=== PATIENT | female | born 1950 | race Caucasian/White ===

== ENCOUNTER → 2019-07-17 11:13 | Outpatient (BNVA) | payer MEDICARE, OTHER, SELFPAY | PROVIDERS: Family Provider Family Medicine; PCP Family Medicine; Visit Provider Family Medicine | DX: I10 Essential (primary) hypertension (principal); E78.5 Hyperlipidemia, unspecified; E11.9 Type 2 diabetes mellitus without complications; Z79.4 Long term (current) use of insulin; E55.9 Vitamin D deficiency, unspecified | CPT/HCPCS: 80053; 80061; 82044; 82306; 83036; 85025 ==

== ENCOUNTER → 2019-08-08 12:03 | Outpatient (BNVA) | payer MEDICARE, OTHER, SELFPAY | PROVIDERS: Family Provider Family Medicine; PCP Family Medicine; Visit Provider Specialist | DX: M25.561 Pain in right knee (principal); Z96.652 Presence of left artificial knee joint; M17.11 Unilateral primary osteoarthritis, right knee | CPT/HCPCS: 73560; 73565 ==

== ENCOUNTER → 2019-08-15 12:34 | Outpatient (BNVA) | payer MEDICARE, OTHER, SELFPAY | PROVIDERS: Family Provider Family Medicine; PCP Family Medicine; Visit Provider Family Medicine | DX: E78.2 Mixed hyperlipidemia (principal); M54.42 Lumbago with sciatica, left side; E11.9 Type 2 diabetes mellitus without complications; G89.29 Other chronic pain; Z79.4 Long term (current) use of insulin | CPT/HCPCS: 80053 ==

== ENCOUNTER 2019-09-13 11:56 | Outpatient (CLI) | payer MEDICARE, OTHER, SELFPAY ==
--- NOTE | 2019-09-13 12:00 | MM_ITS ---
WS: [id number] BILATERAL SCREENING DIGITAL MAMMOGRAM WITH CAD HISTORY: screening mammogram COMPARISON: 09/09/2016 Bilateral CC and MLO views submitted. Computer aided detection analyzed. Breast composition: There are scattered areas of fibroglandular density. No suspicious masses, microc alcifications or architectural distortion. Benign calcifications in each breast. MM/[place] [address] IMPRESSION: BI-RADS: 2-Benign FOLLOW UP: 1 Year Follow-up
== END 2019-09-13 11:57 | disposition home or self-care (01) ==
LOC: RADSHAW 12:03
PROVIDERS: PCP Family Medicine; Visit Provider Family Medicine
DX: Z12.31 Encounter for screening mammogram for malignant neoplasm of breast (principal)
CPT/HCPCS: 77067

== ENCOUNTER → 2019-10-06 14:50 | Outpatient (BNVA) | payer MEDICARE, OTHER, SELFPAY | PROVIDERS: PCP Family Medicine; Visit Provider Specialist | DX: M25.569 Pain in unspecified knee (principal) | CPT/HCPCS: 81003; 87081 ==

== ENCOUNTER → 2019-10-16 11:54 | Outpatient (BNVA) | payer MEDICARE, OTHER, SELFPAY | PROVIDERS: PCP Family Medicine; Visit Provider Family Medicine | DX: E11.9 Type 2 diabetes mellitus without complications (principal); Z79.4 Long term (current) use of insulin; R10.32 Left lower quadrant pain; M54.42 Lumbago with sciatica, left side | CPT/HCPCS: 80053; 83036 ==

== ENCOUNTER 2019-10-24 09:50 | Observation (INO) | payer MEDICARE, OTHER, SELFPAY ==
[2019-10-17 09:33] LABS: Add Urine Microscopic? NO
[2019-10-17 09:41] LABS: Bilirubin Urine 1+ (NEGATIVE); Blood Urine Neg (Negative); Glucose Urine UA Norm (Normal); Ketones Urine Negative (Negative); Leukocyte Esterase Urine Negative (Negative); Nitrate Urine Negative (Negative); Protein Urine Neg (Negative); Urine Appearance Clear (CLEAR); Urine Color Yellow (Yellow); Urobilinogen Urine 1 mg/dL (Negative)
[2019-10-17 09:44] VITALS: BMI 40.8
--- NOTE | 2019-10-17 10:07 | ECG_ITS ---
[facility] Test Date: 2019-10-17 Pat Name: Melissa De Jesus Department: Room: Gender: 1 Process Helper: : 1950 Requested By: Amina Ocampo Order Number: [id number] Hannon MD: Amanda Sanabria M.D. Measurements Intervals [place] Rate: 66 P: -12 VT: 131 QRS: 20 QRSD: 96 T: 12 QT: 388 QTc: 406 Interpretive Statements SINUS RHYTHM No previous ECG available for comparison Electronically Signed On 10-18-2019 14:16:42 CDT by Amanda Sanabria M.D. [email or web address]
--- NOTE | 2019-10-17 10:36 | P.ANESASSM_ITS ---
Pre-Anesthetic Assessment Pre-Anesthetic Assessment: Height/Weight: Height 1.63 m Weight 107.955 kg Preop Diagnosis: DJD right knee Proposed Procedure: Operation Date: 10/24/19 07:00 Proposed Procedures p Total Knee Arthroplasty 94427 M17.11(Right) - Funmi Stewart MD Familial anesthetic complications: None Social: Social History: No alcohol and No tobacco Exam: Pre-Anes Outpt Exam: alert, oriented x 3, clear to auscultation bilaterally and regular rate & rhythm Airway: Cervical ROM: Other (limited extesion (mild, due to surgery)) MP: 2 Dentition: Chipped Additional comments: missing Pulmonary: Pulmonary: None reported CV/HEM: CV/HEM: HTN : : None reported Hepatic: Hepatic: None reported GI: GI: GERD Metabolic: Metabolic: DM, Hyperlipidemia and Morbid obesity Musc/skel: Musc/skel: Lower Back Pain and OA/DJD Neuropsych: Neuropsych: None reported Anesthetic Plan: ASA status: 2 Anesthesia: General and Regional (specify below) Risk of > 500 ml blood loss (7ml/kg in children): No PFSH Anesthesia PFSH: Medical History (Updated 10/17/19 @ 09:38 by KROGNI) Controlled type 2 diabetes mellitus, with long-term current use of insulin Depression Diabetic neuropathy Enrolled in chronic care management Essential (primary) hypertension GERD (gastroesophageal reflux disease) Hyperlipidemia Insomnia, controlled Low back pain with left-sided sciatica Vitamin D deficiency Yeast dermatitis Surgical History H/O: hysterectomy History of back surgery History of neck surgery S/p bilateral carpal tunnel release S/P cholecystectomy Status post total knee replacement, left Remote Family History Other CAD (coronary artery disease) Diabetes Social History Smoking and tobacco status: never smoked Alcohol intake: never Lives independently: Yes Household members: spouse Marital status: Current gender identity: Female Female Reproductive History: Para: 3 Spontaneous abortions: No Data Anesthesia Other Labs: Laboratory Results - last 48 hr 10/17/19 09:20 Urine Color Yellow Urine Appearance Clear Urine pH 5.0 Ur Specific Center [place] 1.010 Urine Protein Neg Urine Glucose (UA) Norm Urine Ketones Negative Urine Blood Neg Urine Nitrate Negative Urine Bilirubin 1+ H Urine Urobilinogen 1 H Ur Leukocyte Esterase Negative Cardiac Studies: No Data to Display
[2019-10-17 10:39] LABS: Basophils # 0.1 10^3/uL (0.0-0.1); Basophils % 0.6 %; Eosinophils # 0.2 10^3/uL (0.0-0.8); Eosinophils % 2.4 %; Hematocrit 40.4 % (37.0-47.0); Hemoglobin 13.3 g/dL (11.5-15.3); Lymphocytes % 23.4 %; Mean Corpuscular HGB Conc 32.9 g/dL (30.0-36.0); Mean Corpuscular Hemoglobin 29.8 pg (28.0-34.0); Mean Corpuscular Volume 90.4 fL (81-99); Mean Platelet Volume 9.8 fL (7.4-10.4); Monocytes # 0.5 10^3/uL (0.2-0.9); Monocytes % 5.8 %; Neutrophils # 5.7 10^3/uL (1.8-7.7); Neutrophils % 67.2 %; Nucleated Red Blood Cells % 0 %; Platelet Count 281 10^3/cmm (130-400); Red Blood Count 4.47 10^6/uL (4.1-5.3); Red Cell Distribution Width 12.8 % (12.1-15.1); White Blood Count 8.5 10^3/uL (4.0-10.0)
[2019-10-24] VITALS (17 sets, daily range): BP systolic 102–158; BP diastolic 56–94; PULSE 85–98; RESP 16–20; TEMP 35.9–37.4; O2SAT 93–100
[2019-10-24] MEDS: CELEcoxib 200 mg Capsule 400 MG PO (05:37)
[2019-10-24 06:09] LABS: Glucose Point of Care 176 mg/dL (70-110)
[2019-10-24] MEDS: sodium chloride 0.9% 1,000 ML 30 ML IV ×2 (06:35→19:00)
[2019-10-24] MEDS: fentaNYL 50 mcg/mL INJ 2mL 100 MCG IVP (06:36)
[2019-10-24] MEDS: midazolam 1 mg/mL INJ 2 mL 2 MG IVP (06:36)
--- NOTE | 2019-10-24 06:42 | SUR.PREOP ---
person to notify, : [phone] and neighbor:Yvette [phone]
--- NOTE | 2019-10-24 06:53 | W.PM.OPSUD ---
Surgery/Procedure H&P Update DATE OF PROCEDURE: October 24, 2019 DATE H&P PERFORMED: 10/16/19 H&P UPDATE INFORMATION: I have reviewed H&P completed within last 30 days, I have examined patient prior to procedure and H&P is in [facility] EMR on date indicated PREOP DIAGNOSIS: DJD right knee PLANNED PROCEDURE: Operation Date: 10/24/19 07:00 Proposed Procedures p Total Knee Arthroplasty 68578 M17.11(Right) - Funmi Stewart MD
--- NOTE | 2019-10-24 06:58 | ANES.PROC ---
Anesthesia Procedures Procedure/Date: 10/24/19 Nerve Block ^: Nerve Block 1: Main Anesthesia: general anesthesia Time Out Performed: Yes Consent: requested by attending/covering physician, risks and benefits reviewed and patient agrees to proceed Nerve block location: adductor canal (right) Anesthesia monitors applied: pulse oximetry, EKG, BP cuff and oxygen Nerve block position: supine Anesthetic Used: ropivicaine 0.5% and with decadron (4mg) Amount of anesthesia used (mL): 30 Ultrasound used to: recognize landmarks Nerve Stimulator Used?: No Interscalene/Femoral BLK: 4 stimuplex 21 g needle used for position and inplane approach, visualize local anesthetic spread and no vascular puncture identified Injection: neg aspiration of heme Patient Tolerated Procedure: well and no complications Complications: none
[2019-10-24 07:22] LABS: Alanine Aminotransferase 61 U/L (0-33); Albumin Level 4.4 g/dL (3.5-5.2); Alkaline Phosphatase 63 IU/L (35-105); Anion Gap 18.7 (5-19); Aspartate Amino Transferase 49 U/L (0-32); Blood Urea Nitrogen 20 mg/dL (8-23); Calcium 10.5 mg/dL (8.5-10.5); Carbon Dioxide 25 mmol/L (22-29); Chloride 96 mmol/L (98-107); Globulin 2.4 g/dL (1.3-4.6); Glomerular Filtration Rate 54.8 mL/min (90-130); Glucose 188 mg/dL (65-115); Osmolality Calculated 286 mOsm/kg (285-295); Sodium 137 mmol/L (136-145); Total Bilirubin 0.4 mg/dL (0.15-1.2); Total Protein 6.8 g/dL (6.6-8.7)
[2019-10-24] MEDS: ceFAZolin 1,000 mg SDV 1000 MG IRRIGATION ×2 (07:54→07:55)
[2019-10-24] MEDS: vancomycin 1,000 MG SDV 1000 MG XX (07:54)
[2019-10-24 08:07] LABS: Potassium 2.7 mmol/L (3.5-5.1)
--- NOTE | 2019-10-24 08:28 | SUR.OPER ---
Family Notified Of Patient's Status Via Phone.
--- NOTE | 2019-10-24 09:59 | XRR_ITS ---
PROCEDURE INFORMATION: Exam: XR Right Knee Exam date and time: 10/24/2019 10:14 AM Age: 69 years old Clinical indication: Device placement; Joint replacement hardware; Prior surgery; Surgery date: Post-operative (0-2 days); Additional info: Post op TECHNIQUE: Imaging protocol: XR Right knee. Views: 1 or 2 views. COMPARISON: No relevant prior studies available. FINDINGS: Bones/joints: Right knee arthroplasty with anatomic alignment. Nonspecific vertically oriented radiolucency in the intramedullary cavity of the proximal right tibia. Correlation with preoperative radiographs is recommended. Soft tissues: Postoperative subcutaneous emphysema and intra-articular air. Skin jamil. 3 mm subcutaneous calcification. XR/XR knee RT 1-2V 08598 IMPRESSION: 1. Right knee arthroplasty with anatomic alignment. 2. Nonspecific vertically oriented radiolucency in the intramedullary cavity of the proximal right tibia. Correlation with preoperative radiographs is recommended.
[2019-10-24 10:08] LABS: Glucose Point of Care 193 mg/dL (70-110)
--- NOTE | 2019-10-24 10:13 | SUR.PHASEI ---
PT AWAKE ALERT ON 3LNC NOW, SATS 96% RESP EVEN AND UNLABORED PT SLEEPS IF NOT DISTURBED , AWAKES EASILY TO VOICE, PT MOVES RT TOE TO COMMAND, RT FOOT PULSE STRNG AND REGULAR, MARKED BILAT FOOT PUMPS ON , UBLLOCK TO DD STAT LOCK TO LT THIGH, YELLOW CLEAR URINE TO TUBING AND BAG IN SMALL AMT. DRESSING TO RT KNEE D/I FIRST ICE TO KNEE. X RAYS DONE TRACER CHECK DONE INDUSTRIAL TRAINER W. SMART OK WITH READING OF 193, NO FURTHER ORDERS IT IS COMING DOWN, IV NS AT MOD RATE, K 20 MEQ INFUSING PER PUMP AT 50ML/HR OR 10MEQ/HR
--- NOTE | 2019-10-24 10:13 | PM.OP ---
Operative Report Date of procedure: October 24, 2019 Pre-op Diagnosis: DJD right knee Post-op diagnosis: same Post-op Findings: Varus deformity with flexion contracture Procedure Done: Right Total knee arthroplasty utilizing the following components of the Torres triathlon total knee system: A size 5 triathlon Tritanium posterior stabilized right femoral component, a size 5 triathlon titanium tibial component with a size 5 x 9 mm X3 posterior stabilized tibial bearing insert, and an asymmetric patella size 38 mm x 11 mm Specimens removed/disposition: Bone, disposed of Pathology: none sent Surgeon: Funmi Stewart Grass Farm Laborer: Quincy Stewart Anesthesia: General (Intubated with preoperative block, ASA 2) Estimated blood loss (mL): 10 Tourniquet time (min): 117 Tourniquet time: At 250 mmHg IV fluids (mL): 1,000 Urine output (mL): 300 Complications: None Findings: Varus deformity with very large osteophytes particularly posteriorly, peripatellar, as well as superiorly, medially and laterally along the femur. Condition: stable Disposition: PACU (Then to floor for postoperative pain management and rehab) Brief History: This 69-year-old woman presented with complaints of severe right knee pain. She is having significant impact in her activities of daily living from her right knee. She wishes to proceed with total knee arthroplasty. Risks and complications are explained to her. Consents are signed. Questions are answered. Procedure: The patient was brought to the operating theater, and after undergoing adequate general intubated anesthesia with supplemental regional block, the right lower extremity was prepped with Dura-Prep and draped in usual fashion following placement of a tourniquet high on the leg. The leg was then draped free. Following prepping and draping, the leg was exsanguinated, and the tourniquet was elevated to 250 mmHg for a total tourniquet time of 117 minutes. Prior to elevation of the tourniquet, but following exposure of the site of surgery, a surgical pause was performed. At the time of the surgical pause, we confirmed the site and side of surgery. Additionally, we confirmed the appropriate and timely administration of preoperative antibiotics, Ancef 2 g and transexemic acid 1 g. The availability of equipment was confirmed, and the patient's identity was verbalized as well. Following the surgical pause, an incision was made centering over the patella continuing proximally and distally as necessary to allow access to the knee joint. Dissection continued through skin and soft tissues using a scalpel. Hemostasis was obtained using electrocautery. The skin incision was followed by a median parapatellar arthrotomy. The leg was extended and the patella was everted. Following this, the leg was returned to flexed position. The distal femur was exposed and a drill hole was made in this for placement of the distal femoral jig. The distal femoral jig was set at 5? of valgus. The distal femoral cutting block was then placed in appropriate position, and an harini wing was used to confirm an appropriate amount of distal femur would be resected. The distal femoral resection was accomplished with 10 mm of bone being resected distally second to the flexion contracture. After the distal femoral resection had been accomplished, the femur was measured and it measured a size 5. Medial lateral dimension also measured a size 5. A size 5 femoral cutting block was placed in position, and we were then able to accomplish the anterior, posterior and chamfer cuts. This jig was then removed and the notch guide was placed in position. With the notch guide in appropriate position, the notch was excised including resection of the anterior and posterior cruciate ligaments. This notch was to allow for the posterior stabilized femoral component. At this point, the femur was prepared and attention was directed to the proximal tibia. The posterior knee retractor was placed along with medial and lateral retractors. Further resection of the menisci was accomplished as we had better visualization. A complete meniscectomy was performed both medially and laterally with care being taken to protect the popliteus. Retractors were then placed so that the proximal tibia was well visualized. A drill hole was then made in the tibia for placement of the intramedullary guide. This guide was placed so that approximately 2 mm of bone would be resected from the deficient medial tibial plateau. The intramedullary guide was utilized supplemented with an extramedullary guide to assure appropriate alignment for the proximal tibial resection. The proximal tibial jig was then evaluated, pinned in position, and the proximal tibial resection was accomplished without difficulty. The jig was removed and the proximal tibia was measured. It measured a size 5. A trial reduction was accomplished with a 9 mm insert. Posterior release was required both before and after trial reduction. Large osteophytes were also removed from posterior. We then had good balance to the knee with full extension and excellent varus valgus stability. The femoral component was placed in position for the trial reduction, and the knee was placed through range of motion. There was excellent stability with excellent varus-valgus alignment with appropriate patellar tracking. This was felt to be the appropriate size insert. There was full extension and flexion without lift off and the rotation of the tibia was marked. Alignment was checked from the hip to the ankle, and this was noted to be appropriate as well. Attention was then directed to the patella. The patella was measured with a caliper. We resected sufficient patella to leave approximately 14 mm of patella remaining. Measurements of the patella then indicated that a size asymmetric 38 mm x 11 mm was the appropriate patellar size. We then placed the jig to drill for the 3 pegs of the press-fit patella, and these drill holes were made without incident. A trial patella was then placed and the knee was placed through range of motion. The patella was noted to track nicely without evidence of subluxation. The femur was prepared for a press-fit femur by drilling 2 holes for the femoral pegs. All trial components were subsequently removed. The tibial tray was then pinned into position, and we broached the tibia for the stem of the tibial component. Subsequently, 4 drill holes were made for placement of the press-fit tibia. This was accomplished without difficulty. Care was taken to assure appropriate rotation of the tibia as well as appropriate position on the proximal tibia. The tibial tray was completely seated on the proximal tibia. Following broaching, the tibial guide was removed, and all surfaces were copiously irrigated. The surfaces were then dried and a bone plug was placed into the distal femur. Exparel was also injected at this point. The Tritanium tibia was impacted into position. The beaded femur was then impacted into position in a cementless fashion. The tibial insert was placed. The patella was pressed into position with a patellar clamp. The knee was irrigated with 20 mL of Betadine and 500 mL of normal saline, and this was allowed to remain in the knee for 3-4 minutes. The knee was then copiously irrigated and suctioned dry. Attention was then directed to closure. Closure was accomplished with 0 Vicryl in the fascial tissues, 2-0 Monocryl was used in the subcutaneous tissues, and the skin was closed with skin jamil followed by Exofin. A sterile dressing was then placed consisting of Telfa, 4 x 4's, ABDs, sterile soft roll, and an Vinicio wrap. The patient was returned the Recovery Room in a satisfactory condition. X-rays were obtained there. The patient will be discharged to the floor for postoperative rehabilitation and pain management. She'll be under observation status with plans to discharge home with home health. Associated Problem List Diagnoses (1) Primary osteoarthritis of right knee:
--- NOTE | 2019-10-24 10:43 | SUR.PHASEI ---
1030 PT TO ROOM AWAKE ALERT HANDOFF AT BEDSIDE WITH RADHA RN, DRESSING D/I, STRONG PULSE TO DISTAL RT FOOT, BULLOCK PATENT YELLOW URINE, BP 122/79, HR 85, RESP 18, SATS ON 3LNC 95%
[2019-10-24] MEDS: CELEcoxib 200 mg Capsule PO (11:17)
[2019-10-24] MEDS: metroNIDAZOLE 500 MG Tablet PO ×2 (11:17→18:30)
[2019-10-24] MEDS: chlorhexidine gluconate 0.12% Btl 473 mL 30 ML MUCOUS MEM ×3 (13:34→21:32)
[2019-10-24 16:27] LABS: Anion Gap 16.3 (5-19); Blood Urea Nitrogen 20 mg/dL (8-23); Calcium 9.3 mg/dL (8.5-10.5); Carbon Dioxide 25 mmol/L (22-29); Chloride 95 mmol/L (98-107); Glomerular Filtration Rate 54.8 mL/min (90-130); Glucose 292 mg/dL (65-115); Osmolality Calculated 283 mOsm/kg (285-295); Potassium 3.3 mmol/L (3.5-5.1); Sodium 133 mmol/L (136-145)
[2019-10-24] MEDS: iron polysaccharide complex 150 mg Capsule PO (17:32)
[2019-10-24] MEDS: sennosides-docusate Tablet 2 TAB PO (17:32)
[2019-10-24] MEDS: calcium carbonate 500 mg Chew Tablet 1000 MG PO (17:33)
[2019-10-24] MEDS: metformin 500 mg Tablet 750 MG PO (21:30)
[2019-10-24] MEDS: trazodone 50 mg Tablet PO (21:31)
[2019-10-25] VITALS (7 sets, daily range): BP systolic 120–139; BP diastolic 72–80; PULSE 81–86; RESP 16–20; TEMP 36.5–37; O2SAT 93–95
[2019-10-25] MEDS: CELEcoxib 200 mg Capsule PO ×2 (00:32→10:52)
[2019-10-25] MEDS: metroNIDAZOLE 500 MG Tablet PO ×2 (03:28→10:52)
[2019-10-25 05:29] LABS: Basophils % 0.2 %; Eosinophils % 0.2 %; Hematocrit 32.9 % (37.0-47.0); Hemoglobin 10.9 g/dL (11.5-15.3); Lymphocytes # 1.7 10^3/uL (0.8-4.8); Lymphocytes % 13.2 %; Mean Corpuscular HGB Conc 33.1 g/dL (30.0-36.0); Mean Corpuscular Hemoglobin 29.9 pg (28.0-34.0); Mean Corpuscular Volume 90.1 fL (81-99); Mean Platelet Volume 9.6 fL (7.4-10.4); Monocytes # 1.1 10^3/uL (0.2-0.9); Monocytes % 8.7 %; Neutrophils # 9.7 10^3/uL (1.8-7.7); Neutrophils % 77.2 %; Nucleated Red Blood Cells % 0 %; Platelet Count 247 10^3/cmm (130-400); Red Blood Count 3.65 10^6/uL (4.1-5.3); Red Cell Distribution Width 13.1 % (12.1-15.1); White Blood Count 12.6 10^3/uL (4.0-10.0)
[2019-10-25] MEDS: venlafaxine ER (24HR) 150 mg Capsule PO (05:48)
[2019-10-25 05:53] LABS: Anion Gap 13.9 (5-19); Blood Urea Nitrogen 15 mg/dL (8-23); Calcium 9.1 mg/dL (8.5-10.5); Carbon Dioxide 27 mmol/L (22-29); Chloride 97 mmol/L (98-107); Glomerular Filtration Rate 61.9 mL/min (90-130); Glucose 179 mg/dL (65-115); Osmolality Calculated 281 mOsm/kg (285-295); Sodium 135 mmol/L (136-145)
[2019-10-25 05:55] LABS: Potassium 2.9 mmol/L (3.5-5.1)
[2019-10-25] MEDS: potassium chloride ER 10 mEq Tablet 40 MEQ PO (06:52)
--- NOTE | 2019-10-25 08:18 | ANE.PACU2 ---
Inpatient post-anesthesia follow up: Airway intact: Yes Vital signs: Temperature 97.7 F Pulse Rate 83 Respiratory Rate 18 Blood Pressure 120/78 Pulse Oximetry 95 Oxygen Delivery Me thod Nasal Cannula Oxygen Flow Rate 1.5 Fraction of Inspir ed Oxygen Hydration adequate: Yes Nausea and vomiting: No Pain level: 5 Mental status: Baseline
[2019-10-25 08:34] LABS: Magnesium 1.7 mg/dL (1.7-2.3)
[2019-10-25] MEDS: iron polysaccharide complex 150 mg Capsule PO ×2 (08:59→17:04)
[2019-10-25] MEDS: atorvastatin 40 mg Tablet 20 MG PO (09:00)
[2019-10-25] MEDS: multivitamin therapeutic Tablet 1 TAB PO (09:00)
[2019-10-25] MEDS: amlodipine 10 mg Tablet PO (09:00)
[2019-10-25] MEDS: pantoprazole DR 40 mg Tablet PO (09:01)
[2019-10-25] MEDS: sitagliptin 100 mg Tablet PO (09:01)
[2019-10-25] MEDS: sennosides-docusate Tablet 2 TAB PO (09:01)
[2019-10-25] MEDS: chlorthalidone 25 mg Tablet PO (09:02)
[2019-10-25] MEDS: calcium carbonate 500 mg Chew Tablet 1000 MG PO ×2 (09:02→17:04)
[2019-10-25] MEDS: aspirin 325 mg EC Tablet PO (09:02)
[2019-10-25] MEDS: chlorhexidine gluconate 0.12% Btl 473 mL 30 ML MUCOUS MEM ×3 (09:10→17:03)
--- NOTE | 2019-10-25 10:06 | PC.CHAP ---
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 drill operator pneumatic visit [] Patient/Family/Request visit [] Outpatient visit [] Follow-up visit [] Physician referral [] Code/Alert [x] Routine visit [] Staff referral [] Actively dying [] Patient sleeping [] Family support [] [] Out of room [] Palliative care [] [] Receiving care in room [] Pre-surgical visit [] Trauma [] Long length of stay [] ICU visit [] Other: Relational/Emotional Strength [] Patient feels connected with others/family/visitors/staff [] Distress [] Loneliness/isolation [] Abandonment Spirituality of Patient [] Person of Anitha [] Attends Mandaeism of their Anitha [] Believes in Prayer [] Reads Bible or Congregational materials [] There are Spiritual issues to be addressed Hadoop Analyst Interventions [x] Prayer [x] Active listening [x] Non-anxious presence [x] Spiritual/emotional support [] Crisis/trauma care [] Spiritual counseling [] Bereavement support [] Provided bereavement packet [] Provided Bible/devotional materials [] Provided toy/stuffed animal, coloring book to patient or family member [] Provided Communion [] Anointing/[place] [] Salvation [x] Completed spiritual assessment [] Other: Impact on Illness or Injury [] Angry [] Fearful [] Anxious [] Often cries [] Exhaustion [] Unable to work [] Unable to attend adventist [] Unable to walk/stand [] Unable to read [] Unable to drive [] Unable to eat/drink [] Unable to sleep [] Unable to be with family [] Patient intubated [] Other: Summary Patient looking forward to returning home. Feeling stronger, and knows the exercise that is involved after this surgery Time spent with patient 15 min
--- NOTE | 2019-10-25 10:19 | PM.DCS ---
Discharge Providers Date of Admission: 10/24/19 09:50 Date of Discharge: October 25, 2019 Attending Provider at Admission: Funmi Stewart MD Attending Provider at Discharge: Funmi Stewart MD Primary Care Provider: Devi Shaw DO Diagnoses at Discharge Discharge Diagnosis (1) S/P total knee arthroplasty: Status: Acute Qualifiers: Laterality: right Qualified Code(s): Z96.651 - Presence of right artificial knee joint (2) Primary osteoarthritis of right knee: Status: Resolved (3) Morbid obesity with BMI of 40.0-44.9, adult: Status: Acute Reason for Visit Reason for Visit: primary osteoarthrits right knee Hospital Course Hospital Course: Patient was for same-day surgery. She underwent the following procedure: Right Total knee arthroplasty utilizing the following components of the [place] triathlon total knee system: A size 5 triathlon Tritanium posterior stabilized right femoral component, a size 5 triathlon titanium tibial component with a size 5 x 9 mm X3 posterior stabilized tibial bearing insert, and an asymmetric patella size 38 mm x 11 mm on the day of admission. Patient was brought into the hospital under observation status. At the time of the patient's admission, she was found to have a low potassium. She had recently been started on chlorthalidone, and this is felt to possibly be responsible for her low potassium. The hospitalist team was consulted and they will adjust blood pressure medications appropriately and will be in contact with Dr. Shaw her primary care provider. In the meantime, her low potassium was treated intraoperatively and postoperatively on the floor as well. On the first postoperative day, the patient was doing well. Her wound was benign. She had no significant pain complaints. She will work with physical therapy. Plans are made for discharge to home. Discharge Summary: Patient was admitted as observation overnight and for physical therapy as noted above. She was admitted following her same-day total knee arthroplasty. Her hospital course was impacted by a low potassium. Dr. Owens from the medical service was consulted, and she will make adjustments to her outpatient medications. The patient worked with physical therapy and was felt to be safe for discharge home. She will follow-up with me in the office as previously scheduled. Physical Exam Const: COMMON NORMALS: no acute distress, average body habitus, patient oriented x3 and alert GENERAL APPEARANCE: cooperative and comfortable ORIENTATION/CONSCIOUSNESS: Yes awake HENMT: COMMON NORMALS: normocephalic and atraumatic HEAD & SCALP: normocephalic and atraumatic Eye: GENERAL EYE: appearance normal, both eyes and all related structures Chest: COMMONS NORMALS: normal inspection of the chest Resp: COMMON NORMALS: normal respiratory effort EFFORT & INSPECTION: Yes able to speak in complete sentences and Yes symmetric chest movement Extremity: GENERAL: Yes normal exam except as noted RIGHT LOWER EXTREMITY: Yes knee joint Right knee: Yes inspection (Upon evaluation, the patient was in the restroom. Dressing was removed by the nurse subsequent to this, and she notes the wound is benign with no drainage.) and Yes neurovascular exam (Intact distal to the fracture.) Neuro: COMMON NORMALS: patient oriented x3 SENSORIUM/ORIENTATION: Yes alert Psych: COMMON NORMALS: mental status grossly normal APPEARANCE: Yes grossly normal ATTITUDE: Yes calm and Yes engaged ATTENTION/CONCENTRATION: Yes attention grossly intact Skin: COMMON NORMALS: no rashes or lesions noted GENERAL SKIN EXAM: no rashes or lesions noted Urinary Catheter Management^: F: Cath Placed During This Visit: yes, but has since been removed by the nurse Reason for Continuing Indwelling Catheter: Decision to DC Catheter Urinary Catheter Date of Insertion: 10/24/19 Urinary Catheter Time of Insertion: 07:25 Date Urinary Catheter Removed: 10/25/19 Time Urinary Catheter Discontinued: 06:00 Discharge Data Data Completed and Pending: Completed Studies During Hospitalization Category Date Time Status XR knee RT 1-2V 7 [id number] Routine Exams 10/24/19 09:59 Completed Labs from last 24 hours 10/25/19 10/25/19 10/25/19 05:20 05:20 05:10 WBC 12.6 H RBC 3.65 L Hgb 10.9 L Hct 32.9 L MCV 90.1 MCH 29.9 MCHC 33.1 RDW 13.1 Plt Count 247 MPV 9.6 Neut % (Auto) 77.2 Lymph % (Auto) 13.2 [place] % (Auto) 8.7 Eos % (Auto) 0.2 Baso % (Auto) 0.2 Neut # (Auto) 9.7 H Lymph # (Auto) 1.7 [place] # (Auto) 1.1 H Eos # (Auto) 0.0 Baso # (Auto) 0.0 Nucleated RBC % (a uto) 0 Nucleated RBCs # 0.0 Sodium 135 L Potassium 2.9 L Chloride 97 L Carbon Dioxide 27 Anion Gap 13.9 BUN 15 Creatinine 0.9 GFR Calculation 61.9 L Glucose 179 H Calculated Osmolal ity 281 L Calcium 9.1 Magnesium 1.7 10/24/19 15:47 WBC RBC Hgb Hct MCV MCH MCHC RDW Plt Count MPV Neut % (Auto) Lymph % (Auto) [place] % (Auto) Eos % (Auto) Baso % (Auto) Neut # (Auto) Lymph # (Auto) [place] # (Auto) Eos # (Auto) Baso # (Auto) Nucleated RBC % (a uto) Nucleated RBCs # Sodium 133 L Potassium 3.3 L Chloride 95 L Carbon Dioxide 25 Anion Gap 16.3 BUN 20 Creatinine 1.0 H GFR Calculation 54.8 L Glucose 292 H Calculated Osmolal ity 283 L Calcium 9.3 Magnesium Vitals: Last Vital Signs Temp 97.7 F 10/25/19 07:44 Pulse 83 10/25/19 07:44 Resp 18 10/25/19 07:44 BP 120/78 10/25/19 07:44 Pulse Ox 95 10/25/19 07:44 Discharge Plan Discharge Patient Disposition: Home Health Service Condition: Stable Prescriptions: New oxycodone 5 mg Tablet 5 mg PO Q4H PRN (Reason: Moderate Pain) Qty: 30 RF: 0 aspirin 325 mg Tablet,Delayed Release (Dr/Ec) 325 mg PO DAILY Qty: 0 RF: 0 acetaminophen 500 mg Tablet 1,000 mg PO Q8H Qty: 0 RF: 0 celecoxib 200 mg Capsule 200 mg PO DAILY Qty: 30 RF: 0 Continued baclofen 5 mg tablet 5 mg PO TID PRN (Reason: muscle spasm) Qty: 90 RF: 1 ciprofloxacin HCl 500 mg tablet 500 mg PO BID Qty: 20 RF: 0 metronidazole [Flagyl] 500 mg tablet 500 mg PO Q8H Qty: 30 RF: 0 aspirin 81 mg tablet,delayed release (DR/EC) 243 mg PO ONCE RF: 0 Prevnar 13 (PF) 0.5 mL syringe 0.5 ml IM ONCE Qty: 1 RF: 0 Levemir FlexTouch U-100 Insuln 100 unit/mL (3 mL) insulin pen 14 unit SUBCUT QDAY RF: 0 (DME) pen needle, diabetic [TechLITE Pen Needle] 32 gauge x 5/32 needle See Rx Instructions .ROUTE .MEDSUPPLY Qty: 100 RF: 0 alprazolam [Xanax] 0.25 mg tablet 0.25 mg PO BID PRN (Reason: anxiety) Qty: 20 RF: 0 Dexilant 30 mg capsule,biphase delayed releas 30 mg PO .once daily Qty: 90 RF: 0 Ozempic 1 mg/dose (2 mg/1.5 mL) pen injector 1 mg SUBCUT .once weekly Qty: 3 RF: 0 venlafaxine 150 mg capsule,extended release 24hr 150 mg PO QAM Qty: 90 RF: 0 metformin 500 mg tablet extended release 24 hr 500 mg PO .once daily Qty: 90 RF: 0 trazodone 50 mg tablet 50 mg PO .QHS Qty: 30 RF: 1 amlodipine [Norvasc] 10 mg tablet 10 mg PO DAILY Qty: 30 RF: 1 Januvia 100 mg tablet 100 mg PO DAILY Qty: 30 RF: 1 atorvastatin 20 mg tablet 20 mg PO DAILY Qty: 30 RF: 1 metformin 750 mg tablet extended release 24 hr 750 mg PO BEDTIME RF: 0 Discontinued chlorthalidone 25 mg tablet 25 mg PO DAILY Qty: 30 RF: 1 Discharge Orders: Discharge Order (Routine); Ordered 10/24/19 Ordered By: Funmi Stewart Referrals: [facility] [place] [facility] ([facility]) [Outside] Funmi Stewart MD [Physician] - 11/10/19 9:15 am (Your first visit is for a nurse visit. If you have any issues prior to this visit please call the office for an appointment. Also, plan to follow-up with me on November 12 at 10:15 AM) Devi Shaw DO [Primary Care Provider] - 11/01/19 2:45 pm Discharge Diet: Advance as tolerated, Usual diet and Diabetic Discharge Activity: Increase activity as tolerated, Use walker/crutches as instructed and As per PT/OT instructions Activity Restrictions/Additional Instructions: Range of motion, gait training, and strengthening with home physical therapy as tolerated. Discharge Attestations Time Spent in Discharge Care*: greater than 30 min Quality Metrics Clinical Quality Measures During this hospital stay, did patient experience: None Coding Level of Care Code Acute Sliver Former for g Fwd Exam Comprehensive Diagnoses S/P total knee arthroplasty Z96.651 Laterality: right Primary osteoarthritis of right knee M17.11 Morbid obesity with BMI of 40.0-44.9, adult E66.01; Z68.41
[2019-10-25] MEDS: acetaminophen 500 mg Tablet 1000 MG PO (10:53)
[2019-10-25] MEDS: oxyCODONE 5 mg IR Tab/Cap PO ×2 (10:54→17:04)
--- NOTE | 2019-10-25 11:35 | P.CONIM_ITS ---
Providers/Reason For Consult Consulting Physican/Specialty*: Lorena Owens, hospitalist Reason for Consult*: Medical management, hypokalemia Requesting Physcian: Dr. Stewart, orthopedic surgery Attending Physician: Funmi Steawrt MD Primary Care Provider: Devi Shaw DO History of Present Illness History of Present Illness Melissa De Jesus is a 69 year old female with a past medical history of hypertension, gastroparesis, diabetes that presented to the hospital for scheduled total knee arthroplasty. She reports feeling well prior to surgery, no recent fevers or chills, no recent illness. She stated that she has not had any chest pain or shortness of breath. Patient reports that she was recently started on chlorthalidone to help with her blood pressure. Patient denies any other recent medication changes. Patient did well in the postoperative setting but was noted to have severe hypokalemia. Called for consultation Review of Systems Const: Denies: fever(s) or chills Eyes: Denies: change in vision ENMT: Denies: nasal congestion Card: Denies: chest pain, palpitations or edema Resp: Denies: dyspnea, productive cough or hemoptysis GI: Denies: abdominal pain, nausea, vomiting, diarrhea, constipation, hematochezia or melena : Denies: dysuria or hematuria Musc: Reports: extremity pain (Postoperative pain in the right knee); Denies: muscle cramps Skin/Breast: Denies: rash or new lesions Neuro: Denies: headache(s) or dizziness Psych: Denies: anxiety or depression Endo: Denies: polyuria or hot flashes Charly/Lymph: Denies: easy bruising or easy bleeding Meds/Allergies Home Medications and Allergies Home Medications Medication Instructions Recorded Confirmed Last Taken Type aspirin 81 mg tablet,delayed 243 mg PO ONCE tab 06/22/19 10/18/19 10/17/19 History release insulin detemir U-100 100 unit/mL 14 unit SUBCUT QDAY ml 07/17/19 10/24/19 10/23/19 21:30 History (3 mL) subcutaneous pen pen needle, diabetic 32 gauge x #100 each 08/24/19 10/18/19 Unknown Rx alprazolam 0.25 mg tablet 0.25 mg PO BID PRN #20 tab 08/31/19 10/24/19 10/10/19 Rx dexlansoprazole 30 mg 30 mg PO .once daily #90 cap 09/06/19 10/24/19 10/23/19 Rx capsule,biphase delayed release semaglutide 1 mg/dose (2 mg/1.5 1 mg SUBCUT .once weekly #3 ml 09/11/19 10/24/19 10/20/19 Rx mL) subcutaneous pen injector venlafaxine 150 mg 150 mg PO QAM #90 cap 09/13/19 10/24/19 10/23/19 Rx capsule,extended release 24 hr metformin 500 mg tablet,extended 500 mg PO .once daily #90 tab 10/02/19 10/24/19 10/23/19 Rx release 24 hr baclofen 5 mg tablet 5 mg PO TID PRN #90 tab 10/16/19 10/24/19 Unknown Rx ciprofloxacin HCl 500 mg tablet 500 mg PO BID #20 tab 10/16/19 10/24/19 10/16/19 Rx metronidazole 500 mg tablet 500 mg PO Q8H #30 tab 10/16/19 10/24/19 Unknown Rx amlodipine 10 mg tablet 10 mg PO DAILY #30 tab 10/18/19 10/24/19 10/24/19 04:30 Rx atorvastatin 20 mg tablet 20 mg PO DAILY #30 tab 10/18/19 10/24/19 10/23/19 Rx chlorthalidone 25 mg tablet 25 mg PO DAILY #30 tab 10/18/19 10/24/19 10/23/19 Rx sitagliptin 100 mg tablet 100 mg PO DAILY #30 tab 10/18/19 10/24/19 10/23/19 Rx trazodone 50 mg tablet 50 mg PO .QHS #30 tab 10/18/19 10/24/19 10/23/19 Rx metformin 750 mg PO BEDTIME 10/24/19 10/24/19 10/23/19 History oxycodone 5 mg PO Q4H PRN #30 tab 10/25/19 Unknown Rx Allergies Allergy/AdvReac Type Severity Reaction Status Date / Time Iodinated Contrast Media Allergy Unknown Verified 10/17/19 09:36 meperidine [From Demerol] Allergy HIVES Verified 10/17/19 09:36 shellfish derived Allergy ANAPHYLAXIS Verified 10/17/19 09:36 Current Medications Current Medications Generic Name Dose Route Start Last Admin Trade Name Kentrellq PRN Reason Stop Dose Admin Acetaminophen 1,000 mg 10/24/19 10:35 10/25/19 10:53 Tylenol PO 1,000 mg Q8H BRII Administration Amlodipine Besylate 10 mg 10/25/19 09:00 10/25/19 09:00 Norvasc PO 10 mg DAILY BRII Administration Aspirin 325 mg 10/25/19 09:00 10/25/19 09:02 Aspirin Ec PO 325 mg DAILY BRII Administration Atorvastatin Calcium 20 mg 10/25/19 09:00 10/25/19 09:00 Lipitor PO 20 mg DAILY BRII Administration Calcium Carbonate 1,000 mg 10/24/19 18:00 10/25/19 09:02 Tums PO 1,000 mg BID BRII Administration Celecoxib 200 mg 10/24/19 11:30 10/25/19 10:52 Celebrex PO 200 mg Q12H BRII Administration Chlorhexidine Gluconate 30 ml 10/24/19 13:00 10/25/19 09:10 Perigard MUCOUS MEM 30 ml QID [facility] Administration Insulin Detemir 14 unit 10/25/19 09:00 10/25/19 09:03 Levemir SUBCUT 14 unit DAILY [facility] Administration Metformin HCl 500 mg 10/25/19 08:00 10/25/19 08:59 Glucophage Xr PO Not Given BREAKFAST [facility] Metformin HCl 750 mg 10/24/19 21:00 10/24/19 21:30 Glucophage PO 750 mg BEDTIME BRII Administration Metronidazole 500 mg 10/24/19 11:00 10/25/19 10:52 Flagyl Tab PO 500 mg Q8H [facility] Administration Multivitamins Therapeutic 1 tab 10/25/19 09:00 10/25/19 09:00 Multivitamin Tab PO 1 tab DAILY [facility] Administration Oxycodone HCl 5 mg 10/24/19 10:35 10/25/19 10:54 Oxycodone Ir PO 5 mg Q4H PRN Administration MODERATE PAIN Pantoprazole Sodium 40 mg 10/25/19 09:00 10/25/19 09:01 Protonix PO 40 mg DAILY [facility] Administration Polysaccharide Iron Complex 150 mg 10/24/19 18:00 10/25/19 08:59 Ferrex PO 150 mg BIDWM [facility] Administration Senna/Docusate Sodium 2 tab 10/24/19 18:00 10/25/19 09:01 Senna-S PO 2 tab BID BRII Administration Sitagliptin Phosphate 100 mg 10/25/19 09:00 10/25/19 09:01 Januvia PO 100 mg DAILY [facility]II Administration Trazodone HCl 50 mg 10/24/19 21:00 10/24/19 21:31 Desyrel PO 50 mg BEDTIME BRII Administration Venlafaxine HCl 150 mg 10/25/19 06:00 10/25/19 05:48 Effexor Xr PO 150 mg QAM [facility]II Administration Vitamin D 1,000 unit 10/25/19 09:00 10/25/19 09:03 Vitamin D3 PO Not Given DAILY BRII PFSH Acute PFSH: Medical History Controlled type 2 diabetes mellitus, with long-term current use of insulin Depression Diabetic neuropathy Enrolled in chronic care management Essential (primary) hypertension GERD (gastroesophageal reflux disease) Hyperlipidemia Insomnia, controlled Low back pain with left-sided sciatica Vitamin D deficiency Yeast dermatitis Surgical History H/O: hysterectomy History of back surgery History of neck surgery S/p bilateral carpal tunnel release S/P cholecystectomy Status post total knee replacement, left Remote Family History Other CAD (coronary artery disease) Diabetes Social History Smoking and tobacco status: never smoked Alcohol intake: never Lives independently: Yes Household members: spouse Marital status: Current gender identity: Female Female Reproductive History: Para: 3 Spontaneous abortions: No Vitals/I&O/Wt Last Vital Signs Temp 98.6 F 10/25/19 11:00 Pulse 81 10/25/19 11:00 Resp 18 10/25/19 11:00 BP 136/72 10/25/19 11:00 Pulse Ox 94 10/25/19 11:00 10/24/19 10/25/19 10/25/19 22:59 06:59 14:59 Intake Total 390 / 2130 440 / 440 Output Total 900 / 1520 2500 / 4020 Balance -510 / 610 -2500 / -1890 440 / 440 Physical Exam Const: COMMON NORMALS: patient oriented x3 and alert GENERAL APPEARANCE: cooperative ORIENTATION/CONSCIOUSNESS: Yes awake, Yes oriented to person, Yes oriented to place and Yes oriented to time HENMT: COMMON NORMALS: normocephalic and atraumatic HEAD & SCALP: normocephalic and atraumatic Eye: COMMON NORMALS: Equal, round and reactive pupils present PUPIL: Yes Equal, round and reactive pupils present Neck/C-Spine: COMMON NORMALS: supple GENERAL: Yes normal visual inspection Resp: COMMON NORMALS: normal respiratory effort and clear to auscultation bilaterally EFFORT & INSPECTION: Yes able to speak in complete sentences AUSCULTATION: clear to auscultation bilaterally, no rhonchi and no wheezes Cardio: COMMON NORMALS: regular rate, regular rhythm and No murmurs present (Cardio) RATE: regular rate RHYTHM: regular rhythm GI: INSPECTION: No abdominal distension AUSCULTATION: Yes normoactive bowel sounds OTHER: Obese, soft, nontender, normal bowel sounds Extremity: COMMON NORMALS: no calf tenderness NARRATIVE EXTREMITY EXAM: Postoperative dressing in place over the right knee, no surrounding erythema or drainage Neuro: COMMON NORMALS: patient oriented x3, CN's II-XII intact bilaterally, moves all extremities and no focal motor deficits SENSORIUM/ORIENTATION: Yes alert, Yes oriented to person, Yes oriented to place and Yes oriented to time SPEECH: speech normal Psych: COMMON NORMALS: mental status grossly normal and cooperative Skin: COMMON NORMALS: no rashes or lesions noted GENERAL SKIN EXAM: no ra shes or lesions noted Urinary Catheter Management^: F: Cath Placed During This Visit: yes, but has since been removed by the nurse Reason for Continuing Indwelling Catheter: Decision to DC Catheter Urinary Catheter Date of Insertion: 10/24/19 Urinary Catheter Time of Insertion: 07:25 Date Urinary Catheter Removed: 10/25/19 Time Urinary Catheter Discontinued: 06:00 A&P Assessment and plan (1) S/P total knee arthroplasty: Follow-up with recommendations from primary surgeon, Dr. Stewart Case management consulted with possible discharge to home health Status: Acute Qualifiers: Laterality: right Qualified Code(s): Z96.651 - Presence of right artificial knee joint (2) Hypokalemia: Patient with hypokalemia, likely secondary to chlorthalidone along with decreased intake over the past days and prior to surgery We will continue with potassium replacement, 40 mEq given this morning, with recheck pending Magnesium within normal limits Recommend holding chlorthalidone at this time, blood pressure remained stable We will discuss with primary care provider. Status: Acute (3) Essential (primary) hypertension: Hold chlorthalidone due to hypokalemia as noted above Continue amlodipine 10 mg daily Status: Acute (4) Hyperlipidemia: Continue home statin Status: Chronic Qualifiers: Hyperlipidemia type: mixed hyperlipidemia Qualified Code(s): E78.2 - Mixed hyperlipidemia (5) Controlled type 2 diabetes mellitus, with long-term current use of insulin: Continue with Levemir 14 units daily along with metformin Status: Chronic Qualifiers: Diabetes mellitus complication status: without complication Qualified Code(s): E11.9 - Type 2 diabetes mellitus without complications; 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 If patient's blood pressure remained stable and potassium improves consider discharge to home with home health today pending orthopedic surgery evaluation. If patient is stable for discharge would recommend outpatient BMP in 1 to 2 days with 20 mEq of potassium for 2 days until recheck potassium can be performed. Coding Level of Care Code Acute Director Of Valuation for Chg Fwd Diagnoses S/P total knee arthroplasty Z96.651 Laterality: right Hypokalemia E87.6 Essential (primary) hypertension I10 Hyperlipidemia E78.2 Hyperlipidemia type: mixed hyperlipidemia Controlled type 2 diabetes mellitus, with long-term current use of insulin E11.9; Z79.4 Diabetes mellitus complication status: without complication GERD (gastroesophageal reflux disease) K21.9 Esophagitis presence: without esophagitis
[2019-10-25 11:36] LABS: Glucose Point of Care 209 mg/dL (70-110)
[2019-10-25 15:44] LABS: Potassium 3.4 mmol/L (3.5-5.1)
== END 2019-10-25 17:07 | disposition home health service (06) ==
LOC: MEDSURG 09:51
PROVIDERS: Family Medicine; Admitting Provider Specialist; PCP Family Medicine; Visit Provider Specialist
PROC: (CPT 27447; principal; 2019-10-24 07:00)
DX: M17.11 Unilateral primary osteoarthritis, right knee (principal); I10 Essential (primary) hypertension; Z79.82 Long term (current) use of aspirin; Z79.4 Long term (current) use of insulin; E11.40 Type 2 diabetes mellitus with diabetic neuropathy, unspecified; F32.9 Major depressive disorder, single episode, unspecified; K21.9 Gastro-esophageal reflux disease without esophagitis; E78.2 Mixed hyperlipidemia; E55.9 Vitamin D deficiency, unspecified; E87.6 Hypokalemia; E66.01 Morbid (severe) obesity due to excess calories; Z68.41 Body mass index [BMI] 40.0-44.9, adult
CPT/HCPCS: 27447; 12345; 36415; 36416; 51702; 73560; 80048; 80053; 81003; 82962; 83735; 84132; 85025; 93005; 96372; 96374; 96375; 97110; 97116; 97161; 97166; 97530; C1776; C9290; G0378; J0131; J0690; J1100; J1815; J2250; J2405; J2704; J2795; J3010; J3370; J3490; J7030

== ENCOUNTER → 2019-11-01 15:27 | Outpatient (BNVA) | payer MEDICARE, SELFPAY | PROVIDERS: PCP Family Medicine; Visit Provider Family Medicine | DX: E87.6 Hypokalemia (principal) | CPT/HCPCS: 80048 ==

== ENCOUNTER 2019-11-13 10:14 | Outpatient (CLI) | payer MEDICARE, OTHER, SELFPAY ==
--- NOTE | 2019-11-13 10:22 | XR_ITS ---
WS: [id number] Right knee, standing AP views of both knees, lateral and patellar view of the right knee, 11/13/2019 Clinical Data: post operative follow up Comparison: Right knee, 10/24/2019. Findings: Patient's had bilateral arthroplasties which appear to be intact. The lateral view of the right knee and patellar view of the right patella show the components to be in good position. The soft tissues a re unremarkable. XR/XR knees AP WB w RT lmt ORTH Impression: Bilateral knee arthroplasties.
== END 2019-11-13 10:15 | disposition home or self-care (01) ==
LOC: RAD 10:19
PROVIDERS: PCP Family Medicine; Visit Provider Specialist
DX: Z96.643 Presence of artificial hip joint, bilateral (principal)
CPT/HCPCS: 73560; 73565

== ENCOUNTER → 2019-12-25 09:58 | Outpatient (BNVA) | payer MEDICARE, OTHER, SELFPAY | PROVIDERS: PCP Family Medicine; Visit Provider Specialist | DX: Z47.1 Aftercare following joint replacement surgery (principal); Z96.651 Presence of right artificial knee joint | CPT/HCPCS: 73560; 73565 ==

== ENCOUNTER → 2019-12-28 11:08 | Outpatient (BNVA) | payer MEDICARE, OTHER, SELFPAY | PROVIDERS: PCP Family Medicine; Visit Provider Nurse Practitioner | DX: R35.0 Frequency of micturition (principal); N39.0 Urinary tract infection, site not specified | CPT/HCPCS: 81000; 87086 ==

== ENCOUNTER → 2020-01-12 13:41 | Outpatient (BNVA) | payer MEDICARE, OTHER, SELFPAY | PROVIDERS: PCP Family Medicine; Visit Provider Family Medicine | DX: I10 Essential (primary) hypertension (principal); M54.5 Low back pain; G89.29 Other chronic pain | CPT/HCPCS: 80048 ==

== ENCOUNTER → 2020-02-02 10:37 | Outpatient (BNVA) | payer MEDICARE, OTHER, SELFPAY | PROVIDERS: PCP Family Medicine; Visit Provider Family Medicine | DX: I10 Essential (primary) hypertension (principal); M54.5 Low back pain; G89.29 Other chronic pain; Z79.4 Long term (current) use of insulin; E11.9 Type 2 diabetes mellitus without complications | CPT/HCPCS: 80053; 83036 ==

== ENCOUNTER → 2020-02-22 08:46 | Outpatient (BNVA) | payer MEDICARE, OTHER, SELFPAY | PROVIDERS: PCP Family Medicine; Visit Provider Specialist | DX: Z96.651 Presence of right artificial knee joint (principal) | CPT/HCPCS: 73560; 73565 ==

== ENCOUNTER → 2020-06-14 08:44 | Outpatient (BNVA) | payer MEDICARE, OTHER, SELFPAY | PROVIDERS: PCP Family Medicine; Visit Provider Family Medicine | DX: I10 Essential (primary) hypertension (principal); E78.2 Mixed hyperlipidemia; E11.9 Type 2 diabetes mellitus without complications; Z79.4 Long term (current) use of insulin; K21.9 Gastro-esophageal reflux disease without esophagitis | CPT/HCPCS: 80053; 80061; 82043; 83036; 85025 ==

== ENCOUNTER → 2020-09-02 10:36 | Outpatient (BNVA) | payer MEDICARE, OTHER, SELFPAY | PROVIDERS: PCP Family Medicine; Visit Provider Family Medicine | DX: E11.9 Type 2 diabetes mellitus without complications (principal); Z79.4 Long term (current) use of insulin; I10 Essential (primary) hypertension; E78.2 Mixed hyperlipidemia | CPT/HCPCS: 80053; 83036 ==

== ENCOUNTER 2020-11-11 20:58 | Emergency (ER) | payer MEDICARE, OTHER, SELFPAY ==
[2020-11-11 21:00] VITALS: PULSE 62; RESP 16; TEMP 37.3; O2SAT 95; BMI 41.6
--- NOTE | 2020-11-11 21:10 | CTR_ITS ---
PROCEDURE INFORMATION: Exam: CT Cervical Spine Without Contrast Exam date and time: 11/11/2020 9:10 PM Age: 70 years old Clinical indication: Injury or trauma; Fall; Blunt trauma; Injury details: Fell backwards in chair. Hit head. Pain in head and neck; Prior surgery TECHNIQUE: Imaging protocol: Computed tomography images of the cervical spine without contrast. Radiation optimization: All CT scans at this facility use at least one of these dose optimization techniques: automated exposure control; mA and/or kV adjustment per patient size (includes targeted exams where dose is matched to clinical indication); or iterative reconstruction. COMPARISON: CR XR knees AP WB w RT lmt ORTH 02/22/2020 8:52 AM RADIATION DOSE METRICS: Total DLP (mGy-cm): 736.87 FINDINGS: Vertebrae: No acute fractures. Unremarkable cervical spine alignment. ACDF in the midcervical spine at C4-C5 without complication.The cervical spine demonstrates marked degenerative changes at multiple levels. Demineralized bones. Soft tissues: Unremarkable. Vasculature: Bilateral carotid artery bulb atherosclerotic calcifications. Lungs: Lung apices are normal. CT/CT cervical spin wo con* [id number] IMPRESSION: Negative for acute cervical spine injury. Radiation Dose CTDIVOL = (mGy): DLP = 736.87 (mGy-cm)
--- NOTE | 2020-11-11 21:10 | CTR_ITS ---
PROCEDURE INFORMATION: Exam: CT Head Without Contrast Exam date and time: 11/11/2020 9:10 PM Age: 70 years old Clinical indication: Injury or trauma; Fall; Blunt trauma (contusions or hematomas); Injury details: Fell backwards in chair. Hit head. Pain in head and neck TECHNIQUE: Imaging protocol: Computed tomography of the head without contrast. Radiation optimization: All CT scans at this facility use at least one of these dose optimization techniques: automated exposure control; mA and/or kV adjustment per patient size (includes targeted exams where dose is matched to clinical indication); or iterative reconstruction. COMPARISON: CT head wo con* [id number] 07/20/2018 9:06 AM RADIATION DOSE METRICS: Total DLP (mGy-cm): 1079.66 FINDINGS: Brain: Normal. No hemorrhage. Unremarkable white matter. No mass effect. Cerebral ventricles: No ventriculomegaly. Paranasal sinuses: Visualized sinuses are unremarkable. No fluid levels. Mastoid air cells: Visualized mastoid air cells are well aerated. Bones/joints: Unremarkable. No acute fracture. Soft tissues: Unremarkable. CT/CT head wo con* [id number] IMPRESSION: No acute intracranial abnormality. Radiation Dose CTDIVOL = (mGy): DLP = 1079.66 (mGy-cm)
[2020-11-11 21:13] VITALS: BP 179/97; PULSE 68; RESP 16; TEMP 37.3; O2SAT 95
--- NOTE | 2020-11-11 21:15 | ED_ITS ---
HPI - Neck Pain/Injury General: Chief Complaint: Neck Pain/Injury Stated Complaint: fall hit back of neck Time Seen by Provider: 11/11/20 20:59 Source: patient and EMS Mode of arrival: EMS Limitations: no limitations History of Present Illness: HPI Narrative: 70-year-old female who states she is sitting in her chair and fell out backwards. She states that she hit her head and has had mild headache and severe neck pain since this. States this happened roughly 1 hour ago. She has had neck surgery previously she had a C1- C2 fusion 10 to 15 years ago. States the pain is in the middle of her lower C- spine and rates it a 9 out of 10. She denies any weakness to her arms or tingling down her arms. Denies any other injuries. She was able to ambulate at the scene. Associated symptoms: Reports headache(s); Denies nausea Review of Systems Const: Denies: fever(s), chills, body aches or change in appetite Eyes: Denies: blurry vision or eye discomfort ENMT: Denies: throat pain or dental pain Card: Denies: chest pain Resp: Denies: dyspnea GI: Denies: abdominal pain, nausea, vomiting or diarrhea : Denies: dysuria Musc: Reports: neck pain; Denies: back pain Skin/Breast: Denies: rash Neuro: Reports: headache(s) Psych: Denies: depression Charly/Lymph: Denies: easy bruising All/Imm: Denies: urticaria PFSH ED PFSH: Medical History Controlled type 2 diabetes mellitus, with long-term current use of insulin Depression Diabetic neuropathy Diverticulitis Essential (primary) hypertension GERD (gastroesophageal reflux disease) Hyperlipidemia Insomnia, controlled Vitamin D deficiency Yeast dermatitis Surgical History H/O: hysterectomy History of back surgery History of colonoscopy History of neck surgery S/p bilateral carpal tunnel release S/P cholecystectomy Status post total knee replacement, left Remote Family History Other CAD (coronary artery disease) Diabetes Social History Smoking and tobacco status: never smoked Alcohol intake: never Lives independently: Yes Household members: spouse Marital status: Current gender identity: Female Female Reproductive History: Para: 3 Spontaneous abortions: No Physical Exam Const: COMMON NORMALS: no acute distress, patient oriented x3 and healthy appearing HENMT: COMMON NORMALS: normocephalic and atraumatic HEAD & SCALP: normocephalic and atraumatic Eye: COMMON NORMALS: Equal, round and reactive pupils present and EOMs intact bilaterally PUPIL: Yes Equal, round and reactive pupils present Neck/C-Spine: OTHER: Currently in c-collar complaining of neck pain Chest: COMMONS NORMALS: normal inspection of the chest and normal palpation of entire chest wall Resp: COMMON NORMALS: normal respiratory effort, No retractions, No use of accessory muscles and clear to auscultation bilaterally AUSCULTATION: clear to auscultation bilaterally Cardio: COMMON NORMALS: regular rate, regular rhythm and No murmurs present (Cardio) RATE: regular rate RHYTHM: regular rhythm GI: COMMON NORMALS: Normal to inspection, nondistended, normoactive bowel sounds present, Soft to palpation, non-tender and no masses PALPATION: Yes Soft to palpation Extremity: COMMON NORMALS: normal to inspection and full ROM Neuro: COMMON NORMALS: patient oriented x3, moves all extremities and no focal motor deficits Psych: COMMON NORMALS: mental status grossly normal, Normal thought process present and cooperative THOUGHT PROCESS: Normal thought process present Skin: COMMON NORMALS: no rashes or lesions noted and no wounds GENERAL SKIN EXAM: no rashes or lesions noted Course Vital Signs: Vital signs: Vital Signs Temperature 99.1 F 11/11/20 21:13 Pulse Rate 58 L 11/11/20 22:15 Respiratory Rate 15 11/11/20 22:20 Blood Pressure 165/93 11/11/20 22:15 Pulse Oximetry 96 11/11/20 22:20 MDM - Neck Pain/Injury MDM Narrative: Medical decision making narrative: Melissa presents here after a fall with neck pain. Her neck CT here is negative with no signs of fracture. Head CT is normal as well. Her pain is improved here for IV pain medicine. She has no neurologic deficits with no numbness or weakness to her upper extremities. Patient is amatory. She is stable for discharge and return if worsening. Imaging Data^: CT Head: Attestation: I personally reviewed and interpreted this imaging study as follows: Radiologist's impression: [facility] [address] [place] [address]. [place] [address] CT Scan Report Signed Patient: Melissa De Jesus Unit #: [id number] : 1950 Age/Sex: 70 / F ADM Date: 11/11/20 Loc: ER Room/Bed: Attending Dr: Ordering Provider/Ordering MD: Karely Shultz MD Date of Service: 11/11/20 Procedure(s): CT head wo con* [id number] Accession Number(s): [id number] Report Number: [id number] PROCEDURE INFORMATION: Exam: CT Head Without Contrast Exam date and time: 11/11/2020 9:10 PM Age: 70 years old Clinical indication: Injury or trauma; Fall; Blunt trauma (contusions or hematomas); Injury details: Fell backwards in chair. Hit head. Pain in head and neck TECHNIQUE: Imaging protocol: Computed tomography of the head without contrast. Radiation optimization: All CT scans at this facility use at least one of these dose optimization techniques: automated exposure control; mA and/or kV adjustment per patient size (includes targeted exams where dose is matched to clinical indication); or iterative reconstruction. COMPARISON: CT head wo con* [id number] 07/20/2018 9:06 AM RADIATION DOSE METRICS: Total DLP (mGy-cm): 1079.66 FINDINGS: Brain: Normal. No hemorrhage. Unremarkable white matter. No mass effect. Cerebral ventricles: No ventriculomegaly. Paranasal sinuses: Visualized sinuses are unremarkable. No fluid levels. Mastoid air cells: Visualized mastoid air cells are well aerated. Bones/joints: Unremarkable. No acute fracture. Soft tissues: Unremarkable. CT/CT head wo con* [id number] IMPRESSION: No acute intracranial abnormality. Radiation Dose CTDIVOL = (mGy): DLP = 1079.66 (mGy-cm) ct c spine: Radiologist's impression: [facility] [address] [facility] [place] [address] CT Scan Report Signed Patient: Melissa De Jesus Unit #: [id number] : 1950 A cct#:[id number] Age/Sex: 70 / F ADM Date: 11/11/20 Loc: ER Room/Bed: Attending Dr: Ordering Provider/Ordering MD: Karely Shultz MD Date of Service: 11/11/20 Procedure(s): CT cervical spin wo con* [id number] Accession Number(s): [id number] Report Number: [id number] PROCEDURE INFORMATION: Exam: CT Cervical Spine Without Contrast Exam date and time: 11/11/2020 9:10 PM Age: 70 years old Clinical indication: Injury or trauma; Fall; Blunt trauma; Injury details: Fell backwards in chair. Hit head. Pain in head and neck; Prior surgery TECHNIQUE: Imaging protocol: Computed tomography images of the cervical spine without contrast. Radiation optimization: All CT scans at this facility use at least one of these dose optimization techniques: automated exposure control; mA and/or kV adjustment per patient size (includes targeted exams where dose is matched to clinical indication); or iterative reconstruction. COMPARISON: CR XR knees AP WB w RT lmt ORTH 02/22/2020 8:52 AM RADIATION DOSE METRICS: Total DLP (mGy-cm): 736.87 FINDINGS: Vertebrae: No acute fractures. Unremarkable cervical spine alignment. ACDF in the midcervical spine at C4-C5 without complication.The cervical spine demonstrates marked degenerative changes at multiple levels. Demineralized bones. Soft tissues: Unremarkable. Vasculature: Bilateral carotid artery bulb atherosclerotic calcifications. Lungs: Lung apices are normal. CT/CT cervical spin wo con* [id number] IMPRESSION: Negative for acute cervical spine injury. Radiation Dose CTDIVOL = (mGy): DLP = 736.87 (mGy-cm) Discharge Plan Discharge Patient Disposition: Home Clinical Impression: Strain of neck muscle Qualifiers: Encounter type: initial encounter Qualified Code(s): S16.1XXA - Strain of muscle, fascia and tendon at neck level, initial encounter Fall Qualifiers: Encounter type: initial encounter Qualified Code(s): W19.XXXA - Unspecified fall, initial encounter Condition: Stable Prescriptions: New hydrocodone-acetaminophen 5-325 mg tablet 1 tab PO Q6H PRN (Reason: pain) Qty: 14 RF: 0 No Action loratadine [Claritin] 10 mg tablet 10 mg PO DAILY RF: 0 Prevnar 13 (PF) 0.5 mL syringe 0.5 ml IM ONCE Qty: 1 RF: 0 atorvastatin 20 mg tablet 20 mg PO DAILY Qty: 90 RF: 1 (DME) pen needle, diabetic [TechLITE Pen Needle] 32 gauge x 5/32 needle See Rx Instructions .ROUTE .MEDSUPPLY Qty: 100 RF: 4 Levemir FlexTouch U-100 Insuln 100 unit/mL (3 mL) insulin pen 14 unit SUBCUT QDAY Qty: 3 RF: 0 venlafaxine 150 mg capsule,extended release 24hr 150 mg PO QAM Qty: 90 RF: 1 metoprolol succinate 50 mg tablet extended release 24 hr 50 mg PO DAILY Qty: 90 RF: 1 amlodipine [Norvasc] 10 mg tablet 10 mg PO DAILY Qty: 90 RF: 1 (DME) Accu-Chek Leeann Plus test strp Strip See Rx Instructions .ROUTE .MEDSUPPLY Qty: 100 RF: 5 Dexilant 30 mg capsule,biphase delayed releas 30 mg PO .once daily Qty: 90 RF: 1 trazodone 50 mg tablet 50 mg PO .QHS Qty: 30 RF: 4 Januvia 100 mg tablet 100 mg PO DAILY Qty: 30 RF: 0 aspirin 325 mg Tablet,Delayed Release (Dr/Ec) 325 mg PO DAILY Qty: 0 RF: 0 acetaminophen 500 mg Tablet 1,000 mg PO Q8H Qty: 0 RF: 0 Discharge Orders: Discharge ED (Routine); Ordered 11/11/20 Ordered By: Karley Shultz Referrals: Devi Shaw DO [Primary Care Provider] - 1-3 days Discharge Diet: Advance as tolerated Discharge Activity: Resume usual activity Patient Instructions: Cervical Spine Strain (ED), Opioid Safety Coding Level of Care Code ED Land Surveyor Assistant for Chg Fwd Exam Comprehensive
[2020-11-11 21:19] VITALS: RESP 16; O2SAT 95
[2020-11-11] MEDS: morphine 4 mg/mL SDV 1 mL IVP ×2 (21:19→22:20)
[2020-11-11 21:38] VITALS: BP 154/102; PULSE 60; RESP 15; O2SAT 94
[2020-11-11 22:15] VITALS: BP 165/93; PULSE 58; RESP 16; O2SAT 93
[2020-11-11 22:20] VITALS: RESP 15; O2SAT 96
== END 2020-11-11 22:45 | disposition home or self-care (01) ==
PROVIDERS: Emergency Provider Emergency Medicine; PCP Family Medicine
DX: S16.1XXA Strain of muscle, fascia and tendon at neck level, initial encounter (principal); W07.XXXA Fall from chair, initial encounter
CPT/HCPCS: 70450; 72125; 96374; 96375; 99283; J2270

== ENCOUNTER → 2020-11-29 10:19 | Outpatient (BNVA) | payer MEDICARE, OTHER, SELFPAY | PROVIDERS: PCP Family Medicine; Visit Provider Family Medicine | DX: E11.9 Type 2 diabetes mellitus without complications (principal); Z79.4 Long term (current) use of insulin; B37.0 Candidal stomatitis | CPT/HCPCS: 80053; 83036 ==

== ENCOUNTER → 2020-12-27 10:17 | Outpatient (BNVA) | payer MEDICARE, OTHER, SELFPAY | PROVIDERS: PCP Family Medicine; Visit Provider Family Medicine | DX: E11.9 Type 2 diabetes mellitus without complications (principal); Z79.4 Long term (current) use of insulin; K21.9 Gastro-esophageal reflux disease without esophagitis | CPT/HCPCS: 80048 ==

== ENCOUNTER → 2021-02-21 10:01 | Outpatient (BNVA) | payer MEDICARE, SELFPAY | PROVIDERS: PCP Family Medicine; Visit Provider Family Medicine | DX: E11.9 Type 2 diabetes mellitus without complications (principal); Z79.4 Long term (current) use of insulin; E78.2 Mixed hyperlipidemia; G89.29 Other chronic pain; M54.2 Cervicalgia; I10 Essential (primary) hypertension | CPT/HCPCS: 80053; 80061; 83036 ==

== ENCOUNTER → 2021-05-16 11:40 | Outpatient (BNVA) | payer MEDICARE, SELFPAY | PROVIDERS: PCP Family Medicine; Visit Provider Family Medicine | DX: E11.9 Type 2 diabetes mellitus without complications (principal); Z79.4 Long term (current) use of insulin; I10 Essential (primary) hypertension; E78.2 Mixed hyperlipidemia; M54.2 Cervicalgia; G89.29 Other chronic pain | CPT/HCPCS: 80053; 83036 ==

== ENCOUNTER → 2021-05-27 14:53 | Outpatient (BNVA) | payer MEDICARE, SELFPAY | PROVIDERS: PCP Family Medicine; Visit Provider Family Medicine | DX: Z20.822 Contact with and (suspected) exposure to COVID-19 (principal) | CPT/HCPCS: 87635 ==

== ENCOUNTER → 2021-08-13 11:43 | Outpatient (BNVA) | payer MEDICARE, SELFPAY | PROVIDERS: PCP Family Medicine; Visit Provider Family Medicine | DX: E11.9 Type 2 diabetes mellitus without complications (principal); Z79.4 Long term (current) use of insulin | CPT/HCPCS: 80053; 83036; 85025 ==

== ENCOUNTER 2021-10-03 11:05 | Outpatient (CLI) | payer MEDICARE, OTHER, SELFPAY ==
--- NOTE | 2021-10-03 11:28 | XRR_ITS ---
PROCEDURE INFORMATION: Exam: XR Lumbosacral Spine Exam date and time: 10/03/2021 11:44 AM Age: 71 years old Clinical indication: Low back pain; Prior surgery; Surgery type: --c-spine, l-spine; Additional info: Acute low back pain TECHNIQUE: Imaging protocol: XR of the lumbosacral spine. Views: 2 or 3 views. COMPARISON: CT abdomen pelvis w con* [id number] 08/03/2018 2:56 PM FINDINGS: Bones/joints: Severe diffuse degenerative disc disease reflected as severe decrease in disc space height and anterior endplate osteophytosis. No spondylolisthesis. No pars defect. No fracture. Multi-level facet hypertrophic changes. surgical plate and pedicle screws L3 and L4. Posterolateral fusion from L3 through S1. Vacuum disk phenomenon L3-L4 Soft tissues: Unremarkable. XR/XR lumbar spine 2-3V* [id number] IMPRESSION: 1. Surgical plate and pedicle screws L3 and L4. Posterolateral fusion from L3 through S1. 2. Severe diffuse degenerative disc disease.
== END 2021-10-03 11:06 | disposition home or self-care (01) ==
LOC: RAD 11:09
PROVIDERS: PCP Family Medicine; Visit Provider Family Medicine
DX: M54.41 Lumbago with sciatica, right side (principal)
CPT/HCPCS: 72100

== ENCOUNTER → 2021-10-16 12:14 | Outpatient (BNVA) | payer MEDICARE, OTHER, SELFPAY | PROVIDERS: PCP Family Medicine; Visit Provider Family Medicine | DX: E11.9 Type 2 diabetes mellitus without complications (principal); Z79.4 Long term (current) use of insulin; N76.4 Abscess of vulva | CPT/HCPCS: 87070; 87205 ==

== ENCOUNTER → 2021-11-13 12:11 | Outpatient (BNVA) | payer MEDICARE, OTHER, SELFPAY | PROVIDERS: PCP Family Medicine; Visit Provider Family Medicine | DX: E11.9 Type 2 diabetes mellitus without complications (principal); Z79.4 Long term (current) use of insulin | CPT/HCPCS: 80053; 82043; 83036 ==

== ENCOUNTER 2021-11-18 10:05 | Outpatient (CLI) | payer MEDICARE, OTHER, SELFPAY ==
--- NOTE | 2021-11-18 10:30 | CT_ITS ---
WS: [id number] CT LUMBAR SPINE, noncontrast. HISTORY: DDD TECHNIQUE: Contiguous 2.5 mm axial imaging are performed. Sagittal and coronal reformats are submitte d and reviewed. All CT scans at [facility] use at least one of these dose optimization techni ques: automated exposure control; mA and/or kV adjustment per patient size (includes targeted exams w here dose is matched to clinical indication); or iterative reconstruction. IV contrast: None DLP: 1774.20 mGy.cm COMPARISON: Lumbar spine radiographs 10/03/2021 Quality of this examination is compromised by body habitus and hardware. Posterior lumbar fusion at L 3-4. Increase in the lumbar lordosis. L2 retrolisthesis by 7 mm. L4 anterolisthesis by 6 mm. There is a large bridging osteophyte extending posteriorly across the disc space of L1-2 encroaching upon the ventral thecal sac. Disc spaces are all narrowed and desiccated. Osteophytes at all levels. There is a large laminectomy defect with bone grafting which appears fused for the most part. Laminectomy ext ends from the L2-3 level to L5. L1-2: Large osteophyte extends posteriorly between the L1 and L2 disc space extending into the thecal sac by 9 mm. Significant encroachment upon the LEFT lateral thecal sac extending into the subarticul ar recess. There is at least moderate central stenosis with bilateral foraminal stenosis. L2-3: Severe encroachment into the thecal sac by osteophyte and retrolisthesis of L2. Central canal i s markedly narrowed. There is at least severe central with bilateral foraminal stenosis. L3-4: Osteophytes extend between the L3 and L4 vertebral bodies and facet joint arthritis. There is a t least moderate central and bilateral foraminal stenosis. Near complete fusion across the bone graft ing posteriorly. L4-5: Moderate central stenosis and mild foraminal stenosis. L5-S1: Facet joint arthritis with bone grafting. Persistent laminectomy defect posteriorly on the RIG HT. Small osteophytes encroach into the RIGHT foramen. Atherosclerosis aorta. No aneurysm. Mild narrowing of the SI joints. CT/CT lumbar spine wo con* [id number] IMPRESSION: 1. Quality of this examination is suboptimal due to body habitus and hardware. 2. Extensive laminectomy defects beginning at the L2-3 level through L5. 3. Large osteophyte bridging between the posterior L1-L2 disc causing signific ant encroachment into the thecal sac greatest on the LEFT. Most significant enc roachment into the LEFT lateral recess. 4. Severe central and bilateral foraminal stenosis at L2-3 with moderate at L3 -4. This is due to combination of facet disease and osteophytosis. 5. Moderate central and mild foraminal stenosis at L4-5.
== END 2021-11-18 10:06 | disposition home or self-care (01) ==
PROVIDERS: PCP Family Medicine; Visit Provider Family Medicine
DX: M51.36 Other intervertebral disc degeneration, lumbar region (principal); M48.061 Spinal stenosis, lumbar region without neurogenic claudication; M25.78 Osteophyte, vertebrae
CPT/HCPCS: 72131

== ENCOUNTER → 2022-01-21 09:03 | Outpatient (BNVA) | payer MEDICARE, SELFPAY | PROVIDERS: PCP Family Medicine; Visit Provider Anesthesiology Pain Medicine | DX: M47.816 Spondylosis without myelopathy or radiculopathy, lumbar region (principal); M51.16 Intervertebral disc disorders with radiculopathy, lumbar region; M43.26 Fusion of spine, lumbar region; M79.604 Pain in right leg; M79.605 Pain in left leg; Z96.89 Presence of other specified functional implants | CPT/HCPCS: 99205 ==

== ENCOUNTER → 2022-01-27 14:40 | Outpatient (BNVA) | payer MEDICARE, SELFPAY | PROVIDERS: PCP Family Medicine; Referring Provider Family Medicine; Visit Provider Internal Medicine | DX: E11.40 Type 2 diabetes mellitus with diabetic neuropathy, unspecified (principal); E78.2 Mixed hyperlipidemia; Z79.4 Long term (current) use of insulin; Z79.84 Long term (current) use of oral hypoglycemic drugs | CPT/HCPCS: 99204 ==

== ENCOUNTER → 2022-04-15 14:25 | Outpatient (BNVA) | payer MEDICARE, OTHER, SELFPAY | PROVIDERS: PCP Family Medicine; Visit Provider Registered Nurse Neonatal Intensive Care | DX: M25.569 Pain in unspecified knee (principal) | CPT/HCPCS: 73562 ==

== ENCOUNTER 2022-04-28 09:26 | Outpatient (CLI) | payer MEDICARE, OTHER, SELFPAY ==
[2022-04-28 10:23] LABS: Alanine Aminotransferase 15 U/L (0-33); Albumin Level 3.4 g/dL (3.5-5.2); Alkaline Phosphatase 120 U/L (35-105); Anion Gap 13.2 (5-19); Aspartate Amino Transferase 11 U/L (0-32); Blood Urea Nitrogen 10 mg/dL (8-23); Calcium 9.1 mg/dL (8.5-10.5); Carbon Dioxide 24 mmol/L (22-29); Chloride 105 mmol/L (98-107); Chol HDL Ratio 5.46 mg/dL (0.0-4.40); Cholesterol 224 mg/dL (0-200); Globulin 2.9 g/dL (1.3-4.6); Glucose 201 mg/dL (65-115); HDL Cholesterol 41 mg/dL (60-100); LDL Cholesterol Calculated 138 mg/dL (50-129); LDL HDL Ratio 3.37 RATIO (0.00-3.22); Osmolality Calculated 291 mOsm/kg (285-295); Potassium 4.2 mmol/L (3.5-5.1); Sodium 138 mmol/L (136-145); Thyroid Stimulating Hormone 1.49 uIU/mL (0.27-4.20); Total Bilirubin 0.3 mg/dL (0.15-1.2); Total Protein 6.3 g/dL (6.6-8.7); Triglycerides 223 mg/dL (0-150)
[2022-04-28 10:38] LABS: Estmated Average Glucose 283; Hemoglobin A1C 11.5 % (4.0-6.0)
== END 2022-04-28 09:27 | disposition home or self-care (01) ==
LOC: LAB 09:29
PROVIDERS: PCP Family Medicine; Visit Provider Internal Medicine
DX: E11.9 Type 2 diabetes mellitus without complications (principal); Z79.4 Long term (current) use of insulin
CPT/HCPCS: 36415; 80053; 80061; 83036; 84443

== ENCOUNTER → 2022-04-29 14:11 | Outpatient (BNVA) | payer MEDICARE, OTHER, SELFPAY | PROVIDERS: PCP Family Medicine; Visit Provider Internal Medicine | DX: E11.40 Type 2 diabetes mellitus with diabetic neuropathy, unspecified (principal); E78.2 Mixed hyperlipidemia; I10 Essential (primary) hypertension; Z79.4 Long term (current) use of insulin; Z79.84 Long term (current) use of oral hypoglycemic drugs | CPT/HCPCS: 99214 ==

== ENCOUNTER 2022-05-15 10:59 | Outpatient (CLI) | payer MEDICARE, OTHER, SELFPAY ==
--- NOTE | 2022-05-15 11:00 | XR_ITS ---
WS: [id number] RIGHT ELBOW: 3 VIEW(S) TECHNIQUE: AP, oblique and lateral. HISTORY: acute right elbow pain COMPARISON: None available. No acute fractures or dislocation. No joint effusion. No soft tissue abnormality. XR/XR elbow RT min 3V* [id number] IMPRESSION: Normal RIGHT elbow.
== END 2022-05-15 11:00 | disposition home or self-care (01) ==
PROVIDERS: PCP Family Medicine; Visit Provider Family Medicine
DX: M25.521 Pain in right elbow (principal)
CPT/HCPCS: 73080

== ENCOUNTER → 2022-05-19 10:29 | Outpatient (BNVA) | payer MEDICARE, OTHER, SELFPAY | PROVIDERS: PCP Family Medicine; Visit Provider Anesthesiology Pain Medicine | DX: M47.816 Spondylosis without myelopathy or radiculopathy, lumbar region (principal); M51.16 Intervertebral disc disorders with radiculopathy, lumbar region; M43.26 Fusion of spine, lumbar region; M79.604 Pain in right leg; M79.605 Pain in left leg; Z96.89 Presence of other specified functional implants | CPT/HCPCS: 99214 ==

== ENCOUNTER → 2022-06-01 10:22 | Outpatient (BNVA) | payer MEDICARE, OTHER, SELFPAY | PROVIDERS: PCP Family Medicine; Visit Provider Family Medicine | DX: M10.9 Gout, unspecified (principal) | CPT/HCPCS: 84550 ==

== ENCOUNTER → 2022-06-23 13:34 | Outpatient (BNVA) | payer MEDICARE, OTHER, SELFPAY | PROVIDERS: PCP Family Medicine; Visit Provider Anesthesiology Pain Medicine | DX: M54.16 Radiculopathy, lumbar region (principal); E11.9 Type 2 diabetes mellitus without complications; M54.41 Lumbago with sciatica, right side; Z79.4 Long term (current) use of insulin; Z79.84 Long term (current) use of oral hypoglycemic drugs | CPT/HCPCS: 62323; J1040 ==

== ENCOUNTER → 2022-06-30 08:33 | Outpatient (BNVA) | payer MEDICARE, OTHER, SELFPAY | PROVIDERS: PCP Family Medicine; Visit Provider Anesthesiology Pain Medicine | DX: M51.16 Intervertebral disc disorders with radiculopathy, lumbar region (principal); M47.816 Spondylosis without myelopathy or radiculopathy, lumbar region; M43.26 Fusion of spine, lumbar region; Z96.89 Presence of other specified functional implants | CPT/HCPCS: 99214 ==

== ENCOUNTER → 2022-07-14 10:55 | Outpatient (BNVA) | payer MEDICARE, OTHER, SELFPAY | PROVIDERS: PCP Family Medicine; Referring Provider Anesthesiology Pain Medicine; Visit Provider Orthopaedic Surgery | DX: M51.16 Intervertebral disc disorders with radiculopathy, lumbar region (principal); M43.26 Fusion of spine, lumbar region; M54.9 Dorsalgia, unspecified | CPT/HCPCS: 72070; 72110; 99214 ==

== ENCOUNTER 2022-07-20 06:57 | Outpatient (CLI) | payer MEDICARE, OTHER, SELFPAY ==
[2022-07-20 07:29] VITALS: BMI 49.9
--- NOTE | 2022-07-20 07:29 | ECG_ITS ---
[facility] Test Date: 2022-07-20 Pat Name: Melissa De Jesus Department: Room: Gender: Female Facility Administrator: : 1950 Requested By: Devi Shaw Order Number: [id number] Hannon MD: Anders Garrido M.D. Interpretive Statements NAME OF STUDY: LEXISCAN SESTAMIBI STRESS TEST INDICATION: [berry] Procedure: At the baseline, the blood pressure was 153/100 mmHg with a heart rate of 60 bpm. The electrocardiogram showed normal sinus rhythm, normal axis with normal ST and T's. The Lexiscan was infused over a period of 20 seconds. A total of 0.4 mg of Lexiscan was infused. The stress phase was continued for a total of 5 minutes. Heart rate was at the end of stress phase was 66 bpm and a blood pressure of 151/91 mmHg. The EKG at the peak infusion revealed normal sinus rhythm with no significant ST-T wave changes. Sestamibi was injected 20 seconds after the Lexiscan infusion. Blood pressure at the end of recovery phase was 133/68 mmHg with a heart rate of 65 bpm. Conclusion: 1. Normal EKG response to Lexiscan infusion 2. No Lexiscan induced chest pain or cardiac arrhythmia. 3. Normal blood pressure and heart rate response. 4. Sestamibi/sestamibi perfusion scan pending; see separate report. Electronically Signed On 08-06-2022 12:06:17 CDT by Anders Garrido M.D. [email or web address]
--- NOTE | 2022-07-20 07:30 | NMCV_ITS ---
NM aries perf SPECT r/s* [id number] Melissa De Jesus Age: 72 Gender: F : 1950 Exam Date: 07/20/2022 08:25 Ordering Phys: Devi Shaw DO Technologist: HOLLY Jimenez Exam Location: [facility] Indications: SHORTNESS OF BREATH STRESS TEST Please see separate stress test report in [facility] for full findings IMAGE PROTOCOL Rest/Stress 1 Lexiscan Day Radiopharmaceutical Dose (mCi) Administration Site Administered by Rest: Tc-99m 10.8 IV HOLLY Lewis Sestamibi Stress:Tc-99m 32.9 IV HOLLY Lewis Sestamibi Rest: 20-Jul-2022 60 Discovery 630 Stress: 20-Jul-2022 30 Discovery 630 0.4mg Lexiscan. Images obtained in supine and prone position. SPECT RESULTS Technical Quality: Good Raw Data Analysis: Breast attenuation Image Corrections: No attenuation or motion correction applied Summed Stress Score: 11 Summed Rest Score: 7 Summed Difference Score: 4 PERFUSION FINDINGS There is a partially reversible perfusion defect noted in apical, apical lateral and inferolateral tillman. This is consistent with moderate sized prior infarct noted in LAD and left circumflex artery territory with significant elizabeth-infarct ischemia. FUNCTIONAL RESULTS (calculated via Gated SPECT) Stress Image LV EF (%): 68 Stress EDV (mL):103 TID: 1.03 Stress ESV (mL):33 FUNCTIONAL FINDINGS: There is normal left ventricular systolic function. IMPRESSIONS 1. Abnormal myocardial perfusion imaging with medium sized prior infarcts seen in LAD and Left circumflex artery territories with significant elizabeth-infarct ischemia in both territories. 2. LV systolic function is normal Anders Garrido MD (Electronically Signed) Final Date: 26 July 2022 08:07 S
[2022-07-20] MEDS: regadenoson 0.4 Mg/5 ml Syringe IVP (08:56)
[2022-07-20 09:15] VITALS: BP 133/68; PULSE 67
== END 2022-07-20 06:58 | disposition home or self-care (01) ==
LOC: CDL 07:02
PROVIDERS: PCP Family Medicine; Visit Provider Family Medicine
DX: R06.09 Other forms of dyspnea (principal); R06.02 Shortness of breath; I25.9 Chronic ischemic heart disease, unspecified
CPT/HCPCS: 36415; 78452; 93017; 96374; A9500; J2785

== ENCOUNTER → 2022-07-28 14:07 | Outpatient (BNVA) | payer MEDICARE, OTHER, SELFPAY | PROVIDERS: PCP Family Medicine; Visit Provider Internal Medicine | DX: E11.65 Type 2 diabetes mellitus with hyperglycemia (principal); E78.2 Mixed hyperlipidemia; Z79.4 Long term (current) use of insulin; Z79.84 Long term (current) use of oral hypoglycemic drugs | CPT/HCPCS: 99214 ==

== ENCOUNTER 2022-08-03 08:37 | Outpatient (CLI) | payer MEDICARE, OTHER, SELFPAY ==
[2022-08-03 09:45] LABS: Alanine Aminotransferase 20 U/L (0-33); Albumin Level 3.8 g/dL (3.5-5.2); Alkaline Phosphatase 104 U/L (35-105); Anion Gap 11.2 (5-19); Aspartate Amino Transferase 21 U/L (0-32); Blood Urea Nitrogen 14 mg/dL (8-23); Carbon Dioxide 28 mmol/L (22-29); Chloride 101 mmol/L (98-107); Chol HDL Ratio 3.77 mg/dL (0.0-4.40); Cholesterol 147 mg/dL (0-200); Globulin 2.5 g/dL (1.3-4.6); Glucose 248 mg/dL (65-115); HDL Cholesterol 39 mg/dL (60-100); LDL Cholesterol Calculated 80 mg/dL (50-129); LDL HDL Ratio 2.05 RATIO (0.00-3.22); Osmolality Calculated 291 mOsm/kg (285-295); Potassium 4.2 mmol/L (3.5-5.1); Sodium 136 mmol/L (136-145); Total Bilirubin 0.4 mg/dL (0.15-1.2); Total Protein 6.3 g/dL (6.6-8.7); Triglycerides 142 mg/dL (0-150)
[2022-08-03 10:03] LABS: Estmated Average Glucose 272; Hemoglobin A1C 11.1 % (4.0-6.0)
== END 2022-08-03 08:38 | disposition home or self-care (01) ==
LOC: LAB 08:41
PROVIDERS: PCP Family Medicine; Visit Provider Internal Medicine
DX: E11.9 Type 2 diabetes mellitus without complications (principal); E78.2 Mixed hyperlipidemia; Z79.4 Long term (current) use of insulin; I10 Essential (primary) hypertension
CPT/HCPCS: 36415; 80053; 80061; 83036

== ENCOUNTER → 2022-08-11 09:21 | Outpatient (BNVA) | payer MEDICARE, OTHER, SELFPAY | PROVIDERS: PCP Family Medicine; Visit Provider Internal Medicine | DX: E11.65 Type 2 diabetes mellitus with hyperglycemia (principal); E78.2 Mixed hyperlipidemia; Z79.4 Long term (current) use of insulin; Z79.84 Long term (current) use of oral hypoglycemic drugs | CPT/HCPCS: 99214 ==

== ENCOUNTER → 2022-08-12 12:06 | Outpatient (BNVA) | payer MEDICARE, OTHER, SELFPAY | PROVIDERS: PCP Family Medicine; Visit Provider Internal Medicine | DX: R06.09 Other forms of dyspnea (principal); R07.9 Chest pain, unspecified; I10 Essential (primary) hypertension; E11.65 Type 2 diabetes mellitus with hyperglycemia; E78.2 Mixed hyperlipidemia; Z79.82 Long term (current) use of aspirin; Z79.4 Long term (current) use of insulin | CPT/HCPCS: 93005; 99204 ==

== ENCOUNTER 2022-08-18 10:06 | Outpatient (CLI) | payer MEDICARE, OTHER, SELFPAY ==
[2022-08-18 10:49] LABS: Basophils % 0.4 %; Eosinophils # 0.3 10^3/uL (0.0-0.8); Eosinophils % 2.9 %; Hemoglobin 14.5 g/dL (11.5-15.3); Lymphocytes # 1.7 10^3/uL (0.8-4.8); Lymphocytes % 18.7 %; Mean Corpuscular HGB Conc 32.2 g/dL (30.0-36.0); Mean Corpuscular Hemoglobin 29.5 pg (28.0-34.0); Mean Corpuscular Volume 91.5 fl (81-99); Mean Platelet Volume 10.2 fL (7.4-10.4); Monocytes # 0.5 10^3/uL (0.2-0.9); Monocytes % 5.3 %; Neutrophils # 6.51 10^3/uL (1.8-7.7); Neutrophils % 71.8 %; Nucleated Red Blood Cells % 0 %; Platelet Count 218 10^3/cmm (130-400); Red Blood Count 4.92 10^6/uL (4.1-5.3); Red Cell Distribution Width 13.5 % (12.1-15.1); White Blood Count 9.1 10^3/uL (4.0-10.0)
[2022-08-18 11:12] LABS: INR 0.95 (0.83-1.21); Prothrombin Time (Patient) 12.9 Seconds (12.0-15.1)
[2022-08-18 11:26] LABS: Anion Gap 13.4 (5-19); Blood Urea Nitrogen 16 mg/dL (8-23); Calcium 9.5 mg/dL (8.5-10.5); Carbon Dioxide 26 mmol/L (22-29); Chloride 100 mmol/L (98-107); Glucose 379 mg/dL (65-115); Osmolality Calculated 297 mOsm/kg (285-295); Potassium 4.4 mmol/L (3.5-5.1); Sodium 135 mmol/L (136-145)
== END 2022-08-18 10:07 | disposition home or self-care (01) ==
LOC: LAB 10:12
PROVIDERS: PCP Family Medicine; Visit Provider Internal Medicine
DX: I10 Essential (primary) hypertension (principal); R07.9 Chest pain, unspecified
CPT/HCPCS: 80048; 85025; 85610

== ENCOUNTER 2022-08-19 07:44 | Outpatient (CLI) | payer MEDICARE, OTHER, SELFPAY ==
[2022-08-19] VITALS (15 sets, daily range): BP systolic 134–156; BP diastolic 73–99; PULSE 64–78; RESP 14–19; TEMP 37.3; O2SAT 86–96; BMI 51.0
--- NOTE | 2022-08-19 07:30 | XACV_ITS ---
Exam Room: 2 Ht: 160 cm Wt: 131 kg BSA: 2.49 m2 Gender: Female : 1950 Any Known Allergies: Contrast Exam Priority: Routine Procedure(s): Procedure Description: Diagnostic procedure Procedure Description: Left Heart Catheterization Procedure Description: Left ventriculography Procedure Description: Coronary Angiography Diagnostic Cath Status: Elective Diagnostic Findings * INDICATION: Worsening angina/abnormal stress test. * Left Main has no significant disease. * Circumflex has no significant disease. * Right Coronary Artery has no significant disease. * Mid Left Anterior Descending: mild 40% stenosis, PADILLA: 3 flow. * Coronary angiography shows right dominance. Conclusions 1. Nonobstructive coronary artery disease.. 2. Normal left ventricular systolic function. Ejection fraction of 60%. Recommendations * Aggressive risk factor modification. * Outpatient cardiology follow up in 4 weeks. Ventriculography Ejection Fraction: 60.0 % Pressures Phase:Rest AO : 133 / 77 ( 95 ) @ 9:58:00 AM 156 / 83 ( 112 ) @ 10:06:00 AM 156 / 83 ( 112 ) @ 10:06:00 AM LV : 158 / -4 / 16 @ 10:05:00 AM 167 / 5 / 27 @ 10:06:00 AM 168 / 7 / 28 @ 10:06:00 AM Valves Phase:DefaultPhase AV : 12.0 @ 9:13:16 AM AV Mean Gradient: 11.0 @ 9:13:16 AM 11.0 @ 9:13:16 AM Clinical Evaluation EBL: 5mL-10mL Procedural Details Procedure Consent Obtained. Admit Source: Out Patient. Pre-Procedure Time Out. Identified patient by full name and date of as verbalized by the patient/guarantor. Does the consent match the physician's order: Yes. Accurate & Complete Informed Consent: Yes. Inpatient/Outpatient History & Physical on Chart: Yes. If H&P is completed, is and addenduem needed: No; If yes, is the addendum complete: N/A. Visualize and Verify Site with Patient/Guarantor: N/A. The risks, benefits, and alternatives of sedation and/or procedure were discussed by physician. The patient agrees to continue. Procedure started. [facility] Clinical Fraility Score: 5: Mildly Frail. Consumer Experience Consultant Indications: Worsening Angina. Chest Pain Symptom Assessment: Typical Angina Symptoms. Correct patient, site and procedure confirmed by cath team. Current diagnosis: Chest Pain, Abnormal Stress Test. PERRLA. Strong, equal hand furnace hand bilaterally. Lungs clear x 5 lobes. IV Site on Arrival: 18 gauge in the left anticubital. IV Fluids: 0.9% NaCl at 75ml/hr. 0 mL infused prior to engineering lab technician. Pre Procedural Pulses: bilateral dorsalis pedis was 3+. Pre Procedural Pulses: bilateral posterior tibial was 3+. Pre Procedural Pulses: bilateral radial was 3+. Oxygen started at 2liters/min via nasal canula. right groin was prepped with chloroprep then draped in the usual sterile fashion. right radial was prepped with chloroprep then draped in the usual sterile fashion. Physician notified. Baseline sample Acquired. HR: 78 BPM. Physician arrived. Physician scrubbed in. Immediate Pre-Procedure Time Out. Correct Patient: Yes; Correct Procedure: Yes; Correct Site: Yes; Correct Patient Position: Yes; Correct Supplies: Yes; Dried Flammable Prep: Yes; Blood Products Available: No;. Lidocaine 1% infiltrated to the right radial. Arterial access obtained. A 5 peruvian TIG catheter in over wire. Multiple views taken of left coronary artery. Catheter redirected to the RCA. Multiple views taken of right coronary artery. Catheter removed over the exchange wire. A 5 peruvian Angled Pig catheter in over wire. EDP Sample taken: LV 158/-5,16; HR: 77 BPM; SpO2: 90%. LV gram performed in ISAACS @ 10 mL/second for a total of 30 mL. EDP Sample taken: LV 167/5,27; HR: 76 BPM; SpO2: 91%. Pullback taken: LV 168/7,28; AO 156/83(112); Mean: 11mmHg, Peak to Peak: 12mmHg, SEP: 19sec/min; HR: 76 BPM; SpO2: 90%. Catheter removed over the exchange wire. A TR Band was successful obtaining hemostatsis at the Right Radial artery insertion site. Post Procedure: Pulses reassessed and unchanged. PERRLA. Strong, equal hand furnace hand bilaterally. No VTE prophylaxis required. Medication's Wasted: Lidocaine 1% = 1 mL. Medication's Wasted: Nitro = 49.7 mg. Medication's Wasted: Heparin = 1000 unit. Medication's Wasted: Other = Fentanyl 75mcg. Total IV fluids: 30 mL. Post-op diagnosis: Non obstructive CAD. Complications: None. Estimated blood loss: 5mL-10mL. Responsiveness - Normal response to verbal stimuli; alert and oriented, PERRLA. Airway - Unaffected, no intervention required; spontaneous ventilation. Circulation: W/N/L, pulses unchanged. Nausea/Vomiting: N/A. Procedure completed. Patient transferred by stretcher to CPRU. Vital chart was stopped. Access Site Site: Right Radial artery Sheath Size: 6 Fr Hemostasis Method: TR Band Hemostasis Success: Successful Procedure Medications Start: 8:46 AM Stop: 8:46 AM Medication: Versed 1 mg and Fentanyl 25 mcg Route: I.V. Start: 8:53 AM Stop: 8:53 AM Medication: Versed Amount: 1 mg Route: I.V. Start: 8:56 AM Stop: 8:56 AM Medication: Nitrogylcerin Amount: 300 mcg Route: I.A. Start: 8:58 AM Stop: 8:58 AM Medication: Heparin Amount: 5000 units Route: I.V. I, the attending physician, have reviewed and verified all procedure medications. Yes, all medications given per verbal order History/Risk Factors Hypertension: Yes Dyslipidemia: Yes Peripheral Arterial Disease (PAD): No Myocardial Infarction (NM): No Obesity: Yes Renal Disease: No Tobacco Use: Never Prior Interventions PCI: No CABG: No Valve Surgery: No Report Signatures Finalized by Anders Garrido MD on 08/30/2022 01:16 PM
[2022-08-19] MEDS: aspirin 325 mg Tablet PO (08:15)
--- NOTE | 2022-08-19 08:39 | W.PM.OPSUD ---
Surgery/Procedure H&P Update DATE OF PROCEDURE: August 19, 2022 DATE H&P PERFORMED: 08/12/22 H&P UPDATE INFORMATION: I have reviewed H&P completed within last 30 days, I have examined patient prior to procedure and No changes to prior documentation PREOP DIAGNOSIS: Worsening angina/ abnormal stress test PRIMARY INDICATION FOR PROCEDURE: Worsening angina/ abnormal stress test PLANNED PROCEDURE: Operation Date: 08/19/22 08:30 Proposed Procedures p Left heart cath 98282,R94.39(Left) - Anedrs Garrido M.D Possible percutaneous coronary intervention PATIENT REASSESSED PRIOR TO SEDATION, WITH NO CHANGE NOTED: Yes PHYSICAL EXAM: alert, oriented x 3, clear to auscultation bilaterally and regular rate & rhythm AIRWAY EVAL/ANESTHESIA PLAN: normal airway, ASA IV, Local Anesthesia, Risks, benefits & alternatives of sedation and/or procedure discussed and Patient agrees to continue as planned ADDITIONAL INFORMATION: Moderate sedation
--- NOTE | 2022-08-19 09:45 | PC.NURSE ---
received pt from garage laborer post diagnostic [facility] [place]. pt alert and oriented but admitted to being tired and wanted to rest. TR band on right wrist with a distal palpable, no hematoma or bruising noted. . Pt complains of no pain. pt placed on monitor and will be monitored per protocol. Pt also educated on restrictions of right wrist and acknowledged understanding. nurse to re-educate throughout recover. plan is to dc at 3 hrs if no difficulties with TR band removal.
--- NOTE | 2022-08-19 12:46 | PC.NURSE ---
uneventful TR band removal. Pt educated on restrictions of right wrist again and pt stated understanding.
[2022-08-20 07:12] LABS: Glucose Point of Care 412 mg/dL (70-110)
== END 2022-08-19 12:47 | disposition home or self-care (01) ==
PROVIDERS: PCP Family Medicine; Visit Provider Internal Medicine
DX: R94.39 Abnormal result of other cardiovascular function study (principal); I10 Essential (primary) hypertension; E66.9 Obesity, unspecified; Z68.43 Body mass index [BMI] 50.0-59.9, adult; Z79.82 Long term (current) use of aspirin; E11.59 Type 2 diabetes mellitus with other circulatory complications; Z79.4 Long term (current) use of insulin; E11.40 Type 2 diabetes mellitus with diabetic neuropathy, unspecified; E78.2 Mixed hyperlipidemia; Z79.84 Long term (current) use of oral hypoglycemic drugs; Z79.52 Long term (current) use of systemic steroids; F32.A Depression, unspecified; K21.9 Gastro-esophageal reflux disease without esophagitis
CPT/HCPCS: 36415; 36416; 82962; 93458; 96361; 96365; 99152; 99153; C1769; C1887; C1894; J1644; J2250; J3010; J3490; J7030; Q9967

== ENCOUNTER 2022-08-27 08:04 | Outpatient (CLI) | payer MEDICARE, OTHER, SELFPAY ==
--- NOTE | 2022-08-27 08:13 | CT_ITS ---
WS: [id number] CT LUMBAR SPINE TECHNIQUE: Noncontrast CT of the lumbar spine with coronal and sagittal reformatted images. CLINICAL INFORMATION: M48.062 - Spinal stenosis, lumbar region with neurogenic ... COMPARISON: CT lumbar November 18, 2021 DLP: 1601.[address] scans at [facility] use at least one of these dose optimization techniques: automated e xposure control; mA and/or kV adjustment per patient size (includes targeted exams where dose is matc hed to clinical indication); or iterative reconstruction. FINDINGS: Laminectomy defects L2-L5. Spinal stimulator extending cephalad off the [id number]. Ankylosis lowe r thoracic and lumbar spine. Grade 1 anterolisthesis L4 on L5 measuring 5 mm is unchanged. Disc space narrowing L2-L3 with vacuum disc phenomenon and endplate subchondral cystic changes. Pedicle screw f ixation L3-L4 with interconnecting rods. Anterior bridging osteophytes lower thoracic and lumbar spin e most prominent at L1-L2 and L2-L3 unchanged. Posterior protruding L1-L2 disc space osteophytes with moderate central canal stenosis unchanged. L1-L2: Prominent protruding disc osteophytes with moderate central canal stenosis. This is unchanged from previous. Mild bilateral foraminal narrowing. Moderate facet arthropathy. L2-L3: Disc osteophyte complex with endplate ridging. Slight retrolisthesis. Moderate to severe centr al canal stenosis unchanged. Moderate to advanced facet arthropathy. Severe LEFT greater than RIGHT b argenis foraminal narrowing. L3-L4: Disc osteophyte complex with mild central canal stenosis. Impingement traversing L4 nerve root s with moderate facet arthropathy. Mild to moderate bilateral foraminal narrowing. L4-L5: Grade 1 anterolisthesis. Narrowing of the subarticular recess bilaterally. Pedicle screw fixat ion. Foramen are patent. L5-S1: Disc osteophyte complex with endplate ridging. Slight anterolisthesis. Moderate RIGHT and mild LEFT foraminal narrowing. Advanced facet arthropathy. Visualized pelvic bony structures: Normal. Paravertebral soft tissues: Normal. CT/CT lumbar spine wo con* [id number] IMPRESSION: 1. Alignment is unchanged since 2021. 2. Pedicle screw fixation L3-L4 appears stable with dorsolateral bone graft ma terial L3-L5. 3. Stable grade 1 anterolisthesis L4 on L5. 4. Moderate central canal stenosis L1-L2 with prominent protruding disc osteop hyte complex unchanged from previous. 5. Moderate to severe central canal stenosis L2-L3 with impingement subarticul ar recess bilaterally is unchanged. 6. Mild central canal stenosis L3-L4 and L4-L5 unchanged. 7. Moderate RIGHT L5-S1 foraminal narrowing. Severe LEFT greater than RIGHT L2 -L3 foraminal narrowing. 8. Laminectomy defects L2-L5. 9. Advanced facet arthropathy throughout the lumbar spine. 10. Overall no significant changes compared to previous. 11. Spinal stimulator projects cephalad off the [id number]
== END 2022-08-27 08:05 | disposition home or self-care (01) ==
LOC: RAD 08:06
PROVIDERS: PCP Family Medicine; Visit Provider Orthopaedic Surgery
DX: M48.062 Spinal stenosis, lumbar region with neurogenic claudication (principal); M48.02 Spinal stenosis, cervical region; M48.07 Spinal stenosis, lumbosacral region; M51.26 Other intervertebral disc displacement, lumbar region
CPT/HCPCS: 72131; 82962

== ENCOUNTER 2022-08-27 11:41 | Observation (INO) | payer MEDICARE, OTHER, SELFPAY ==
[2022-08-27] VITALS (30 sets, daily range): BP systolic 159–192; BP diastolic 79–124; PULSE 84–112; RESP 13–28; TEMP 36.1; O2SAT 91–97; BMI 51.0
[2022-08-27 11:56] LABS: Glucose Point of Care > 600 mg/dL (70-110)
[2022-08-27 12:39] LABS: Basophils % 0.2 %; Hematocrit 45.4 % (37.0-47.0); Lymphocytes # 0.7 10^3/uL (0.8-4.8); Lymphocytes % 6.2 %; Mean Corpuscular Hemoglobin 29.8 pg (28.0-34.0); Mean Corpuscular Volume 90.3 fl (81-99); Mean Platelet Volume 10.3 fL (7.4-10.4); Monocytes # 0.1 10^3/uL (0.2-0.9); Monocytes % 0.8 %; Neutrophils # 10.98 10^3/uL (1.8-7.7); Neutrophils % 91.5 %; Nucleated Red Blood Cells % 0 %; Platelet Count 258 10^3/cmm (130-400); Red Blood Count 5.03 10^6/uL (4.1-5.3); Red Cell Distribution Width 13.5 % (12.1-15.1)
[2022-08-27 13:07] LABS: Alanine Aminotransferase 22 U/L (0-33); Albumin Level 4.3 g/dL (3.5-5.2); Alkaline Phosphatase 138 U/L (35-105); Anion Gap 17.4 (5-19); Aspartate Amino Transferase 12 U/L (0-32); Blood Urea Nitrogen 17 mg/dL (8-23); Calcium 9.8 mg/dL (8.5-10.5); Carbon Dioxide 24 mmol/L (22-29); Chloride 91 mmol/L (98-107); Globulin 3.3 g/dL (1.3-4.6); Osmolality Calculated 299 mOsm/kg (285-295); Potassium 4.4 mmol/L (3.5-5.1); Sodium 128 mmol/L (136-145); Total Bilirubin 0.4 mg/dL (0.15-1.2); Total Protein 7.6 g/dL (6.6-8.7)
--- NOTE | 2022-08-27 13:07 | W.ED.RECABL ---
HPI - Recheck/Abnormal Lab/Rx General: Chief Complaint: Recheck/Abnormal Lab/Rx Stated Complaint: UC sent for high bg Time Seen by Provider: 08/27/22 12:51 Source: patient and family Mode of arrival: ambulatory Limitations: no limitations History of Present Illness: This patient who has an insulin requiring diabetic was referred to the emergency department because of elevation of blood sugar. She states that she started course of prednisone yesterday in anticipation of having a CT myelogram as she apparently has a contrast reaction. She states that simultaneously was starting that she had a open vial of her Levemir long-acting insulin yesterday morning and has not been able to obtain a replacement. She states that her blood glucose is read high on her monitor this morning. She normally takes 55 units of Levemir twice daily. She states she has not had ideal control but they are working to get her under better control but nonetheless she has not had insulin since Wednesday evening. She denies any concomitant fever, shortness of breath, other constitutional symptoms other than mild weakness. Review of Systems Const: Denies: fever(s) or chills Eyes: Denies: change in vision or blurry vision ENMT: Denies: throat pain, odynophagia, nasal discharge or nasal congestion Card: Denies: chest pain, palpitations, irregular heart rhythm, syncope or pre-syncope Resp: Denies: dyspnea, productive cough or non-productive cough GI: Denies: abdominal pain, nausea or vomiting : Denies: flank pain, difficulty voiding or dysuria Musc: Reports: back pain (Chronic); Denies: neck pain Skin/Breast: Denies: rash or pruritus Neuro: Denies: headache(s), numbness in extremities or weakness in extremities PFSH ED PFSH: Medical History Controlled type 2 diabetes mellitus, with long-term current use of insulin COVID-19 Depression Diabetic neuropathy Diverticulitis Essential (primary) hypertension GERD (gastroesophageal reflux disease) Hyperlipidemia Insomnia, controlled Vitamin D deficiency Yeast dermatitis Surgical History H/O: hysterectomy History of back surgery s/p fusion L3-L5 History of colonoscopy History of neck surgery S/p bilateral carpal tunnel release S/P cholecystectomy Status post total knee replacement, left Remote Family History Other CAD (coronary artery disease) Diabetes Social History Smoking and tobacco status: never smoked Second hand smoke exposure: No Alcohol intake: current Alcohol intake frequency: holidays/special occasions only Alcohol type: wine Substance/Drug Use: never Lives independently: Yes Household members: spouse Marital status: Do you think of yourself as: Straight/Heterosexual Current gender identity: Female Female Reproductive History: Para: 3 Spontaneous abortions: No Physical Exam Narrative: EXAM NARRATIVE: She appears to be in no acute distress cooperative and answers questions appropriately. Const: COMMON NORMALS: no acute distress and patient oriented x3 GENERAL APPEARANCE: cooperative and comfortable NUTRITIONAL APPEARANCE: overweight HENMT: COMMON NORMALS: normocephalic, Normal nasal mucous membranes and turbinates present, moist oral mucous membranes and oropharynx normal HEAD & SCALP: normocephalic NOSE: Normal nasal mucous membranes and turbinates present Eye: COMMON NORMALS: Equal, round and reactive pupils present, EOMs intact bilaterally and conjunctivae normal CONJUNCTIVA: Yes conjunctivae normal PUPIL: Yes Equal, round and reactive pupils present Neck/C-Spine: COMMON NORMALS: full ROM, no JVD and No carotid bruits Resp: COMMON NORMALS: normal respiratory effort, No use of accessory muscles and clear to auscultation bilaterally EFFORT & INSPECTION: Yes able to speak in complete sentences AUSCULTATION: clear to auscultation bilaterally Cardio: COMMON NORMALS: no JVD, regular rate, regular rhythm, No murmurs present (Cardio) and Peripheral pulses 2+ throughout RATE: regular rate RHYTHM: regular rhythm PERIPHERAL PULSES: Peripheral pulses 2+ throughout GI: COMMON NORMALS: Normal to inspection, nondistended, normoactive bowel sounds present, Soft to palpation and non-tender INSPECTION: Yes central obesity PALPATION: Yes Soft to palpation : COMMON NORMALS: Yes no CVA tenderness BLADDER/KIDNEY EXAM: Yes no CVA tenderness Back/Pelvis: COMMON NORMALS: no CVA tenderness, thoracic and lumbar spine normal to inspection, no thoracic nor lumbar tenderness and thoraco-lumbar ROM normal Extremity: COMMON NORMALS: normal to inspection, full ROM, capillary refill normal, no calf tenderness and no pedal edema Neuro: COMMON NORMALS: patient oriented x3, moves all extremities, no focal motor deficits and no sensory deficits noted CRANIAL NERVES: Yes CN normal except as noted Psych: COMMON NORMALS: mental status grossly normal Skin: COMMON NORMALS: no rashes or lesions noted, no wounds and turgor normal GENERAL SKIN EXAM: no rashes or lesions noted and turgor normal Course Reevaluation(s): Reevaluation #1: Patient is doing okay. Blood sugar has come down some but certainly not to the point where she can continue to monitor and treat herself at home at this point. We will add some short acting insulin to get her blood sugar down to a manageable level. Her preference is to be discharged if we can do so and we will attempt to meet those expectations. Time: 15:43 Reevaluation #2: After fluids regular insulin and long-acting insulin her blood sugars still in the 460 mg percent range. I offered observation with continued blood sugar monitoring and additional insulin dosing versus home discharge and she is in favor of the former. Will discuss with hospitalist regarding placing in observation status continuing with treatment and monitoring. Time: 18:14 Consultations: Consultation #1: Discussed with Dr. Curran who graciously excepted her for observation status overnight. Time: 18:42 Vital Signs: Vital signs: Vital Signs Temperature 96.9 F L 08/27/22 11:47 Pulse Rate 99 08/27/22 18:37 Respiratory Rate 16 08/27/22 18:37 Blood Pressure 174/79 08/27/22 15:30 Pulse Oximetry 95 08/27/22 18:37 Oxygen Delivery Me thod Room Air 08/27/22 18:37 MDM - Recheck/Abnormal Lab/Rx Medical Decision Making This patient presented to our emergency department with history of breaking her Levemir syringe yesterday morning and therefore not able to take her normal long-acting insulin. She had placed a call into her physician and had not received a refill of her medications thus far. She is also began a course of prednisone to pretreat her for a CT myelogram. Patient clinical examination reveals her to be alert with normal vital signs. No history otherwise to suggest other potential etiologies for hyperglycemia. Laboratories revealed initial significant blood sugar elevation with concomitant factitious hypoglycemia secondary to her hyperglycemia. She had no evidence of ketosis or other concerning findings. During her emergency department stay she received her long-acting insulin as well as an additional dose of shorting acting insulin as well as IV fluids. Her blood sugars did come down some but still continued to remain significantly elevated over the patient's usual baseline. Because of this continued hyperglycemia it was felt that she would be best served by placing her in observation for continued IV fluids, short acting insulin dosing and resumption of her usual long-acting insulin regimen. There was no evidence during her emergency department stay of other concerning ongoing emergency medical conditions. Medical Records I reviewed the patient's medical records. Lab Data I reviewed the patient's lab results. 08/27/22 12:22 08/27/22 12: Laboratory Results WBC 12.0 10^3/uL (4.0-10.0) H 08/27/22 12: RBC 5.03 10^6/uL (4.1-5.3) 08/27/22 12: Hgb 15.0 g/dL (11.5-15.3) 08/27/22 12: Hct 45.4 % (37.0-47.0) 08/27/22 12: MCV 90.3 fl (81-99) 08/27/22 12: MCH 29.8 pg (28.0-34.0) 08/27/22 12: MCHC 33.0 g/dL (30.0-36.0) 08/27/22 12: RDW 13.5 % (12.1-15.1) 08/27/22 12: Plt Count 258 10^3/cmm (130-400) 08/27/22 12: MPV 10.3 fL (7.4-10.4) 08/27/22 12: Neut % (Auto) 91.5 % 08/27/22 12: Lymph % (Auto) 6.2 % 08/27/22 12: [place] % (Auto) 0.8 % 08/27/22 12: Eos % (Auto) 0.0 % 08/27/22 12: Baso % (Auto) 0.2 % 08/27/22 12: Neut # (Auto) 10.98 10^3/uL (1.8-7.7) H 08/27/22 12:22 Lymph # (Auto) 0.7 10^3/uL (0.8-4.8) L 08/27/22 12:22 [place] # (Auto) 0.1 10^3/uL (0.2-0.9) L 08/27/22 12:22 Eos # (Auto) 0.0 10^3/uL (0.0-0.8) 08/27/22 12:22 Baso # (Auto) 0.0 10^3/uL (0.0-0.1) 08/27/22 12:22 Nucleated RBC % (auto) 0 % 08/27/22 12:22 Nucleated RBCs # 0.0 /100WBC 08/27/22 12:22 Sodium 128 mmol/L (136-145) L 08/27/22 12:22 Potassium 4.4 mmol/L (3.5-5.1) 08/27/22 12:22 Chloride 91 mmol/L (98-107) L 08/27/22 12:22 Carbon Dioxide 24 mmol/L (22-29) 08/27/22 12:22 Anion Gap 17.4 (5-19) 08/27/22 12:22 BUN 17 mg/dL (8-23) 08/27/22 12:22 Creatinine 1.1 mg/dL (0.5-0.9) H 08/27/22 12:22 GFR Calculation Not Reportable 08/27/22 12:22 Glucose 661 mg/dL (65-115) H* 08/27/22 12:22 POC Glucose 472 mg/dL (70-110) H 08/27/22 17:46 Calculated Osmolality 299 mOsm/kg (285-295) H 08/27/22 12:22 Calcium 9.8 mg/dL (8.5-10.5) 08/27/22 12:22 Total Bilirubin 0.4 mg/dL (0.15-1.2) 08/27/22 12:22 AST 12 U/L (0-32) 08/27/22 12:22 ALT 22 U/L (0-33) 08/27/22 12:22 Alkaline Phosphatase 138 U/L (35-105) H 08/27/22 12:22 Total Protein 7.6 g/dL (6.6-8.7) 08/27/22 12:22 Albumin 4.3 g/dL (3.5-5.2) 08/27/22 12:22 Globulin 3.3 g/dL (1.3-4.6) 08/27/22 12:22 Urine Color Yellow (Yellow) 08/27/22 12:36 Urine Appearance Clear (CLEAR) 08/27/22 12:36 Urine pH 5 (5-7) 08/27/22 12:36 Ur Specific [place] 1.000 (1.005-1.030) L 08/27/22 12:36 Urine Protein Neg (Negative) 08/27/22 12:36 Urine Glucose (UA) 4+ (Normal) H 08/27/22 12:36 Urine Ketones 1+ (Negative) H 08/27/22 12:36 Urine Blood Neg (Negative) 08/27/22 12:36 Urine Nitrate Negative (Negative) 08/27/22 12:36 Urine Bilirubin Neg (Negative) 08/27/22 12:36 Urine Urobilinogen Norm mg/dL (Negative) 08/27/22 12:36 Ur Leukocyte Esterase Negative (Negative) 08/27/22 12:36 Urine RBC 0-4 /hpf (0-2) H 08/27/22 12:36 Urine WBC 0-4 /hpf (0-5) H 08/27/22 12:36 Ur Squamous Epith Cells 0-4 /hpf (0-5) H 08/27/22 12:36 Amorphous Sediment Not Reportable 08/27/22 12:36 Urine Bacteria Trace /hpf (NONE) 08/27/22 12:36 Urine Yeast 1+ /hpf H 08/27/22 12:36 Serum Ketones Negative (Negative) 08/27/22 12:22 Discharge Plan Discharge Patient Disposition: Placed in Observation Clinical Impression: Hyperglycemia due to type 2 diabetes mellitus Coding Level of Care Code ED Decorating Machine Tender for Ben Salomon
[2022-08-27 13:11] LABS: Ketone (Acetest) Serum Negative (Negative)
[2022-08-27 13:14] LABS: Glucose 661 mg/dL (65-115)
[2022-08-27] MEDS: sodium chloride 0.9% 1,000 ML 999 ML IV ×2 (13:49→18:16)
[2022-08-27] MEDS: insulin glargine 100 units/1 mL 55 UNIT SUBCUT (13:50)
[2022-08-27 14:09] LABS: Bacteria Urine TRACE /hpf; Bilirubin Urine Neg (Negative); Blood Urine Neg (Negative); Glucose Urine UA 4+ (Normal); Ketones Urine 1+ (Negative); Leukocyte Esterase Urine Negative (Negative); Nitrate Urine Negative (Negative); Protein Urine Neg (Negative); RBC Urine 0-4 /hpf (0-2); Squamous Epithelial Cell Urine 0-4 /hpf (0-5); Urine Appearance Clear (CLEAR); Urine Color Yellow (Yellow); Urobilinogen Urine Norm (Negative); WBC Urine 0-4 /hpf (0-5); pH Urine 5 (5-7)
[2022-08-27 14:10] LABS: Add Urine Culture? No; Add Urine Microscopic? YES
[2022-08-27 15:08] LABS: Glucose Point of Care 596 mg/dL (70-110)
[2022-08-27] MEDS: insulin regular-human 100 units/1 mL 10 UNIT SUBCUT (15:56)
[2022-08-27] MEDS: HYDROcodone-acetaminophen 5-325 mg Tablet 1 TAB PO ×2 (15:57→22:11)
[2022-08-27 16:51] LABS: Glucose Point of Care 460 mg/dL (70-110)
[2022-08-27 17:53] LABS: Glucose Point of Care 472 mg/dL (70-110)
--- NOTE | 2022-08-27 18:48 | PM.HP ---
Providers/Chief Complaint Primary Care Provider: Austen Robles MD Chief Complaint: UC sent for high bg History of Present Illness Melissa De Jesus is a 72 year old female with PMH of HTN ,DM,gout,came in today with for the management of hyperglycemia patient was started on prednisone as outpatient in preparation for a C.T Myelogram as she has contrast allergy,she was also not able to take her long acting insulin,when she came in the ER her blood sugar was found to be in 600s she was given 55 u of lantus as well as 10 u of regular insulin along with 2 LS normal saline, she also has pseudohyponatremia her AG is normal.Her other vitals and labs have been reviewed. Review of Systems General: Reports: 10 or more systems reviewed and unremarkable except in HPI and below Const: Denies: fever(s), chills, body aches, change in appetite or diaphoresis Card: Denies: palpitations, edema, swelling of feet/ankles, dyspnea on exertion, orthopnea or leg pain with exertion Resp: Denies: dyspnea, productive cough, wheezing or pain on inspiration GI: Denies: abdominal pain, nausea, vomiting, diarrhea or constipation : Denies: flank pain Musc: Denies: back pain, extremity pain or extremity swelling Neuro: Denies: headache(s), difficulty walking or confusion Medications/Allergies Home Medications Medication Instructions Recorded Confirmed Last Taken Type blood sugar diagnostic (Accu-Chek #100 ea 02/24/21 08/27/22 Unknown Rx Leeann Plus test strips) ibuprofen 200 mg tablet (Ibuprofen 200 mg PO Q6H PRN Pain 01/21/22 08/27/22 Unknown History IB) sitagliptin phosphate 100 mg 100 mg PO DAILY 1 month #30 tabs 01/27/22 08/27/22 08/26/22 Rx tablet (Januvia) tizanidine 2 mg tablet See Rx Instructions .Route 02/11/22 08/27/22 08/18/22 22:00 Rx .COMPLEX #270 tabs nystatin 100,000 unit/mL oral 5 ml PO Q6H #473 mL 03/18/22 08/27/22 08/26/22 Rx suspension triamcinolone acetonide 0.1 % See Rx Instructions .Route 04/03/22 08/27/22 08/19/22 Rx topical cream .COMPLEX #80 grams pen needle, diabetic 32 gauge x ##100 04/09/22 08/27/22 Unknown Rx (TechLITE Pen Needle) atorvastatin 20 mg tablet 20 mg PO DAILY #90 tabs 05/12/22 08/27/22 08/26/22 Rx lift recliner #1 ea 05/12/22 08/27/22 Unknown Rx pregabalin 50 mg capsule 50 mg PO TID #90 caps 05/12/22 08/27/22 08/26/22 Rx budesonide-formoterol HFA 80 See Rx Instructions .Route 06/01/22 08/27/22 08/26/22 Rx mcg-4.5 mcg/actuation aerosol .COMPLEX #10.2 ea inhaler (Symbicort) allopurinol 100 mg tablet 100 mg PO DAILY #90 tabs 06/04/22 08/27/22 08/26/22 Rx oxybutynin chloride 5 mg tablet See Rx Instructions .Route 07/31/22 08/27/22 08/26/22 Rx .COMPLEX #60 tabs dexlansoprazole 30 mg 30 mg PO DAILY #90 caps 08/03/22 08/27/22 08/26/22 Rx capsule,biphase delayed release diphenhydramine HCl 25 mg capsule 25 mg PO DIRECTED allergy 08/12/22 08/27/22 08/19/22 07:00 Rx (Benadryl) symptoms #2 caps aspirin 81 mg tablet,delayed 81 mg feeding tube DAILY 08/18/22 08/27/22 08/26/22 History release metoprolol succinate 50 mg 100 mg PO DAILY 08/18/22 08/27/22 08/26/22 History tablet,extended release 24 hr isosorbide mononitrate 30 mg 30 mg PO DAILY #60 tabs 08/19/22 08/27/22 08/26/22 Rx tablet,extended release 24 hr venlafaxine 150 mg 150 mg PO DAILY 08/19/22 08/27/22 08/26/22 History capsule,extended release 24 hr (Effexor XR) amlodipine 10 mg tablet 10 mg PO DAILY 08/27/22 08/27/22 08/26/22 History glipizide 5 mg tablet, extended See Rx Instructions .Route 08/27/22 08/27/22 08/26/22 Rx release 24 hr .COMPLEX #90 tabs insulin detemir U-100 100 unit/mL 55 unit (0.55 mL) SUBCUT BID #3 mL 08/27/22 08/27/22 08/26/22 Rx (3 mL) subcutaneous pen (Levemir FlexTouch U-100 Insulin) pantoprazole 40 mg tablet,delayed 40 mg PO DAILY 08/27/22 08/27/22 08/26/22 History release tramadol 50 mg tablet 50 mg PO Q6H PRN pain 30 days #30 08/27/22 08/27/22 Unknown Rx tabs trazodone 100 mg tablet 100 mg PO BEDTIME 08/27/22 08/27/22 08/26/22 History Allergies Allergy/AdvReac Type Severity Reaction Status Date / Time Iodinated Contrast Media Allergy Unknown Verified 08/27/22 11:07 meperidine [From Demerol] Allergy HIVES Verified 08/27/22 11:07 shellfish derived Allergy ANAPHYLAXIS Verified 08/27/22 11:07 PFSH Acute PFSH: Medical History Controlled type 2 diabetes mellitus, with long-term current use of insulin COVID-19 Depression Diabetic neuropathy Diverticulitis Essential (primary) hypertension GERD (gastroesophageal reflux disease) Hyperlipidemia Insomnia, controlled Vitamin D deficiency Yeast dermatitis Surgical History H/O: hysterectomy History of back surgery s/p fusion L3-L5 History of colonoscopy History of neck surgery S/p bilateral carpal tunnel release S/P cholecystectomy Status post total knee replacement, left Remote Family History Other CAD (coronary artery disease) Diabetes Social History Smoking and tobacco status: never smoked Second hand smoke exposure: No Alcohol intake: current Alcohol intake frequency: holidays/special occasions only Alcohol type: wine Substance/Drug Use: never Lives independently: Yes Household members: spouse Marital status: Do you think of yourself as: Straight/Heterosexual Current gender identity: Female Female Reproductive History: Para: 3 Spontaneous abortions: No Vitals/I&O/Wt Last Vital Signs Temp 96.9 F L 08/27/22 11:47 Pulse 99 08/27/22 18:37 Resp 16 08/27/22 18:37 BP 174/79 08/27/22 15:30 Pulse Ox 95 08/27/22 18:37 O2 Del Method Room Air 08/27/22 18:37 08/27/22 08/27/22 08/27/22 06:59 14:59 22:59 Intake Total 1000 / 1000 Balance 1000 / 1000 Weight last 48 hrs Weight 130.635 kg Physical Exam Const: COMMON NORMALS: patient oriented x3 HENMT: COMMON NORMALS: normocephalic, atraumatic, hearing grossly normal bilaterally and external ears normal Resp: COMMON NORMALS: clear to auscultation bilaterally AUSCULTATION: clear to auscultation bilaterally Cardio: COMMON NORMALS: regular rate, regular rhythm, S1 normal heart sound present, S2 normal heart sound present, No gallops present (Cardio), No murmurs present (Cardio), No rub (Cardio) and Peripheral pulses 2+ throughout RATE: regular rate RHYTHM: regular rhythm HEART SOUNDS: S1 normal heart sound present and S2 normal heart sound present PERIPHERAL PULSES: Peripheral pulses 2+ throughout GI: COMMON NORMALS: Normal to inspection, nondistended, normoactive bowel sounds present, Soft to palpation, non-tender, No hepatosplenomegaly present and no masses AUSCULTATION: Yes normoactive bowel sounds PALPATION: Yes Soft to palpation and Yes No hepatosplenomegaly present RECTAL EXAM: deferred Extremity: COMMON NORMALS: no clubbing, cyanosis or edema and no pedal edema Neuro: COMMON NORMALS: patient oriented x3 Data 08/28/22 04:17 08/28/22 06:59 A&P Assessment and plan (1) Hyperglycemia due to type 2 diabetes mellitus: (2) Diabetes type 2, uncontrolled: Qualifiers: Glycemic state: with hyperglycemia Qualified Code(s): E11.65 - Type 2 diabetes mellitus with hyperglycemia (3) Essential (primary) hypertension: Plan 72 year old female with PMH of HTN ,DM,gout,came in today with for the management of hyperglycemia patient was started on prednisone as outpatient in preparation for a C.T Myelogram as she has contrast allergy,she was also not able to take her long acting insulin. Assessment : Hyperglycemia due to uncontrolled diabetes as well as due to recent steroid use. Continue lantus 55u sc BID as well as MDSSI. Monitor FSG Continue I.V Hydration. H/O Gout : Continue allopurinol H/O HTN : Continue Amlodipine 10 mg po daily as well as metoprolol Code Status:Full code DVT PPX: On lovenox Attestations Medical Necessity Statement*: Patient needs to be in hospital for the management of hyperglycemia. Coding Level of Care Code Acute Code for Chg Fwd Diagnoses Hyperglycemia due to type 2 diabetes mellitus E11.65 Diabetes type 2, uncontrolled E11.65 Glycemic state: with hyperglycemia Essential (primary) hypertension I10
[2022-08-27] MEDS: sodium chloride 0.9% 1,000 ML 75 ML IV (19:20)
--- NOTE | 2022-08-27 19:27 | PC.NURSE ---
pt resting in bed, IV patent, flushes easy with positive blood return. pt oriented x4. pt aware of plan of care with admission. call light within reach.
--- NOTE | 2022-08-27 20:33 | PC.NURSE ---
attempted to call report to Med Surg. Nurse unavailable at this time and will call back to receive report
[2022-08-27 20:37] LABS: Glucose Point of Care 366 mg/dL (70-110)
--- NOTE | 2022-08-27 21:29 | PC.NURSE ---
report given to Jesenia on Med Surg
[2022-08-27 21:51] LABS: Glucose Point of Care 340 mg/dL (70-110)
[2022-08-27] MEDS: enoxaparin 40 mg/0.4 mL Syringe SUBCUT (22:06)
[2022-08-27] MEDS: trazodone 100 mg Tablet PO (22:06)
[2022-08-27] MEDS: insulin lispro 100 unit/1 mL SUBCUT (22:06)
[2022-08-27] MEDS: pregabalin 50 mg Capsule PO (22:06)
[2022-08-28] VITALS: BP 126/78; PULSE 74; RESP 18; TEMP 36.4; O2SAT 92
[2022-08-28 03:50] VITALS: BP 130/72; PULSE 76; RESP 17; TEMP 36.6; O2SAT 94
[2022-08-28 04:45] LABS: Basophils % 0.4 %; Eosinophils % 0.3 %; Hematocrit 39.2 % (37.0-47.0); Hemoglobin 12.5 g/dL (11.5-15.3); Lymphocytes % 18.7 %; Mean Corpuscular HGB Conc 31.9 g/dL (30.0-36.0); Mean Corpuscular Hemoglobin 29.8 pg (28.0-34.0); Mean Corpuscular Volume 93.3 fl (81-99); Mean Platelet Volume 10.6 fL (7.4-10.4); Monocytes # 0.8 10^3/uL (0.2-0.9); Monocytes % 7.4 %; Neutrophils # 7.62 10^3/uL (1.8-7.7); Neutrophils % 72.1 %; Nucleated Red Blood Cells % 0 %; Platelet Count 207 10^3/cmm (130-400); Red Cell Distribution Width 13.8 % (12.1-15.1); White Blood Count 10.6 10^3/uL (4.0-10.0)
[2022-08-28 07:32] LABS: Anion Gap 15.8 (5-19); Blood Urea Nitrogen 15 mg/dL (8-23); Calcium 8.8 mg/dL (8.5-10.5); Carbon Dioxide 23 mmol/L (22-29); Chloride 103 mmol/L (98-107); Glucose 217 mg/dL (65-115); Osmolality Calculated 293 mOsm/kg (285-295); Potassium 3.8 mmol/L (3.5-5.1); Sodium 138 mmol/L (136-145)
[2022-08-28 08:00] VITALS: BP 142/76; PULSE 87; PULSE 90; RESP 16; TEMP 36.6; O2SAT 94; O2SAT 96
[2022-08-28 08:01] LABS: Glucose Point of Care 234 mg/dL (70-110)
--- NOTE | 2022-08-28 08:03 | P.DS_ITS ---
Discharge Providers Date of Admission: 08/27/22 18:40 Date of Discharge: August 28, 2022 Attending Provider at Admission: Anselmo Curran MD Attending Provider at Discharge: Anselmo Curran MD Primary Care Provider: Austen Robles MD Diagnoses at Discharge Discharge Diagnosis (1) Hyperglycemia due to type 2 diabetes mellitus: Status: Acute (2) Diabetes type 2, uncontrolled: Status: Acute Qualifiers: Glycemic state: with hyperglycemia Qualified Code(s): E11.65 - Type 2 diabetes mellitus with hyperglycemia (3) Essential (primary) hypertension: Status: Acute Reason for Visit Reason for Visit: UC sent for high bg Hospital Course Hospital Course 72 year old female with PMH of HTN ,DM,gout,came in today with for the management of hyperglycemia patient was started on prednisone? as outpatient in preparation for a C.T Myelogram as she has contrast allergy,she was also not able to take her long acting insulin,when she came in the ER her blood sugar was found to be in 600s, she was admitted for the management of hyperglycemia likely steroid-induced, she was kept on Lantus 55 units subcu twice daily, medium dose sliding scale insulin, IV hydration. Blood sugar was better controlled in the morning,was discharged on her home insulin regimen, she will continue to follow-up with her endocrine as well as primary care physician as outpatient. Physical Exam Const: COMMON NORMALS: patient oriented x3 HENMT: COMMON NORMALS: normocephalic, atraumatic, hearing grossly normal bilaterally and external ears normal HEAD & SCALP: normocephalic and atraumatic EXTERNAL EAR: Yes external ears normal Resp: COMMON NORMALS: clear to auscultation bilaterally AUSCULTATION: clear to auscultation bilaterally Cardio: COMMON NORMALS: regular rate, regular rhythm, S1 normal heart sound present, S2 normal heart sound present, No gallops present (Cardio), No murmurs present (Cardio), No rub (Cardio) and Peripheral pulses 2+ throughout RATE: regular rate RHYTHM: regular rhythm HEART SOUNDS: S1 normal heart sound present and S2 normal heart sound present PERIPHERAL PULSES: Peripheral pulses 2+ throughout GI: COMMON NORMALS: Normal to inspection, nondistended, normoactive bowel sounds present, Soft to palpation, non-tender, No hepatosplenomegaly present and no masses AUSCULTATION: Yes normoactive bowel sounds PALPATION: Yes Soft to palpation and Yes No hepatosplenomegaly present RECTAL EXAM: deferred Extremity: COMMON NORMALS: no clubbing, cyanosis or edema and no pedal edema Neuro: COMMON NORMALS: patient oriented x3 Discharge Data Studies Completed and Pending Pending at discharge Category Date Time Status Basic Metabolic Panel AM LABS Lab 08/29/22 04:00 Ordered Basic Metabolic Panel AM LABS Lab 08/30/22 04:00 Ordered Complete Blood Count w/Auto AM LABS Lab 08/29/22 04:00 Ordered Complete Blood Count w/Auto AM LABS Lab 08/30/22 04:00 Ordered Laboratory Results WBC 10.6 10^3/uL (4.0-10.0) H 08/28/22 04:17 RBC 4.20 10^6/uL (4.1-5.3) 08/28/22 04:17 Hgb 12.5 g/dL (11.5-15.3) 08/28/22 04:17 Hct 39.2 % (37.0-47.0) 08/28/22 04:17 MCV 93.3 fl (81-99) 08/28/22 04:17 MCH 29.8 pg (28.0-34.0) 08/28/22 04:17 MCHC 31.9 g/dL (30.0-36.0) 08/28/22 04:17 RDW 13.8 % (12.1-15.1) 08/28/22 04:17 Plt Count 207 10^3/cmm (130-400) 08/28/22 04:17 MPV 10.6 fL (7.4-10.4) H 08/28/22 04:17 Neut % (Auto) 72.1 % 08/28/22 04:17 Lymph % (Auto) 18.7 % 08/28/22 04:17 [place] % (Auto) 7.4 % 08/28/22 04:17 Eos % (Auto) 0.3 % 08/28/22 04:17 Baso % (Auto) 0.4 % 08/28/22 04:17 Neut # (Auto) 7.62 10^3/uL (1.8-7.7) 08/28/22 04:17 Lymph # (Auto) 2.0 10^3/uL (0.8-4.8) 08/28/22 04:17 [place] # (Auto) 0.8 10^3/uL (0.2-0.9) 08/28/22 04:17 Eos # (Auto) 0.0 10^3/uL (0.0-0.8) 08/28/22 04:17 Baso # (Auto) 0.0 10^3/uL (0.0-0.1) 08/28/22 04:17 Nucleated RBC % (auto) 0 % 08/28/22 04:17 Nucleated RBCs # 0.0 /100WBC 08/28/22 04:17 Sodium 138 mmol/L (136-145) 08/28/22 06:59 Potassium 3.8 mmol/L (3.5-5.1) 08/28/22 06:59 Chloride 103 mmol/L (98-107) 08/28/22 06:59 Carbon Dioxide 23 mmol/L (22-29) 08/28/22 06:59 Anion Gap 15.8 (5-19) 08/28/22 06:59 BUN 15 mg/dL (8-23) 08/28/22 06:59 Creatinine 0.8 mg/dL (0.5-0.9) 08/28/22 06:59 GFR Calculation Not Reportable 08/28/22 06:59 Glucose 217 mg/dL (65-115) H 08/28/22 06:59 POC Glucose 234 mg/dL (70-110) H 08/28/22 06:05 Calculated Osmolality 293 mOsm/kg (285-295) 08/28/22 06:59 Calcium 8.8 mg/dL (8.5-10.5) 08/28/22 06:59 Total Bilirubin 0.4 mg/dL (0.15-1.2) 08/27/22 12:22 AST 12 U/L (0-32) 08/27/22 12:22 ALT 22 U/L (0-33) 08/27/22 12:22 Alkaline Phosphatase 138 U/L (35-105) H 08/27/22 12:22 Total Protein 7.6 g/dL (6.6-8.7) 08/27/22 12:22 Albumin 4.3 g/dL (3.5-5.2) 08/27/22 12:22 Globulin 3.3 g/dL (1.3-4.6) 08/27/22 12:22 Urine Color Yellow (Yellow) 08/27/22 12:36 Urine Appearance Clear (CLEAR) 08/27/22 12:36 Urine pH 5 (5-7) 08/27/22 12:36 Ur Specific [place] 1.000 (1.005-1.030) L 08/27/22 12:36 Urine Protein Neg (Negative) 08/27/22 12:36 Urine Glucose (UA) 4+ (Normal) H 08/27/22 12:36 Urine Ketones 1+ (Negative) H 08/27/22 12:36 Urine Blood Neg (Negative) 08/27/22 12:36 Urine Nitrate Negative (Negative) 08/27/22 12:36 Urine Bilirubin Neg (Negative) 08/27/22 12:36 Urine Urobilinogen Norm mg/dL (Negative) 08/27/22 12:36 Ur Leukocyte Esterase Negative (Negative) 08/27/22 12:36 Urine RBC 0-4 /hpf (0-2) H 08/27/22 12:36 Urine WBC 0-4 /hpf (0-5) H 08/27/22 12:36 Ur Squamous Epith Cells 0-4 /hpf (0-5) H 08/27/22 12:36 Amorphous Sediment Not Reportable 08/27/22 12:36 Urine Bacteria Trace /hpf (NONE) 08/27/22 12:36 Urine Yeast 1+ /hpf H 08/27/22 12:36 Serum Ketones Negative (Negative) 08/27/22 12:22 Vitals Last Vital Signs Temp 97.8 F 08/28/22 03:50 Pulse 76 08/28/22 03:50 Resp 17 08/28/22 03:50 BP 130/72 08/28/22 03:50 Pulse Ox 94 08/28/22 03:50 O2 Del Method Room Air 08/28/22 03:50 Discharge Plan Discharge Patient Disposition: Home Condition: Stable Prescriptions: Continued ibuprofen [Ibuprofen IB] 200 mg tablet 200 mg PO Q6H PRN (Reason: Pain) (DME) pen needle, diabetic [TechLITE Pen Needle] 32 gauge x 5/32 needle See Rx Instructions .ROUTE .COMPLEX Qty: 100 5RF Dose Instruction: USE WITH INSULIN DAILY Rx Instructions: USE WITH INSULIN DAILY atorvastatin 20 mg tablet 20 mg PO DAILY Qty: 90 3RF pregabalin 50 mg capsule 50 mg PO TID Qty: 90 5RF Rx Instructions: 340 B (DME) lift recliner See Rx Instructions .Route .MEDSUPPLY Qty: 1 0RF Rx Instructions: As directed budesonide-formoterol [Symbicort] 80-4.5 mcg/actuation HFA aerosol inhaler See Rx Instructions .ROUTE .COMPLEX Qty: 10.2 1RF Dose Instruction: INHALE 2 PUFFS BY MOUTH TWICE A DAY Rx Instructions: INHALE 2 PUFFS BY MOUTH TWICE A DAY allopurinol 100 mg tablet 100 mg PO DAILY Qty: 90 1RF Januvia 100 mg tablet 100 mg PO DAILY 30 Days Qty: 30 6RF Rx Instructions: 340B diphenhydramine HCl [Benadryl] 25 mg capsule 25 mg PO DIRECTED Qty: 2 0RF Rx Instructions: Take 2 tabs (50mg) 1hr prior to procedure Levemir FlexTouch U-100 Insuln 100 unit/mL (3 mL) insulin pen 55 unit SUBCUT BID Qty: 3 1RF (DME) Accu-Chek Leeann Plus test strp Strip See Rx Instructions .ROUTE .MEDSUPPLY Qty: 100 5RF Rx Instructions: ONE DAILY tizanidine 2 mg tablet See Rx Instructions .ROUTE .COMPLEX Qty: 270 0RF Dose Instruction: TAKE 1 TABLET BY MOUTH THREE TIMES A DAY NEEDED FOR MUSCLE SPASTICITY Rx Instructions: TAKE 1 TABLET BY MOUTH THREE TIMES A DAY NEEDED FOR MUSCLE SPASTICITY nystatin 100,000 unit/mL suspension 5 ml PO Q6H Qty: 473 1RF Rx Instructions: swish and swallow triamcinolone acetonide 0.1 % cream See Rx Instructions .ROUTE .COMPLEX Qty: 80 0RF Dose Instruction: APPLY 1 APPLICATION TOPICALLY TWICE A DAY Rx Instructions: APPLY 1 APPLICATION TOPICALLY TWICE A DAY oxybutynin chloride 5 mg tablet See Rx Instructions .ROUTE .COMPLEX Qty: 60 1RF Dose Instruction: TAKE 1 TABLET BY MOUTH TWICE A DAY Rx Instructions: TAKE 1 TABLET BY MOUTH TWICE A DAY dexlansoprazole 30 mg capsule,biphase delayed releas 30 mg PO DAILY Qty: 90 0RF glipizide 5 mg tablet extended release 24hr See Rx Instructions .ROUTE .COMPLEX Qty: 90 0RF Dose Instruction: TAKE 1 TABLET BY MOUTH EVERY DAY Rx Instructions: TAKE 1 TABLET BY MOUTH EVERY DAY tramadol 50 mg tablet 50 mg PO Q6H PRN (Reason: pain) 30 Days Qty: 30 0RF Rx Instructions: Refill and Dr. Shaw's absence aspirin 81 mg Tablet,Delayed Release (Dr/Ec) 81 mg feeding tube DAILY metoprolol succinate 50 mg tablet extended release 24 hr 100 mg PO DAILY Rx Instructions: TAKE 1 TABLET BY MOUTH EVERY DAY venlafaxine [Effexor XR] 150 mg capsule,extended release 24hr 150 mg PO DAILY isosorbide mononitrate 30 mg tablet extended release 24 hr 30 mg PO DAILY Qty: 60 2RF pantoprazole 40 mg tablet,delayed release (DR/EC) 40 mg PO DAILY trazodone 100 mg tablet 100 mg PO BEDTIME amlodipine 10 mg tablet 10 mg PO DAILY Discharge Orders: Discharge Order (Routine); Ordered 08/28/22 Ordered By: Anselmo Curran Referrals: Austen Robles MD [Primary Care Provider] - (message sent to clinic.) Patient Instructions: Type 2 Diabetes, Diabetic Hyperglycemia (DC), How to Check your Blood Sugar (DC), Opioid Safety Discharge Attestations Time Spent in Discharge Care*: less than 30 min Quality Metrics Clinical Quality Measures [ No reported AMI, CVA or VTE this stay] Coding Level of Care Code Acute Code for Chg Fwd Diagnoses Hyperglycemia due to type 2 diabetes mellitus E11.65 Diabetes type 2, uncontrolled E11.65 Glycemic state: with hyperglycemia Essential (primary) hypertension I10
[2022-08-28] MEDS: acetaminophen 325 mg Tablet 650 MG PO (09:15)
[2022-08-28] MEDS: pregabalin 50 mg Capsule PO (09:16)
[2022-08-28] MEDS: allopurinol 100 mg Tablet PO (09:16)
[2022-08-28] MEDS: pantoprazole DR 40 mg Tablet PO (09:16)
[2022-08-28] MEDS: venlafaxine ER (24HR) 150 mg Capsule PO (09:16)
[2022-08-28] MEDS: amlodipine 10 mg Tablet PO (09:16)
[2022-08-28] MEDS: metoprolol succinate ER (24 HR) 100 mg Tablet PO (09:16)
[2022-08-28] MEDS: isosorbide mononitrate ER 30 mg Tablet PO (09:17)
[2022-08-28] MEDS: aspirin 81 mg EC Tablet PO (09:17)
[2022-08-28] MEDS: atorvastatin 40 mg Tablet 20 MG PO (09:17)
[2022-08-28] MEDS: insulin glargine 100 units/1 mL 55 UNIT SUBCUT (09:18)
[2022-08-28] MEDS: insulin lispro 100 unit/1 mL SUBCUT (09:18)
[2022-08-28] MEDS: HYDROcodone-acetaminophen 5-325 mg Tablet 1 TAB PO (09:23)
[2022-08-28 11:48] VITALS: BP 142/76; PULSE 90; RESP 16; TEMP 36.6; O2SAT 96
== END 2022-08-28 11:49 | disposition home or self-care (01) ==
LOC: ER 20:08 → MEDSURG 20:47
PROVIDERS: Admitting Provider Internal Medicine; Emergency Provider Emergency Medicine; PCP Internal Medicine; Visit Provider Internal Medicine
DX: E11.65 Type 2 diabetes mellitus with hyperglycemia (principal); E11.40 Type 2 diabetes mellitus with diabetic neuropathy, unspecified; I10 Essential (primary) hypertension; E78.5 Hyperlipidemia, unspecified; Z79.4 Long term (current) use of insulin; Z79.84 Long term (current) use of oral hypoglycemic drugs; Z79.82 Long term (current) use of aspirin; Z79.899 Other long term (current) drug therapy; Z86.16 Personal history of COVID-19; Z91.041 Radiographic dye allergy status
CPT/HCPCS: 36415; 36416; 80048; 80053; 81001; 82009; 82962; 85025; 96360; 96361; 96372; 99285; G0378; J1650; J1815; J7030

== ENCOUNTER → 2022-09-07 13:48 | Outpatient (BNVA) | payer MEDICARE, OTHER, SELFPAY | PROVIDERS: PCP Family Medicine; Referring Provider Internal Medicine; Visit Provider Internal Medicine | DX: Z09 Encounter for follow-up examination after completed treatment for conditions other than malignant neoplasm (principal); E11.65 Type 2 diabetes mellitus with hyperglycemia; E78.2 Mixed hyperlipidemia; E66.01 Morbid (severe) obesity due to excess calories; Z68.41 Body mass index [BMI] 40.0-44.9, adult; Z79.84 Long term (current) use of oral hypoglycemic drugs; Z79.4 Long term (current) use of insulin | CPT/HCPCS: 99214 ==

== ENCOUNTER → 2022-09-09 12:59 | Outpatient (BNVA) | payer MEDICARE, OTHER, SELFPAY | PROVIDERS: PCP Family Medicine; Visit Provider Otolaryngology | DX: R13.10 Dysphagia, unspecified (principal); R49.9 Unspecified voice and resonance disorder; E66.01 Morbid (severe) obesity due to excess calories; Z68.43 Body mass index [BMI] 50.0-59.9, adult; K13.79 Other lesions of oral mucosa | CPT/HCPCS: 31575; 99204 ==

== ENCOUNTER 2022-10-08 09:35 | Outpatient (RCR) | payer MEDICARE, OTHER, SELFPAY | END 2022-10-30 23:59 | disposition home or self-care (01) | LOC: SPT 09:35 | PROVIDERS: PCP Family Medicine; Visit Provider Family Medicine | DX: M79.622 Pain in left upper arm (principal) | CPT/HCPCS: 97110; 97161 ==

== ENCOUNTER → 2022-10-13 09:13 | Outpatient (BNVA) | payer MEDICARE, OTHER, SELFPAY | PROVIDERS: PCP Family Medicine; Visit Provider Otolaryngology | DX: R49.9 Unspecified voice and resonance disorder (principal); J39.2 Other diseases of pharynx; K13.79 Other lesions of oral mucosa | CPT/HCPCS: 31575; 99213 ==

== ENCOUNTER → 2022-10-21 08:32 | Outpatient (BNVA) | payer MEDICARE, OTHER, SELFPAY | PROVIDERS: PCP Family Medicine; Visit Provider Internal Medicine | DX: Z09 Encounter for follow-up examination after completed treatment for conditions other than malignant neoplasm (principal); E11.65 Type 2 diabetes mellitus with hyperglycemia; E78.2 Mixed hyperlipidemia; E66.01 Morbid (severe) obesity due to excess calories; Z68.41 Body mass index [BMI] 40.0-44.9, adult; Z79.4 Long term (current) use of insulin; Z79.84 Long term (current) use of oral hypoglycemic drugs | CPT/HCPCS: 99214 ==

== ENCOUNTER 2022-12-12 13:12 | Emergency (ER) | payer MEDICARE, OTHER, SELFPAY ==
[2022-12-12 13:18] VITALS: BP 131/82; PULSE 101; RESP 16; TEMP 37.2; O2SAT 100; BMI 47.8
[2022-12-12 13:28] VITALS: BP 183/135; PULSE 104; RESP 16; O2SAT 94
--- NOTE | 2022-12-12 13:42 | CTR_ITS ---
PROCEDURE INFORMATION: Exam: CT Abdomen And Pelvis With Contrast Exam date and time: 12/12/2022 2:32 PM Age: 72 years old Clinical indication: Other: Diarrhea; Abdominal pain; Generalized; Additional info: Abdominal pain diarrhea TECHNIQUE: Imaging protocol: Computed tomography of the abdomen and pelvis with contrast. Radiation optimization: All CT scans at this facility use at least one of these dose optimization techniques: automated exposure control; mA and/or kV adjustment per patient size (includes targeted exams where dose is matched to clinical indication); or iterative reconstruction. Contrast material: OMNI 350; Contrast volume: 100 ml; Contrast route: INTRAVENOUS (IV); REPORTING DATA: Count of CT and Cardiac NM exams in prior 12 months: This patient has received 2 known CTs and 0 known cardiac nuclear medicine studies in the 12 months prior to the current study. COMPARISON: CT abdomen pelvis w con* [id number] 08/03/2018 2:56 PM RADIATION DOSE METRICS: Total DLP (mGy-cm): 1188.83 FINDINGS: Tubes, catheters and devices: Epidural neurostimulator in the posterior thoracic epidural space is incompletely visualized. Lungs: Lung bases are clear. Liver: The liver is normal. Gallbladder and bile ducts: The gallbladder is absent. There is ectasia of the common bile duct and central intrahepatic ducts. Pancreas: There is a hypodense focus in the distal pancreatic body measuring 13 x 8 mm visible on axial series 5, image 25, similar to the finding on 08/03/2018. Spleen: The spleen is unremarkable. Adrenal glands: The adrenal glands are unremarkable. Kidneys and ureters: Low-lying right kidney. Normal parenchymal enhancement. There is no hydronephrosis or stones. The left kidney and ureter are unremarkable. Stomach and bowel: The stomach is decompressed, preventing meaningful evaluation of wall thickness. The small bowel is nondilated. There is mild diverticulosis of the distal descending and sigmoid colon. There is focal diverticular inflammation with pericolonic edema and short segment colonic mucosal thickening in the distal sigmoid visible on axial series 5 image 67 through 75. Appendix: The appendix is normal. Intraperitoneal space: There is no extraluminal gas or fluid collection. Vasculature: There is moderate aortic atherosclerotic disease. The portal, splenic and superior mesenteric veins are patent. Lymph nodes: There is no lymphadenopathy in the retroperitoneum, mesentery, pelvis or inguinal regions. Urinary bladder: The urinary bladder is decompressed, preventing meaningful evaluation of wall thickness. Reproductive: The uterus is absent. There is no adnexal mass or large cyst. Bones/joints: There is intact posterolateral fusion at L2-L3. There is marked disc degeneration at L1-L2. There is diffuse osseous fusion of the lumbar facets. The pelvis and hips are unremarkable. Soft tissues: The abdominal wall is intact. Musculature is atrophic in the abdominal wall is lax. CT/CT abdomen pelvis w con* [id number] IMPRESSION: 1. Uncomplicated distal sigmoid colonic diverticulitis. 2. Hypoenhancing 13 mm focus in the distal pancreatic body. Possible pancreatic cyst or neoplasm. No significant change since 08/03/2018. Recommend follow-up nonemergent pancreas MRI. 3. Incidental findings above.
--- NOTE | 2022-12-12 13:50 | ED_ITS ---
HPI - Nausea/Vomiting/Diarrhea General: Chief complaint: Nausea/Vomiting/Diarrhea Stated complaint: UC sent for diarrhea Time Seen by Provider: 12/12/22 13:19 History of Present Illness: Melissa rivers is a 72-year-old female that presents to the emergency department with complaints of diarrhea x12 days. Patient has had some nausea but no vomiting. She denies fever or chills. She has a history of diverticulitis. Pain is primarily located in the left lower quadrant. Patient is a type II diabetic that is insulin-dependent. She also has a history of hypertension and takes metoprolol and amlodipine. Patient became concerned today when she noted bright red and mucus blood in her stool Prior to her visit, she took Pepto-Bismol Associated nausea: Yes Associated symtoms: Reports nausea; Denies bloating, change in vision, chest pain, dizziness, dysuria, fatigue, headache(s), malaise, palpitations or tinnitus Review of Systems General: Reports: 10 or more systems reviewed and unremarkable except in HPI and below Const: Reports: change in appetite; Denies: fever(s), chills, change in weight, fatigue or malaise Eyes: Denies: change in vision, eye discomfort, eye discharge or eye redness ENMT: Denies: throat pain, enlarged tonsils, odynophagia, hoarseness, ear or mastoid pain, ear discharge, change in hearing, tinnitus, nasal discharge, nasal congestion, post nasal drip or sinus pain Card: Denies: chest pain, palpitations, irregular heart rhythm, edema, dyspnea on exertion, orthopnea or leg pain with exertion Resp: Denies: dyspnea, productive cough, non-productive cough, wheezing, stridor or chest congestion GI: Reports: abdominal pain, nausea, diarrhea, excessive flatus, change in stool character and hematochezia; Denies: vomiting, dysphagia, constipation, bloating or GI cramping : Denies: flank pain, difficulty voiding, dysuria, urinary frequency, urinary urgency, urinary hesitancy, oliguria or hematuria Musc: Denies: neck pain, back pain, extremity pain, joint pain, joint swel ling, joint redness, joint warmth or muscle weakness Skin/Breast: Denies: rash, pruritus, erythema, photosensitivity or new lesions Neuro: Denies: headache(s), numbness in extremities, weakness in extremities, sensory changes, lack of coordination, difficulty walking, frequent falls, dizziness, confusion, Slurred speech present, difficulty communicating thoughts, seizure-like activity or involuntary movements Endo: Denies: polyuria, polydipsia or tired all the time Charly/Lymph: Denies: easy bruising or easy bleeding PFS ED PFSH: Medical History Controlled type 2 diabetes mellitus, with long-term current use of insulin COVID-19 Depression Diabetes type 2, uncontrolled Diabetic neuropathy Diverticulitis Essential (primary) hypertension GERD (gastroesophageal reflux disease) Hyperglycemia due to type 2 diabetes mellitus Hyperlipidemia Insomnia, controlled Vitamin D deficiency Yeast dermatitis Surgical History H/O: hysterectomy History of back surgery s/p fusion L3-L5 History of colonoscopy History of neck surgery S/p bilateral carpal tunnel release S/P cholecystectomy Status post total knee replacement, left Remote Family History Other CAD (coronary artery disease) Diabetes Social History Smoking and tobacco status: never smoked Second hand smoke exposure: No Alcohol intake: current Alcohol intake frequency: holidays/special occasions only Alcohol type: wine Substance/Drug Use: never Lives independently: Yes Household members: spouse Marital status: Do you think of yourself as: Straight/Heterosexual Current gender identity: Female Female Reproductive History: Para: 3 Spontaneous abortions: No Physical Exam Const: COMMON NORMALS: no acute distress, patient oriented x3 and alert GENERAL APPEARANCE: cooperative ORIENTATION/CONSCIOUSNESS: Yes awake, Yes oriented to person, Yes oriented to place and Yes oriented to time HENMT: COMMON NORMALS: normocephalic and atraumatic HEAD & SCALP: normocephalic and atraumatic FACE & SINUS: normal facial exam MOUTH: Normal oral and palatal mucosa present THROAT: posterior oropharynx normal Eye: COMMON NORMALS: Equal, round and reactive pupils present, EOMs intact bilaterally, conjunctivae normal and no scleral icterus GENERAL EYE: appearance normal, both eyes and all related structures ALIGNMENT: Yes alignment normal PERIORBITAL: periorbital findings normal CONJUNCTIVA: Yes conjunctivae normal PUPIL: Yes Equal, round and reactive pupils present Neck/C-Spine: COMMON NORMALS: full ROM GENERAL: Yes normal visual inspection Lymph: LYMPHATIC: no lymphadenopathy noted Chest: COMMONS NORMALS: normal inspection of the chest Breast/axilla inspection: Yes no chest deformity, asymmetry, normal contours, no nodules, ma sses, tenderness Resp: COMMON NORMALS: normal respiratory effort, No retractions, No use of accessory muscles and clear to auscultation bilaterally EFFORT & INSPECTION: Yes able to speak in complete sentences and Yes symmetric chest movement AUSCULTATION: clear to auscultation bilaterally Cardio: COMMON NORMALS: regular rate, regular rhythm and Peripheral pulses 2+ throughout RATE: regular rate RHYTHM: regular rhythm PERIPHERAL PULSES: Peripheral pulses 2+ throughout GI: INSPECTION: Yes central obesity AUSCULTATION: Yes normoactive bowel sounds PALPATION: Yes Firmness to palpation present (GI), No Tenderness to palpation present (GI), No Guarding due to palpation present (GI), No Rigid due to palpation and No Rebound tenderness present RECTAL EXAM: deferred Extremity: COMMON NORMALS: normal to inspection GENERAL: Yes normal exam except as noted Neuro: COMMON NORMALS: patient oriented x3 SENSORIUM/ORIENTATION: Yes alert, Yes oriented to person, Yes oriented to place and Yes oriented to time CRANIAL NERVES: Yes CN normal except as noted Psych: COMMON NORMALS: mental status grossly normal, Normal thought process present, cooperative, activity/motor behavior normal, denies homicidal ideation and denies suicidal ideation THOUGHT PROCESS: Normal thought process present Skin: COMMON NORMALS: no rashes or lesions noted, no wounds and turgor normal GENERAL SKIN EXAM: no rashes or lesions noted and turgor normal Course Vital Signs: Vital signs: Vital Signs Temperature 98.9 F 12/12/22 13:18 Pulse Rate 93 12/12/22 15:14 Respiratory Rate 16 12/12/22 15:14 Blood Pressure 179/120 12/12/22 15:14 Pulse Oximetry 97 12/12/22 15:14 Oxygen Delivery Me thod Nasal Cannula 12/12/22 15:14 MDM - Nausea/Vomiting/Diarrhea Medical Decision Making Patient is a 72-year-old female that presents to the emergency department with complaints of abdominal pain. Pain is primarily located in the left lower quad rant. Differential diagnosis includes GI bleed, cancer, diverticulitis, gastroenteritis Patient was evaluated in the emergency department with diagnostics that included laboratory studies?CBC, CMP, lipase, lactic acid and urinalysis. CT abdomen pelvis with contrast was ordered. Patient does have an allergy to contrast. She states she gets hives. Going to pretreat her with Solu-Medrol and Benadryl. Normal saline at 75 cc an hour was started. Patient did develop some back pain that was treated with fentanyl and Zofran. Her CT of the abdomen pelvis with contrast revealed diverticulitis. It was also noted on the CT that the patient has some type of hypoenhancing lesion that measures 13 mm on the distal pancreatic body. This was last seen in 2019. Patient needs to follow-up with her primary care for possible pancreatic MRI. Patient is going to be treated with ciprofloxacin and Flagyl. We are going to begin that treatment here in the emergency department. Lab Data 12/12/22 13:36 12/12/22 13:36 Radiology Impressions Abdomen/Pelvis CT 12/12/22 13:42 IMPRESSION: 1. Uncomplicated distal sigmoid colonic diverticulitis. 2. Hypoenhancing 13 mm focus in the distal pancreatic body. Possible pancreatic cyst or neoplasm. No significant change since 08/03/2018. Recommend follow-up nonemergent pancreas MRI. 3. Incidental findings above. Laboratory Results WBC 11.8 10^3/uL (4.0-10.0) H 12/12/22 13:36 RBC 4.91 10^6/uL (4.1-5.3) 12/12/22 13:36 Hgb 14.0 g/dL (11.5-15.3) 12/12/22 13:36 Hct 44.6 % (37.0-47.0) 12/12/22 13:36 MCV 90.8 fl (81-99) 12/12/22 13:36 MCH 28.5 pg (28.0-34.0) 12/12/22 13:36 MCHC 31.4 g/dL (30.0-36.0) 12/12/22 13:36 RDW 15.0 % (12.1-15.1) 12/12/22 13:36 Plt Count 243 10^3/cmm (130-400) 12/12/22 13:36 MPV 10.1 fL (7.4-10.4) 12/12/22 13:36 Neut % (Auto) 74.2 % 12/12/22 13:36 Lymph % (Auto) 16.7 % 12/12/22 13:36 [place] % (Auto) 5.5 % 12/12/22 13:36 Eos % (Auto) 2.9 % 12/12/22 13:36 Baso % (Auto) 0.2 % 12/12/22 13:36 Neut # (Auto) 8.75 10^3/uL (1.8-7.7) H 12/12/22 13:36 Lymph # (Auto) 2.0 10^3/uL (0.8-4.8) 12/12/22 13:36 [place] # (Auto) 0.7 10^3/uL (0.2-0.9) 12/12/22 13:36 Eos # (Auto) 0.3 10^3/uL (0.0-0.8) 12/12/22 13:36 Baso # (Auto) 0.0 10^3/uL (0.0-0.1) 12/12/22 13:36 Nucleated RBC % (auto) 0 % 12/12/22 13:36 Nucleated RBCs # 0.0 /100WBC 12/12/22 13:36 Sodium 144 mmol/L (136-145) 12/12/22 13:36 Potassium 4.6 mmol/L (3.5-5.1) 12/12/22 13:36 Chloride 106 mmol/L (98-107) 12/12/22 13:36 Carbon Dioxide 27 mmol/L (22-29) 12/12/22 13:36 Anion Gap 15.6 (5-19) 12/12/22 13:36 BUN 8 mg/dL (8-23) 12/12/22 13:36 Creatinine 0.8 mg/dL (0.5-0.9) 12/12/22 13:36 GFR Calculation Not Reportable 12/12/22 13:36 Glucose 174 mg/dL (65-115) H 12/12/22 13:36 Calculated Osmolality 301 mOsm/kg (285-295) H 12/12/22 13:36 Lactic Acid 0.9 mmol/L (0.5-2.2) 12/12/22 14:21 Calcium 9.3 mg/dL (8.5-10.5) 12/12/22 13:36 Total Bilirubin 0.4 mg/dL (0.15-1.2) 12/12/22 13:36 AST 19 U/L (0-32) 12/12/22 13:36 ALT 24 U/L (0-33) 12/12/22 13:36 Alkaline Phosphatase 121 U/L (35-105) H 12/12/22 13:36 Total Protein 6.8 g/dL (6.6-8.7) 12/12/22 13:36 Albumin 3.7 g/dL (3.5-5.2) 12/12/22 13:36 Globulin 3.1 g/dL (1.3-4.6) 12/12/22 13:36 Lipase 20 U/L (13-60) 12/12/22 13:36 Urine Color Straw (Yellow) 12/12/22 15:26 Urine Appearance Clear (CLEAR) 12/12/22 15:26 Urine pH 5 (5-7) 12/12/22 15:26 Ur Specific [place] 1.005 (1.005-1.030) 12/12/22 15:26 Urine Protein Trace (Negative) 12/12/22 15:26 Urine Glucose (UA) Norm (Normal) 12/12/22 15:26 Urine Ketones 1+ (Negative) H 12/12/22 15:26 Urine Blood Neg (Negative) 12/12/22 15:26 Urine Nitrate Negative (Negative) 12/12/22 15:26 Urine Bilirubin Neg (Negative) 12/12/22 15:26 Urine Urobilinogen Norm mg/dL (Negative) 12/12/22 15:26 Ur Leukocyte Esterase Trace (Negative) H 12/12/22 15:26 Amorphous Sediment Not Reportable 12/12/22 15:26 Discharge Plan Discharge Patient Disposition: Home Clinical Impression: Diverticulitis Condition: Stable Prescriptions: New Cipro 500 mg tablet 500 mg PO Q12H 7 Days Qty: 14 0RF metronidazole 500 mg tablet 500 mg PO Q8H 7 Days Qty: 21 0RF ondansetron 4 mg tablet,disintegrating 4 mg PO Q8H 5 Days Qty: 15 0RF No Action ibuprofen [Ibuprofen IB] 200 mg tablet 200 mg PO Q6H PRN (Reason: Pain) atorvastatin 20 mg tablet 20 mg PO DAILY Qty: 90 3RF pregabalin 50 mg capsule 50 mg PO TID Qty: 90 5RF Rx Instructions: 340 B [place] [place] recliner See Rx Instructions .Route .MEDSUPPLY Qty: 1 0RF Rx Instructions: As directed budesonide-formoterol [Symbicort] 80-4.5 mcg/actuation HFA aerosol inhaler See Rx Instructions .ROUTE .COMPLEX Qty: 10.2 1RF Dose Instruction: INHALE 2 PUFFS BY MOUTH TWICE A DAY Rx Instructions: INHALE 2 PUFFS BY MOUTH TWICE A DAY diphenhydramine HCl [Benadryl] 25 mg capsule 25 mg PO DIRECTED Qty: 2 0RF Rx Instructions: Take 2 tabs (50mg) 1hr prior to procedure [place] [place] Accu-Chek Leeann Plus test strp Strip See Rx Instructions .ROUTE .MEDSUPPLY Qty: 200 1RF Rx Instructions: ONE DAILY [place] [place] pen needle, diabetic [TechLITE Pen Needle] 32 gauge x 5/32 needle See Rx Instructions .ROUTE .COMPLEX Qty: 200 1RF Dose Instruction: USE WITH INSULIN DAILY Rx Instructions: USE WITH INSULIN DAILY tizanidine 2 mg tablet See Rx Instructions .ROUTE .COMPLEX Qty: 270 0RF Dose Instruction: TAKE 1 TABLET BY MOUTH THREE TIMES A DAY NEEDED FOR MUSCLE SPASTICITY Rx Instructions: TAKE 1 TABLET BY MOUTH THREE TIMES A DAY NEEDED FOR MUSCLE SPASTICITY nystatin 100,000 unit/mL suspension 5 ml PO Q6H Qty: 473 1RF Rx Instructions: swish and swallow triamcinolone acetonide 0.1 % cream See Rx Instructions .ROUTE .COMPLEX Qty: 80 0RF Dose Instruction: APPLY 1 APPLICATION TOPICALLY TWICE A DAY Rx Instructions: APPLY 1 APPLICATION TOPICALLY TWICE A DAY glipizide 5 mg tablet extended release 24hr See Rx Instructions .ROUTE .COMPLEX Qty: 90 0RF Dose Instruction: TAKE 1 TABLET BY MOUTH EVERY DAY Rx Instructions: TAKE 1 TABLET BY MOUTH EVERY DAY tramadol 50 mg tablet 50 mg PO Q6H PRN (Reason: pain) 30 Days Qty: 30 0RF Rx Instructions: Refill and Dr. Shaw's absence Mounjaro 2.5 mg/0.5 mL pen injector 2.5 mg SUBCUT Q7D 30 Days Qty: 2.5 0RF Rx Instructions: 2.5mg weekly for 1month; 5mg weekly for 1month; 7.5mg weekly and continue Mounjaro 5 mg/0.5 mL pen injector 5 mg SUBCUT Q7D 30 Days Qty: 2.5 0RF Rx Instructions: 5mg weekly for 1 month then 7.5mg weekly and continue Mounjaro 7.5 mg/0.5 mL pen injector 7.5 mg SUBCUT Q7D 30 Days Qty: 2.5 0RF Januvia 100 mg tablet See Rx Instructions .ROUTE .COMPLEX Qty: 60 0RF Dose Instruction: TAKE ONE TABLET BY MOUTH DAILY FOR ONE MONTH Rx Instructions: TAKE ONE TABLET BY MOUTH DAILY FOR ONE MONTH trazodone 100 mg tablet See Rx Instructions .ROUTE .COMPLEX Qty: 90 0RF Dose Instruction: TAKE 1 TABLET BY MOUTH EVERY DAY Rx Instructions: TAKE 1 TABLET BY MOUTH EVERY DAY Levemir FlexTouch U-100 Insuln 100 unit/mL (3 mL) insulin pen 55 unit SUBCUT BID 90 Days Qty: 50 0RF oxybutynin chloride 5 mg tablet See Rx Instructions .ROUTE .COMPLEX Qty: 180 0RF Dose Instruction: TAKE 1 TABLET BY MOUTH TWICE A DAY Rx Instructions: TAKE 1 TABLET BY MOUTH TWICE A DAY pantoprazole 40 mg tablet,delayed release (DR/EC) See Rx Instructions .ROUTE .COMPLEX Qty: 90 1RF Dose Instruction: TAKE 1 TABLET BY MOUTH EVERY DAY Rx Instructions: TAKE 1 TABLET BY MOUTH EVERY DAY dexlansoprazole [Dexilant] 30 mg capsule,biphase delayed releas See Rx Instructions .ROUTE .COMPLEX Qty: 90 0RF Dose Instruction: TAKE ONE TABLET BY MOUTH CAPSULE Rx Instructions: TAKE ONE TABLET BY MOUTH CAPSULE venlafaxine [Effexor XR] 150 mg capsule,extended release 24hr 150 mg PO DAILY Qty: 90 3RF allopurinol 100 mg tablet See Rx Instructions .ROUTE .COMPLEX Qty: 90 1RF Dose Instruction: TAKE 1 TABLET BY MOUTH EVERY DAY Rx Instructions: TAKE 1 TABLET BY MOUTH EVERY DAY aspirin 81 mg Tablet,Delayed Release (Dr/Ec) 81 mg feeding tube DAILY metoprolol succinate 50 mg tablet extended release 24 hr 100 mg PO DAILY Rx Instructions: TAKE 1 TABLET BY MOUTH EVERY DAY isosorbide mononitrate 30 mg tablet extended release 24 hr 30 mg PO DAILY Qty: 60 2RF amlodipine 10 mg tablet 10 mg PO DAILY Discharge Orders: Discharge ED (Routine); Ordered 12/12/22 Ordered By: Juanita Pichardo Referrals: Devi Shaw DO [Primary Care Provider] - Discharge Diet: Advance as tolerated Discharge Activity: Resume usual activity Patient Instructions: Diverticulitis (ED), Opioid Safety, Pain Management Activity Restrictions/Additional Instructions: Please take antibiotics as prescribed Return to the emergency department for new concerning or worsening symptoms Coding Level of Care Code ED Direct Marketing Manager for Ben Salomon
[2022-12-12] MEDS: diphenhydrAMINE 50 mg/mL SDV 1mL IVP (13:54)
[2022-12-12 13:56] LABS: Basophils % 0.2 %; Eosinophils # 0.3 10^3/uL (0.0-0.8); Eosinophils % 2.9 %; Hematocrit 44.6 % (37.0-47.0); Lymphocytes % 16.7 %; Mean Corpuscular HGB Conc 31.4 g/dL (30.0-36.0); Mean Corpuscular Hemoglobin 28.5 pg (28.0-34.0); Mean Corpuscular Volume 90.8 fl (81-99); Mean Platelet Volume 10.1 fL (7.4-10.4); Monocytes # 0.7 10^3/uL (0.2-0.9); Monocytes % 5.5 %; Neutrophils # 8.75 10^3/uL (1.8-7.7); Neutrophils % 74.2 %; Nucleated Red Blood Cells % 0 %; Platelet Count 243 10^3/cmm (130-400); Red Blood Count 4.91 10^6/uL (4.1-5.3); White Blood Count 11.8 10^3/uL (4.0-10.0)
[2022-12-12] MEDS: sodium chloride 0.9% 1,000 ML 75 ML IV (13:56)
[2022-12-12] MEDS: methylPREDNISolone sod succ 125 mg SDV 40 MG IV (13:56)
[2022-12-12 14:13] LABS: Alanine Aminotransferase 24 U/L (0-33); Albumin Level 3.7 g/dL (3.5-5.2); Alkaline Phosphatase 121 U/L (35-105); Anion Gap 15.6 (5-19); Aspartate Amino Transferase 19 U/L (0-32); Blood Urea Nitrogen 8 mg/dL (8-23); Calcium 9.3 mg/dL (8.5-10.5); Carbon Dioxide 27 mmol/L (22-29); Chloride 106 mmol/L (98-107); Globulin 3.1 g/dL (1.3-4.6); Glucose 174 mg/dL (65-115); Lipase 20 U/L (13-60); Osmolality Calculated 301 mOsm/kg (285-295); Potassium 4.6 mmol/L (3.5-5.1); Sodium 144 mmol/L (136-145); Total Bilirubin 0.4 mg/dL (0.15-1.2); Total Protein 6.8 g/dL (6.6-8.7)
[2022-12-12] MEDS: iohexol 350 mg/mL 500 mL Btl (per mL) IV (14:36)
[2022-12-12 14:53] LABS: Lactic Sepsis W/Reflex 0.9 mmol/L (0.5-2.2)
[2022-12-12] MEDS: ondansetron 2 mg/ML SDV 2 mL 4 MG IVP (15:11)
[2022-12-12 15:12] VITALS: RESP 16
[2022-12-12] MEDS: morphine 4 mg/mL SDV 1 mL 2 MG IVP (15:12)
[2022-12-12 15:14] VITALS: BP 179/120; PULSE 93; RESP 16; O2SAT 97
[2022-12-12 15:41] LABS: Add Urine Microscopic? YES; Bilirubin Urine Neg (Negative); Blood Urine Neg (Negative); Glucose Urine UA Norm (Normal); Ketones Urine 1+ (Negative); Leukocyte Esterase Urine Trace (Negative); Nitrate Urine Negative (Negative); Protein Urine Trace (Negative); Specific Gravity, Urine 1.005 (1.005-1.030); Urine Appearance Clear (CLEAR); Urine Color Straw (Yellow); Urobilinogen Urine Norm (Negative); pH Urine 5 (5-7)
[2022-12-12 15:46] LABS: Add Urine Culture? No; Bacteria Urine TRACE /hpf; WBC Urine 0-4 /hpf (0-5)
[2022-12-12] MEDS: ciprofloxacin 500 mg Tablet PO (15:58)
[2022-12-12] MEDS: metroNIDAZOLE 500 MG Tablet PO (15:58)
[2022-12-12 16:00] VITALS: BP 140/82; PULSE 91; RESP 16; O2SAT 95
== END 2022-12-12 16:06 | disposition home or self-care (01) ==
PROVIDERS: Emergency Provider Nurse Practitioner; PCP Family Medicine
DX: K57.32 Diverticulitis of large intestine without perforation or abscess without bleeding (principal); Z79.82 Long term (current) use of aspirin; Z79.84 Long term (current) use of oral hypoglycemic drugs; Z79.4 Long term (current) use of insulin; E11.9 Type 2 diabetes mellitus without complications; I10 Essential (primary) hypertension; E78.5 Hyperlipidemia, unspecified
CPT/HCPCS: 36415; 74177; 80053; 81001; 83605; 83690; 85025; 96374; 96375; 99285; J1200; J2270; J2405; J2930; J7030; Q9967

== ENCOUNTER 2023-01-19 08:57 | Outpatient (CLI) | payer MEDICARE, OTHER, SELFPAY ==
[2023-01-19 10:23] LABS: Alanine Aminotransferase 17 U/L (0-33); Alkaline Phosphatase 99 U/L (35-105); Anion Gap 13.7 (5-19); Aspartate Amino Transferase 13 U/L (0-32); Blood Urea Nitrogen 17 mg/dL (8-23); Calcium 9.9 mg/dL (8.5-10.5); Carbon Dioxide 27 mmol/L (22-29); Chloride 103 mmol/L (98-107); Chol HDL Ratio 3.97 mg/dL (0.0-4.40); Cholesterol 131 mg/dL (0-200); Globulin 2.9 g/dL (1.3-4.6); Glucose 234 mg/dL (65-115); HDL Cholesterol 33 mg/dL (60-100); LDL Cholesterol Calculated 69 mg/dL (50-129); LDL HDL Ratio 2.09 RATIO (0.00-3.22); Osmolality Calculated 297 mOsm/kg (285-295); Potassium 4.7 mmol/L (3.5-5.1); Sodium 139 mmol/L (136-145); Total Bilirubin 0.4 mg/dL (0.15-1.2); Total Protein 6.9 g/dL (6.6-8.7); Triglycerides 147 mg/dL (0-150)
[2023-01-19 10:26] LABS: Creatinine Urine, Random 111 mg/dL (28-217); Microalbumin Random Urine 8 ug/dL (0-20)
[2023-01-19 10:34] LABS: Microalbum Creatinine Ratio Ur 72 mg/dL (0-20)
[2023-01-19 10:52] LABS: Estmated Average Glucose 166; Hemoglobin A1C 7.4 % (4.0-6.0)
== END 2023-01-19 08:58 | disposition home or self-care (01) ==
PROVIDERS: PCP Family Medicine; Visit Provider Internal Medicine
DX: E78.2 Mixed hyperlipidemia (principal); Z09 Encounter for follow-up examination after completed treatment for conditions other than malignant neoplasm; E66.01 Morbid (severe) obesity due to excess calories; Z68.41 Body mass index [BMI] 40.0-44.9, adult; R73.9 Hyperglycemia, unspecified
CPT/HCPCS: 36415; 80053; 80061; 82044; 83036

== ENCOUNTER → 2023-01-21 08:31 | Outpatient (BNVA) | payer MEDICARE, OTHER, SELFPAY | PROVIDERS: PCP Family Medicine; Visit Provider Internal Medicine | DX: E11.65 Type 2 diabetes mellitus with hyperglycemia (principal); E78.2 Mixed hyperlipidemia; Z09 Encounter for follow-up examination after completed treatment for conditions other than malignant neoplasm; Z79.4 Long term (current) use of insulin | CPT/HCPCS: 99214 ==

== ENCOUNTER 2023-01-26 08:11 | Outpatient (CLI) | payer MEDICARE, OTHER, SELFPAY ==
--- NOTE | 2023-01-26 08:19 | CT_ITS ---
WS: [id number] CT ABDOMEN WITH AND WITHOUT CONTRAST HISTORY: Pancreatic Mass Multiphase 2 mm imaging with and without contrast through the abdomen. Oral contrast has not been pro vided. Coronal and sagittal reformats are submitted. All CT scans at [facility] use at least one of these dose optimization techniques: automated exposure control; mA and/or kV adjustment per pa tient size (includes targeted exams where dose is matched to clinical indication); or iterative recon struction. IV CONTRAST: Omnipaque 350; 100 mL IV. Oral contrast: No DLP: 2090.44 mGy.cm COMPARISON: Fourth 07/2018 and 12/12/2022 Lower thorax: Lung bases are clear. Heart is normal size. Small hiatal hernia. Liver/biliary system: Mildly enlarged liver. No mass or bile duct dilatation. Gallbladder: Cholecystectomy. Pancreas: Normal size pancreas. There is a very small, low-attenuation mass measuring 7 mm from the t ail of the pancreas. There is no adjacent inflammation. No significant enhancement. This cyst was pro bably present in 2019. There is no pancreatic atrophy and no duct dilatation. Spleen: Normal size spleen. No mass or infarct. Several splenules. Adrenal glands: Normal. Right kidney: Normal. Left kidney: Normal size kidney. Stable 11 mm cyst in the lower pole since 2019. Aorta: Mild atherosclerosis with no aneurysm. Lymphadenopathy: None. Free fluid: None. GI tract: Unremarkable. Abdominal wall: Unremarkable abdominal wall. No hernia. Visualized osseous structures: Severe degenerative changes in the visualized lumbar spine. Prior post erior lumbar fusion at L2-3. IMPRESSION: 1. Stable cystic mass measuring 7 mm in the tail of the pancreas. No interval change since 2019. The re is no atrophy of the pancreatic tail or duct dilatation. Favor this is probably a benign cystic ne oplasm versus IPMN. Due to long-term stability consider yearly follow-up MRI or CT evaluation. 2. 2. Prior cholecystectomy. 3. 3. Long-term stability LEFT renal cyst.
[2023-01-26] MEDS: iohexol 350 mg/mL 500 mL Btl (per mL) IV (08:34)
== END 2023-01-26 08:12 | disposition home or self-care (01) ==
PROVIDERS: PCP Family Medicine; Visit Provider Family Medicine
DX: K86.89 Other specified diseases of pancreas (principal); J39.2 Other diseases of pharynx; R49.9 Unspecified voice and resonance disorder; K13.79 Other lesions of oral mucosa
CPT/HCPCS: 31575; 74170; 99213; 99214; Q9967

== ENCOUNTER → 2023-03-09 16:25 | Outpatient (BNVA) | payer MEDICARE, OTHER, SELFPAY | PROVIDERS: PCP Family Medicine; Visit Provider Family Medicine | DX: R60.0 Localized edema (principal) | CPT/HCPCS: 80048; 83880 ==

== ENCOUNTER → 2023-03-16 10:32 | Outpatient (BNVA) | payer MEDICARE, OTHER, SELFPAY | PROVIDERS: PCP Family Medicine; Visit Provider Family Medicine | DX: R60.0 Localized edema (principal) | CPT/HCPCS: 80048 ==

== ENCOUNTER 2023-03-17 06:50 | Outpatient (CLI) | payer MEDICARE, OTHER, SELFPAY ==
--- NOTE | 2023-03-17 07:15 | USCV_ITS ---
Melissa De Jesus Age: 73 Gender: F : 1950 Exam Date: 03/17/2023 07:12 Ordering Phys: Devi Shaw DO Technologist: JUDY [place] [facility] [place]ication: EDEMA BP: 128 / 78 HR: 54 Rhythm: Sinus Technical Quality: Adequate MEASUREMENTS (Male / Female) Normal Values 2D ECHO LVOT Diameter 2.0 cm LV Ejection Fraction MOD 2C 67.0 % LV Ejection Fraction 2C AL 69.5 % LA Diameter 3.8 cm LA Width 3.6 cm LA Height 4.8 cm RA Width 3.3 cm RA Height 4.9 cm Aorta at Sinotubular Diameter 2.6 cm IVC Diameter 1.7 cm M-MODE Aortic Annulus Diameter 2.4 cm LA Ao Ratio MM 1.6 DOPPLER AV Peak Velocity 178.7 cm/s LVOT Peak Velocity 105.0 cm/s AV Area Cont Eq vti 1.6 cm squared AV Area Cont Eq pk 1.8 cm squared MV Peak Velocity 94.0 cm/s MV Area PHT 3.6 cm squared Mitral E to A Ratio 1.5 MV E' Velocity 56.5 cm/s Mitral E to MV E' Ratio 11.1 Mitral E to LV E' Lateral Ratio 11.5 Mitral E to LV E' Septal Ratio 10.9 TR Peak Velocity 134.9 cm/s TR Peak Gradient 7.3 mmHg TR Mean Velocity 97.3 cm/s TR Mean Gradient 4.3 mmHg TR Velocity Time Integral 37.7 cm TV Peak E Velocity 48.0 cm/s Right Atrial Pressure 3.0 mmHg Pulmonary Artery Systolic Pressu 10.3 mmHg PV Peak Velocity 92.0 cm/s RV Acceleration Time 0.1 s RV Ejection Time 0.3 s RV AcT/ET 0.4 FINDINGS Left Ventricle Normal left ventricular size and systolic function, EF 66 %. Mild left ventricular hypertrophy. Right Ventricle The right ventricle is normal in size and function. Right Atrium The right atrium is normal in size. Left Atrium Mildly increased left atrial size. Mitral Valve Trace mitral valve regurgitation. Aortic Valve Thickened aortic valve. Features of aortic valve sclerosis Tricuspid Valve No gross abnormalities noted Pulmonic Valve No gross abnormalities noted Pericardium Normal pericardium without effusion. Aorta Normal ascending aorta dimension. IVC The inferior vena cava appears normal. CONCLUSIONS Normal left ventricular size and systolic function, EF 66 %. Mild left ventricular hypertrophy. The right ventricle is normal in size and function. Mildly increased left atrial size. Features of aortic valve sclerosis. There is no pericardial effusion. Estimated pulmonary artery peak systolic pressure could not be calculated properly because of the poor Doppler signals. No similar previous studies are available for comparison Dr Cedric Hurd MD [facility] (Electronically Signed) Final Date: 18 March 2023 09:52 S
== END 2023-03-17 06:51 | disposition home or self-care (01) ==
LOC: RAD 06:50
PROVIDERS: PCP Family Medicine; Visit Provider Family Medicine
DX: I35.8 Other nonrheumatic aortic valve disorders (principal); R60.0 Localized edema
CPT/HCPCS: 93306

== ENCOUNTER 2023-04-13 11:04 | Inpatient (IN) | payer MEDICARE, OTHER, SELFPAY ==
[2023-04-13] VITALS (9 sets, daily range): BP systolic 160–200; BP diastolic 60–98; PULSE 58–77; RESP 17–22; TEMP 36.6–36.7; O2SAT 88–94; BMI 51.3; BMI 52.2
--- NOTE | 2023-04-13 11:19 | ECG_ITS ---
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 Measurements Intervals [place] Rate: 52 P: 2 [place]: 153 QRS: 71 QRSD: 79 T: 28 QT: 405 QTc: 378 Interpretive Statements SINUS BRADYCARDIA WITH OCCASIONAL SUPRAVENTRICULAR PREMATURE COMPLEXES Compared to ECG 10/17/2019 10:26:53 Sinus rhythm no longer present Electronically Signed On 04-13-2023 11:42:56 VINER OPERATOR by Anders Garrido M.D. [id number]
--- NOTE | 2023-04-13 11:23 | ED_ITS ---
HPI - SOB/Dyspnea 2 General: Chief Complaint: Shortness of Breath/Dyspnea Stated Complaint: sob Time Seen by Provider: 04/13/23 11:15 Source: patient Mode of arrival: ambulatory Limitations: no limitations History of Present Illness: HPI Narrative: 73-year-old female states over the last 3 to 4 days she has been having increased exertional dyspnea. She states that she gets very short of breath with any exertion when I came in the room patient just walked in the room and she was 88% on room air. No history of CHF or COPD but states that she has had a large amount of weight gain since gi states she is put on 23 pounds. She states she is also had a pressure pain in her chest since yesterday she denies any cough or fever. Associated symptoms: Reports chest pain; Deny abdominal pain, fever(s), nausea or vomiting Review of Systems 2 Const: Denies: fever(s) or chills ENMT: Denies: throat pain or dental pain Card: Reports: chest pain Resp: Reports: dyspnea GI: Denies: abdominal pain, nausea, vomiting or diarrhea Musc: Denies: neck pain or back pain Skin/Breast: Denies: rash Neuro: Denies: headache(s) PFSH ED 2 PFSH: Medical History Hyperglycemia due to type 2 diabetes mellitus Diabetes type 2, uncontrolled COVID-19 Diverticulitis Essential (primary) hypertension Depression GERD (gastroesophageal reflux disease) Controlled type 2 diabetes mellitus, with long-term current use of insulin Insomnia, controlled Hyperlipidemia Yeast dermatitis Diabetic neuropathy Vitamin D deficiency Surgical History History of colonoscopy History of back surgery s/p fusion L3-L5 History of neck surgery H/O: hysterectomy S/P cholecystectomy S/p bilateral carpal tunnel release Status post total knee replacement, left Remote Family History Other CAD (coronary artery disease) Diabetes Social History Smoking and tobacco/nicotine status: never used tobacco/nicotine Second hand smoke exposure: No Alcohol intake: current Alcohol intake frequency: holidays/special occasions only Alcohol type: wine Substance/Drug Use: never Lives independently: Yes Household members: spouse Marital status: Do you think of yourself as: Straight/Heterosexual Current gender identity: Female Female Reproductive History: Para: 3 Spontaneous abortions: No Physical Exam 2 Const: COMMON NORMALS: patient oriented x3 and healthy appearing HENMT: COMMON NORMALS: normocephalic and atraumatic HEAD & SCALP: n ormocephalic and atraumatic Eye: COMMON NORMALS: Equal, round and reactive pupils present and EOMs intact bilaterally PUPIL: Yes Equal, round and reactive pupils present Neck/C-Spine: COMMON NORMALS: full ROM and supple Chest: COMMONS NORMALS: normal inspection of the chest and normal palpation of entire chest wall Resp: COMMON NORMALS: normal respiratory effort, No retractions, No use of accessory muscles and clear to auscultation bilaterally AUSCULTATION: clear to auscultation bilaterally Cardio: COMMON NORMALS: regular rate, regular rhythm and No murmurs present (Cardio) RATE: regular rate RHYTHM: regular rhythm GI: COMMON NORMALS: Normal to inspection, nondistended, normoactive bowel sounds present, Soft to palpation, non-tender and no masses PALPATION: Yes Soft to palpation Extremity: COMMON NORMALS: normal to inspection and full ROM Neuro: COMMON NORMALS: patient oriented x3, moves all extremities and no focal motor deficits Psych: COMMON NORMALS: mental status grossly normal, Normal thought process present and cooperative THOUGHT PROCESS: Normal thought process present Skin: COMMON NORMALS: no rashes or lesions noted and no wounds GENERAL SKIN EXAM: no rashes or lesions noted Course 2 Vital Signs: Vital signs: Vital Signs Temperature 97.8 F 04/13/23 11:23 Pulse Rate 64 04/13/23 11:23 Respiratory Rate 22 H 04/13/23 11:23 Blood Pressure 169/77 04/13/23 11:23 Pulse Oximetry 88 L 04/13/23 11:23 Oxygen Delivery Me thod Room Air 04/13/23 11:23 MDM - SOB/Dyspnea Medical Decision Making Patient presents here with shortness of breath CT does show some slight pulmonary edema she is requiring 2 L oxygen here this is new onset I spoke to hospitalist will admit at this time. Medical Records I reviewed the patient's medical records. Lab Data I reviewed the patient's lab results. 04/13/23 11:25 04/13/23 11:25 Labs/Radiology: Laboratory Results WBC 8.69 10^3/uL (3.29-11.43) 04/13/23 11:25 RBC 4.12 10^6/uL (3.85-5.65) 04/13/23 11:25 Hgb 12.20 g/dL (11.27-16.99) 04/13/23 11:25 Hct 38.7 % (36-47) 04/13/23 11:25 MCV 93.9 fl (85-98) 04/13/23 11:25 MCH 29.6 pg (27-33) 04/13/23 11:25 MCHC 31.5 g/dL (30-55) 04/13/23 11:25 RDW 14.0 % (12.1-15.1) 04/13/23 11:25 Plt Count 224 10^3/cmm (157-399) 04/13/23 11:25 MPV 9.7 fL (7.4-10.4) 04/13/23 11:25 Neut % (Auto) 72.5 % 04/13/23 11:25 Lymph % (Auto) 18.4 % 04/13/23 11:25 [place] % (Auto) 5.3 % 04/13/23 11:25 Eos % (Auto) 2.1 % 04/13/23 11:25 Baso % (Auto) 0.5 % 04/13/23 11:25 Neut # (Auto) 6.31 10^3/uL (1.8-7.7) 04/13/23 11:25 Lymph # (Auto) 1.6 10^3/uL (0.8-4.8) 04/13/23 11:25 [place] # (Auto) 0.5 10^3/uL (0.2-0.9) 04/13/23 11:25 Eos # (Auto) 0.2 10^3/uL (0.0-0.8) 04/13/23 11:25 Baso # (Auto) 0.0 10^3/uL (0.0-0.1) 04/13/23 11:25 Nucleated RBC % (auto) 0 % 04/13/23 11:25 Nucleated RBCs # 0.0 /100WBC 04/13/23 11:25 PT 13.80 SECONDS (12.1-14.9) 04/13/23 11:25 INR 1.03 (0.8-1.2) 04/13/23 11:25 D-Dimer 1.23 ug/mLFEU (0-0.59) H 04/13/23 11:25 Sodium 144 mmol/L (136-145) 04/13/23 11:25 Potassium 4.4 mmol/L (3.5-5.1) 04/13/23 11:25 Chloride 107 mmol/L (98-107) 04/13/23 11:25 Carbon Dioxide 25 mmol/L (22-29) 04/13/23 11:25 Anion Gap 16.4 (5-19) 04/13/23 11:25 BUN 22 mg/dL (8-23) 04/13/23 11:25 Creatinine 0.8 mg/dL (0.5-0.9) 04/13/23 11:25 GFR Calculation Not Reportable 04/13/23 11:25 Glucose 98 mg/dL (65-115) 04/13/23 11:25 Calculated Osmolality 301 mOsm/kg (285-295) H 04/13/23 11:25 Calcium 9.9 mg/dL (8.5-10.5) 04/13/23 11:25 Total Bilirubin 0.5 mg/dL (0.15-1.2) 04/13/23 11:25 AST 16 U/L (0-32) 04/13/23 11:25 ALT 18 U/L (0-33) 04/13/23 11:25 Alkaline Phosphatase 112 U/L (35-105) H 04/13/23 11:25 Troponin T Baseline 20 ng/L (0-10) H 04/13/23 11:25 NT-Pro-B Natriuret Pep 370 pg/mL (0-125) H 04/13/23 11:25 Total Protein 6.3 g/dL (6.6-8.7) L 04/13/23 11:25 Albumin 4.1 g/dL (3.5-5.2) 04/13/23 11:25 Globulin 2.2 g/dL (1.3-4.6) 04/13/23 11:25 All radiology interpretation(s) finalized by discharge EKG Data EKG 1: I personally reviewed and interpreted this EKG as follows: EKG Interpretation Date: 04/13/23 EKG interpretation time: 11:39 Interpretation: sinus cirilo hr [address] elevation qrs 79 qtc 385 Discharge Plan Discharge Patient Disposition: Placed in Observation Clinical Impression: Pulmonary edema, Hypoxia Condition: Stable Prescriptions: No Action ibuprofen [Ibuprofen IB] 200 mg tablet 200 mg PO Q6H PRN (Reason: Pain) atorvastatin 20 mg tablet 20 mg PO DAILY Qty: 90 3RF (DME) lift recliner See Rx Instructions .Route .MEDSUPPLY Qty: 1 0RF Rx Instructions: As directed (DME) Accu-Chek Leeann Plus test strp Strip See Rx Instructions .ROUTE .MEDSUPPLY Qty: 200 1RF Rx Instructions: ONE DAILY ([facility] [place]) pen needle, diabetic [TechLITE Pen Needle] 32 gauge x 5/32 needle See Rx Instructions .ROUTE .COMPLEX Qty: 200 1RF Dose Instruction: USE WITH INSULIN DAILY Rx Instructions: USE WITH INSULIN DAILY tramadol 50 mg tablet 50 mg PO Q6H PRN (Reason: pain) 30 Days Qty: 30 0RF (DME) upright wheeled walker See Rx Instructions .Route .MEDSUPPLY Qty: 1 0RF Rx Instructions: As directed fluoxetine 10 mg tablet 10 mg PO DAILY Qty: 30 0RF nystatin 100,000 unit/mL suspension 5 ml PO Q6H Qty: 473 1RF Rx Instructions: swish and swallow venlafaxine [Effexor XR] 150 mg capsule,extended release 24hr 150 mg PO DAILY Qty: 90 3RF pregabalin 50 mg capsule 50 mg PO TID Qty: 90 5RF Levemir FlexPen 100 unit/mL (3 mL) insulin pen 55 unit SUBCUT DAILY 30 Days Qty: 30 0RF isosorbide mononitrate 30 mg tablet extended release 24 hr 30 mg PO DAILY Qty: 60 2RF glipizide 5 mg tablet 5 mg PO TID 30 Days Qty: 90 2RF tizanidine 2 mg tablet 2 mg PO TID PRN (Reason: Muscle Spasticity) metoprolol succinate 50 mg tablet extended release 24 hr 50 mg PO DAILY allopurinol 100 mg tablet 100 mg PO DAILY triamcinolone acetonide 0.1 % cream 1 applic topical BID PRN (Reason: Rash) trazodone 100 mg tablet 100 mg PO BEDTIME amlodipine 10 mg tablet 10 mg PO DAILY pantoprazole 40 mg tablet,delayed release (DR/EC) 40 mg PO DAILY furosemide 20 mg tablet 20 mg PO QAM oxybutynin chloride 5 mg tablet 5 mg PO BID PRN (Reason: hyperactive bladder) Symbicort 80-4.5 mcg/actuation HFA aerosol inhaler 2 inh inhalation BID Referrals: Devi Shaw DO [Primary Care Provider] - Coding Level of 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
[2023-04-13 11:33] LABS: Basophils % 0.5 %; Eosinophils # 0.2 10^3/uL (0.0-0.8); Eosinophils % 2.1 %; Hematocrit 38.7 % (36-47); Lymphocytes # 1.6 10^3/uL (0.8-4.8); Lymphocytes % 18.4 %; Mean Corpuscular HGB Conc 31.5 g/dL (30-55); Mean Corpuscular Hemoglobin 29.6 pg (27-33); Mean Corpuscular Volume 93.9 fl (85-98); Mean Platelet Volume 9.7 fL (7.4-10.4); Monocytes # 0.5 10^3/uL (0.2-0.9); Monocytes % 5.3 %; Neutrophils # 6.31 10^3/uL (1.8-7.7); Neutrophils % 72.5 %; Nucleated Red Blood Cells % 0 %; Platelet Count 224 10^3/cmm (157-399); Red Blood Count 4.12 10^6/uL (3.85-5.65); White Blood Count 8.69 10^3/uL (3.29-11.43)
--- NOTE | 2023-04-13 11:34 | XR_ITS ---
WS: [id number] Exam: XR chest 1V portable [id number] Date/Time of Exam: 04/13/2023 11:47 AM Reason For Exam: cp No priors. The lungs are fully expanded and clear. Mild cardiac enlargement. No pleural effusions. The mediastin um and osseous thorax are unremarkable. Fusion hardware in the lower C-spine. Neurostimulator electro cirstian in the midthoracic region. IMPRESSION: 1. Mild cardiac enlargement. No acute process.
[2023-04-13 11:51] LABS: INR 1.03 (0.8-1.2); Troponin(5th) Baseline 20 ng/L (0-10)
[2023-04-13 11:54] LABS: D Dimer 1.23 ug/mLFEU (0-0.59)
[2023-04-13 12:04] LABS: Alanine Aminotransferase 18 U/L (0-33); Albumin Level 4.1 g/dL (3.5-5.2); Alkaline Phosphatase 112 U/L (35-105); Anion Gap 16.4 (5-19); Aspartate Amino Transferase 16 U/L (0-32); Blood Urea Nitrogen 22 mg/dL (8-23); Calcium 9.9 mg/dL (8.5-10.5); Carbon Dioxide 25 mmol/L (22-29); Chloride 107 mmol/L (98-107); Globulin 2.2 g/dL (1.3-4.6); Glucose 98 mg/dL (65-115); NT Pro B Type Natriuretic Pept 370 pg/mL (0-125); Osmolality Calculated 301 mOsm/kg (285-295); Potassium 4.4 mmol/L (3.5-5.1); Sodium 144 mmol/L (136-145); Total Bilirubin 0.5 mg/dL (0.15-1.2); Total Protein 6.3 g/dL (6.6-8.7)
--- NOTE | 2023-04-13 12:09 | CT_ITS ---
WS: [id number] CTA OF THE CHEST WITH PULMONARY EMBOLISM PROTOCOL TECHNIQUE: High-resolution contrast enhanced CTA of the chest with coronal and sagittal reformatted i mages with pulmonary embolism protocol. MIP images are also reviewed. CLINICAL INFORMATION: sob COMPARISON: None. DLP: 741.[address] scans at [facility] use at least one of these dose optimization techniques: automated e xposure control; mA and/or kV adjustment per patient size (includes targeted exams where dose is matc hed to clinical indication); or iterative reconstruction. FINDINGS: Cardiomegaly. Proximal main pulmonary arteries are patent. Some images graded by respiratory artifact . Normal visualized segmental and subsegmental pulmonary arteries. No evidence of pulmonary embolus. Small bilateral pleural effusions with bibasilar atelectasis. Compressive atelectasis in the lung bas es. Hazy attenuation in the upper lobes likely due to pulmonary edema. Mild interstitial thickening. Normal caliber thoracic aorta. Few prominent AP window lymph nodes likely reactive. Cholecystectomy clips. Splenic artery calcification. Small LEFT adrenal adenoma. Small esophageal hia jeffery hernia. Moderate thoracic kyphosis with ankylosis in the thoracic spine. Dorsal spinal stimulator. IMPRESSION: 1. Proximal main pulmonary arteries are normal. No evidence of pulmonary embolus. 2. Small bilateral pleural effusions with compressive atelectasis in the lung bases. 3. Marked cardiomegaly. 4. Hazy groundglass attenuation in the upper lobes likely due to pulmonary edema. 5. Cholecystectomy clips. 6. Small esophageal hiatal hernia
[2023-04-13] MEDS: diphenhydrAMINE 50 mg/mL SDV 1mL IVP (12:24)
[2023-04-13] MEDS: methylPREDNISolone sod succ 40 mg/mL INJ IVP (12:24)
[2023-04-13] MEDS: iohexol 350 mg/mL 500 mL Btl (per mL) IV (12:53)
--- NOTE | 2023-04-13 13:30 | ECG_ITS ---
[facility] Test Date: 2023-04-13 Pat Name: Melissa De Jesus Department: Room: Gender: Female Treating Inspector: : [id number] Requested By: Karely Shultz Order Number: [id number] Riddhi MD: Anders Garrido M.D. Measurements Intervals [place] Rate: 69 P: 88 PA: 169 QRS: 48 QRSD: 93 T: 45 QT: 415 QTc: 447 Interpretive Statements SINUS RHYTHM WITH OCCASIONAL SUPRAVENTRICULAR PREMATURE COMPLEXES LOW QRS VOLTAGE IN PRECORDIAL LEADS [QRS DEFLECTION < 1.0 mV IN CHEST LEADS] Compared to ECG 04/13/2023 11:39:13 Low QRS voltage now present Sinus bradycardia no longer present Electronically Signed On 04-13-2023 13:53:09 GUM MACHINE FILLER by Anders Garrido M.D. [id number]
[2023-04-13 13:50] LABS: Troponin 5 2HR 20.97 ng/L (0-10); Troponin 5 2HR Delta 0.97 ABS# (0-10)
[2023-04-13] MEDS: hyDRALAzine 20 mg/mL INJ 1 mL 10 MG IVP (13:54)
[2023-04-13] MEDS: FUROsemide 10 mg/mL SDV 4mL 40 MG IVP (13:54)
--- NOTE | 2023-04-13 15:23 | PM.HP ---
Providers/Chief Complaint Admitting Physician: Iliana Alonso MD Primary Care Provider: Devi Shaw DO Chief Complaint: sob History of Present Illness Melissa De Jesus is a 73 year old female who presented to the emergency room with chief complaint of difficulty breathing. She was actually sent from urgent care clinic to be evaluated further. In talking with her since late January she has been having increasing shortness of breath with exertion. She also started noticing some weight gain and fluid retention about that time. She saw her primary care provider in early March. Around that timeframe she had an echocardiogram done. It showed an ejection fraction of 66%. She had some mild left ventricular hypertrophy. She did not have any right-sided chamber enlargement noted. She was started on Lasix at 20 mg p.o. daily and has been taking it as prescribed. Despite this since or so she has had approximately 30 pound weight gain with increased edema. Right lower extremity more so notable and then the left lower extremity. She is unable to lie flat without getting short of breath. She is getting short of breath walking short distances and her has noted that she seems more tired than usual for the last week or so. Her breathing has been bad enough the last couple of days that her daughter urged her to take Symbicort which is a as needed prescription that she had from back from when she had COVID. She had maybe a little bit of relief with that but not sustained. Because of continued difficulty breathing she came in to be evaluated today. On arrival to the emergency room after ambulating for a bit she was noted to have oxygen saturations in the upper 80s 87 to 88% on room air. She has no personal history of needing oxygen. On talking with her further, I did learned that many years ago she was diagnosed as having sleep apnea. She does quit breathing during her sleep according to her . 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 BMI is currently over 50 with recent weight gain. BNP today was only mildly elevated at 370. Chest x-ray showed some cardiomegaly. CTA was subsequently done. It did not reveal any evidence of PE but did show marked cardiomegaly and groundglass appearance suggesting pulmonary edema. She received 1 dose of IV Lasix and request was made for admission for further evaluation and treatment. She has never smoked. She does have a history of secondhand smoke exposure as a child. She had COVID in 2021 but does not really describe persistent respiratory symptoms after that. No recent upper URI symptoms. She has had a mildly productive cough only intermittently. Review of Systems General: Reports: Other (ROS as per HPI or as otherwise noted here) Narrative: No nausea or vomiting. No runny nose or sore throat. She has intermittent diarrhea and constipation. Seems like constipation is the primary issue from her description. She has significant sciatica bilaterally. She describes her face burning a lot lately. She is on Lyrica and tramadol for pain control. Has chronic neck and back pain related to prior surgeries. No reports of any other numbness or paresthesias. No recent chest pain. No palpitations. Medications/Allergies Home Medications Medication Instructions Recorded Confirmed Last Taken Type ibuprofen 200 mg tablet (Ibuprofen 200 mg PO Q6H PRN Pain 01/21/22 04/13/23 Unknown History IB) nystatin 100,000 unit/mL oral 5 ml PO Q6H #473 mL 03/18/22 04/13/23 08/26/22 Rx suspension atorvastatin 20 mg tablet 20 mg PO DAILY #90 tabs 05/12/22 04/13/23 04/13/23 Rx lift recliner #1 ea 05/12/22 04/13/23 Unknown Rx blood sugar diagnostic (Accu-Chek #200 ea 10/01/22 04/13/23 Unknown Rx Leeann Plus test strips) pen needle, diabetic 32 gauge x #200 ea 10/01/22 04/13/23 Unknown Rx 5/32 (TechLITE Pen Needle) venlafaxine 150 mg 150 mg PO DAILY #90 caps 11/04/22 04/13/23 04/12/23 Rx capsule,extended release 24 hr (Effexor XR) pregabalin 50 mg capsule 50 mg PO TID #90 caps 02/01/23 04/13/23 04/13/23 Rx insulin detemir U-100 100 unit/mL 55 unit (0.55 mL) SUBCUT DAILY 30 02/16/23 04/13/23 04/13/23 Rx (3 mL) subcutaneous pen (Levemir days #30 mL FlexPen) isosorbide mononitrate 30 mg 30 mg PO DAILY #60 tabs 02/16/23 04/13/23 04/13/23 Rx tablet,extended release 24 hr glipizide 5 mg tablet 5 mg PO TID 30 days #90 tabs 02/22/23 04/13/23 04/13/23 Rx tramadol 50 mg tablet 50 mg PO Q6H PRN pain 30 days #30 03/16/23 04/13/23 Unknown Rx tabs upright wheeled walker #1 ea 03/16/23 04/13/23 Unknown Rx fluoxetine 10 mg tablet 10 mg PO DAILY #30 tabs 03/30/23 04/13/23 04/12/23 Rx allopurinol 100 mg tablet 100 mg PO DAILY 04/13/23 04/13/23 04/13/23 History amlodipine 10 mg tablet 10 mg PO DAILY 04/13/23 04/13/23 04/13/23 History budesonide-formoterol HFA 80 2 inh inhalation BID 04/13/23 04/13/23 04/13/23 History mcg-4.5 mcg/actuation aerosol inhaler (Symbicort) furosemide 20 mg tablet 20 mg PO QAM 04/13/23 04/13/23 04/13/23 History metoprolol succinate 50 mg 50 mg PO DAILY 04/13/23 04/13/23 04/13/23 History tablet,extended release 24 hr oxybutynin chloride 5 mg tablet 5 mg PO BID PRN hyperactive bladder 04/13/23 04/13/23 Unknown History pantoprazole 40 mg tablet,delayed 40 mg PO DAILY 04/13/23 04/13/23 04/12/23 History release tizanidine 2 mg tablet 2 mg PO TID PRN Muscle Spasticity 04/13/23 04/13/23 Unknown History trazodone 100 mg tablet 100 mg PO BEDTIME 04/13/23 04/13/23 04/12/23 History triamcinolone acetonide 0.1 % 1 applic topical BID PRN Rash 04/13/23 04/13/23 Unknown History topical cream Allergies Allergy/AdvReac Type Severity Reaction Status Date / Time Iodinated Contrast Media Allergy Unknown Verified 04/13/23 09:55 meperidine [From Demerol] Allergy HIVES Verified 04/13/23 09:55 shellfish derived Allergy ANAPHYLAXIS Verified 04/13/23 09:55 PFSH Acute PFSH: Medical History (Updated 04/13/23 @ 15:37 by Iliana Alonso MD) Obstructive sleep apnea Diagnosed many years ago. Has never used CPAP. Willing to be reevaluated and try again. Pancreatic mass On CT imaging from 01/2023, stable cystic mass measuring 7 mm in the tail of the pancreas. No interval change since 2019. Lesion of soft palate resolved on laryngoscopy done by Dr Mckinley dated 01/2023 Sciatica Chronic neck pain Chronic low back pain 3 para 3 Diabetes type 2, uncontrolled COVID-19 (~2021) Diverticulitis Essential (primary) hypertension Depression GERD (gastroesophageal reflux disease) Insomnia, controlled Hyperlipidemia Diabetic neuropathy Vitamin D deficiency Surgical History (Updated 04/13/23 @ 15:29 by Iliana Alonso MD) Status post total right knee replacement History of colonoscopy History of back surgery s/p fusion L3-L5 History of neck surgery H/O: hysterectomy S/P cholecystectomy S/p bilateral carpal tunnel release Status post total knee replacement, left Remote Family History Other CAD (coronary artery disease) Diabetes Social History (Updated 04/13/23 @ 15:43 by Iliana Alonso MD) Smoking and tobacco/nicotine status: never used tobacco/nicotine Second hand smoke exposure: Yes (as a child (father smoked)) Alcohol intake: current Alcohol intake frequency: holidays/special occasions only Substance/Drug Use: never Lives independently: Yes Household members: spouse Marital status: Do you think of yourself as: Straight/Heterosexual Current gender identity: Female Female Reproductive History: Para: 3 Spontaneous abortions: No Vitals/I&O/Wt Last Vital Signs Temp 97.8 F 04/13/23 11:23 Pulse 64 04/13/23 11:23 Resp 22 H 04/13/23 11:23 BP 169/77 04/13/23 11:23 Pulse Ox 88 L 04/13/23 11:23 O2 Del Method Room Air 04/13/23 11:23 Weight last 48 hrs Weight 131.542 kg Physical Exam Narrative: Patient is is awake and alert. She is able to provide history herself. Her and barbecue cook in the room. Examined with her permission in front of both of them. Face is symmetric. Extraocular movements are intact. Nasopharynx with no rhinorrhea noted. Oropharynx with dry mucous membranes. Neck is supple. No JVD appreciated. Lungs are clear to auscultation bilaterally without any rales rhonchi or wheezes noted. Cardiovascular exam reveals a regular intermittently bradycardic rhythm no murmurs gallops or rubs noted. Apical impulse is nondisplaced. Abdomen is soft, obese but nontender. Extremities right lower extremity is larger in diameter at mid calf than left lower extremity. Both calves are mildly tender. Pitting edema 2-3+ bilaterally. No palpable cords. Dorsalis pedis pulse bilaterally 2+ brisk capillary refill. No abnormal movements noted. Moves all extremities equally. Increased vascularity noted on bilateral cheeks of the face. Mild stasis changes noted to distal lower extremities. Skin dry. Data 04/13/23 11:25 04/13/23 11:25 Other Labs: Radiology CTA chest IMPRESSION: 1. Proximal main pulmonary arteries are normal. No evidence of pulmonary embolus. 2. Small bilateral pleural effusions with compressive atelectasis in the lung bases. 3. Marked cardiomegaly. 4. Hazy groundglass attenuation in the upper lobes likely due to pulmonary edema. 5. Cholecystectomy clips. 6. Small esophageal hiatal hernia CXR IMPRESSION: 1. Mild cardiac enlargement. No acute process. Laboratory Results WBC 8.69 10^3/uL (3.29-11.43) 04/13/23 11:25 RBC 4.12 10^6/uL (3.85-5.65) 04/13/23 11:25 Hgb 12.20 g/dL (11.27-16.99) 04/13/23 11:25 Hct 38.7 % (36-47) 04/13/23 11:25 MCV 93.9 fl (85-98) 04/13/23 11:25 MCH 29.6 pg (27-33) 04/13/23 11:25 MCHC 31.5 g/dL (30-55) 04/13/23 11:25 RDW 14.0 % (12.1-15.1) 04/13/23 11:25 Plt Count 224 10^3/cmm (157-399) 04/13/23 11:25 MPV 9.7 fL (7.4-10.4) 04/13/23 11:25 Neut % (Auto) 72.5 % 04/13/23 11:25 Lymph % (Auto) 18.4 % 04/13/23 11:25 Chaves % (Auto) 5.3 % 04/13/23 11:25 Eos % (Auto) 2.1 % 04/13/23 11:25 Baso % (Auto) 0.5 % 04/13/23 11:25 Neut # (Auto) 6.31 10^3/uL (1.8-7.7) 04/13/23 11:25 Lymph # (Auto) 1.6 10^3/uL (0.8-4.8) 04/13/23 11:25 Chaves # (Auto) 0.5 10^3/uL (0.2-0.9) 04/13/23 11:25 Eos # (Auto) 0.2 10^3/uL (0.0-0.8) 04/13/23 11:25 Baso # (Auto) 0.0 10^3/uL (0.0-0.1) 04/13/23 11:25 Nucleated RBC % (auto) 0 % 04/13/23 11:25 Nucleated RBCs # 0.0 /100WBC 04/13/23 11:25 PT 13.80 SECONDS (12.1-14.9) 04/13/23 11:25 INR 1.03 (0.8-1.2) 04/13/23 11:25 D-Dimer 1.23 ug/mLFEU (0-0.59) H 04/13/23 11:25 Sodium 144 mmol/L (136-145) 04/13/23 11:25 Potassium 4.4 mmol/L (3.5-5.1) 04/13/23 11:25 Chloride 107 mmol/L (98-107) 04/13/23 11:25 Carbon Dioxide 25 mmol/L (22-29) 04/13/23 11:25 Anion Gap 16.4 (5-19) 04/13/23 11:25 BUN 22 mg/dL (8-23) 04/13/23 11:25 Creatinine 0.8 mg/dL (0.5-0.9) 04/13/23 11:25 GFR Calculation Not Reportable 04/13/23 11:25 Glucose 98 mg/dL (65-115) 04/13/23 11:25 Calculated Osmolality 301 mOsm/kg (285-295) H 04/13/23 11:25 Calcium 9.9 mg/dL (8.5-10.5) 04/13/23 11:25 Total Bilirubin 0.5 mg/dL (0.15-1.2) 04/13/23 11:25 AST 16 U/L (0-32) 04/13/23 11:25 ALT 18 U/L (0-33) 04/13/23 11:25 Alkaline Phosphatase 112 U/L (35-105) H 04/13/23 11:25 Troponin T Baseline 20 ng/L (0-10) H 04/13/23 11:25 Troponin T 120 Minute 20.97 ng/L (0-10) H 04/13/23 13:27 Delta Troponin T 0.97 ABS# (0-10) 04/13/23 13:27 NT-Pro-B Natriuret Pep 370 pg/mL (0-125) H 04/13/23 11:25 Total Protein 6.3 g/dL (6.6-8.7) L 04/13/23 11:25 Albumin 4.1 g/dL (3.5-5.2) 04/13/23 11:25 Globulin 2.2 g/dL (1.3-4.6) 04/13/23 11:25 A&P Assessment and plan (1) Hypoxia: Present in the ER. Appears to be likely related to acute new finding of pulmonary edema. There may very well be an element of obesity hypoventilation contributing. Right-sided pressures are normal so less likely to be an acute PE. None was seen on CTA either. She does have right lower extremity edema however that is concerning. It is longstanding but present now for the last. Also identified on history is untreated sleep apnea. confirms that she quits breathing at night. Likely component of this contributing to present hypoxemia. Improved with oxygen therapy thus far. (2) Pulmonary edema: Recent echocardiogram consistent with preserved ejection fraction. I suspect that she has chronic CHF that is been progressively worsening related to uncontrolled hypertension, untreated sleep apnea and possibly obesity as well. BMI went above 50 in the last month with weight gain that she has attributed to fluid retention. Qualifiers: Chronicity: acute Qualified Code(s): J81.0 - Acute pulmonary edema (3) Bradycardia: In a patient on chronic beta-blockade. Heart rate close to 50 for much of the time that she has been in the emergency room. I do not know that this is contributing to the above but could be. From what I can gather beta-blockade as well as isosorbide were started earlier this year. (4) Leg edema: Chronic but has been more prominent lately. Does have some intermittent pain in the right lower extremity. She thinks that the right lower extremity edema which is asymmetrical has been present even before she had bilateral total knee arthroplasties but not certain. (5) Essential (primary) hypertension: Suboptimally controlled currently. Looking at home medication list chronically on Lasix, amlodipine, isosorbide, metoprolol. (6) Hyperlipidemia: Chronically on statin therapy Qualifiers: Hyperlipidemia type: mixed hyperlipidemia Qualified Code(s): E78.2 - Mixed hyperlipidemia (7) Diabetes type 2, uncontrolled: And glipizide chronically on insulin with Levemir Qualifiers: Glycemic state: with hyperglycemia Qualified Code(s): E11.65 - Type 2 diabetes mellitus with hyperglycemia (8) GERD (gastroesophageal reflux disease): Chronically on PPI Qualifiers: Esophagitis presence: without esophagitis Qualified Code(s): K21.9 - Gastro-esophageal reflux disease without esophagitis (9) Anxiety and depression: Chronically on venlafaxine, fluoxetine and also takes trazodone at bedtime (10) Sciatica: Chronically on as needed ibuprofen, tramadol as well as Lyrica (also covers diabetic neuropathy) Qualifiers: Laterality: bilateral Qualified Code(s): M54.31 - Sciatica, right side; M54.32 - Sciatica, left side (11) Obstructive sleep apnea: Untreated. Diagnosed many years ago. Willing to be reevaluated and to try therapy again after our discussion today. Plan Observation admission for now IV Lasix Strict I's and O's and daily weights Wean oxygen as able to room air I am going to decrease metoprolol to 25 mg daily and watch heart rate Hold amlodipine Monitor blood pressures for need to further adjust medications Telemetry monitoring secondary to bradycardia Check TSH secondary to bradycardia Check venous ultrasound the right lower extremity secondary to asymmetrical edema and having never had of venous duplex of the right lower extremity Will give Lantus and sliding scale insulin, holding glipizide while inpatient Continue home statin Continue home PPI Continue home fluoxetine, half dose of trazodone and current dose of venlafaxine though if blood pressures remain high may consider decreasing dose at a later time Continue home pain control except holding ibuprofen currently to see how her renal function does with increase Lasix Will order outpatient sleep study with results to be sent to Dr. Shaw VTE prophylaxis: Lovenox GI Prophylaxis: PPI Telemetry: Ordered secondary to bradycardia Brothers: Not currently indicated Line(s): peripheral IVs Disposition plan: Home with outpatient follow up to Dr. Shaw. Sleep study will be ordered. She very well may be okay to be discharged tomorrow if oxygen level improves after IV diuresis. Otherwise she may need to go home with oxygen therapy. Will reevaluate tomorrow. Code Status: Full Code Supportive care otherwise Findings, concerns and plans were discussed with patient as well as her and they were given an opportunity to ask questions Attestations Medical Necessity Statement*: Anticipated stay less than 2 midnights currently in a patient requiring oxygen for the first time. Based on physical exam findings I suspect she is hypoxic more than just today. Hopefully with some diuresis we will be able to get her off of oxygen but if not may be able to arrange for oxygen therapy at discharge tomorrow. Will reevaluate after overnight diuresis. Coding Level of Care Code 10573 High MDM includes number and complexity of problems actively addressed during encounter, amount and/or complexity of data reviewed/ordered [ previous or external records, resulted lab(s)/test(s) (today and older labs/studies) and ordered lab(s)/test(s) (am labs)] and described risk of complication, morbidity or mortality of management (iv diuresis, admission overnight, oxygen therapy and discussion on TANK) as documented and High Time for a total of 80 minutes, includes reviewing past or interval history, examining/interviewing patient, placing orders, counseling patient/family/other support and documenting encounter Diagnoses Hypoxia R09.02 Pulmonary edema J81.0 Chronicity: acute Bradycardia R00.1 Leg edema R60.0 Essential (primary) hypertension I10 Mixed hyperlipidemia E78.2 Hyperlipidemia type: mixed hyperlipidemia Uncontrolled type 2 diabetes mellitus with hyperglycemia E11.65 Glycemic state: with hyperglycemia Gastroesophageal reflux disease without esophagitis K21.9 Esophagitis presence: without esophagitis Anxiety and depression F41.9; F32.A Bilateral sciatica M54.31; M54.32 Laterality: bilateral Obstructive sleep apnea G47.33
--- NOTE | 2023-04-13 17:07 | USCV_ITS ---
Melissa De Jesus Age: 73 Gender: F : 1950 Exam Date: 04/13/2023 18:42 Ordering Phys: Iliana Alonso MD Technologist: PATRICIA Exam Location: [facility] [place] Indication: RLE edema with gaiter zone pigmentation x 5 months. History of RLE DVT 1997. Also history of RLE cellulitis. HISTORY: RLE edema with gaiter zone pigmentation x 5 months. History of RLE DVT 1997. Also history of RLE cellulitis. PROCEDURES: Venous duplex imaging was performed in only the right lower extremity. The following venous structures were evaluated: common femoral vein, profunda vein, proximal portion of the greater saphenous vein, superficial femoral vein, and the popliteal vein. In addition, the posterior tibial and peroneal veins were evaluated. Serial compression, augmentation maneuvers, and spectral Doppler flow evaluation were performed, which were normal. On the right side, the common femoral, superficial femoral, profunda femoral, popliteal, posterior tibial, greater saphenous veins and the peroneal veins were identified and interrogated in the standard fashion. These veins were found to be easily compressible with spontaneous blood flow. No evidence of thrombus noted. CONCLUSIONS No evidence of right lower extremity DVT. Hussein Barahona MD (Electronically Signed) Final Date: 14 April 2023 11:34 S
--- NOTE | 2023-04-13 17:41 | PC.NURSE ---
Pt dexcom reads BS 143. Finger stick reads BS 95. Educates pt on Dexcom reading interstitial fluids and excess fluid in the body may alter readings. Pt agrees to fingerstick BS readings for best accuracy.
[2023-04-13 17:43] LABS: Glucose Point of Care 95 mg/dL (70-110)
[2023-04-13] MEDS: potassium chloride ER 20 mEq Tablet PO (18:01)
[2023-04-13] MEDS: enoxaparin 40 mg/0.4 mL Syringe SUBCUT (18:01)
[2023-04-13] MEDS: pregabalin 50 mg Capsule PO ×2 (18:01→21:37)
[2023-04-13 19:05] LABS: Troponin 5 6HR 17.86 ng/L (0-10)
[2023-04-13 19:09] LABS: Troponin 5 6HR Delta -2.14 ng/L (0-12)
[2023-04-13 20:46] LABS: Glucose Point of Care 268 mg/dL (70-110)
[2023-04-13] MEDS: trazodone 100 mg Tablet 50 MG PO (21:36)
[2023-04-13] MEDS: insulin lispro 100 unit/1 mL SUBCUT (21:37)
[2023-04-14] VITALS (9 sets, daily range): BP systolic 118–160; BP diastolic 62–78; PULSE 50–84; RESP 17–18; TEMP 36.4–36.8; O2SAT 90–96; BMI 50.3
[2023-04-14] MEDS: FUROsemide 10 mg/mL SDV 4mL 40 MG IVP ×2 (00:28→13:30)
[2023-04-14] MEDS: TRAMadol 50 mg Tablet PO ×2 (01:21→19:28)
[2023-04-14 05:13] LABS: Basophils % 0.2 %; Hematocrit 39.7 % (36-47); Lymphocytes # 1.1 10^3/uL (0.8-4.8); Lymphocytes % 12.9 %; Mean Corpuscular HGB Conc 30.7 g/dL (30-55); Mean Corpuscular Hemoglobin 29.2 pg (27-33); Monocytes # 0.5 10^3/uL (0.2-0.9); Monocytes % 5.4 %; Neutrophils # 6.71 10^3/uL (1.8-7.7); Neutrophils % 80.4 %; Nucleated Red Blood Cells % 0 %; Platelet Count 221 10^3/cmm (157-399); Red Blood Count 4.18 10^6/uL (3.85-5.65); Red Cell Distribution Width 14.1 % (12.1-15.1); White Blood Count 8.35 10^3/uL (3.29-11.43)
[2023-04-14 05:50] LABS: Anion Gap 13.7 (5-19); Blood Urea Nitrogen 22 mg/dL (8-23); Calcium 9.6 mg/dL (8.5-10.5); Carbon Dioxide 28 mmol/L (22-29); Chloride 107 mmol/L (98-107); Glucose 271 mg/dL (65-115); Magnesium 1.9 mg/dL (1.7-2.3); Osmolality Calculated 311 mOsm/kg (285-295); Phosphorus 3.6 mg/dL (2.5-4.5); Potassium 4.7 mmol/L (3.5-5.1); Sodium 144 mmol/L (136-145); Thyroid Stimulating Hormone 0.45 uIU/mL (0.27-4.20)
[2023-04-14] MEDS: potassium chloride ER 20 mEq Tablet PO (06:02)
[2023-04-14 06:51] LABS: Glucose Point of Care 257 mg/dL (70-110)
--- NOTE | 2023-04-14 07:42 | PM.PN ---
Documented by User: Anyi Pond [employer] STDNT 04/14/23 11:47 Subjective Subjective: Patient up in chair on 1.5L NC this morning. She states that she feels weaker this morning but is having an easier time breathing. She reported getting up about 8 times to urinate since she arrived to the Medical Surgical floor yesterday evening. Lungs sounds clear this morning, and denies cough. She denies SOB, chest pain, nausea, and vomiting. Plans to get up and walk around a bit today, continue IV lasix, and attempt to wean down oxygen with plans to possibly discharge home tomorrow. Medications: Reviewed: Yes Vitals/I&O/Wt Last Vital Signs Temp 98.2 F 04/14/23 07:37 Pulse 75 04/14/23 07:37 Resp 17 04/14/23 07:37 BP 137/72 04/14/23 07:37 Pulse Ox 90 04/14/23 07:37 O2 Del Method Nasal Cannula 04/14/23 07:37 O2 Flow Rate 2 04/14/23 03:40 Weight last 48 hrs Weight 284 lb 3.2 oz Weight 295 lb 1 oz Weight 290 lb Physical Exam Narrative: General: Patient is Alert and Oriented x4. Answering questions appropriately. Neck is supple, no JVD, no lymphadenopathy, full ROM noted. Respiratory: Lungs clear to auscultation, on 1.5L NC. Denies cough. Cardio: Regular rate, regular rhythm. Murmur heard. Edema 1+ right lower extremity. Better today. GI: normoactive bowel sounds, denies nausea and vomiting. : denies difficulty urinating. Neuro: Alert and Orientated x4, moves all extremities. Skin: dry. Data 04/14/23 04:55 04/14/23 04:55 A&P Assessment and plan (1) Hypoxia: Likely related to pulmonary edema or possibly the element of obesity hypoventilation. Right lower extremity edema noted better today at 1+. Ultrasound on 04/14 curently pending. Untreated sleep apnea could be a contributing component of this hypoxemia. Improved with oxygen therapy thus far, patient currently on 1.5 L NC. (2) Pulmonary edema: Recent echocardiogram 03/25 with EF OF 66%. Suspected CHF that is been progressively worsening related to uncontrolled HTN, untreated sleep apnea and possibly obesity. BMI above 50 in the last month with weight gain that she has attributed to fluid retention. Give IVP lasix. Measure close I&Os. Qualifiers: Chronicity: acute Qualified Code(s): J81.0 - Acute pulmonary edema (3) Bradycardia: In a patient on chronic beta-blockade. Beta-blockade as well as isosorbide were started earlier this year. Metoprolol succinate dose lowered to 25mg daily. Telemetry ordered. (4) Leg edema: Chronic but this morning at 1+ edema to right lower extremity. Does have some intermittent pain in the right lower extremity, ultrasound currently pending. She thinks that the right lower extremity edema which is asymmetrical has been present even before she had bilateral total knee arthroplasties but not certain. IVP lasix ordered. (5) Essential (primary) hypertension: Suboptimally controlled currently. Looking at home medication list chronically on Lasix, amlodipine, isosorbide, metoprolol. (6) Hyperlipidemia: Chronically on statin therapy Qualifiers: Hyperlipidemia type: mixed hyperlipidemia Qualified Code(s): E78.2 - Mixed hyperlipidemia (7) Diabetes type 2, uncontrolled: And glipizide chronically on insulin with Levemir Qualifiers: Glycemic state: with hyperglycemia Qualified Code(s): E11.65 - Type 2 diabetes mellitus with hyperglycemia (8) GERD (gastroesophageal reflux disease): Chronically on PPI Qualifiers: Esophagitis presence: without esophagitis Qualified Code(s): K21.9 - Gastro-esophageal reflux disease without esophagitis (9) Anxiety and depression: Chronically on venlafaxine, fluoxetine and also takes trazodone at bedtime (10) Sciatica: Chronically on as needed ibuprofen, tramadol as well as Lyrica (also covers diabetic neuropathy) Qualifiers: Laterality: bilateral Qualified Code(s): M54.31 - Sciatica, right side; M54.32 - Sciatica, left side (11) Obstructive sleep apnea: Untreated. Diagnosed many years ago. Willing to be reevaluated and to try therapy again. Plan Observation admission for now Continue IV Lasix Strict I's and O's and daily weights Continue to wean oxygen as able to room air, currently on 1.5L NC. Continue metoprolol 25 mg daily, telemetry ordered. Continue to hold amlodipine. Monitor blood pressures for need to further adjust medications Telemetry monitoring secondary to bradycardia TSH normal this am at 0.45uIU/mL Venous ultrasound the right lower, currently pending. Will give Lantus and sliding scale insulin, holding glipizide while inpatient Continue home statin Continue home PPI Continue home fluoxetine, half dose of trazodone and current dose of venlafaxine though if blood pressures remain high may consider decreasing dose at a later time Continue home pain control except holding ibuprofen currently to see how her renal function does with increase Lasix Will order outpatient sleep study with results to be sent to Dr. Shaw VTE prophylaxis: Lovenox GI Prophylaxis: PPI Telemetry: Ordered secondary to bradycardia Brothers: Not currently indicated Line(s): peripheral IVs Disposition plan: Home with outpatient follow up to Dr. Shaw. Sleep study will be ordered. Continue IV diuresis, continue to wean down oxygen may be able to discharge tomorrow depending on oxygen requirement. Otherwise she may need to go home with oxygen therapy. Will reevaluate tomorrow. Code Status: Full Code Supportive care otherwise Findings, concerns and plans were discussed with patient, she was given an opportunity to ask questions. Coding Level of Care Code 58796 Diagnoses Hypoxia R09.02 Pulmonary edema J81.0 Chronicity: acute Bradycardia R00.1 Leg edema R60.0 Essential (primary) hypertension I10 Mixed hyperlipidemia E78.2 Hyperlipidemia type: mixed hyperlipidemia Uncontrolled type 2 diabetes mellitus with hyperglycemia E11.65 Glycemic state: with hyperglycemia Gastroesophageal reflux disease without esophagitis K21.9 Esophagitis presence: without esophagitis Anxiety and depression F41.9; F32.A Bilateral sciatica M54.31; M54.32 Laterality: bilateral Obstructive sleep apnea G47.33 Time Spent (min) 25 Documented by User: Jerry Tse MD 04/14/23 11:59 Data 04/14/23 04:55 04/14/23 04:55 A&P Assessment and plan (1) Hypoxia: Likely related to pulmonary edema or possibly the element of obesity hypoventilation. Right lower extremity edema noted better today at 1+. Ultrasound on 04/14 curently pending. Untreated sleep apnea could be a contributing component of this hypoxemia. Improved with oxygen therapy thus far, patient currently on 1.5 L NC. Wean oxygen as tolerated (2) Pulmonary edema: Recent echocardiogram 03/25 with EF OF 66%. Suspected CHF that is been progressively worsening related to uncontrolled HTN, untreated sleep apnea and possibly obesity. BMI above 50 in the last month with weight gain that she has attributed to fluid retention. Continue IV Lasix 40 mg IV every 12 hours Fluid restriction of 1200 cc Measure close I&Os. She has not yet compensated. CBC and BMP in the morning. Still requires IV Lasix which is a renal toxic medication Qualifiers: Chronicity: acute Qualified Code(s): J81.0 - Acute pulmonary edema (3) Bradycardia: (4) Leg edema: Chronic but this morning at 1+ edema to right lower extremity. Does have some intermittent pain in the right lower extremity, ultrasound currently pending. She thinks that the right lower extremity edema which is asymmetrical has been present even before she had bilateral total knee arthroplasties but not certain. IVP lasix ordered. Venous duplex preliminary negative, awaiting formal report (5) Essential (primary) hypertension: (6) Hyperlipidemia: Qualifiers: Hyperlipidemia type: mixed hyperlipidemia Qualified Code(s): E78.2 - Mixed hyperlipidemia (7) Diabetes type 2, uncontrolled: Qualifiers: Glycemic state: with hyperglycemia Qualified Code(s): E11.65 - Type 2 diabetes mellitus with hyperglycemia (8) GERD (gastroesophageal reflux disease): Qualifiers: Esophagitis presence: without esophagitis Qualified Code(s): K21.9 - Gastro-esophageal reflux disease without esophagitis (9) Anxiety and depression: (10) Sciatica: Qualifiers: Laterality: bilateral Qualified Code(s): M54.31 - Sciatica, right side; M54.32 - Sciatica, left side (11) Obstructive sleep apnea: Untreated. Diagnosed many years ago. Willing to be reevaluated and to try therapy again. Outpatient sleep study with Dr. Shaw Plan VTE prophylaxis: Lovenox GI Prophylaxis: PPI Telemetry: Ordered secondary to bradycardia Brothers: Not currently indicated Line(s): peripheral IVs Disposition plan: Home with outpatient follow up to Dr. Shaw. Sleep study will be ordered. Continue IV diuresis, continue to wean down oxygen may be able to discharge tomorrow depending on oxygen requirement. Otherwise she may need to go home with oxygen therapy. Will reevaluate tomorrow. Code Status: Full Code Supportive care otherwise Findings, concerns and plans were discussed with patient, she was given an opportunity to ask questions. Attestations Medical Necessity Statement*: Needs continued hospitalization for further diuresis secondary to acute congestive heart failure, not yet compensated Diagnoses Hypoxia R09.02 Pulmonary edema J81.0 Chronicity: acute Bradycardia R00.1 Leg edema R60.0 Essential (primary) hypertension I10 Mixed hyperlipidemia E78.2 Hyperlipidemia type: mixed hyperlipidemia Uncontrolled type 2 diabetes mellitus with hyperglycemia E11.65 Glycemic state: with hyperglycemia Gastroesophageal reflux disease without esophagitis K21.9 Esophagitis presence: without esophagitis Anxiety and depression F41.9; F32.A Bilateral sciatica M54.31; M54.32 Laterality: bilateral Obstructive sleep apnea G47.33 Time Spent (min) 25
[2023-04-14] MEDS: allopurinol 100 mg Tablet PO (08:25)
[2023-04-14] MEDS: pantoprazole DR 40 mg Tablet PO (08:25)
[2023-04-14] MEDS: isosorbide mononitrate ER 30 mg Tablet PO (08:25)
[2023-04-14] MEDS: fluoxetine 10 mg Capsule PO (08:25)
[2023-04-14] MEDS: venlafaxine ER (24HR) 150 mg Capsule PO (08:25)
[2023-04-14] MEDS: metoprolol succinate ER (24 HR) 50 mg Tablet 25 MG PO (08:25)
[2023-04-14] MEDS: pregabalin 50 mg Capsule PO ×3 (08:25→20:58)
[2023-04-14] MEDS: atorvastatin 40 mg Tablet 20 MG PO (08:25)
[2023-04-14] MEDS: insulin glargine 100 units/1 mL 40 UNIT SUBCUT (08:26)
[2023-04-14] MEDS: insulin lispro 100 unit/1 mL SUBCUT ×3 (08:26→20:59)
--- NOTE | 2023-04-14 10:07 | PC.CHAP ---
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 telemarketing manager visit [] Patient/Family/Request visit [] Outpatient visit [] Follow-up visit [] Physician referral [] Code/Alert [x] Routine visit [] Staff referral [] Actively dying [] Patient sleeping [x] Family support [] [] Out of room [] Palliative care [] [] Receiving care in room [] Pre-surgical visit [] Trauma [] Long length of stay [] ICU visit [] Other: Relational/Emotional Strength [x] Patient feels connected with others/family/visitors/staff [] Distress [] Loneliness/isolation [] Abandonment Spirituality of Patient [] Person of Anitha [] Attends Confucianism of their Anitha [] Believes in Prayer [] Reads Bible or Denominational materials [] There are Spiritual issues to be addressed University Professor Interventions [x] Prayer [x] Active listening [] Non-anxious presence [x] Spiritual/emotional support [] Crisis/trauma care [] Spiritual counseling [] Bereavement support [] Provided bereavement packet [] Provided Bible/devotional materials [] Provided toy/stuffed animal, coloring book to patient or family member [] Provided Communion [] Anointing/[place] [] Salvation [] Completed spiritual assessment [] Other: Impact on Illness or Injury [] Angry [] Fearful [] Anxious [] Often cries [] Exhaustion [] Unable to work [] Unable to attend tenriism [] Unable to walk/stand [] Unable to read [] Unable to drive [] Unable to eat/drink [] Unable to sleep [] Unable to be with family [] Patient intubated [] Other: Summary Time spent with patient 15 min
[2023-04-14 11:31] LABS: Glucose Point of Care 181 mg/dL (70-110)
[2023-04-14 16:50] LABS: Glucose Point of Care 114 mg/dL (70-110)
[2023-04-14] MEDS: enoxaparin 40 mg/0.4 mL Syringe SUBCUT (17:22)
[2023-04-14 20:57] LABS: Glucose Point of Care 217 mg/dL (70-110)
[2023-04-14] MEDS: trazodone 100 mg Tablet 50 MG PO (20:58)
[2023-04-15 00:12] VITALS: BP 142/64; PULSE 70; RESP 16; TEMP 36.8; O2SAT 92
[2023-04-15] MEDS: FUROsemide 10 mg/mL SDV 4mL 40 MG IVP (00:37)
[2023-04-15 04:09] VITALS: BP 146/78; PULSE 65; RESP 17; TEMP 36.8; O2SAT 91
[2023-04-15 05:07] LABS: Basophils # 0.1 10^3/uL (0.0-0.1); Basophils % 0.8 %; Eosinophils # 0.4 10^3/uL (0.0-0.8); Lymphocytes # 2.4 10^3/uL (0.8-4.8); Mean Corpuscular HGB Conc 31.3 g/dL (30-55); Mean Corpuscular Hemoglobin 29.8 pg (27-33); Mean Corpuscular Volume 95.2 fl (85-98); Mean Platelet Volume 9.8 fL (7.4-10.4); Monocytes # 0.6 10^3/uL (0.2-0.9); Monocytes % 7.7 %; Neutrophils # 4.07 10^3/uL (1.8-7.7); Neutrophils % 53.8 %; Nucleated Red Blood Cells % 0 %; Platelet Count 231 10^3/cmm (157-399); Red Blood Count 3.99 10^6/uL (3.85-5.65); Red Cell Distribution Width 14.2 % (12.1-15.1); White Blood Count 7.56 10^3/uL (3.29-11.43)
[2023-04-15 05:44] LABS: Anion Gap 11.7 (5-19); Blood Urea Nitrogen 27 mg/dL (8-23); Calcium 9.5 mg/dL (8.5-10.5); Carbon Dioxide 31 mmol/L (22-29); Chloride 105 mmol/L (98-107); Glucose 135 mg/dL (65-115); Magnesium 1.7 mg/dL (1.7-2.3); Osmolality Calculated 303 mOsm/kg (285-295); Potassium 4.7 mmol/L (3.5-5.1); Sodium 143 mmol/L (136-145)
[2023-04-15 06:00] VITALS: PULSE 54
[2023-04-15 06:52] LABS: Glucose Point of Care 118 mg/dL (70-110)
[2023-04-15 07:27] VITALS: PULSE 73; O2SAT 91
[2023-04-15] MEDS: isosorbide mononitrate ER 30 mg Tablet PO (08:35)
[2023-04-15] MEDS: pantoprazole DR 40 mg Tablet PO (08:35)
[2023-04-15] MEDS: venlafaxine ER (24HR) 150 mg Capsule PO (08:35)
[2023-04-15] MEDS: atorvastatin 40 mg Tablet 20 MG PO (08:35)
[2023-04-15] MEDS: fluoxetine 10 mg Capsule PO (08:36)
[2023-04-15] MEDS: insulin glargine 100 units/1 mL 40 UNIT SUBCUT (08:36)
[2023-04-15] MEDS: pregabalin 50 mg Capsule PO (08:36)
[2023-04-15] MEDS: allopurinol 100 mg Tablet PO (08:36)
[2023-04-15] MEDS: TRAMadol 50 mg Tablet PO (08:36)
[2023-04-15] MEDS: metoprolol succinate ER (24 HR) 50 mg Tablet 25 MG PO (08:36)
--- NOTE | 2023-04-15 08:55 | PM.DCS ---
Discharge Providers Date of Admission: 04/14/23 12:00 Date of Discharge: April 15, 2023 Attending Provider at Admission: Iliana Alonso MD Attending Provider at Discharge: Jerry Tse MD Primary Care Provider: Devi Shaw DO Diagnoses at Discharge Discharge Diagnosis (1) Hypoxia: Status: Acute (2) Pulmonary edema: Status: Acute Qualifiers: Chronicity: acute Qualified Code(s): J81.0 - Acute pulmonary edema (3) Bradycardia: Status: Acute (4) Leg edema: Status: Acute (5) Essential (primary) hypertension: Status: Acute (6) Hyperlipidemia: Status: Chronic Qualifiers: Hyperlipidemia type: mixed hyperlipidemia Qualified Code(s): E78.2 - Mixed hyperlipidemia (7) Diabetes type 2, uncontrolled: Status: Acute Qualifiers: Glycemic state: with hyperglycemia Qualified Code(s): E11.65 - Type 2 diabetes mellitus with hyperglycemia (8) GERD (gastroesophageal reflux disease): Status: Chronic Qualifiers: Esophagitis presence: without esophagitis Qualified Code(s): K21.9 - Gastro-esophageal reflux disease without esophagitis (9) Anxiety and depression: Status: Acute (10) Sciatica: Status: Chronic Qualifiers: Laterality: bilateral Qualified Code(s): M54.31 - Sciatica, right side; M54.32 - Sciatica, left side (11) Obstructive sleep apnea: Status: Acute Permanent problem details: Diagnosed many years ago. Has never used CPAP. Willing to be reevaluated and try again. Reason for Visit Reason for Visit: sob Hospital Course Hospital Course Melissa is a 73-year-old white female who presented to the emergency department on April 13. At that time she complained of increased swelling, and shortness of breath. She was found to have pulmonary edema with small bilateral effusions, consistent with diastolic heart failure. Recent previous echocardiogram demonstrated preserved EF. Leg edema was present at the same time, and venous duplex showed no DVT. CTA demonstrated no pulmonary embolism. She was placed in the hospital on IV Lasix and electrolytes were closely checked. With diuresis, she was able to wean off oxygen and went on room air April 15 it was felt she could be discharged home for further recovery there. She will continue to take Lasix at home p.o. She will follow-up with her primary care provider in 3 to 5 days and get a BMP. We discussed heart failure, warning signs of recurrence, weighing daily, etc. She was able to ask questions and agreed with the plan. She will also have a sleep study as an outpatient. Physical Exam Narrative: General exam no distress Neck is supple Cardiovascular regular rate and rhythm Lungs clear Abdomen is soft Extremities no cyanosis clubbing. Trace edema right lower extremity Discharge Data Studies Completed and Pending Completed Studies During Hospitalization Category Date Time Status CTA chest [CT angio chest PE protcl 39144] Stat Cat Scan 04/13/23 12:09 Completed CXRP [XR chest 1V portable 20020] Stat Exams 04/13/23 11:34 Completed US venous duplex lower extremity RT [CV venous duplex Ultrasound 04/13/23 17:[place] [address]] Routine Laboratory Results WBC 7.56 10^3/uL (3.29-11.43) 04/15/23 04:55 RBC 3.99 10^6/uL (3.85-5.65) 04/15/23 04:55 Hgb 11.90 g/dL (11.27-16.99) 04/15/23 04:55 Hct 38.0 % (36-47) 04/15/23 04:55 MCV 95.2 fl (85-98) 04/15/23 04:55 MCH 29.8 pg (27-33) 04/15/23 04:55 MCHC 31.3 g/dL (30-55) 04/15/23 04:55 RDW 14.2 % (12.1-15.1) 04/15/23 04:55 Plt Count 231 10^3/cmm (157-399) 04/15/23 04:55 MPV 9.8 fL (7.4-10.4) 04/15/23 04:55 Neut % (Auto) 53.8 % 04/15/23 04:55 Lymph % (Auto) 32.0 % 04/15/23 04:55 [place] % (Auto) 7.7 % 04/15/23 04:55 Eos % (Auto) 5.0 % 04/15/23 04:55 Baso % (Auto) 0.8 % 04/15/23 04:55 Neut # (Auto) 4.07 10^3/uL (1.8-7.7) 04/15/23 04:55 Lymph # (Auto) 2.4 10^3/uL (0.8-4.8) 04/15/23 04:55 [place] # (Auto) 0.6 10^3/uL (0.2-0.9) 04/15/23 04:55 Eos # (Auto) 0.4 10^3/uL (0.0-0.8) 04/15/23 04:55 Baso # (Auto) 0.1 10^3/uL (0.0-0.1) 04/15/23 04:55 Nucleated RBC % (auto) 0 % 04/15/23 04:55 Nucleated RBCs # 0.0 /100WBC 04/15/23 04:55 PT 13.80 SECONDS (12.1-14.9) 04/13/23 11:25 INR 1.03 (0.8-1.2) 04/13/23 11:25 D-Dimer 1.23 ug/mLFEU (0-0.59) H 04/13/23 11:25 Sodium 143 mmol/L (136-145) 04/15/23 04:55 Potassium 4.7 mmol/L (3.5-5.1) 04/15/23 04:55 Chloride 105 mmol/L (98-107) 04/15/23 04:55 Carbon Dioxide 31 mmol/L (22-29) H 04/15/23 04:55 Anion Gap 11.7 (5-19) 04/15/23 04:55 BUN 27 mg/dL (8-23) H 04/15/23 04:55 Creatinine 0.9 mg/dL (0.5-0.9) 04/15/23 04:55 GFR Calculation Not Reportable 04/15/23 04:55 Glucose 135 mg/dL (65-115) H 04/15/23 04:55 POC Glucose 118 mg/dL (70-110) H 04/15/23 06:49 Calculated Osmolality 303 mOsm/kg (285-295) H 04/15/23 04:55 Calcium 9.5 mg/dL (8.5-10.5) 04/15/23 04:55 Phosphorus 3.6 mg/dL (2.5-4.5) 04/14/23 04:55 Magnesium 1.7 mg/dL (1.7-2.3) 04/15/23 04:55 Total Bilirubin 0.5 mg/dL (0.15-1.2) 04/13/23 11:25 AST 16 U/L (0-32) 04/13/23 11:25 ALT 18 U/L (0-33) 04/13/23 11:25 Alkaline Phosphatase 112 U/L (35-105) H 04/13/23 11:25 Troponin T Baseline 20 ng/L (0-10) H 04/13/23 11:25 Troponin T 120 Minute 20.97 ng/L (0-10) H 04/13/23 13:27 Delta Troponin T 0.97 ABS# (0-10) 04/13/23 13:27 Troponin T Hi Sens 6Hr 17.86 ng/L (0-10) H 04/13/23 18:05 Troponin T Hi Sens 6Hr Delta -2.14 ng/L (0-12) L 04/13/23 18:05 NT-Pro-B Natriuret Pep 370 pg/mL (0-125) H 04/13/23 11:25 Total Protein 6.3 g/dL (6.6-8.7) L 04/13/23 11:25 Albumin 4.1 g/dL (3.5-5.2) 04/13/23 11:25 Globulin 2.2 g/dL (1.3-4.6) 04/13/23 11:25 TSH 0.45 uIU/mL (0.27-4.20) 04/14/23 04:55 Vitals Last Vital Signs Temp 98.2 F 04/15/23 04:09 Pulse 73 04/15/23 07:27 Resp 17 04/15/23 04:09 BP 146/78 04/15/23 04:09 Pulse Ox 91 04/15/23 07:27 O2 Del Method Room Air 04/15/23 07:27 O2 Flow Rate 2 04/15/23 04:09 Discharge Plan Discharge Patient Disposition: Home Condition: Stable Prescriptions: New Lasix 40 mg tablet 40 mg PO QAM Qty: 30 0RF losartan 50 mg tablet 50 mg PO DAILY Qty: 30 0RF Continued atorvastatin 20 mg tablet 20 mg PO DAILY Qty: 90 3RF (DME) lift recliner See Rx Instructions .Route .MEDSUPPLY Qty: 1 0RF Rx Instructions: As directed (DME) Accu-Chek Leeann Plus test strp Strip See Rx Instructions .ROUTE .MEDSUPPLY Qty: 200 1RF Rx Instructions: ONE DAILY (DME) pen needle, diabetic [TechLITE Pen Needle] 32 gauge x 5/32 needle See Rx Instructions .ROUTE .COMPLEX Qty: 200 1RF Dose Instruction: USE WITH INSULIN DAILY Rx Instructions: USE WITH INSULIN DAILY tramadol 50 mg tablet 50 mg PO Q6H PRN (Reason: pain) 30 Days Qty: 30 0RF (DME) upright wheeled walker See Rx Instructions .Route .MEDSUPPLY Qty: 1 0RF Rx Instructions: As directed fluoxetine 10 mg tablet 10 mg PO DAILY Qty: 30 0RF nystatin 100,000 unit/mL suspension 5 ml PO Q6H Qty: 473 1RF Rx Instructions: swish and swallow venlafaxine [Effexor XR] 150 mg capsule,extended release 24hr 150 mg PO DAILY Qty: 90 3RF pregabalin 50 mg capsule 50 mg PO TID Qty: 90 5RF Levemir FlexPen 100 unit/mL (3 mL) insulin pen 55 unit SUBCUT DAILY 30 Days Qty: 30 0RF isosorbide mononitrate 30 mg tablet extended release 24 hr 30 mg PO DAILY Qty: 60 2RF glipizide 5 mg tablet 5 mg PO TID 30 Days Qty: 90 2RF tizanidine 2 mg tablet 2 mg PO TID PRN (Reason: Muscle Spasticity) metoprolol succinate 50 mg tablet extended release 24 hr 50 mg PO DAILY allopurinol 100 mg tablet 100 mg PO DAILY triamcinolone acetonide 0.1 % cream 1 applic topical BID PRN (Reason: Rash) trazodone 100 mg tablet 100 mg PO BEDTIME pantoprazole 40 mg tablet,delayed release (DR/EC) 40 mg PO DAILY oxybutynin chloride 5 mg tablet 5 mg PO BID PRN (Reason: hyperactive bladder) Symbicort 80-4.5 mcg/actuation HFA aerosol inhaler 2 inh inhalation BID Discontinued ibuprofen [Ibuprofen IB] 200 mg tablet 200 mg PO Q6H PRN (Reason: Pain) amlodipine 10 mg tablet 10 mg PO DAILY furosemide 20 mg tablet 20 mg PO QAM Discharge Orders: Discharge Order (Routine); Ordered 04/15/23 Ordered By: Jerry Tse Other Ambulatory Orders: Basic Metabolic Panel (Routine) Timeframe: 1 Week Facility: [facility] - Location: Lab - Main Lab Ordered By: Iliana Alonso Sleep Study/Titration (Routine) Timeframe: 3 Weeks Facility: [facility] - Location: [facility] Ordered By: Iliana Alonso Referrals: Devi Shaw, [Primary Care Provider] - 7-10 days (BMP on follow-up We have notified your physician's clinic of the need for a follow-up appointment to be scheduled. If you have not heard from them within the next 2 business days, please call them directly. ) Discharge Diet: Cardiac and Diabetic Discharge Activity: Increase activity as tolerated Patient Instructions: Furosemide (By mouth), Losartan (By mouth), Heart Failure (ED), CHF Stoplight, Opioid Safety Activity Restrictions/Additional Instructions: Take all medicine as prescribed Follow-up with your primary care provider next week with a BMP Weigh yourself daily, notify your primary care provider should weight go up greater than 2 pounds 2 days in a row No salt Keep track of your blood pressures, and bring these recordings to your primary care provider. Discharge Attestations Time Spent in Discharge Care*: greater than 30 min (31) Quality Metrics Clinical Quality Measures [ No reported AMI, CVA or VTE this stay] Coding Level of Care Code 91246 Total time (in minutes) for Discharge: 31 Diagnoses Hypoxia R09.02 Pulmonary edema J81.0 Chronicity: acute Bradycardia R00.1 Leg edema R60.0 Essential (primary) hypertension I10 Mixed hyperlipidemia E78.2 Hyperlipidemia type: mixed hyperlipidemia Uncontrolled type 2 diabetes mellitus with hyperglycemia E11.65 Glycemic state: with hyperglycemia Gastroesophageal reflux disease without esophagitis K21.9 Esophagitis presence: without esophagitis Anxiety and depression F41.9; F32.A Bilateral sciatica M54.31; M54.32 Laterality: bilateral Obstructive sleep apnea G47.33
--- NOTE | 2023-04-15 10:25 | PC.CHAP ---
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 pier runner visit [] Patient/Family/Request visit [] Outpatient visit [] Follow-up visit [] Physician referral [] Code/Alert [x] Routine visit [] Staff referral [] Actively dying [] Patient sleeping [] Family support [] [] Out of room [] Palliative care [] [x] Receiving care in room [] Pre-surgical visit [] Trauma [] Long length of stay [] ICU visit [] Other: Relational/Emotional Strength [] Patient feels connected with others/family/visitors/staff [x] Distress [] Loneliness/isolation [] Abandonment Spirituality of Patient [x] Person of Anitha [] Attends Mormon of their Anitha [x] Believes in Prayer [] Reads Bible or Baptism materials [] There are Spiritual issues to be addressed Plant Quality Manager Interventions [x] Prayer [x] Active listening [x] Non-anxious presence [x] Spiritual/emotional support [] Crisis/trauma care [x] Spiritual counseling [] Bereavement support [] Provided bereavement packet [] Provided Bible/devotional materials [] Provided toy/stuffed animal, coloring book to patient or family member [] Provided Communion [] Anointing/[place] [] Salvation [x] Completed spiritual assessment [] Other: Impact on Illness or Injury [] Angry [] Fearful [] Anxious [] Often cries [] Exhaustion [] Unable to work [] Unable to attend lutheran [] Unable to walk/stand [] Unable to read [] Unable to drive [] Unable to eat/drink [] Unable to sleep [] Unable to be with family [] Patient intubated [] Other: Summary she is dealing with congestive heart and lungs had tests well go home when she is able to breath negtive feeling about her health Time spent with patient 10 mins
[2023-04-15 11:26] VITALS: BP 153/72; PULSE 67; RESP 16; TEMP 36.7; O2SAT 90
[2023-04-15 11:45] LABS: Glucose Point of Care 161 mg/dL (70-110)
[2023-04-15 12:45] VITALS: BP 153/72; PULSE 67; RESP 16; TEMP 36.7; O2SAT 90
== END 2023-04-15 12:46 | disposition home or self-care (01) | DRG 293 ==
LOC: ER 13:36 → MEDSURG 16:18 → ICU 04-15 06:47 → MEDSURG 04-15 06:47
PROVIDERS: Admitting Provider Hospitalist; Emergency Provider Emergency Medicine; PCP Family Medicine; Visit Provider Internal Medicine
DX: I11.0 Hypertensive heart disease with heart failure (principal); I50.30 Unspecified diastolic (congestive) heart failure; E11.65 Type 2 diabetes mellitus with hyperglycemia; E11.40 Type 2 diabetes mellitus with diabetic neuropathy, unspecified; Z79.4 Long term (current) use of insulin; F32.A Depression, unspecified; F41.9 Anxiety disorder, unspecified; K21.9 Gastro-esophageal reflux disease without esophagitis; G47.00 Insomnia, unspecified; E78.2 Mixed hyperlipidemia; E55.9 Vitamin D deficiency, unspecified; Z86.16 Personal history of COVID-19; G47.33 Obstructive sleep apnea (adult) (pediatric); R00.1 Bradycardia, unspecified; R09.02 Hypoxemia; M54.42 Lumbago with sciatica, left side; M54.41 Lumbago with sciatica, right side; G89.29 Other chronic pain; Z98.1 Arthrodesis status
CPT/HCPCS: 36415; 36416; 71045; 71275; 80048; 80053; 82962; 83735; 83880; 84100; 84443; 84484; 85025; 85378; 85610; 93005; 93971; 96372; G0378; J0360; J1200; J1650; J1815; J1940; J2920; Q9967

== ENCOUNTER 2023-04-21 08:47 | Outpatient (CLI) | payer MEDICARE, OTHER, SELFPAY ==
[2023-04-21 09:41] LABS: Estmated Average Glucose 180; Hemoglobin A1C 7.9 % (4.0-6.0)
[2023-04-21 09:45] LABS: Alanine Aminotransferase 19 U/L (0-33); Alkaline Phosphatase 122 U/L (35-105); Anion Gap 11.8 (5-19); Aspartate Amino Transferase 18 U/L (0-32); Blood Urea Nitrogen 15 mg/dL (8-23); Carbon Dioxide 33 mmol/L (22-29); Chloride 105 mmol/L (98-107); Chol HDL Ratio 3.05 mg/dL (0.0-4.40); Cholesterol 122 mg/dL (0-200); Globulin 2.7 g/dL (1.3-4.6); Glucose 123 mg/dL (65-115); HDL Cholesterol 40 mg/dL (60-100); LDL Cholesterol Calculated 61 mg/dL (50-129); LDL HDL Ratio 1.53 RATIO (0.00-3.22); Osmolality Calculated 302 mOsm/kg (285-295); Potassium 4.8 mmol/L (3.5-5.1); Sodium 145 mmol/L (136-145); Total Bilirubin 0.5 mg/dL (0.15-1.2); Total Protein 6.7 g/dL (6.6-8.7); Triglycerides 103 mg/dL (0-150)
[2023-04-21 09:55] LABS: Creatinine Urine, Random 174 mg/dL (28-217); Microalbum Creatinine Ratio Ur 11 mg/dL (0-20); Microalbumin Random Urine 2 ug/dL (0-20)
== END 2023-04-21 08:48 | disposition home or self-care (01) ==
LOC: LAB 08:55
PROVIDERS: PCP Family Medicine; Visit Provider Internal Medicine
DX: E78.2 Mixed hyperlipidemia (principal); E11.65 Type 2 diabetes mellitus with hyperglycemia
CPT/HCPCS: 80053; 80061; 82044; 83036

== ENCOUNTER → 2023-04-23 11:09 | Outpatient (BNVA) | payer MEDICARE, OTHER, SELFPAY | PROVIDERS: PCP Family Medicine; Visit Provider Internal Medicine | DX: E11.65 Type 2 diabetes mellitus with hyperglycemia (principal); E78.2 Mixed hyperlipidemia; E55.9 Vitamin D deficiency, unspecified; Z09 Encounter for follow-up examination after completed treatment for conditions other than malignant neoplasm; Z79.4 Long term (current) use of insulin; Z79.84 Long term (current) use of oral hypoglycemic drugs | CPT/HCPCS: 99214 ==

== ENCOUNTER → 2023-05-11 11:03 | Outpatient (BNVA) | payer MEDICARE, OTHER, SELFPAY | PROVIDERS: PCP Family Medicine; Visit Provider Nurse Practitioner Family | DX: I11.0 Hypertensive heart disease with heart failure (principal); I50.33 Acute on chronic diastolic (congestive) heart failure | CPT/HCPCS: 85025; 99214 ==

== ENCOUNTER → 2023-05-25 08:12 | Outpatient (BNVA) | payer MEDICARE, OTHER, SELFPAY | PROVIDERS: PCP Family Medicine; Visit Provider Orthopaedic Surgery | DX: M48.062 Spinal stenosis, lumbar region with neurogenic claudication (principal); E66.01 Morbid (severe) obesity due to excess calories; Z68.42 Body mass index [BMI] 45.0-49.9, adult; Z98.1 Arthrodesis status; Z96.82 Presence of neurostimulator | CPT/HCPCS: 72100; 99214 ==

== ENCOUNTER 2023-07-14 10:31 | Outpatient (CLI) | payer MEDICARE, OTHER, SELFPAY ==
[2023-07-14 12:16] LABS: Estmated Average Glucose 180; Hemoglobin A1C 7.9 % (4.0-6.0)
[2023-07-14 12:21] LABS: Creatinine Urine, Random 72 mg/dL (28-217); Microalbum Creatinine Ratio Ur 28 mg/dL (0-20); Microalbumin Random Urine 2 ug/dL (0-20)
[2023-07-14 12:39] LABS: Alanine Aminotransferase 21 U/L (0-33); Albumin Level 3.7 g/dL (3.5-5.2); Alkaline Phosphatase 115 U/L (35-105); Anion Gap 13.4 (5-19); Aspartate Amino Transferase 20 U/L (0-32); Blood Urea Nitrogen 16 mg/dL (8-23); Calcium 9.5 mg/dL (8.5-10.5); Carbon Dioxide 28 mmol/L (22-29); Chloride 104 mmol/L (98-107); Chol HDL Ratio 2.65 mg/dL (0.0-4.40); Cholesterol 122 mg/dL (0-200); Globulin 3.2 g/dL (1.3-4.6); Glucose 134 mg/dL (65-115); HDL Cholesterol 46 mg/dL (60-100); LDL Cholesterol Calculated 58 mg/dL (50-129); LDL HDL Ratio 1.26 RATIO (0.00-3.22); Osmolality Calculated 295 mOsm/kg (285-295); Potassium 4.4 mmol/L (3.5-5.1); Sodium 141 mmol/L (136-145); Thyroid Stimulating Hormone 0.95 uIU/mL (0.27-4.20); Total Bilirubin 0.3 mg/dL (0.15-1.2); Total Protein 6.9 g/dL (6.6-8.7); Triglycerides 90 mg/dL (0-150)
== END 2023-07-14 10:32 | disposition home or self-care (01) ==
LOC: LAB 10:36
PROVIDERS: PCP Family Medicine; Visit Provider Internal Medicine
DX: E11.65 Type 2 diabetes mellitus with hyperglycemia (principal); E78.2 Mixed hyperlipidemia; E55.9 Vitamin D deficiency, unspecified
CPT/HCPCS: 36415; 80053; 80061; 82044; 83036; 84439; 84443

== ENCOUNTER → 2023-07-22 10:32 | Outpatient (BNVA) | payer MEDICARE, OTHER, SELFPAY | PROVIDERS: PCP Family Medicine; Visit Provider Internal Medicine | DX: E11.65 Type 2 diabetes mellitus with hyperglycemia (principal); E78.2 Mixed hyperlipidemia; Z79.4 Long term (current) use of insulin; Z79.84 Long term (current) use of oral hypoglycemic drugs | CPT/HCPCS: 99214 ==

== ENCOUNTER → 2023-08-04 15:08 | Outpatient (BNVA) | payer MEDICARE, OTHER, SELFPAY | PROVIDERS: PCP Family Medicine; Visit Provider Internal Medicine | DX: R06.09 Other forms of dyspnea (principal); E11.65 Type 2 diabetes mellitus with hyperglycemia; Z79.4 Long term (current) use of insulin; E78.2 Mixed hyperlipidemia; I10 Essential (primary) hypertension | CPT/HCPCS: 99214 ==

== ENCOUNTER → 2023-08-05 12:07 | Outpatient (BNVA) | payer MEDICARE, OTHER, SELFPAY | PROVIDERS: PCP Family Medicine; Visit Provider Family Medicine | DX: M10.9 Gout, unspecified (principal) | CPT/HCPCS: 80048; 84550 ==

== ENCOUNTER 2023-08-11 20:00 | Outpatient (CLI) | payer MEDICARE, OTHER, SELFPAY | END 2023-08-11 20:01 | disposition home or self-care (01) | LOC: SLEEP 08-12 05:07 | PROVIDERS: PCP Family Medicine; Visit Provider Hospitalist | DX: G47.33 Obstructive sleep apnea (adult) (pediatric) (principal) | CPT/HCPCS: 95810 ==

== ENCOUNTER 2023-09-02 20:00 | Outpatient (CLI) | payer MEDICARE, SELFPAY | END 2023-09-02 20:01 | disposition home or self-care (01) | LOC: SLEEP 09-03 05:47 | PROVIDERS: PCP Family Medicine; Visit Provider Family Medicine | DX: G47.33 Obstructive sleep apnea (adult) (pediatric) (principal) | CPT/HCPCS: 95811 ==

== ENCOUNTER 2023-11-08 09:04 | Outpatient (CLI) | payer MEDICARE, SELFPAY ==
[2023-11-08 10:42] LABS: Alanine Aminotransferase 13 U/L (0-33); Albumin Level 3.8 g/dL (3.5-5.2); Alkaline Phosphatase 112 U/L (35-105); Anion Gap 9.5 (5-19); Aspartate Amino Transferase 13 U/L (0-32); Blood Urea Nitrogen 22 mg/dL (8-23); Calcium 9.1 mg/dL (8.5-10.5); Carbon Dioxide 31 mmol/L (22-29); Chloride 104 mmol/L (98-107); Chol HDL Ratio 4.59 mg/dL (0.0-4.40); Cholesterol 188 mg/dL (0-200); Globulin 2.8 g/dL (1.3-4.6); Glucose 189 mg/dL (65-115); HDL Cholesterol 41 mg/dL (60-100); LDL Cholesterol Calculated 118 mg/dL (50-129); LDL HDL Ratio 2.88 RATIO (0.00-3.22); Osmolality Calculated 298 mOsm/kg (285-295); Potassium 4.5 mmol/L (3.5-5.1); Sodium 140 mmol/L (136-145); Total Bilirubin 0.2 mg/dL (0.15-1.2); Total Protein 6.6 g/dL (6.6-8.7); Triglycerides 143 mg/dL (0-150)
[2023-11-08 10:47] LABS: Estmated Average Glucose 192; Hemoglobin A1C 8.3 % (4.0-6.0)
[2023-11-08 11:11] LABS: Creatinine Urine, Random 56 mg/dL (28-217); Microalbum Creatinine Ratio Ur 18 mg/dL (0-20); Microalbumin Random Urine 1 ug/dL (0-20)
== END 2023-11-08 09:05 ==
LOC: LAB 09:05
PROVIDERS: PCP Family Medicine; Visit Provider Internal Medicine
DX: E11.65 Type 2 diabetes mellitus with hyperglycemia (principal); E78.2 Mixed hyperlipidemia; R00.1 Bradycardia, unspecified; Z79.4 Long term (current) use of insulin
CPT/HCPCS: 36415; 80053; 80061; 82044; 83036; 99215

== ENCOUNTER 2023-11-08 12:47 | Inpatient (IN) | payer MEDICARE, SELFPAY ==
[2023-11-08] VITALS (8 sets, daily range): BP systolic 154–198; BP diastolic 70–86; PULSE 41–68; RESP 16–18; TEMP 36.3–36.4; O2SAT 94–99
--- NOTE | 2023-11-08 12:51 | XR_ITS ---
WS: [id number] Portable AP upright chest, 11/08/2023 Clinical Data: cp Comparison: Portable chest, 04/13/2023 Findings: No nodules, masses or effusions are seen. The heart is enlarged. The pulmonary vascularity is not increased. No pneumonia or pneumothorax is seen. The aortic arch and descending thoracic aorta show mild tortuosity. There is an anterior cervical disc fusion. There are epidural stimulator leads overlying the midthoracic spine. Monitor leads are on the chest wall. XR/XR chest 1V portable [id number] Impression: Cardiomegaly and atherosclerosis.
--- NOTE | 2023-11-08 12:51 | ECG_ITS ---
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 Measurements Intervals [place] Rate: 41 P: 100 MN: 177 QRS: 13 QRSD: 86 T: 30 QT: 456 QTc: 380 Interpretive Statements SINUS BRADYCARDIA WITH OCCASIONAL SUPRAVENTRICULAR PREMATURE COMPLEXES SEPTAL MYOCARDIAL INFARCTION , OF INDETERMINATE AGE [40+ ms Q WAVE IN V1/V2] Compared to ECG 04/13/2023 13:30:07 Myocardial infarct finding now present Sinus rhythm no longer present Electronically Signed On 11-08-2023 14:32:54 CDT by Anders Garrido M.D. [id number]
[2023-11-08 13:42] LABS: Basophils # 0.1 10^3/uL (0.0-0.1); Basophils % 0.7 %; Eosinophils # 0.6 10^3/uL (0.0-0.8); Eosinophils % 6.9 %; Hematocrit 41.3 % (36-47); Lymphocytes # 2.9 10^3/uL (0.8-4.8); Lymphocytes % 31.8 %; Mean Corpuscular Hemoglobin 30.2 pg (27-33); Mean Corpuscular Volume 94.5 fl (85-98); Mean Platelet Volume 10.1 fL (7.4-10.4); Monocytes # 0.5 10^3/uL (0.2-0.9); Neutrophils # 4.83 10^3/uL (1.8-7.7); Neutrophils % 53.8 %; Nucleated Red Blood Cells % 0 %; Platelet Count 224 10^3/cmm (157-399); Red Blood Count 4.37 10^6/uL (3.85-5.65); White Blood Count 8.98 10^3/uL (3.29-11.43)
[2023-11-08 13:53] LABS: Troponin(5th) Baseline 20 ng/L (0-10)
--- NOTE | 2023-11-08 13:53 | ED_ITS ---
HPI - Dizziness 2 General: Chief Complaint: Dizziness Stated Complaint: sent down cardiac issues Time Seen by Provider: 11/08/23 13:20 Source: patient Mode of arrival: ambulatory Limitations: no limitations History of Present Illness: HPI Narrative: 73-year-old female states that she had r estarted her metoprolol this week and has been having severe lightheadedness and feeling like she is in a pass out she is sent here from her PCPs office because she is bradycardic in the low 40s there. She states she is just not felt well and has had no energy she denies any chest pain denies any vomiting or diarrhea. Associated symptoms: Denies chest pain, chills, headache(s), nausea or vomiting Review of Systems 2 Const: Denies: fever(s), chills, body aches or change in appetite ENMT: Denies: throat pain or dental pain Card: Denies: chest pain Resp: Denies: dyspnea GI: Denies: abdominal pain, nausea, vomiting or diarrhea Musc: Denies: neck pain or back pain Skin/Breast: Denies: rash Neuro: Denies: headache(s) PFSH ED 2 PFSH: Medical History Obstructive sleep apnea Diagnosed many years ago. Has never used CPAP. Willing to be reevaluated and try again. 3 para 3 Sciatica Pancreatic mass On CT imaging from 01/2023, stable cystic mass measuring 7 mm in the tail of the pancreas. No interval change since 2019. Lesion of soft palate resolved on laryngoscopy done by Dr Mckinley dated 01/2023 Chronic neck pain Chronic low back pain Diabetes type 2, uncontrolled COVID-19 (~2021) Diverticulitis Essential (primary) hypertension Depression GERD (gastroesophageal reflux disease) Insomnia, controlled Hyperlipidemia Diabetic neuropathy Vitamin D deficiency Surgical History Status post total right knee replacement History of colonoscopy History of back surgery s/p fusion L3-L5 History of neck surgery H/O: hysterectomy S/P cholecystectomy S/p bilateral carpal tunnel release Status post total knee replacement, left Remote Family History Other CAD (coronary artery disease) Diabetes Social History Smoking and tobacco/nicotine status: never used tobacco/nicotine Second hand smoke exposure: Yes (as a child (father smoked)) Alcohol intake: current Alcohol intake frequency: holidays/special occasions only Substance/Drug Use: never Lives independently: Yes Household members: spouse Marital status: Do you think of yourself as: Straight/Heterosexual Current gender identity: Female Female Reproductive History: Para: 3 Spontaneous abortions: No Physical Exam 2 Const: COMMON NORMALS: no acute distress, patient oriented x3 and healthy appearing HENMT: COMMON NORMALS: normocephalic and atraumatic HEAD & SCALP: n ormocephalic and atraumatic Neck/C-Spine: COMMON NORMALS: full ROM and supple Chest: COMMONS NORMALS: normal inspection of the chest Resp: COMMON NORMALS: normal respiratory effort and clear to auscultation bilaterally AUSCULTATION: clear to auscultation bilaterally Cardio: COMMON NORMALS: regular rhythm and No murmurs present (Cardio) R ATE: bradycardic RHYTHM: regular rhythm GI: COMMON NORMALS: Normal to inspection, nondistended, normoactive bowel sounds present, Soft to palpation, non-tender and no masses PALPATION: Yes Soft to palpation Extremity: COMMON NORMALS: normal to inspection and full ROM Neuro: COMMON NORMALS: patient oriented x3, moves all extremities and no focal motor deficits Psych: COMMON NORMALS: mental status grossly normal, Normal thought process present and cooperative THOUGHT PROCESS: Normal thought process present Skin: COMMON NORMALS: no rashes or lesions noted and no wounds GENERAL SKIN EXAM: no rashes or lesions noted Course 2 Vital Signs: Vital signs: Vital Signs Temperature 97.6 F 11/08/23 12:59 Pulse Rate 41 L 11/08/23 12:59 Respiratory Rate 16 11/08/23 12:59 Blood Pressure 168/70 11/08/23 12:59 Pulse Oximetry 97 11/08/23 12:59 Oxygen Delivery Me thod Room Air 11/08/23 12:59 MDM - Dizziness Medical Decision Making Patient presents here with near syncope lightheadedness she is bradycardic here likely from her metoprolol up spoke to the hospitalist will admit her blood pressure here has been stable blood works normal Medical Records I reviewed the patient's medical records. Lab Data I reviewed the patient's lab results. 11/08/23 13:28 11/08/23 13:28 Radiology Impressions Chest X-Ray 11/08/23 12:51 Impression: Cardiomegaly and atherosclerosis. Laboratory Results WBC 8.98 10^3/uL (3.29-11.43) 11/08/23 13:28 RBC 4.37 10^6/uL (3.85-5.65) 11/08/23 13:28 Hgb 13.20 g/dL (11.27-16.99) 11/08/23 13:28 Hct 41.3 % (36-47) 11/08/23 13:28 MCV 94.5 fl (85-98) 11/08/23 13:28 MCH 30.2 pg (27-33) 11/08/23 13:28 MCHC 32.0 g/dL (30-55) 11/08/23 13:28 RDW 14.0 % (12.1-15.1) 11/08/23 13:28 Plt Count 224 10^3/cmm (157-399) 11/08/23 13:28 MPV 10.1 fL (7.4-10.4) 11/08/23 13:28 Neut % (Auto) 53.8 % 11/08/23 13:28 Lymph % (Auto) 31.8 % 11/08/23 13:28 [place] % (Auto) 6.0 % 11/08/23 13:28 Eos % (Auto) 6.9 % 11/08/23 13:28 Baso % (Auto) 0.7 % 11/08/23 13:28 Neut # (Auto) 4.83 10^3/uL (1.8-7.7) 11/08/23 13:28 Lymph # (Auto) 2.9 10^3/uL (0.8-4.8) 11/08/23 13:28 [place] # (Auto) 0.5 10^3/uL (0.2-0.9) 11/08/23 13:28 Eos # (Auto) 0.6 10^3/uL (0.0-0.8) 11/08/23 13:28 Baso # (Auto) 0.1 10^3/uL (0.0-0.1) 11/08/23 13:28 Nucleated RBC % (auto) 0 % 11/08/23 13:28 Nucleated RBCs # 0.0 /100WBC 11/08/23 13:28 Sodium 139 mmol/L (136-145) 11/08/23 13:28 Potassium 4.7 mmol/L (3.5-5.1) 11/08/23 13:28 Chloride 104 mmol/L (98-107) 11/08/23 13:28 Carbon Dioxide 27 mmol/L (22-29) 11/08/23 13:28 Anion Gap 12.7 (5-19) 11/08/23 13:28 BUN 22 mg/dL (8-23) 11/08/23 13:28 Creatinine 1.0 mg/dL (0.5-0.9) H 11/08/23 13:28 GFR Calculation Not Reportable 11/08/23 13:28 Glucose 111 mg/dL (65-115) 11/08/23 13:28 Calculated Osmolality 292 mOsm/kg (285-295) 11/08/23 13:28 Calcium 9.3 mg/dL (8.5-10.5) 11/08/23 13:28 Total Bilirubin 0.2 mg/dL (0.15-1.2) 11/08/23 13:28 AST 12 U/L (0-32) 11/08/23 13:28 ALT 14 U/L (0-33) 11/08/23 13:28 Alkaline Phosphatase 115 U/L (35-105) H 11/08/23 13:28 Troponin T Baseline 20 ng/L (0-10) H 11/08/23 13:28 Total Protein 6.6 g/dL (6.6-8.7) 11/08/23 13:28 Albumin 4.1 g/dL (3.5-5.2) 11/08/23 13:28 Globulin 2.5 g/dL (1.3-4.6) 11/08/23 13:28 All radiology interpretation(s) finalized by discharge EKG Data EKG 1: I personally reviewed and interpreted this EKG as follows: EKG interpretation date: 11/08/23 EKG interpretation time: 12:59 Interpretation: sinus cirilo hr [address] elevation qrs 86 qtc 394 Discharge Plan Discharge Patient Disposition: Admitted As Inpatient Clinical Impression: Bradycardia, Near syncope Condition: Stable Prescriptions: No Action atorvastatin 20 mg tablet 20 mg PO DAILY Qty: 90 3RF (DME) lift recliner See Rx Instructions .Route .MEDSUPPLY Qty: 1 0RF Rx Instructions: As directed indomethacin 50 mg capsule 50 mg PO TID Qty: 9 0RF Rx Instructions: administer with food or milk venlafaxine 75 mg capsule,extended release 24hr See Rx Instructions .ROUTE .COMPLEX Qty: 90 0RF Dose Instruction: TAKE 1 CAPSULE BY MOUTH EVERY DAY IN THE MORNING WITH THE 150 MG Rx Instructions: TAKE 1 CAPSULE BY MOUTH EVERY DAY IN THE MORNING WITH THE 150 MG (DME) Accu-Chek Leeann Plus test strp Strip See Rx Instructions .ROUTE .MEDSUPPLY Qty: 200 1RF Rx Instructions: ONE DAILY (DME) lancets [Accu-Chek Softclix Lancets] Misc See Rx Instructions .Route Qty: 200 0RF Rx Instructions: As directed ([facility]) upright wheeled walker See Rx Instructions .Route .MEDSUPPLY Qty: 1 0RF Rx Instructions: As directed albuterol sulfate 90 mcg/actuation HFA aerosol inhaler 2 puff inhalation 6XD PRN (Reason: shortness of breath or wheezing) Qty: 8.5 0RF nystatin 100,000 unit/mL suspension 5 ml PO Q6H Qty: 473 1RF Rx Instructions: swish and swallow venlafaxine [Effexor XR] 150 mg capsule,extended release 24hr 150 mg PO DAILY Qty: 90 3RF allopurinol 100 mg tablet See Rx Instructions .ROUTE .COMPLEX Qty: 90 1RF Dose Instruction: TAKE 1 TABLET BY MOUTH EVERY DAY Rx Instructions: TAKE 1 TABLET BY MOUTH EVERY DAY losartan 50 mg tablet 50 mg PO DAILY Qty: 90 3RF trazodone 100 mg tablet See Rx Instructions .ROUTE .COMPLEX Qty: 90 0RF Dose Instruction: TAKE 1 TABLET BY MOUTH EVERY DAY Rx Instructions: TAKE 1 TABLET BY MOUTH EVERY DAY tramadol 50 mg tablet 50 mg PO Q6H PRN (Reason: pain) 30 Days Qty: 30 0RF pregabalin 50 mg capsule 50 mg PO TID Qty: 90 5RF tizanidine 2 mg tablet See Rx Instructions .ROUTE .COMPLEX Qty: 270 0RF Dose Instruction: TAKE 1 TABLET BY MOUTH 3 TIMES A DAY NEEDED FOR MUSCLE SPASTICITY Rx Instructions: TAKE 1 TABLET BY MOUTH 3 TIMES A DAY NEEDED FOR MUSCLE SPASTICITY isosorbide mononitrate 30 mg tablet extended release 24 hr See Rx Instructions .ROUTE .COMPLEX Qty: 90 3RF Dose Instruction: TAKE 1 TABLET BY MOUTH EVERY DAY Rx Instructions: TAKE 1 TABLET BY MOUTH EVERY DAY acarbose 25 mg tablet 25 mg PO TID PRN (Reason: MD order) Qty: 270 0RF (DME) pen needle, diabetic [BD Rosalva 2nd Gen Pen Needle] 32 gauge x 5/32 needle See Rx Instructions .ROUTE .COMPLEX Qty: 100 1RF Dose Instruction: USE WITH INSULIN DAILY Rx Instructions: USE WITH INSULIN DAILY (DME) BIPAP with 16/12 with Oxygen with supplies See Rx Instructions .Route .MEDSUPPLY Qty: 1 0RF Rx Instructions: As directed insulin glargine [Lantus Solostar U-100 Insulin] 100 unit/mL (3 mL) insulin pen 46 unit SUBCUT BID 90 Days Qty: 83 0RF fluoxetine 10 mg tablet See Rx Instructions .ROUTE .COMPLEX Qty: 90 0RF Dose Instruction: TAKE 1 TABLET BY MOUTH EVERY DAY Rx Instructions: TAKE 1 TABLET BY MOUTH EVERY DAY triamcinolone acetonide 0.1 % cream 1 applic topical BID PRN (Reason: Rash) Symbicort 80-4.5 mcg/actuation HFA aerosol inhaler 2 inh inhalation BID Lasix 40 mg tablet 40 mg PO QAM Qty: 30 0RF pantoprazole 40 mg tablet,delayed release (DR/EC) 40 mg PO DAILY Qty: 90 1RF metoprolol succinate 50 mg tablet extended release 24 hr 50 mg PO DAILY Qty: 90 1RF Coding Level of Care Code 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
[2023-11-08 13:59] LABS: Alanine Aminotransferase 14 U/L (0-33); Albumin Level 4.1 g/dL (3.5-5.2); Alkaline Phosphatase 115 U/L (35-105); Anion Gap 12.7 (5-19); Aspartate Amino Transferase 12 U/L (0-32); Blood Urea Nitrogen 22 mg/dL (8-23); Calcium 9.3 mg/dL (8.5-10.5); Carbon Dioxide 27 mmol/L (22-29); Chloride 104 mmol/L (98-107); Creatinine Clr Calc Pharmacy 64.6459; Globulin 2.5 g/dL (1.3-4.6); Glucose 111 mg/dL (65-115); Osmolality Calculated 292 mOsm/kg (285-295); Potassium 4.7 mmol/L (3.5-5.1); Sodium 139 mmol/L (136-145); Total Bilirubin 0.2 mg/dL (0.15-1.2); Total Protein 6.6 g/dL (6.6-8.7)
--- NOTE | 2023-11-08 14:51 | ECG_ITS ---
[facility] Test Date: 2023-11-08 Pat Name: Melissa De Jesus Department: Room: Gender: Female Office Specialist: : 1950 Requested By: Karely Shultz Order Number: [id number] Riddhi MD: Anders Garrido M.D. Measurements Intervals [place] Rate: 40 P: 85 [place]: 173 QRS: 9 QRSD: 96 T: 19 QT: 449 QTc: 370 Interpretive Statements SINUS BRADYCARDIA SEPTAL MYOCARDIAL INFARCTION , OF INDETERMINATE AGE [40+ ms Q WAVE IN V1/V2] Compared to ECG 11/08/2023 12:59:23 No significant changes Electronically Signed On 11-08-2023 14:35:10 CDT by Anders Garrido M.D. [id number]
[2023-11-08 17:24] LABS: Troponin 5 2HR 18.17 ng/L (0-10)
[2023-11-08 17:30] LABS: Troponin 5 2HR Delta -1.83 ABS# (0-10)
--- NOTE | 2023-11-08 17:31 | P.HP_ITS ---
Providers/Chief Complaint 2 Admitting Physician: Iliana Alonso MD Primary Care Provider: Dr. August Chief Complaint: sent down cardiac issues History of Present Illness Melissa De Jesus is a 73 year old female who presented to the emergency room from Dr. Robles's office for bradycardia. She had her last appointment with Dr. Shaw on October 27. All of her home medications were refilled at that time. Ms. De Jesus did not mention that she had not been taking the metoprolol for quite a few months at that appointment. Metoprolol was last filled in January of last year for 90-day supply. She started taking 50 mg of metoprolol succinate last week and has been experiencing significant fatigue, malaise, dizziness, near syncopal episodes since then. She had an already scheduled appointment at endocrinology today for her diabetes and was noted to have a heart rate of 38. She was sent to the emergency room for further evaluation. Twelve-lead EKG here shows sinus bradycardia at 40 bpm. In talking with her she has been having some increasing dyspnea on exertion and occasional episodes of chest pain. Chest pain located in the left chest and is predominantly exertional in nature, though can occur at rest. She does follow with Dr. Garrido on an outpatient basis. Last saw him in August of this year. At that time she was taking Lasix but she has not been taking it in the interim since then.She has been taking her isosorbide regularly along with statin therapy, losartan and diabetic management. Blood pressures have still been suboptimally controlled. Should be noted that she is on 225 mg of venlafaxine daily. Case was discussed with cardiology and recommendation was for admission for further evaluation and monitoring along with holding of oral beta-blockade. Patient was last admitted in April with episodes of fluid overload. In the interim she has had sleep study and has started utilizing BiPAP and is feeling better with that. She is in the process of being evaluated for gastric bypass surgery with next steps primarily being cardiac clearance. She is switching to Dr. August for ongoing primary care now that Dr. Shaw has left. Review of Systems 2 General: Reports: Other (ROS as per HPI or as otherwise noted here) Const: Reports: daytime sleepiness; Denies: fever(s) Card: Reports: lightheadedness and dyspnea on exertion; Denies: palpitations or syncope Resp: Denies: productive cough, non-productive cough or pain on inspiration GI: Denies: abdominal pain, nausea, vomiting or change in stool character : Reports: urinary incontinence; Denies: difficulty voiding Neuro: Reports: weakness in extremities ( General rather than focal) and dizziness Psych: Reports: anxiety ( better controlled with current regimen) Charly/Lymph: Denies: easy bruising or easy bleeding Medications/Allergies Home Medications Medication Instructions Recorded Confirmed Last Taken Type atorvastatin 20 mg tablet 20 mg PO DAILY #90 tabs 05/12/22 11/08/23 04/13/23 Rx lift recliner #1 ea 05/12/22 11/08/23 Unknown Rx blood sugar diagnostic (Accu-Chek #200 ea 10/01/22 11/08/23 Unknown Rx Leeann Plus test strips) venlafaxine 150 mg 150 mg PO DAILY #90 caps 11/04/22 11/08/23 11/07/23 Rx capsule,extended release 24 hr (Effexor XR) upright wheeled walker #1 ea 03/16/23 11/08/23 Unknown Rx lancets (Accu-Chek Softclix #200 ea 04/23/23 11/08/23 Unknown Rx Lancets) losartan 50 mg tablet 50 mg PO DAILY #90 tabs 06/10/23 11/08/23 11/07/23 Rx tramadol 50 mg tablet 50 mg PO Q6H PRN pain 30 days #30 07/22/23 11/08/23 Unknown Rx tabs indomethacin 50 mg capsule 50 mg PO TID #9 caps 08/05/23 11/08/23 11/07/23 Rx pregabalin 50 mg capsule 50 mg PO TID #90 caps 08/24/23 11/08/23 11/07/23 Rx acarbose 25 mg tablet 25 mg PO TID PRN MD order #270 tabs 08/30/23 11/08/23 11/07/23 Rx pen needle, diabetic 32 gauge x #100 ea 09/06/23 11/08/23 Unknown Rx 5/32 (BD Rosalva 2nd Gen Pen Needle) BIPAP with 17/04 with Oxygen with #1 ea 09/09/23 11/08/23 Unknown Rx supplies insulin glargine 100 unit/mL (3 46 unit (0.46 mL) SUBCUT BID 90 10/05/23 11/08/23 11/07/23 Rx mL) subcutaneous pen (Lantus days #83 mL Solostar U-100 Insulin) metoprolol succinate 50 mg 50 mg PO DAILY #90 tabs 10/28/23 11/08/23 11/07/23 Rx tablet,extended release 24 hr pantoprazole 40 mg tablet,delayed 40 mg PO DAILY #90 tabs 10/28/23 11/08/23 11/07/23 Rx release allopurinol 100 mg tablet 100 mg PO DAILY 11/08/23 11/08/23 11/07/23 History fluoxetine 10 mg tablet 10 mg PO DAILY 11/08/23 11/08/23 11/07/23 History isosorbide mononitrate 30 mg 30 mg PO DAILY 11/08/23 11/08/23 11/07/23 History tablet,extended release 24 hr tizanidine 2 mg tablet 2 mg PO TID PRN MUSCLE SPASMS 11/08/23 11/08/23 Unknown History trazodone 100 mg tablet 100 mg PO DAILY 11/08/23 11/08/23 11/07/23 History venlafaxine 75 mg capsule,extended 75 mg PO DAILY 11/08/23 11/08/23 11/07/23 History release 24 hr Allergies Allergy/AdvReac Type Severity Reaction Status Date / Time Iodinated Contrast Media Allergy Unknown Verified 11/08/23 12:03 meperidine [From Demerol] Allergy HIVES Verified 11/08/23 12:03 shellfish derived Allergy ANAPHYLAXIS Verified 11/08/23 12:03 PFSH Acute 2 PFSH: Medical History (Updated 11/08/23 @ 18:19 by Iliana Alonso MD) History of sleep study 09/2023 Lumbar stenosis with neurogenic claudication Spinal cord stimulator status Gout Urinary incontinence Obstructive sleep apnea On bipap, settings / with 2 lpm oxygen 3 para 3 Sciatica Pancreatic mass On CT imaging from 01/2023, stable cystic mass measuring 7 mm in the tail of the pancreas. No interval change since 2018. Lesion of soft palate resolved on laryngoscopy done by Dr Mckinley dated 01/2023 Chronic neck pain Chronic low back pain Diabetes type 2, uncontrolled COVID-19 (~2021) Diverticulitis Essential (primary) hypertension Depression GERD (gastroesophageal reflux disease) Insomnia, controlled Hyperlipidemia Diabetic neuropathy Vitamin D deficiency Surgical History (Updated 11/08/23 @ 20:22 by Iliana Alonso MD) History of cardiac catheterization 08/2022 - 40% LAD, no other significant disease noted Status post total right knee replacement History of colonoscopy History of back surgery s/p fusion L3-L5 History of neck surgery H/O: hysterectomy S/P cholecystectomy S/p bilateral carpal tunnel release Status post total knee replacement, left Remote Family History Other CAD (coronary artery disease) Diabetes Social History Smoking and tobacco/nicotine status: never used tobacco/nicotine Second hand smoke exposure: Yes (as a child (father smoked)) Alcohol intake: current Alcohol intake frequency: holidays/special occasions only Substance/Drug Use: never Lives independently: Yes Household members: spouse Marital status: Do you think of yourself as: Straight/Heterosexual Current gender identity: Female Female Reproductive History: Para: 3 Spontaneous abortions: No Vitals/I&O/Wt Last Vital Signs Temp 97.6 F 11/08/23 12:59 Pulse 41 L 11/08/23 12:59 Resp 16 11/08/23 12:59 BP 168/70 11/08/23 12:59 Pulse Ox 97 11/08/23 12:59 O2 Del Method Room Air 11/08/23 12:59 Weight last 48 hrs Weight 128.82 kg Physical Exam 2 Narrative: Patient is awake and alert, able to provide history. Normocephalic. Extraocular movements are intact. Oropharynx with moist mucous membranes. Lungs with decreased breath sounds at both bases. No wheezes or rhonchi noted. Cardiovascular exam reveals a bradycardic but regular rhythm. Capillary refill is brisk. Abdomen is soft, nontender. Extremities 2+ pretibial pitting edema bilaterally. Data 11/08/23 13:28 11/08/23 13:28 A&P Assessment and plan (1) Near syncope: Secondary to #2 (2) Bradycardia: Sinus bradycardia in a patient who restarted metoprolol succinate within the last week. She has previously tolerated metoprolol succinate. With complaints of increasing dyspnea on exertion and intermittent chest pain some concern on presentation could be suggestive of ischemia. Baseline troponin is elevated however 2-hour troponin delta is a negative value. Last cardiac testing was performed in August 2022 with catheterization revealing 40% stenosis in the mid LAD though other vessels without significant disease. (3) Diastolic heart failure: Acute on chronic in a patient who has stopped taking diuretic therapy due to simply not refilling it by accident Qualifiers: Heart failure chronicity: acute on chronic Qualified Code(s): I50.33 - Acute on chronic diastolic (congestive) heart failure (4) Chest pain: Precordial pain with both typical and atypical features. Has had some issues with intermittent chest pain previously. last stress testing was performed in July 2022 and was abnormal leading to subsequent cardiac catheterization in August 2022 that showed 40% stenosis in the mid LAD but otherwise no significant disease. (5) Essential (primary) hypertension: Chronically on isosorbide, losartan and recently restarted metoprolol. Had previously also been on Lasix but it has not been refilled inadvertently. Blood pressures have been more difficult to control lately. (6) Hyperlipidemia: Chronically on statin therapy Qualifiers: Hyperlipidemia type: mixed hyperlipidemia Qualified Code(s): E78.2 - Mixed hyperlipidemia (7) Diabetes type 2, uncontrolled: Has associated peripheral neuropathy. Chronically on Lantus 46 units twice a day, acarbose as per MD instructions as well as Lyrica Qualifiers: Glycemic state: with hyperglycemia Qualified Code(s): E11.65 - Type 2 diabetes mellitus with hyperglycemia (8) Obstructive sleep apnea: On BiPAP at 16/12 with 28% FiO2 with sleep (9) Gout: Chronically on allopurinol and indomethacin. At increased risk of GI bleeding and other complications with indomethacin given her age. (10) Urinary incontinence: Chronic issue, not on any long-term management pharmacologically Qualifiers: Urinary Incontinence type: mixed stress and urge incontinence Qualified Code(s): N39.46 - Mixed incontinence (11) GERD (gastroesophageal reflux disease): Chronically on PPI Qualifiers: Esophagitis presence: without esophagitis Qualified Code(s): K21.9 - Gastro-esophageal reflux disease without esophagitis (12) Anxiety and depression: Chronically on fluoxetine, venlafaxine, trazodone (13) Chronic low back pain: Chronically on tramadol, tizanidine (14) Morbid obesity with BMI of 50.0-59.9, adult: In process of completing evaluation for possible gastric bypass with cardiac evaluation next to be performed Plan Inpatient admission Telemetry monitoring Hold metoprolol succinate If bradycardia and other symptoms do not improve can consider inpatient cardiology consultation versus outpatient cardiology follow-up sooner than currently scheduled January appointment Continue serial cardiac enzymes Will give 1 dose of IV Lasix, Monitoring response in terms of blood pressure and volume status Recheck renal function in the morning, check BNP Check limited echocardiogram for any evidence of change in ejection fraction, was normal in March 2023 Continue home isosorbide, losartan Continue home statin Add aspirin therapy while inpatient Continue long-acting insulin at a dose slightly lower than usual home dose Corrective dose insulin with meals and at bedtime BiPAP at home settings with oxygen therapy at 28% Continue home allopurinol Holding indomethacin and it should probably not be continued long-term as I am not sure that the potential benefits outweigh the established risks Continue home PPI Continue home fluoxetine and venlafaxine as well as trazodone; if blood pressures are chronically difficult to control consideration may have to be given to alternative to venlafaxine. Patient does report pressures are better at home monitoring then and clinical settings and that the current regimen is working well for her in terms of managing her anxiety and depression Continue home tramadol and tizanidine as needed VTE prophylaxis: Lovenox GI Prophylaxis: PPI Antibiotics: none Pending studies: 6-hour troponin, ordered echocardiogram, ordered BNP Telemetry: ordered secondary to bradycardia Brothers: not currently indicated Line(s): peripheral IVs Disposition plan: Home with outpatient follow up to primary care provider and cardiology anticipated Code Status: Full Code Supportive care otherwise Findings, concerns and plans were discussed with patient and she was given an opportunity to ask questions Attestations 2 Medical Necessity Statement*: Anticipated stay greater than two midnights in this 69-year-old patient who recently resumed beta-blockade and has been found to have significant bradycardia with heart rate into the 30s that is symptomatic with near syncope and other symptoms as described. In addition she has been having chest pain and increasing dyspnea on exertion. Currently being managed with telemetry monitoring, has received some IV diuresis and will be getting a limited echocardiogram to evaluate current ejection fraction. Given comorbid conditions as listed at risk of significant cardiovascular compromise, injury and other comorbidities without appropriate determination of etiology behind bradycardia. She has tolerated same dose of metoprolol in the past without same degree of bradycardia noted which is a concern for more significant pathology than just medication effect presently. Diagnoses Near syncope R55 Bradycardia R00.1 Acute on chronic diastolic heart failure I50.33 Heart failure chronicity: acute on chronic Chest pain R07.9 Essential (primary) hypertension I10 Mixed hyperlipidemia E78.2 Hyperlipidemia type: mixed hyperlipidemia Uncontrolled type 2 diabetes mellitus with hyperglycemia E11.65 Glycemic state: with hyperglycemia Obstructive sleep apnea G47.33 Gout M10.9 Mixed stress and urge urinary incontinence N39.46 Urinary Incontinence type: mixed stress and urge incontinence Gastroesophageal reflux disease without esophagitis K21.9 Esophagitis presence: without esophagitis Anxiety and depression F41.9; F32.A Chronic low back pain M54.5; G89.29 Morbid obesity with BMI of 50.0-59.9, adult E66.01; Z68.43
[2023-11-08] MEDS: potassium chloride ER 20 mEq Tablet PO (18:38)
[2023-11-08] MEDS: enoxaparin 40 mg/0.4 mL Syringe SUBCUT (18:38)
[2023-11-08] MEDS: FUROsemide 10 mg/mL SDV 4mL 40 MG IVP (18:38)
--- NOTE | 2023-11-08 18:51 | ECG_ITS ---
[facility] Test Date: 2023-11-08 Pat Name: Melissa De Jesus Department: Room: 278 Gender: Female Station Master: : 1950 Requested By: Karely Shultz Order Number: [id number] Riddhi MD: Anders Garrido M.D. Measurements Intervals Emerson Rate: 57 P: 83 HI: 177 QRS: 81 QRSD: 82 T: 47 QT: 400 QTc: 391 Interpretive Statements SINUS BRADYCARDIA WITH OCCASIONAL SUPRAVENTRICULAR PREMATURE COMPLEXES POSSIBLE RIGHT VENTRICULAR CONDUCTION DELAY [RSR (QR) IN V1/V2] Compared to ECG 11/08/2023 14:32:46 Myocardial infarct finding no longer present Electronically Signed On 11-09-2023 8:58:41 CDT by Anders Garrido M.D. [email or web address]
--- NOTE | 2023-11-08 20:31 | USCV_ITS ---
Melissa De Jesus Age: 73 Gender: F : 1950 Exam Date: 11/08/2023 20:46 Ordering Phys: Iliana Alonso MD Technologist: PATRICIA Exam Location: [facility] Indication: ef only BP: 198 / 84 HR: 55 Rhythm: Sinus bradycardia Technical Quality: Adequate with OPTISON MEASUREMENTS (Male / Female) Normal Values 2D ECHO LV Diastolic Diameter PLAX 3.2 cm 4.2 - 5.9 / 3.9 - 5.3 cm IVS Diastolic Thickness 1.8 cm 0.6 - 1.0 / 0.6 - 0.9 cm IVS Systolic Thickness 2.0 cm LVPW Diastolic Thickness 1.9 cm 0.6 - 1.0 / 0.6 - 0.9 cm LVPW Systolic Thickness 2.2 cm LV Ejection Fraction 2D Teich 62.8 % LV Ejection Fraction MOD 2C 73.0 % LV Ejection Fraction 2C AL 74.7 % DOPPLER MV Peak Velocity 86.0 cm/s MV Area PHT 2.5 cm squared Mitral E to A Ratio 1.0 FINDINGS Left Ventricle Normal left ventricular size and systolic function, EF 73%.moderate left ventricular hypertrophy. No regional wall motion abnormalities. Grade I/IV diastolic dysfunction (abnormal relaxation filling pattern), normal to mildly elevated filling pressures. (Echo contrast - Optison was used to delineate the endocardium and to estimate the LV ejection fraction) Right Ventricle Possibly normal RV size and ejection fraction Right Atrium The right atrium is normal in size. Left Atrium Mildly increased left atrial size. Mitral Valve No gross abnormalities noted. Mild mitral annular calcification Aortic Valve No gross abnormalities noted Tricuspid Valve Tricuspid valve not well visualized. Pulmonic Valve Pulmonic valve not well visualized. Pericardium No pleural effusion. Aorta Normal ascending aorta dimension. IVC The inferior vena cava appears normal. CONCLUSIONS Normal left ventricular size and systolic function, EF 73%.moderate left ventricular hypertrophy. No regional wall motion abnormalities. Grade I/IV diastolic dysfunction (abnormal relaxation filling pattern), normal to mildly elevated filling pressures. (Echo contrast - Optison was used to delineate the endocardium and to estimate the LV ejection fraction). Mildly increased left atrial size. Otherwise no chamber abnormalities were noted. Comparison with the previous study is difficult because of the difference in the technical quality. Dr Cedric Hurd MD FACC (Electronically Signed) Final Date: 09 November 2023 15:35 S
[2023-11-08] MEDS: TRAMadol 50 mg Tablet PO (20:37)
[2023-11-08] MEDS: pregabalin 50 mg Capsule PO (20:37)
[2023-11-08 21:28] LABS: NT Pro B Type Natriuretic Pept 326 pg/mL (0-125)
[2023-11-08 21:40] LABS: Troponin 5 6HR 17.69 ng/L (0-10)
[2023-11-08 21:46] LABS: Troponin 5 6HR Delta -2.31 ng/L (0-12)
[2023-11-08 22:21] LABS: Glucose Point of Care 219 mg/dL (70-110)
[2023-11-08] MEDS: trazodone 100 mg Tablet PO (22:42)
[2023-11-08] MEDS: insulin glargine 100 units/1 mL 40 UNIT SUBCUT (22:42)
[2023-11-08] MEDS: insulin lispro 100 unit/1 mL SUBCUT (22:43)
--- NOTE | 2023-11-08 22:53 | PC.NURSE ---
Patient states she has suicidal thoughts approximately 20 years ago, but none currently or recently.
--- NOTE | 2023-11-08 23:37 | PC.NURSE ---
Addendum entered by Debbie Pacheco RN 11/08/23 23:39: Patient also states she wears Bipap at home at night. Dr. Quach ordered this for here. Original Note: Dr. Quach notified of blood pressure of 182/78. Patient states she did not take her home medications today so she missed her Losartan and Isosorbide doses for today. These medications are ordered for the patient, but are not due until tomorrow morning. Ordered to give one time dose of Losartan now.
[2023-11-08] MEDS: losartan 50 mg Tablet PO (23:42)
[2023-11-09] VITALS (13 sets, daily range): BP systolic 124–173; BP diastolic 74–86; PULSE 49–76; RESP 17–19; TEMP 36.4–37.1; O2SAT 92–98
[2023-11-09 06:22] LABS: Glucose Point of Care 86 mg/dL (70-110)
[2023-11-09 07:27] LABS: Anion Gap 14.5 (5-19); Blood Urea Nitrogen 18 mg/dL (8-23); Calcium 9.7 mg/dL (8.5-10.5); Carbon Dioxide 32 mmol/L (22-29); Chloride 105 mmol/L (98-107); Creatinine Clr Calc Pharmacy 73.0855; Glucose 99 mg/dL (65-115); Magnesium 1.8 mg/dL (1.7-2.3); Osmolality Calculated 306 mOsm/kg (285-295); Phosphorus 4.4 mg/dL (2.5-4.5); Potassium 4.5 mmol/L (3.5-5.1); Sodium 147 mmol/L (136-145)
[2023-11-09] MEDS: pneumococcal (23 valent) SDV 0.5 mL IM (08:05)
[2023-11-09] MEDS: venlafaxine ER (24HR) 75 mg Capsule PO (08:11)
[2023-11-09] MEDS: losartan 50 mg Tablet PO (08:11)
[2023-11-09] MEDS: pregabalin 50 mg Capsule PO ×3 (08:11→20:04)
[2023-11-09] MEDS: allopurinol 100 mg Tablet PO (08:11)
[2023-11-09] MEDS: TRAMadol 50 mg Tablet PO ×3 (08:11→20:04)
[2023-11-09] MEDS: isosorbide mononitrate ER 30 mg Tablet PO (08:11)
[2023-11-09] MEDS: aspirin 81 mg Chew Tablet PO (08:11)
[2023-11-09] MEDS: atorvastatin 40 mg Tablet PO (08:11)
[2023-11-09] MEDS: pantoprazole DR 40 mg Tablet PO (08:11)
[2023-11-09] MEDS: docusate sodium 100 mg Capsule PO ×2 (08:11→17:42)
[2023-11-09] MEDS: fluoxetine 10 mg Capsule PO (08:11)
[2023-11-09] MEDS: venlafaxine ER (24HR) 150 mg Capsule PO (08:12)
--- NOTE | 2023-11-09 09:39 | PC.CHAP ---
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 visit [] Patient/Family/Request visit [] Outpatient visit [] Follow-up visit [] Physician referral [] Code/Alert [x] Routine visit [] Staff referral [] Actively dying [] Patient sleeping [] Family support [] [] Out of room [] Palliative care [] [] Receiving care in room [] Pre-surgical visit [] Trauma [] Long length of stay [] ICU visit [] Other: Relational/Emotional Strength [x] Patient feels connected with others/family/visitors/staff [] Distress [] Loneliness/isolation [] Abandonment Spirituality of Patient [x] Person of Anitha [] Attends Congregation of their Anitha [x] Believes in Prayer [] Reads Bible or Orthodox materials [] There are Spiritual issues to be addressed 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 Interventions [x] Prayer [x Active listening [] Non-anxious presence [x] Spiritual/emotional support [] Crisis/trauma care [] Spiritual counseling [] Bereavement support [] Provided bereavement packet [] Provided Bible/devotional materials [] Provided toy/stuffed animal, coloring book to patient or family member [] Provided Communion [] Anointing/[place] [] Salvation [x] Completed spiritual assessment [] Other: Impact on Illness or Injury [] Angry [] Fearful [] Anxious [] Often cries [] Exhaustion [] Unable to work [] Unable to attend yazdanism [] Unable to walk/stand [] Unable to read [] Unable to drive [] Unable to eat/drink [] Unable to sleep [] Unable to be with family [] Patient intubated [] Other: Summary Time spent with patient 5 min
[2023-11-09] MEDS: perflutren protein-a microsphr 0.22 mg/mL SDV 3 mL IV (09:55)
[2023-11-09 11:06] LABS: Glucose Point of Care 205 mg/dL (70-110)
[2023-11-09] MEDS: insulin lispro 100 unit/1 mL SUBCUT ×3 (12:16→21:11)
[2023-11-09 16:50] LABS: Glucose Point of Care 169 mg/dL (70-110)
--- NOTE | 2023-11-09 16:58 | P.PN_ITS ---
Subjective 2 Subjective: Complains of squeezing chest pain earlier this morning and states that she is feeling winded with minimal exertion on walking from bed to the bathroom. Urine output has not been accurately charted. Creatinine stable at 0.9 today. Troponin series unremarkable. Heart rate has now improved. Heart rate today is trending mostly in the 60s. Uncontrolled blood pressure ranging 170s. Medications: Reviewed: Yes Vitals/I&O/Wt Last Vital Signs Temp 98.1 F 11/09/23 16:00 Pulse 60 11/09/23 16:00 Resp 17 11/09/23 07:03 BP 173/74 11/09/23 16:00 Pulse Ox 92 11/09/23 16:00 O2 Del Method Room Air 11/09/23 16:00 11/09/23 11/09/23 11/09/23 06:59 14:59 22:59 Intake Total 480 / 840 480 / 480 Balance 480 / 840 480 / 480 Weight last 48 hrs Weight 132.449 kg Weight 133.764 kg Weight 128.82 kg Physical Exam 2 Narrative: General: No acute distress, AO x3 HEENT: PERRLA, pupils bilaterally equal and reactive, pallors not present Chest: Normal vesicular breath sounds, no added sounds, equal good air entry bilaterally CVS: S1-S2 regular, no murmurs, no tachycardia, no gallops, no rubs Abdomen: Soft, nontender, no organomegaly, bowel sounds present Neuro: No focal deficits, no facial deformity, AO x3, power 5/5 in all limbs Extremities: 1+ pitting edema B/L Data 11/08/23 13:28 11/09/23 06:30 A&P Assessment and plan (1) Near syncope: Secondary to #2 (2) Bradycardia: Sinus bradycardia in a patient who restarted metoprolol succinate within the last week. She has previously tolerated metoprolol succinate. With complaints of increasing dyspnea on exertion and intermittent chest pain some concern on presentation could be suggestive of ischemia. Baseline troponin is elevated however 2-hour troponin delta is a negative value. Last cardiac testing was performed in August 2022 with catheterization revealing 40% stenosis in the mid LAD though other vessels without significant disease. (3) Diastolic heart failure: Acute on chronic in a patient who has stopped taking diuretic therapy due to simply not refilling it by accident Qualifiers: Heart failure chronicity: acute on chronic Qualified Code(s): I50.33 - Acute on chronic diastolic (congestive) heart failure (4) Chest pain: Precordial pain with both typical and atypical features. Has had some issues with intermittent chest pain previously. last stress testing was performed in July 2022 and was abnormal leading to subsequent cardiac catheterization in August 2022 that showed 40% stenosis in the mid LAD but otherwise no significant disease. (5) Essential (primary) hypertension: Chronically on isosorbide, losartan and recently restarted metoprolol. Had previously also been on Lasix but it has not been refilled inadvertently. Blood pressures have been more difficult to control lately. (6) Hyperlipidemia: Chronically on statin therapy Qualifiers: Hyperlipidemia type: mixed hyperlipidemia Qualified Code(s): E78.2 - Mixed hyperlipidemia (7) Diabetes type 2, uncontrolled: Has associated peripheral neuropathy. Chronically on Lantus 46 units twice a day, acarbose as per MD instructions as well as Lyrica Qualifiers: Glycemic state: with hyperglycemia Qualified Code(s): E11.65 - Type 2 diabetes mellitus with hyperglycemia (8) Obstructive sleep apnea: On BiPAP at 16/12 with 28% FiO2 with sleep (9) Gout: Chronically on allopurinol and indomethacin. At increased risk of GI bleeding and other complications with indomethacin given her age. (10) Urinary incontinence: Chronic issue, not on any long-term management pharmacologically Qualifiers: Urinary Incontinence type: mixed stress and urge incontinence Qualified Code(s): N39.46 - Mixed incontinence (11) GERD (gastroesophageal reflux disease): Chronically on PPI Qualifiers: Esophagitis presence: without esophagitis Qualified Code(s): K21.9 - Gastro-esophageal reflux disease without esophagitis (12) Anxiety and depression: Chronically on fluoxetine, venlafaxine, trazodone (13) Chronic low back pain: Chronically on tramadol, tizanidine (14) Morbid obesity with BMI of 50.0-59.9, adult: In process of completing evaluation for possible gastric bypass with cardiac evaluation next to be performed Plan Inpatient admission Telemetry monitoring Hold metoprolol succinate If bradycardia and other symptoms do not improve can consider inpatient cardiology consultation versus outpatient cardiology follow-up sooner than currently scheduled January appointment Continue serial cardiac enzymes Will give 1 dose of IV Lasix, Monitoring response in terms of blood pressure and volume status Recheck renal function in the morning, check BNP Check limited echocardiogram for any evidence of change in ejection fraction, was normal in March 2023 Continue home isosorbide, losartan Continue home statin Add aspirin therapy while inpatient Continue long-acting insulin at a dose slightly lower than usual home dose Corrective dose insulin with meals and at bedtime BiPAP at home settings with oxygen therapy at 28% Continue home allopurinol Holding indomethacin and it should probably not be continued long-term as I am not sure that the potential benefits outweigh the established risks Continue home PPI Continue home fluoxetine and venlafaxine as well as trazodone; if blood pressures are chronically difficult to control consideration may have to be given to alternative to venlafaxine. Patient does report pressures are better at home monitoring then and clinical settings and that the current regimen is working well for her in terms of managing her anxiety and depression Continue home tramadol and tizanidine as needed VTE prophylaxis: Lovenox GI Prophylaxis: PPI Antibiotics: none Pending studies: 6-hour troponin, ordered echocardiogram, ordered BNP Telemetry: ordered secondary to bradycardia Brothers: not currently indicated Line(s): peripheral IVs Disposition plan: Home with outpatient follow up to primary care provider and cardiology anticipated Code Status: Full Code Supportive care otherwise Findings, concerns and plans were discussed with patient and she was given an opportunity to ask questions Plan for today November 09, 2023. Heart rate is now much improved with holding metoprolol. Currently ranging between 58 to 60 bpm. Patient complaining of intermittent atypical chest discomfort, in reviewing outpatient cardiology notes this appears to be a longstanding problem. Last stress test as above. Currently EKG without any acute ST-T wave changes. Troponin series not concerning for ACS. Pain and shortness of breath may be related to acute on chronic diastolic CHF exacerbation. Start Lasix 40 mg IV every 12 hours and monitor urine output closely. Check D-dimer to screen for PE. Blood pressure is not adequately controlled. Running systolic in the 170s. Increase Imdur to 60 mg p.o. daily. Would aim to increase losartan next if blood pressure does not improve with increasing Imdur. Add as needed hydralazine for SBP greater than 160. Continue BiPAP use at nighttime. Currently saturating 92% on room air.echocardiogram completed, no regional wall motion abnormalities. EF of 73% with moderate LVH Attestations 2 Medical Necessity Statement*: Needs continued admission for IV diuresis for acute on chronic diastolic CHF exacerbation Coding Level of Care Code Acute Code for Chg Fwd Moderate MDM includes number and complexity of problems actively addressed during encounter, amount and/or complexity of data reviewed/ordered and described risk of complication, morbidity or mortality of management as documented Diagnoses Near syncope R55 Bradycardia R00.1 Acute on chronic diastolic heart failure I50.33 Heart failure chronicity: acute on chronic Chest pain R07.9 Essential (primary) hypertension I10 Mixed hyperlipidemia E78.2 Hyperlipidemia type: mixed hyperlipidemia Uncontrolled type 2 diabetes mellitus with hyperglycemia E11.65 Glycemic state: with hyperglycemia Obstructive sleep apnea G47.33 Gout M10.9 Mixed stress and urge urinary incontinence N39.46 Urinary Incontinence type: mixed stress and urge incontinence Gastroesophageal reflux disease without esophagitis K21.9 Esophagitis presence: without esophagitis Anxiety and depression F41.9; F32.A Chronic low back pain M54.5; G89.29 Morbid obesity with BMI of 50.0-59.9, adult E66.01; Z68.43
[2023-11-09] MEDS: FUROsemide 10 mg/mL SDV 4mL 40 MG IVP (17:42)
[2023-11-09] MEDS: enoxaparin 40 mg/0.4 mL Syringe SUBCUT (17:42)
[2023-11-09 18:56] LABS: D Dimer 0.69 ug/mLFEU (0-0.59)
[2023-11-09] MEDS: trazodone 100 mg Tablet PO (20:04)
[2023-11-09 20:27] LABS: Glucose Point of Care 188 mg/dL (70-110)
[2023-11-09] MEDS: insulin glargine 100 units/1 mL 40 UNIT SUBCUT (21:11)
[2023-11-10] VITALS (12 sets, daily range): BP systolic 100–150; BP diastolic 59–86; PULSE 55–98; RESP 14–19; TEMP 36.4–37; O2SAT 90–98
--- NOTE | 2023-11-10 05:17 | ECG_ITS ---
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 Measurements Intervals [place] Rate: 90 P: 0 PA: 0 QRS: 18 QRSD: 89 T: 27 QT: 356 QTc: 436 Interpretive Statements SINUS RHYTHM Compared to ECG 11/08/2023 20:41:47 Sinus bradycardia no longer present Electronically Signed On 11-10-2023 9:43:03 CDT by Anders Garrido M.D. [id number]
--- NOTE | 2023-11-10 05:29 | ECG_ITS ---
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 Measurements Intervals [place] Rate: 96 P: 147 NV: 147 QRS: 28 QRSD: 85 T: 29 QT: 345 QTc: 437 Interpretive Statements SINUS RHYTHM WITH SINUS ARRHYTHMIA Compared to ECG 11/10/2023 05:17:19 Atrial flutter no longer present Electronically Signed On 11-10-2023 9:43:40 CDT by Anders Garrido M.D. [id number]
--- NOTE | 2023-11-10 05:33 | PC.NURSE ---
At 05:02 and 05:05, patient had multiple runs of bradycardia/pauses with heart rate dropping into the 30s. Patient appeared to be sleeping. I woke patient up. Patient asymptomatic. VSS. (See vital signs). Dr. Quach notified and ordered to get EKG. Initial EKG stated A-fib, however it was noted that patient appeared to be in sinus rhythm with PACs on telemetry. The initial EKG also showed artifact in some leads. Another EKG was taken, which showed sinus rhythm. Telemetry strips of pauses/bradycardia placed in paper chart.
[2023-11-10] MEDS: TRAMadol 50 mg Tablet PO ×3 (05:45→19:06)
[2023-11-10 06:05] LABS: Basophils % 0.5 %; Eosinophils # 0.5 10^3/uL (0.0-0.8); Eosinophils % 6.7 %; Hematocrit 45.3 % (36-47); Lymphocytes # 2.2 10^3/uL (0.8-4.8); Lymphocytes % 28.8 %; Mean Corpuscular HGB Conc 31.6 g/dL (30-55); Mean Corpuscular Hemoglobin 30.2 pg (27-33); Mean Corpuscular Volume 95.8 fl (85-98); Mean Platelet Volume 9.8 fL (7.4-10.4); Monocytes # 0.5 10^3/uL (0.2-0.9); Monocytes % 6.6 %; Neutrophils # 4.32 10^3/uL (1.8-7.7); Neutrophils % 57.1 %; Nucleated Red Blood Cells % 0 %; Platelet Count 216 10^3/cmm (157-399); Red Blood Count 4.73 10^6/uL (3.85-5.65); Red Cell Distribution Width 14.2 % (12.1-15.1); White Blood Count 7.57 10^3/uL (3.29-11.43)
[2023-11-10 06:27] LABS: Alanine Aminotransferase 14 U/L (0-33); Albumin Level 3.8 g/dL (3.5-5.2); Alkaline Phosphatase 112 U/L (35-105); Aspartate Amino Transferase 13 U/L (0-32); Blood Urea Nitrogen 18 mg/dL (8-23); Calcium 9.4 mg/dL (8.5-10.5); Carbon Dioxide 30 mmol/L (22-29); Chloride 102 mmol/L (98-107); Creatinine Clr Calc Pharmacy 72.8971; Globulin 3.1 g/dL (1.3-4.6); Glucose 122 mg/dL (65-115); Osmolality Calculated 293 mOsm/kg (285-295); Sodium 140 mmol/L (136-145); Total Bilirubin 0.5 mg/dL (0.15-1.2); Total Protein 6.9 g/dL (6.6-8.7)
[2023-11-10 06:40] LABS: Glucose Point of Care 127 mg/dL (70-110)
[2023-11-10] MEDS: insulin glargine 100 units/1 mL 40 UNIT SUBCUT ×2 (07:45→21:14)
[2023-11-10] MEDS: losartan 50 mg Tablet PO (07:46)
[2023-11-10] MEDS: aspirin 81 mg Chew Tablet PO (07:46)
[2023-11-10] MEDS: venlafaxine ER (24HR) 75 mg Capsule PO (07:46)
[2023-11-10] MEDS: atorvastatin 40 mg Tablet PO (07:46)
[2023-11-10] MEDS: fluoxetine 10 mg Capsule PO (07:46)
[2023-11-10] MEDS: FUROsemide 10 mg/mL SDV 4mL 40 MG IVP ×2 (07:46→21:13)
[2023-11-10] MEDS: docusate sodium 100 mg Capsule PO ×2 (07:47→17:09)
[2023-11-10] MEDS: pregabalin 50 mg Capsule PO ×3 (07:47→21:13)
[2023-11-10] MEDS: allopurinol 100 mg Tablet PO (07:47)
[2023-11-10] MEDS: isosorbide mononitrate ER 30 mg Tablet 60 MG PO (07:47)
[2023-11-10] MEDS: venlafaxine ER (24HR) 150 mg Capsule PO (07:48)
[2023-11-10] MEDS: pantoprazole DR 40 mg Tablet PO (07:48)
--- NOTE | 2023-11-10 10:22 | PC.SOCIAL ---
IMM Update pg 2 of IMM updated and reviewed w/ patient. Copy provided and copy dated, initialed and placed in chart.
[2023-11-10 11:34] LABS: Glucose Point of Care 228 mg/dL (70-110)
[2023-11-10] MEDS: insulin lispro 100 unit/1 mL SUBCUT ×2 (11:45→21:14)
[2023-11-10] MEDS: tizanidine 4 mg Tablet 2 MG PO (11:46)
--- NOTE | 2023-11-10 14:24 | USCV_ITS ---
Melissa De Jesus Age: 73 Gender: F : 1950 Exam Date: 11/10/2023 15:55 Ordering Phys: Violet Welch MD Technologist: WENDY Exam Location: [facility] [place] Indication: RT LE Swelling. HISTORY: Lower extremity swelling. PROCEDURES: Venous duplex imaging was performed in bilateral lower extremities. The following venous structures were evaluated: common femoral vein, profunda vein, proximal portion of the greater saphenous vein, superficial femoral vein, and the popliteal vein. In addition, the posterior tibial and peroneal trunk were evaluated. Serial compression, augmentation maneuvers, and spectral Doppler flow evaluation were performed. FINDINGS: No evidence of DVT seen in any vessel visualized at this time. CONCLUSIONS No evidence of right lower extremity DVT. No evidence of left lower extremity DVT. Hussein Barahona MD (Electronically Signed) Final Date: 10 November 2023 16:34 S
--- NOTE | 2023-11-10 14:25 | ECG_ITS ---
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
--- NOTE | 2023-11-10 15:11 | CTR_ITS ---
PROCEDURE INFORMATION: Exam: CTA Chest With Contrast Exam date and time: 11/10/2023 10:59 PM Age: 73 years old Clinical indication: Other: Eval pe; Shortness of breath; Prior surgery; Surgery date: 6+ months; Surgery type: Gb, hyst, back; Additional info: Evalaute for pe, patient needs pre medication. TECHNIQUE: Imaging protocol: Computed tomographic angiography of the chest with contrast. Exam focused on the arteries. 3D rendering (Not supervised by radiologist): MIP and/or 3D reconstructed images were created by the technologist. Radiation optimization: All CT scans at this facility use at least one of these dose optimization techniques: automated exposure control; mA and/or kV adjustment per patient size (includes targeted exams where dose is matched to clinical indication); or iterative reconstruction. Contrast material: OMNI 350; Contrast volume: 100 ml; Contrast route: INTRAVENOUS (IV); COMPARISON: CT angio chest PE protcl [id number] 04/13/2023 12:40 PM RADIATION DOSE METRICS: Total DLP (mGy-cm): 499 FINDINGS: Tubes, catheters and devices: Spinal cord stimulator with its tip at T6-T7 level. Pulmonary arteries: There is a filling defect in the left lower lobe pulmonary artery branch. Aorta: Unremarkable. No aortic aneurysm. No aortic dissection. Lungs: There are bilateral lower lobe atelectatic changes. No focal consolidation. No focal infiltrates. Pleural spaces: Unremarkable. No pneumothorax. No pleural effusion. Heart: Unremarkable. No cardiomegaly. No pericardial effusion. Heart RV/LV ratio: The RV to LV ratio is 0.9. Lymph nodes: Unremarkable. No enlarged lymph nodes. Diaphragm: Small hiatal hernia. Small hiatal hernia. Gallbladder and biliary ducts: Post cholecystectomy. Bones/joints: [facility] changes of the thoracic spine bridging anterior osteophytes. There is mild curvature of the thoracic spine convex to the right. Soft tissues: Unremarkable. PROCEDURE INFORMATION: Exam: CT Abdomen And Pelvis With Contrast Exam date and time: 11/10/2023 10:59 PM Age: 73 years old Clinical indication: Other: Eval pe; Shortness of breath; Prior surgery; Surgery date: 6+ months; Surgery type: Gb, hyst, back; Additional info: Evalaute for pe, patient needs pre medication. TECHNIQUE: Imaging protocol: Computed tomography of the abdomen and pelvis with contrast. Radiation optimization: All CT scans at this facility use at least one of these dose optimization techniques: automated exposure control; mA and/or kV adjustment per patient size (includes targeted exams where dose is matched to clinical indication); or iterative reconstruction. Contrast material: OMNI 350; Contrast volume: 100 ml; Contrast route: INTRAVENOUS (IV); COMPARISON: CT abdomen wo/w con [id number] 01/26/2023 8:29 AM RADIATION DOSE METRICS: Total DLP (mGy-cm): 1189 FINDINGS: Liver: Normal. No mass. Gallbladder and biliary ducts: Post cholecystectomy. Pancreas: Stable cystic lesion in the tail of the pancreas measuring 7 mm. Spleen: Normal. No splenomegaly. Adrenal glands: Normal. No mass. Kidneys and ureters: Simple cyst in the lower pole of the left kidney measuring 1.6 x 1.4 cm. Stomach and bowel: Diverticulosis of the sigmoid and descending colon. Appendix: No evidence of appendicitis. Intraperitoneal space: Unremarkable. No free air. No significant fluid collection. Vasculature: Vascular calcifications. Lymph nodes: Unremarkable. No enlarged lymph nodes. Urinary bladder: Unremarkable as visualized. Reproductive: Post hysterectomy. Bones/joints: Mild degenerative disease of bilateral sacroiliac joints and symphysis pubis. Post posterior instrumentation at L3-L4. Mild anterolisthesis of L4 over L5. Advanced degenerative at L2-L3 with vacuum phenomenon. Soft tissues: Small fat containing umbilical hernia. CT/CT angio chest w abd pel w con IMPRESSION: 1. Nonocclusive embolism left lower lobe pulmonary artery branch. 2. No acute infiltrates. IMPRESSION: 1. No acute findings. 2. Diverticulosis with no changes of diverticulitis. COMMENTS: Consistent with the [employer]'s Incidental Findings Committee white paper (J Am Mike Radiol 2018): Any incidental renal lesion less than 1 cm or classified as too small to characterize, or any incidental cystic renal lesion characterized as simple-appearing, is likely benign. No follow-up imaging is recommended for these lesions per consensus recommendations based on imaging criteria.
--- NOTE | 2023-11-10 15:15 | P.PN_ITS ---
Subjective 2 Subjective: Patient continues to complain of dyspnea on exertion. She states that she still feels pretty winded even with minimal exertion. She is currently on 2 L/min supplemental O2. Does not usually wear oxygen at home. Carries a diagnosis of sleep apnea but no history of COPD or asthma. She has not had significant relief with IV Lasix. Medications: Reviewed: Yes Vitals/I&O/Wt Last Vital Signs Temp 98.0 F 11/10/23 11:50 Pulse 71 11/10/23 14:00 Resp 14 11/10/23 11:50 BP 128/63 11/10/23 11:50 Pulse Ox 94 11/10/23 11:50 O2 Del Method Room Air 11/10/23 11:50 FiO2 30 11/09/23 22:30 11/10/23 11/10/23 11/10/23 06:59 14:59 22:59 Intake Total 480 / 1440 360 / 360 Output Total 800 / 800 Balance 480 / 1440 -440 / -440 Weight last 48 hrs Weight 131.905 kg Weight 132.449 kg Weight 133.764 kg Physical Exam 2 Narrative: General: No acute distress, AO x3 HEENT: PERRLA, pupils bilaterally equal and reactive, pallors not present Chest: Normal vesicular breath sounds, no added sounds, equal good air entry bilaterally CVS: S1-S2 regular, no murmurs, no tachycardia, no gallops, no rubs Abdomen: Soft, nontender, no organomegaly, bowel sounds present Neuro: No focal deficits, no facial deformity, AO x3, power 5/5 in all limbs Extremities: 1+ pitting edema B/L Data 11/10/23 05:45 11/10/23 05:45 A&P Assessment and plan (1) Near syncope: Secondary to #2 (2) Bradycardia: Sinus bradycardia in a patient who restarted metoprolol succinate within the last week. She has previously tolerated metoprolol succinate. With complaints of increasing dyspnea on exertion and intermittent chest pain some concern on presentation could be suggestive of ischemia. Baseline troponin is elevated however 2-hour troponin delta is a negative value. Last cardiac testing was performed in August 2022 with catheterization revealing 40% stenosis in the mid LAD though other vessels without significant disease. (3) Diastolic heart failure: Acute on chronic in a patient who has stopped taking diuretic therapy due to simply not refilling it by accident Qualifiers: Heart failure chronicity: acute on chronic Qualified Code(s): I50.33 - Acute on chronic diastolic (congestive) heart failure (4) Chest pain: Precordial pain with both typical and atypical features. Has had some issues with intermittent chest pain previously. last stress testing was performed in July 2022 and was abnormal leading to subsequent cardiac catheterization in August 2022 that showed 40% stenosis in the mid LAD but otherwise no significant disease. (5) Essential (primary) hypertension: Chronically on isosorbide, losartan and recently restarted metoprolol. Had previously also been on Lasix but it has not been refilled inadvertently. Blood pressures have been more difficult to control lately. (6) Hyperlipidemia: Chronically on statin therapy Qualifiers: Hyperlipidemia type: mixed hyperlipidemia Qualified Code(s): E78.2 - Mixed hyperlipidemia (7) Diabetes type 2, uncontrolled: Has associated peripheral neuropathy. Chronically on Lantus 46 units twice a day, acarbose as per MD instructions as well as Lyrica Qualifiers: Glycemic state: with hyperglycemia Qualified Code(s): E11.65 - Type 2 diabetes mellitus with hyperglycemia (8) Obstructive sleep apnea: On BiPAP at 16/12 with 28% FiO2 with sleep (9) Gout: Chronically on allopurinol and indomethacin. At increased risk of GI bleeding and other complications with indomethacin given her age. (10) Urinary incontinence: Chronic issue, not on any long-term management pharmacologically Qualifiers: Urinary Incontinence type: mixed stress and urge incontinence Qualified Code(s): N39.46 - Mixed incontinence (11) GERD (gastroesophageal reflux disease): Chronically on PPI Qualifiers: Esophagitis presence: without esophagitis Qualified Code(s): K21.9 - Gastro-esophageal reflux disease without esophagitis (12) Anxiety and depression: Chronically on fluoxetine, venlafaxine, trazodone (13) Chronic low back pain: Chronically on tramadol, tizanidine (14) Morbid obesity with BMI of 50.0-59.9, adult: In process of completing evaluation for possible gastric bypass with cardiac evaluation next to be performed Plan Inpatient admission Telemetry monitoring Hold metoprolol succinate If bradycardia and other symptoms do not improve can consider inpatient cardiology consultation versus outpatient cardiology follow-up sooner than currently scheduled January appointment Continue serial cardiac enzymes Will give 1 dose of IV Lasix, Monitoring response in terms of blood pressure and volume status Recheck renal function in the morning, check BNP Check limited echocardiogram for any evidence of change in ejection fraction, was normal in March 2023 Continue home isosorbide, losartan Continue home statin Add aspirin therapy while inpatient Continue long-acting insulin at a dose slightly lower than usual home dose Corrective dose insulin with meals and at bedtime BiPAP at home settings with oxygen therapy at 28% Continue home allopurinol Holding indomethacin and it should probably not be continued long-term as I am not sure that the potential benefits outweigh the established risks Continue home PPI Continue home fluoxetine and venlafaxine as well as trazodone; if blood pressures are chronically difficult to control consideration may have to be given to alternative to venlafaxine. Patient does report pressures are better at home monitoring then and clinical settings and that the current regimen is working well for her in terms of managing her anxiety and depression Continue home tramadol and tizanidine as needed VTE prophylaxis: Lovenox GI Prophylaxis: PPI Antibiotics: none Pending studies: 6-hour troponin, ordered echocardiogram, ordered BNP Telemetry: ordered secondary to bradycardia Brothers: not currently indicated Line(s): peripheral IVs Disposition plan: Home with outpatient follow up to primary care provider and cardiology anticipated Code Status: Full Code Supportive care otherwise Findings, concerns and plans were discussed with patient and she was given an opportunity to ask questions Plan for today November 09, 2023. Heart rate is now much improved with holding metoprolol. Currently ranging between 58 to 60 bpm. Patient complaining of intermittent atypical chest discomfort, in reviewing outpatient cardiology notes this appears to be a longstanding problem. Last stress test as above. Currently EKG without any acute ST-T wave changes. Troponin series not concerning for ACS. Pain and shortness of breath may be related to acute on chronic diastolic CHF exacerbation. Start Lasix 40 mg IV every 12 hours and monitor urine output closely. Check D-dimer to screen for PE. Blood pressure is not adequately controlled. Running systolic in the 170s. Increase Imdur to 60 mg p.o. daily. Would aim to increase losartan next if blood pressure does not improve with increasing Imdur. Add as needed hydralazine for SBP greater than 160. Continue BiPAP use at nighttime. Currently saturating 92% on room air.echocardiogram completed, no regional wall motion abnormalities. EF of 73% with moderate LVH Plan for today November 10, 2023. Heart rate is now normal range. Mostly has been in the 70s. Bradycardia resolved. Patient continues to complain of intermittent atypical chest discomfort. Has a past history of DVT for which she required anticoagulation. This was approximately 20 years ago Cephus she does not remember too many details. Denies any past history of PE. Given that patient has not had significant improvement in symptoms with IV Lasix for diastolic CHF, BNP is only mildly elevated, concern for alternate differential such as PE given past history of DVT. Will obtain CTA of the chest to evaluate for PE. If CTA remains nonrevealing, plan for stress test in the a.m. given ongoing intermittent chest pain with negative EKG changes and troponin series. Attestations 2 Medical Necessity Statement*: CTA angiogram today to evaluate for possible PE. Coding Level of Care Code Acute Code for Chg Fwd Diagnoses Near syncope R55 Bradycardia R00.1 Acute on chronic diastolic heart failure I50.33 Heart failure chronicity: acute on chronic Chest pain R07.9 Essential (primary) hypertension I10 Mixed hyperlipidemia E78.2 Hyperlipidemia type: mixed hyperlipidemia Uncontrolled type 2 diabetes mellitus with hyperglycemia E11.65 Glycemic state: with hyperglycemia Obstructive sleep apnea G47.33 Gout M10.9 Mixed stress and urge urinary incontinence N39.46 Urinary Incontinence type: mixed stress and urge incontinence Gastroesophageal reflux disease without esophagitis K21.9 Esophagitis presence: without esophagitis Anxiety and depression F41.9; F32.A Chronic low back pain M54.5; G89.29 Morbid obesity with BMI of 50.0-59.9, adult E66.01; Z68.43
[2023-11-10 16:39] LABS: Glucose Point of Care 103 mg/dL (70-110)
[2023-11-10] MEDS: methylPREDNISolone sod succ 40 mg/mL INJ IVP ×2 (17:09→22:49)
[2023-11-10] MEDS: enoxaparin 40 mg/0.4 mL Syringe SUBCUT (17:09)
[2023-11-10] MEDS: acetaminophen 325 mg Tablet 650 MG PO (19:05)
[2023-11-10 20:50] LABS: Glucose Point of Care 303 mg/dL (70-110)
[2023-11-10] MEDS: trazodone 100 mg Tablet PO (21:13)
[2023-11-10] MEDS: diphenhydrAMINE 50 mg Capsule PO (21:52)
[2023-11-10] MEDS: iohexol 350 mg/mL 500 mL Btl (per mL) IV (23:04)
[2023-11-11] VITALS (11 sets, daily range): BP systolic 119–196; BP diastolic 52–115; PULSE 78–97; RESP 14–19; TEMP 36.5–36.8; O2SAT 90–97
[2023-11-11] MEDS: TRAMadol 50 mg Tablet PO ×3 (05:28→20:19)
[2023-11-11 06:31] LABS: Glucose Point of Care 309 mg/dL (70-110)
[2023-11-11] MEDS: regadenoson 0.4 Mg/5 ml Syringe IVP (07:20)
[2023-11-11] MEDS: pantoprazole DR 40 mg Tablet PO (08:54)
[2023-11-11] MEDS: fluoxetine 10 mg Capsule PO (08:54)
[2023-11-11] MEDS: docusate sodium 100 mg Capsule PO ×2 (08:55→17:25)
[2023-11-11] MEDS: venlafaxine ER (24HR) 75 mg Capsule PO (08:55)
[2023-11-11] MEDS: isosorbide mononitrate ER 30 mg Tablet 60 MG PO (08:55)
[2023-11-11] MEDS: atorvastatin 40 mg Tablet PO (08:55)
[2023-11-11] MEDS: allopurinol 100 mg Tablet PO (08:55)
[2023-11-11] MEDS: pregabalin 50 mg Capsule PO ×3 (08:55→20:19)
[2023-11-11] MEDS: aspirin 81 mg Chew Tablet PO (08:55)
[2023-11-11] MEDS: losartan 50 mg Tablet PO (08:56)
[2023-11-11] MEDS: insulin lispro 100 unit/1 mL SUBCUT ×4 (08:56→20:19)
[2023-11-11] MEDS: insulin glargine 100 units/1 mL 40 UNIT SUBCUT ×2 (08:57→20:19)
[2023-11-11] MEDS: venlafaxine ER (24HR) 150 mg Capsule PO (08:57)
[2023-11-11] MEDS: FUROsemide 10 mg/mL SDV 4mL 40 MG IVP (09:03)
[2023-11-11] MEDS: tizanidine 4 mg Tablet 2 MG PO (09:04)
[2023-11-11 11:11] LABS: Glucose Point of Care 357 mg/dL (70-110)
[2023-11-11] MEDS: enoxaparin 120 mg/0.8 mL Syringe SUBCUT ×2 (11:47→23:07)
[2023-11-11] MEDS: insulin regular-human 8 UNIT in SYRINGE 1 EACH IVP (13:43)
[2023-11-11 13:44] LABS: Glucose Point of Care 425 mg/dL (70-110)
--- NOTE | 2023-11-11 14:25 | NMCV_ITS ---
NM aries perf SPECT r/s* [id number] Melissa De Jesus Age: 73 Gender: F : 1950 Exam Date: 11/11/2023 06:24 Ordering Phys: Violet Welch MD Technologist: HOLLY Lewis Exam Location: [facility] Indications: CP, dyspnea STRESS TEST Please see separate stress test report in [facility] for full findings IMAGE PROTOCOL Rest/Stress 1 Lexiscan Day Radiopharmaceutical Dose (mCi) Administration Site Administered by Rest: Tc-99m 10.6 IV HOLLY Lewis Sestamibi Stress:Tc-99m 33.0 IV HOLLY Lewis Sestamibi Rest: 11-Nov-2023 60 Discovery 630 Stress: 11-Nov-2023 30 Discovery 630 0.4mg Lexiscan. Supine position only as patient was unable to lay prone. SPECT RESULTS Technical Quality: Good Raw Data Analysis: Breast attenuation, Soft tissue attenuation, obese Image Corrections: No attenuation or motion correction applied Summed Stress Score: 10 Summed Rest Score: 10 Summed Difference Score: 2 PERFUSION FINDINGS Large areas of inconsistent, mostly fixed perfusion defects seen in inferolateral and apical tillman. Likely secondary to attenuation artifact. FUNCTIONAL RESULTS (calculated via Gated SPECT) Stress Image LV EF (%): 72 Stress EDV (mL):89 TID: 1.25 Stress ESV (mL):25 FUNCTIONAL FINDINGS: LV systolic function is normal . TID ratio is elevated. IMPRESSIONS 1. Attenuation artifact seen in the apical and inferolateral tillman. Less likely prior infarct in these territories. Clinical correlation is required. 2. LV systolic function is normal. TID ratio is elevated. Anders Garrido MD (Electronically Signed) Final Date: 11 November 2023 09:11 S
--- NOTE | 2023-11-11 14:39 | P.PN_ITS ---
Subjective 2 Subjective: CT of the chest completed last evening showed a nonocclusive embolism of the left lower lobe pulmonary artery branch. Started on full dose anticoagulation this morning. LE duplex negative. Medications: Reviewed: Yes Vitals/I&O/Wt Last Vital Signs Temp 97.8 F 11/11/23 14:34 Pulse 85 11/11/23 14:34 Resp 16 11/11/23 14:34 BP 130/73 11/11/23 14:34 Pulse Ox 96 11/11/23 14:34 O2 Del Method Room Air 11/11/23 14:34 O2 Flow Rate 2 11/11/23 08:12 FiO2 30 11/09/23 22:30 11/10/23 11/11/23 11/11/23 22:59 06:59 14:59 Intake Total 510 / 870 660 / 1530 680.08 / 680.08 Output Total 700 / 1500 0 / 0 Balance -190 / -630 660 / 30 680.08 / 680.08 Weight last 48 hrs Weight 130.453 kg Weight 129.546 kg Weight 131.905 kg Physical Exam 2 Narrative: General: No acute distress, AO x3 HEENT: PERRLA, pupils bilaterally equal and reactive, pallors not present Chest: Normal vesicular breath sounds, no added sounds, equal good air entry bilaterally CVS: S1-S2 regular, no murmurs, no tachycardia, no gallops, no rubs Abdomen: Soft, nontender, no organomegaly, bowel sounds present Neuro: No focal deficits, no facial deformity, AO x3, power 5/5 in all limbs Extremities: improved LE edema Data 11/10/23 05:45 11/10/23 05:45 A&P Assessment and plan (1) Near syncope: Secondary to #2 (2) Bradycardia: Sinus bradycardia in a patient who restarted metoprolol succinate within the last week. She has previously tolerated metoprolol succinate. With complaints of increasing dyspnea on exertion and intermittent chest pain some concern on presentation could be suggestive of ischemia. Baseline troponin is elevated however 2-hour troponin delta is a negative value. Last cardiac testing was performed in August 2022 with catheterization revealing 40% stenosis in the mid LAD though other vessels without significant disease. (3) Diastolic heart failure: Acute on chronic in a patient who has stopped taking diuretic therapy due to simply not refilling it by accident Qualifiers: Heart failure chronicity: acute on chronic Qualified Code(s): I50.33 - Acute on chronic diastolic (congestive) heart failure (4) Chest pain: Precordial pain with both typical and atypical features. Has had some issues with intermittent chest pain previously. last stress testing was performed in July 2022 and was abnormal leading to subsequent cardiac catheterization in August 2022 that showed 40% stenosis in the mid LAD but otherwise no significant disease. (5) Essential (primary) hypertension: Chronically on isosorbide, losartan and recently restarted metoprolol. Had previously also been on Lasix but it has not been refilled inadvertently. Blood pressures have been more difficult to control lately. (6) Hyperlipidemia: Chronically on statin therapy Qualifiers: Hyperlipidemia type: mixed hyperlipidemia Qualified Code(s): E78.2 - Mixed hyperlipidemia (7) Diabetes type 2, uncontrolled: Has associated peripheral neuropathy. Chronically on Lantus 46 units twice a day, acarbose as per MD instructions as well as Lyrica Qualifiers: Glycemic state: with hyperglycemia Qualified Code(s): E11.65 - Type 2 diabetes mellitus with hyperglycemia (8) Obstructive sleep apnea: On BiPAP at 16/12 with 28% FiO2 with sleep (9) Gout: Chronically on allopurinol and indomethacin. At increased risk of GI bleeding and other complications with indomethacin given her age. (10) Urinary incontinence: Chronic issue, not on any long-term management pharmacologically Qualifiers: Urinary Incontinence type: mixed stress and urge incontinence Qualified Code(s): N39.46 - Mixed incontinence (11) GERD (gastroesophageal reflux disease): Chronically on PPI Qualifiers: Esophagitis presence: without esophagitis Qualified Code(s): K21.9 - Gastro-esophageal reflux disease without esophagitis (12) Anxiety and depression: Chronically on fluoxetine, venlafaxine, trazodone (13) Chronic low back pain: Chronically on tramadol, tizanidine (14) Morbid obesity with BMI of 50.0-59.9, adult: In process of completing evaluation for possible gastric bypass with cardiac evaluation next to be performed Plan Inpatient admission Telemetry monitoring Hold metoprolol succinate If bradycardia and other symptoms do not improve can consider inpatient cardiology consultation versus outpatient cardiology follow-up sooner than currently scheduled January appointment Continue serial cardiac enzymes Will give 1 dose of IV Lasix, Monitoring response in terms of blood pressure and volume status Recheck renal function in the morning, check BNP Check limited echocardiogram for any evidence of change in ejection fraction, was normal in March 2023 Continue home isosorbide, losartan Continue home statin Add aspirin therapy while inpatient Continue long-acting insulin at a dose slightly lower than usual home dose Corrective dose insulin with meals and at bedtime BiPAP at home settings with oxygen therapy at 28% Continue home allopurinol Holding indomethacin and it should probably not be continued long-term as I am not sure that the potential benefits outweigh the established risks Continue home PPI Continue home fluoxetine and venlafaxine as well as trazodone; if blood pressures are chronically difficult to control consideration may have to be given to alternative to venlafaxine. Patient does report pressures are better at home monitoring then and clinical settings and that the current regimen is working well for her in terms of managing her anxiety and depression Continue home tramadol and tizanidine as needed VTE prophylaxis: Lovenox GI Prophylaxis: PPI Antibiotics: none Pending studies: 6-hour troponin, ordered echocardiogram, ordered BNP Telemetry: ordered secondary to bradycardia Brothers: not currently indicated Line(s): peripheral IVs Disposition plan: Home with outpatient follow up to primary care provider and cardiology anticipated Code Status: Full Code Supportive care otherwise Findings, concerns and plans were discussed with patient and she was given an opportunity to ask questions Plan for today November 09, 2023. Heart rate is now much improved with holding metoprolol. Currently ranging between 58 to 60 bpm. Patient complaining of intermittent atypical chest discomfort, in reviewing outpatient cardiology notes this appears to be a longstanding problem. Last stress test as above. Currently EKG without any acute ST-T wave changes. Troponin series not concerning for ACS. Pain and shortness of breath may be related to acute on chronic diastolic CHF exacerbation. Start Lasix 40 mg IV every 12 hours and monitor urine output closely. Check D-dimer to screen for PE. Blood pressure is not adequately controlled. Running systolic in the 170s. Increase Imdur to 60 mg p.o. daily. Would aim to increase losartan next if blood pressure does not improve with increasing Imdur. Add as needed hydralazine for SBP greater than 160. Continue BiPAP use at nighttime. Currently saturating 92% on room air.echocardiogram completed, no regional wall motion abnormalities. EF of 73% with moderate LVH Plan for today November 10, 2023. Heart rate is now normal range. Mostly has been in the 70s. Bradycardia resolved. Patient continues to complain of intermittent atypical chest discomfort. Has a past history of DVT for which she required anticoagulation. This was approximately 20 years ago Cephus she does not remember too many details. Denies any past history of PE. Given that patient has not had significant improvement in symptoms with IV Lasix for diastolic CHF, BNP is only mildly elevated, concern for alternate differential such as PE given past history of DVT. Will obtain CTA of the chest to evaluate for PE. If CTA remains nonrevealing, plan for stress test in the a.m. given ongoing intermittent chest pain with negative EKG changes and troponin series. Plan for today November 11, 2023 : No further bradycardic episodes since stopping the metoprolol. Heart rate continuing to be between 70 to 80 bpm. CTA yesterday revealing nonocclusive PE of the left lower lobe pulmonary artery branch. Patient started on Lovenox 1 mg/kg subcutaneously every 12 hours with this finding. She has been able to be weaned down to room air. Currently saturating 96%. Stress test completed this morning without signs of reversible ischemia, limited by attenuation artifact. Echocardiogram completed during this admission on November 08, 2023 was without signs of right heart strain. Likely that this PE was present on admission, detected on CTA last evening. Hyperglycemia today, likely secondary to receiving contrast premedication with steroids. Extra dose of regular insulin 8 units now. Transition IV Lasix to oral Lasix 40 mg daily today. Anticipate discharge over the next 24 hours with transition of anticoagulation to Eliquis tomorrow. Attestations 2 Medical Necessity Statement*: Lovenox anticoagulation today for PE. This was likely present on admission. Anticipate discharge in the upcoming 24 hours with transition to oral anticoagulation. Coding Level of Care Code Acute Code for Chg Fwd High MDM includes number and complexity of problems actively addressed during encounter, amount and/or complexity of data reviewed/ordered and described risk of complication, morbidity or mortality of management as documented Diagnoses Near syncope R55 Bradycardia R00.1 Acute on chronic diastolic heart failure I50.33 Heart failure chronicity: acute on chronic Chest pain R07.9 Essential (primary) hypertension I10 Mixed hyperlipidemia E78.2 Hyperlipidemia type: mixed hyperlipidemia Uncontrolled type 2 diabetes mellitus with hyperglycemia E11.65 Glycemic state: with hyperglycemia Obstructive sleep apnea G47.33 Gout M10.9 Mixed stress and urge urinary incontinence N39.46 Urinary Incontinence type: mixed stress and urge incontinence Gastroesophageal reflux disease without esophagitis K21.9 Esophagitis presence: without esophagitis Anxiety and depression F41.9; F32.A Chronic low back pain M54.5; G89.29 Morbid obesity with BMI of 50.0-59.9, adult E66.01; Z68.43
[2023-11-11 16:41] LABS: Glucose Point of Care 277 mg/dL (70-110)
[2023-11-11] MEDS: trazodone 100 mg Tablet PO (20:18)
[2023-11-11 20:19] LABS: Glucose Point of Care 187 mg/dL (70-110)
[2023-11-12] VITALS (7 sets, daily range): BP systolic 130–148; BP diastolic 67–84; PULSE 66–84; RESP 16–18; TEMP 36.4–36.7; O2SAT 92–98
[2023-11-12 05:40] LABS: Basophils # 0.1 10^3/uL (0.0-0.1); Basophils % 0.5 %; Eosinophils # 0.3 10^3/uL (0.0-0.8); Eosinophils % 2.8 %; Hematocrit 38.8 % (36-47); Lymphocytes # 3.1 10^3/uL (0.8-4.8); Lymphocytes % 29.5 %; Mean Corpuscular HGB Conc 32.5 g/dL (30-55); Mean Corpuscular Hemoglobin 30.5 pg (27-33); Mean Corpuscular Volume 93.9 fl (85-98); Mean Platelet Volume 9.9 fL (7.4-10.4); Monocytes # 0.7 10^3/uL (0.2-0.9); Monocytes % 6.5 %; Neutrophils # 6.31 10^3/uL (1.8-7.7); Neutrophils % 60.2 %; Nucleated Red Blood Cells % 0 %; Platelet Count 201 10^3/cmm (157-399); Red Blood Count 4.13 10^6/uL (3.85-5.65); White Blood Count 10.47 10^3/uL (3.29-11.43)
[2023-11-12 05:58] LABS: Alanine Aminotransferase 12 U/L (0-33); Albumin Level 3.5 g/dL (3.5-5.2); Alkaline Phosphatase 95 U/L (35-105); Anion Gap 14.2 (5-19); Aspartate Amino Transferase 12 U/L (0-32); Blood Urea Nitrogen 31 mg/dL (8-23); Calcium 8.7 mg/dL (8.5-10.5); Carbon Dioxide 29 mmol/L (22-29); Chloride 100 mmol/L (98-107); Creatinine Clr Calc Pharmacy 59.6173; Globulin 2.4 g/dL (1.3-4.6); Glucose 159 mg/dL (65-115); Osmolality Calculated 298 mOsm/kg (285-295); Potassium 4.2 mmol/L (3.5-5.1); Sodium 139 mmol/L (136-145); Total Bilirubin 0.3 mg/dL (0.15-1.2); Total Protein 5.9 g/dL (6.6-8.7)
[2023-11-12] MEDS: TRAMadol 50 mg Tablet PO ×2 (06:05→12:34)
[2023-11-12 06:27] LABS: Glucose Point of Care 167 mg/dL (70-110)
[2023-11-12] MEDS: atorvastatin 40 mg Tablet PO (08:35)
[2023-11-12] MEDS: aspirin 81 mg Chew Tablet PO (08:35)
[2023-11-12] MEDS: FUROsemide 40 mg Tablet PO (08:35)
[2023-11-12] MEDS: isosorbide mononitrate ER 30 mg Tablet 60 MG PO (08:36)
[2023-11-12] MEDS: allopurinol 100 mg Tablet PO (08:36)
[2023-11-12] MEDS: fluoxetine 10 mg Capsule PO (08:36)
[2023-11-12] MEDS: venlafaxine ER (24HR) 150 mg Capsule PO (08:36)
[2023-11-12] MEDS: docusate sodium 100 mg Capsule PO (08:36)
[2023-11-12] MEDS: venlafaxine ER (24HR) 75 mg Capsule PO (08:36)
[2023-11-12] MEDS: pregabalin 50 mg Capsule PO (08:36)
[2023-11-12] MEDS: losartan 50 mg Tablet PO (08:36)
[2023-11-12] MEDS: pantoprazole DR 40 mg Tablet PO (08:36)
[2023-11-12] MEDS: insulin lispro 100 unit/1 mL SUBCUT (08:37)
[2023-11-12] MEDS: insulin glargine 100 units/1 mL 40 UNIT SUBCUT (08:37)
--- NOTE | 2023-11-12 09:10 | PC.SOCIAL ---
IMM Update pg 2 of IMM updated and reviewed w/ patient. Copy provided and copy dated, initialed and placed in chart.
[2023-11-12 11:03] LABS: Glucose Point of Care 119 mg/dL (70-110)
[2023-11-12] MEDS: enoxaparin 120 mg/0.8 mL Syringe SUBCUT (12:08)
--- NOTE | 2023-11-12 16:44 | P.DS_ITS ---
Discharge Providers Date of Admission: 11/08/23 17:17 Date of Discharge: November 12, 2023 Attending Provider at Admission: Iliana Alonso MD Attending Provider at Discharge: Violet Welch MD Diagnoses at Discharge Discharge Diagnosis (1) Near syncope: Status: Acute (2) Bradycardia: Status: Acute (3) Diastolic heart failure: Status: Acute Qualifiers: Heart failure chronicity: acute on chronic Qualified Code(s): I50.33 - Acute on chronic diastolic (congestive) heart failure (4) Chest pain: Status: Acute (5) Essential (primary) hypertension: Status: Chronic (6) Hyperlipidemia: Status: Chronic Qualifiers: Hyperlipidemia type: mixed hyperlipidemia Qualified Code(s): E78.2 - Mixed hyperlipidemia (7) Diabetes type 2, uncontrolled: Status: Chronic Qualifiers: Glycemic state: with hyperglycemia Qualified Code(s): E11.65 - Type 2 diabetes mellitus with hyperglycemia (8) Obstructive sleep apnea: Status: Chronic Permanent problem details: On bipap, settings 17/04 with 2 lpm oxygen (9) Gout: Status: Chronic (10) Urinary incontinence: Status: Chronic Qualifiers: Urinary Incontinence type: mixed stress and urge incontinence Qualified Code(s): N39.46 - Mixed incontinence (11) GERD (gastroesophageal reflux disease): Status: Chronic Qualifiers: Esophagitis presence: without esophagitis Qualified Code(s): K21.9 - Gastro-esophageal reflux disease without esophagitis (12) Anxiety and depression: Status: Chronic (13) Chronic low back pain: Status: Chronic (14) Morbid obesity with BMI of 50.0-59.9, adult: Status: Chronic Reason for Visit Reason for Visit: Dr. nayeli sorenson cardiac issues Hospital Course Hospital Course Ms. 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 She had recently resumed taking metoprolol and since had started experiencing fatigue malaise dizziness and near syncopal episodes. She was noted to have a heart rate of 38 to 40 bpm and was referred to the ER. EKG showed sinus bradycardia at 48 bpm. Metoprolol was held. With this intervention her heart rate did improve and returned to her baseline between 65 to 85 bpm. There were no bradycardic episodes noted on November 11 or November 11, 2023. She also complained of chest pain located in the left side of her chest. In reviewing her past cardiology notes it appears she had been experiencing intermittent chest discomfort and increasing dyspnea on exertion over the past few weeks. She was found to have evidence of fluid overload and started diuresis with IV Lasix. In spite of diuresing well, she continued to complain of chest pressure and dyspnea on exertion. CTA of the of the chest was therefore performed which revealed nonocclusive embolism of the left lower lobe pulmonary artery branch. Lower extremity duplex was negative. Patient has a past medical history of DVT in her legs several years ago which per her history appears to have been a provoked DVT. Given that this is a second lifetime episode of VTE, this time a PE without any apparent trigger, would likely need to remain on anticoagulation indefinitely. She has no known history of malignancy. She was treated with full dose Lovenox for discovery of the PE, this has been transitioned to Eliquis 10 mg p.o. twice daily for 7 days, thereafter reduced dose to 5 mg p.o. twice daily. Stress test was also performed during this admission attenuation artifact was seen in the apical and inferolateral tillman. Less likely acute infarction. Also with the discovery of PE alternate explanation available for chest pressure and dyspnea, less likely to be cardiac in nature. Physical Exam Narrative: General: No acute distress, AO x3 HEENT: PERRLA, pupils bilaterally equal and reactive, pallors not present Chest: Normal vesicular breath sounds, no added sounds, equal good air entry bilaterally CVS: S1-S2 regular, no murmurs, no tachycardia, no gallops, no rubs Abdomen: Soft, nontender, no organomegaly, bowel sounds present Neuro: No focal deficits, no facial deformity, AO x3, power 5/5 in all limbs Discharge Data Studies Completed and Pending Completed Studies During Hospitalization Category Date Time Status CTA PE [CT angio chest w abd pel w con] Routine Cat Scan 11/10/23 15:11 Completed Cardiac Stress Test MIBI [Sestamibi Stress Test Request Exams 11/10/23 14:25 Draft ] Routine XR chest 1V portable [id number] Stat Exams 11/08/23 12:51 Completed NM aries perf SPECT r/s* [id number] Routine Nuc Med 11/11/23 14:25 Completed CV. echo lmt w/w contras [id number] Routine Ultrasound 11/08/23 20:31 Completed US venous duplex lower extremity bilat [CV venous Ultrasound 11/10/23 14:24 [place] [id number]] Routine Radiology Impressions Chest X-Ray 11/08/23 12:51 Impression: Cardiomegaly and atherosclerosis. Chest/Abdomen/Pelvis CT 11/10/23 15:11 IMPRESSION: 1. Nonocclusive embolism left lower lobe pulmonary artery branch. 2. No acute infiltrates. IMPRESSION: 1. No acute findings. 2. Diverticulosis with no changes of diverticulitis. COMMENTS: Consistent with the [employer]'s Incidental Findings Committee white paper (J Am Mike Radiol 2018): Any incidental renal lesion less than 1 cm or classified as too small to characterize, or any incidental cystic renal lesion characterized as simple-appearing, is likely benign. No follow-up imaging is recommended for these lesions per consensus recommendations based on imaging criteria. ADDENDUM: 11/11/23 0022 THIS REPORT CONTAINS FINDINGS THAT MAY BE CRITICAL TO PATIENT CARE. The findings were verbally communicated via telephone conference with Dr. Quach at 12:20 AM CDT on 11/11/2023. The findings were acknowledged and understood. Laboratory Results WBC 10.47 10^3/uL (3.29-11.43) 11/12/23 05:21 RBC 4.13 10^6/uL (3.85-5.65) 11/12/23 05:21 Hgb 12.60 g/dL (11.27-16.99) 11/12/23 05:21 Hct 38.8 % (36-47) 11/12/23 05:21 MCV 93.9 fl (85-98) 11/12/23 05:21 MCH 30.5 pg (27-33) 11/12/23 05:21 MCHC 32.5 g/dL (30-55) 11/12/23 05:21 RDW 14.0 % (12.1-15.1) 11/12/23 05:21 Plt Count 201 10^3/cmm (157-399) 11/12/23 05:21 MPV 9.9 fL (7.4-10.4) 11/12/23 05:21 Neut % (Auto) 60.2 % 11/12/23 05:21 Lymph % (Auto) 29.5 % 11/12/23 05:21 Eaton % (Auto) 6.5 % 11/12/23 05:21 Eos % (Auto) 2.8 % 11/12/23 05:21 Baso % (Auto) 0.5 % 11/12/23 05:21 Neut # (Auto) 6.31 10^3/uL (1.8-7.7) 11/12/23 05:21 Lymph # (Auto) 3.1 10^3/uL (0.8-4.8) 11/12/23 05:21 [place] # (Auto) 0.7 10^3/uL (0.2-0.9) 11/12/23 05:21 Eos # (Auto) 0.3 10^3/uL (0.0-0.8) 11/12/23 05:21 Baso # (Auto) 0.1 10^3/uL (0.0-0.1) 11/12/23 05:21 Nucleated RBC % (auto) 0 % 11/12/23 05:21 Nucleated RBCs # 0.0 /100WBC 11/12/23 05:21 D-Dimer 0.69 ug/mLFEU (0-0.59) H 11/09/23 18:30 Sodium 139 mmol/L (136-145) 11/12/23 05:21 Potassium 4.2 mmol/L (3.5-5.1) 11/12/23 05:21 Chloride 100 mmol/L (98-107) 11/12/23 05:21 Carbon Dioxide 29 mmol/L (22-29) 11/12/23 05:21 Anion Gap 14.2 (5-19) 11/12/23 05:21 BUN 31 mg/dL (8-23) H 11/12/23 05:21 Creatinine 1.1 mg/dL (0.5-0.9) H 11/12/23 05:21 GFR Calculation Not Reportable 11/12/23 05:21 Glucose 159 mg/dL (65-115) H 11/12/23 05:21 POC Glucose 119 mg/dL (70-110) H 11/12/23 10:57 Calculated Osmolality 298 mOsm/kg (285-295) H 11/12/23 05:21 Calcium 8.7 mg/dL (8.5-10.5) 11/12/23 05:21 Phosphorus 4.4 mg/dL (2.5-4.5) 11/09/23 06:30 Magnesium 1.8 mg/dL (1.7-2.3) 11/09/23 06:30 Total Bilirubin 0.3 mg/dL (0.15-1.2) 11/12/23 05:21 AST 12 U/L (0-32) 11/12/23 05:21 ALT 12 U/L (0-33) 11/12/23 05:21 Alkaline Phosphatase 95 U/L (35-105) 11/12/23 05:21 Troponin T Baseline 20 ng/L (0-10) H 11/08/23 13:28 Troponin T 120 Minute 18.17 ng/L (0-10) H 11/08/23 15:45 Delta Troponin T -1.83 ABS# (0-10) L 11/08/23 15:45 Troponin T Hi Sens 6Hr 17.69 ng/L (0-10) H 11/08/23 20:51 Troponin T Hi Sens 6Hr Delta -2.31 ng/L (0-12) L 11/08/23 20:51 NT-Pro-B Natriuret Pep 326 pg/mL (0-125) H 11/08/23 13:28 Total Protein 5.9 g/dL (6.6-8.7) L 11/12/23 05:21 Albumin 3.5 g/dL (3.5-5.2) 11/12/23 05:21 Globulin 2.4 g/dL (1.3-4.6) 11/12/23 05:21 Vitals Last Vital Signs Temp 97.6 F 11/12/23 11:48 Pulse 84 11/12/23 11:48 Resp 18 11/12/23 11:48 BP 142/84 11/12/23 11:48 Pulse Ox 95 11/12/23 11:48 O2 Del Method Room Air 11/12/23 11:48 O2 Flow Rate 2 11/11/23 08:12 FiO2 30 11/09/23 22:30 Discharge Plan Discharge Patient Disposition: Home Condition: Stable Prescriptions: New furosemide 40 mg Tablet 20 mg PO DAILY@0800 14 Days Qty: 14 0RF Eliquis DVT-PE Treat 30D Start 5 mg (74 tabs) tablets,dose pack See Rx Instructions .ROUTE .COMPLEX 90 Days Qty: 180 0RF Rx Instructions: Take 10mg (2tab) twice daily for first 7 days, then reduce to 5mg (1tab) twice daily Continued atorvastatin 20 mg tablet 20 mg PO DAILY Qty: 90 3RF (DME) lift recliner See Rx Instructions .Route .MEDSUPPLY Qty: 1 0RF Rx Instructions: As directed indomethacin 50 mg capsule 50 mg PO TID Qty: 9 0RF Rx Instructions: administer with food or milk (DME) Accu-Chek Leeann Plus test strp Strip See Rx Instructions .ROUTE .MEDSUPPLY Qty: 200 1RF Rx Instructions: ONE DAILY (DME) lancets [Accu-Chek Softclix Lancets] Misc See Rx Instructions .Route Qty: 200 0RF Rx Instructions: As directed (DME) upright wheeled walker See Rx Instructions .Route .MEDSUPPLY Qty: 1 0RF Rx Instructions: As directed venlafaxine [Effexor XR] 150 mg capsule,extended release 24hr 150 mg PO DAILY Qty: 90 3RF Rx Instructions: ALONG WITH 75MG TO =225MG TOTAL losartan 50 mg tablet 50 mg PO DAILY Qty: 90 3RF tramadol 50 mg tablet 50 mg PO Q6H PRN (Reason: pain) 30 Days Qty: 30 0RF pregabalin 50 mg capsule 50 mg PO TID Qty: 90 5RF acarbose 25 mg tablet 25 mg PO TID PRN (Reason: MD order) Qty: 270 0RF (DME) pen needle, diabetic [BD Rosalva 2nd Gen Pen Needle] 32 gauge x 5/32 needle See Rx Instructions .ROUTE .COMPLEX Qty: 100 1RF Dose Instruction: USE WITH INSULIN DAILY Rx Instructions: USE WITH INSULIN DAILY (DME) BIPAP with 16/12 with Oxygen with supplies See Rx Instructions .Route .MEDSUPPLY Qty: 1 0RF Rx Instructions: As directed insulin glargine [Lantus Solostar U-100 Insulin] 100 unit/mL (3 mL) insulin pen 46 unit SUBCUT BID 90 Days Qty: 83 0RF pantoprazole 40 mg tablet,delayed release (DR/EC) 40 mg PO DAILY Qty: 90 1RF venlafaxine 75 mg capsule,extended release 24hr 75 mg PO DAILY Rx Instructions: ALONG WITH THE 150 MG TO =225MG TOTAL tizanidine 2 mg tablet 2 mg PO TID PRN (Reason: MUSCLE SPASMS) fluoxetine 10 mg tablet 10 mg PO DAILY allopurinol 100 mg tablet 100 mg PO DAILY trazodone 100 mg tablet 100 mg PO DAILY Changed isosorbide mononitrate 30 mg tablet extended release 24 hr 60 mg PO DAILY 30 Days Qty: 30 0RF Discontinued metoprolol succinate 50 mg tablet extended release 24 hr 50 mg PO DAILY Qty: 90 1RF Discharge Orders: Discharge Order (Routine); Ordered 11/12/23 Ordered By: Violet Welch Other Ambulatory Orders: ECG holter monitor 7 Days (Routine) Timeframe: 20231109 Facility: [facility] - Location: Radiology Ordered By: Violet Welch Referrals: Jay August MD [Physician] - 11/19/23 2:30 pm Discharge Diet: Usual diet Discharge Activity: Resume usual activity Patient Instructions: Bradycardia, Furosemide (By mouth), Apixaban (By mouth), Syncope, Heart Failure (GEN), Pulmonary Embolism (GEN), CHF Stoplight, Opioid Safety Activity Restrictions/Additional Instructions: Please be at [facility] WednesdayNovember 14 at 10:00 to have your holter monitor placed. [facility] Phone number [phone] Discharge Attestations Time Spent in Discharge Care*: greater than 30 min Quality Metrics Clinical Quality Measures [ Venous Thromboembolism { Contraindication to Overlap Therapy: None; Overlap threrpy ordered; VTE Discharge Education: Education about anticoagulant therapy/Care Notes given; Deep Vein Thrombosis/Pulmonary Embolism Present on Admission: Yes;}] Coding Level of Care Code Acute Code for g Fwd Diagnoses Near syncope R55 Bradycardia R00.1 Acute on chronic diastolic heart failure I50.33 Heart failure chronicity: acute on chronic Chest pain R07.9 Essential (primary) hypertension I10 Mixed hyperlipidemia E78.2 Hyperlipidemia type: mixed hyperlipidemia Uncontrolled type 2 diabetes mellitus with hyperglycemia E11.65 Glycemic state: with hyperglycemia Obstructive sleep apnea G47.33 Gout M10.9 Mixed stress and urge urinary incontinence N39.46 Urinary Incontinence type: mixed stress and urge incontinence Gastroesophageal reflux disease without esophagitis K21.9 Esophagitis presence: without esophagitis Anxiety and depression F41.9; F32.A Chronic low back pain M54.5; G89.29 Morbid obesity with BMI of 50.0-59.9, adult E66.01; Z68.43
== END 2023-11-12 14:49 | disposition home or self-care (01) | DRG 291 ==
LOC: ER 16:25 → MEDSURG 17:21
PROVIDERS: Admitting Provider Hospitalist; Emergency Provider Emergency Medicine; Visit Provider Student in an Organized Health Care Education/Training Program
DX: I11.0 Hypertensive heart disease with heart failure (principal); I26.99 Other pulmonary embolism without acute cor pulmonale; I50.33 Acute on chronic diastolic (congestive) heart failure; Z68.43 Body mass index [BMI] 50.0-59.9, adult; R00.1 Bradycardia, unspecified; E11.40 Type 2 diabetes mellitus with diabetic neuropathy, unspecified; E11.65 Type 2 diabetes mellitus with hyperglycemia; Z79.4 Long term (current) use of insulin; Z86.16 Personal history of COVID-19; F32.A Depression, unspecified; K21.9 Gastro-esophageal reflux disease without esophagitis; G47.00 Insomnia, unspecified; E78.2 Mixed hyperlipidemia; Z98.1 Arthrodesis status; Z96.653 Presence of artificial knee joint, bilateral; G47.33 Obstructive sleep apnea (adult) (pediatric); M10.9 Gout, unspecified; N39.46 Mixed incontinence; F41.9 Anxiety disorder, unspecified; G89.29 Other chronic pain; M54.9 Dorsalgia, unspecified; E66.01 Morbid (severe) obesity due to excess calories; Z86.718 Personal history of other venous thrombosis and embolism; Z79.01 Long term (current) use of anticoagulants; I25.10 Atherosclerotic heart disease of native coronary artery without angina pectoris
CPT/HCPCS: 36415; 36416; 71045; 71275; 74177; 78452; 80048; 80053; 80061; 82044; 82962; 83036; 83735; 83880; 84100; 84484; 85025; 85378; 90471; 90732; 93005; 93017; 93970; 94660; 94760; 96372; 96375; 99215; 99285; A9500; C8924; J1650; J1815; J1940; J2785; J2919; Q0163; Q9956; Q9967

== ENCOUNTER → 2023-11-15 09:16 | Outpatient (BNVA) | payer MEDICARE, SELFPAY | PROVIDERS: PCP Family Medicine Adult Medicine; Visit Provider Internal Medicine Cardiovascular Disease | DX: R00.1 Bradycardia, unspecified (principal); I49.1 Atrial premature depolarization; I47.19 Other supraventricular tachycardia; I49.3 Ventricular premature depolarization | CPT/HCPCS: 93242 ==

== ENCOUNTER → 2023-11-17 08:03 | Outpatient (BNVA) | payer MEDICARE, SELFPAY | PROVIDERS: PCP Family Medicine Adult Medicine; Visit Provider Nurse Practitioner Family | DX: L57.0 Actinic keratosis (principal); L82.1 Other seborrheic keratosis; L82.0 Inflamed seborrheic keratosis; L73.8 Other specified follicular disorders; D48.5 Neoplasm of uncertain behavior of skin; L57.8 Other skin changes due to chronic exposure to nonionizing radiation; L81.4 Other melanin hyperpigmentation | CPT/HCPCS: 11102; 17000; 17110; 99203 ==

== ENCOUNTER 2023-11-26 18:06 | Emergency (ER) | payer MEDICARE, SELFPAY ==
[2023-11-26 18:16] VITALS: BP 154/87; PULSE 83; RESP 18; TEMP 36.8; O2SAT 97
--- NOTE | 2023-11-26 18:35 | ECG_ITS ---
[facility] Test Date: 2023-11-26 Pat Name: Melissa De Jesus Department: Room: Gender: Female Content Producer: : [id number] Requested By: Zhen Cowan Order Number: [id number] Riddhi MD: Cedric Hurd M.D. Measurements Intervals [place] Rate: 81 P: 89 TX: 172 QRS: 50 QRSD: 93 T: 39 QT: 348 QTc: 404 Interpretive Statements SINUS RHYTHM WITH OCCASIONAL SUPRAVENTRICULAR PREMATURE COMPLEXES Compared to ECG 11/10/2023 05:29:09 Sinus arrhythmia no longer present Electronically Signed On 11-26-2023 19:58:57 CDT by Cedric Hurd M.D. [id number] f
--- NOTE | 2023-11-26 18:35 | XRR_ITS ---
PROCEDURE INFORMATION: Exam: XR Chest Exam date and time: 11/26/2023 6:52 PM Age: 73 years old Clinical indication: Shortness of breath; Prior surgery; Surgery date: 6+ months; Surgery type: Spine stimulator; Additional info: Cp/sob TECHNIQUE: Imaging protocol: Radiologic exam of the chest. Views: 1 view. COMPARISON: CT angio chest w abd pel w con 11/10/2023 10:59 PM FINDINGS: Tubes, catheters and devices: Neurostimulator leads present in the midthoracic spine. Lungs: Mild pulmonary vascular congestion without overt interstitial edema. Pleural spaces: Unremarkable. No pleural effusion. No pneumothorax. Heart/Mediastinum: Mild-moderate cardiomegaly . Bones/joints: Cervical fusion hardware present. No acute osseous abnormality. XR/XR chest 1V portable [id number] IMPRESSION: 1. Stable [id number] cardiomegaly with mild pulmonary vascular congestion no interstitial edema. 2. Other chronic and postsurgical findings detailed above. No significant interval radiographic change from 11/08/2023.
[2023-11-26 18:39] VITALS: BP 131/71; PULSE 79; RESP 15; O2SAT 97
[2023-11-26 18:54] VITALS: BP 182/100; PULSE 76; O2SAT 95
--- NOTE | 2023-11-26 18:54 | ED_ITS ---
HPI - SOB/Dyspnea 2 General: Chief Complaint: Shortness of Breath/Dyspnea Stated Complaint: blood clot in lung SOB Chest Pressure Time Seen by Provider: 11/26/23 18:27 Source: patient Mode of arrival: ambulatory Limitations: no limitations History of Present Illness: HPI Narrative: Patient is a 73-year-old female who presents to the emergency department planing of chest pressure and shortness of breath beginning yesterday. Patient recently spent a few days in the hospital a couple weeks ago due to pulmonary embolism, was started on Eliquis. She states she had a cardiac workup at that time as well. She was discharged home and states she has been okay up until noticing the symptoms beginning yesterday, stating they began while she was just sitting down doing nothing. She does report a history of heart attacks and congestive heart failure. She states that the pain is to the left chest and radiates to the right chest. States it is present currently at this time. She notes that the pain feels like a pinching and the pressure. No specific alleviating or exacerbating factors are reported at this time. She does note that she uses oxygen at night as needed. She is reporting some associated nausea. Denies any other symptoms. MD elicited complaint: shortness of breath and chest pain Pertinent past history: congestive heart failure Onset (ago): day(s) Context: other (Recent hospitalization, diagnosis of pulmonary embolism on Eliquis) Timing: constant Exacerbating factors: nothing Relieving factors: nothing Associated symptoms: Reports chest pain and nausea; Deny abdominal pain, fever(s), lightheadedness, palpitations or vomiting Review of Systems 2 General: Reports: 10 or more systems reviewed and unremarkable except in HPI and below Const: Denies: fever(s), chills or fatigue Eyes: Denies: change in vision ENMT: Denies: throat pain, ear or mastoid pain or nasal discharge Card: Reports: chest pain; Denies: palpitations, swelling of feet/ankles or lightheadedness Resp: Reports: dyspnea; Denies: productive cough or wheezing GI: Reports: nausea; Denies: abdominal pain, vomiting, diarrhea or constipation : Denies: flank pain, difficulty voiding, dysuria or urinary frequency Musc: Denies: neck pain, back pain or joint pain Skin/Breast: Denies: rash Neuro: Denies: headache(s), numbness in extremities or weakness in extremities PFSH ED 2 PFSH: Medical History History of sleep study 09/2023 Lumbar stenosis with neurogenic claudication Spinal cord stimulator status Gout Urinary incontinence Obstructive sleep apnea On bipap, settings 16/12 with 2 lpm oxygen 3 para 3 Sciatica Pancreatic mass On CT imaging from 01/2023, stable cystic mass measuring 7 mm in the tail of the pancreas. No interval change since 2019. Lesion of soft palate resolved on laryngoscopy done by Dr Mckinley dated 01/2023 Chronic neck pain Chronic low back pain Diabetes type 2, uncontrolled COVID-19 (~2021) Diverticulitis Essential (primary) hypertension Depression GERD (gastroesophageal reflux disease) Insomnia, controlled Hyperlipidemia Diabetic neuropathy Vitamin D deficiency Surgical History History of cardiac catheterization 08/2022 - 40% LAD, no other significant disease noted Status post total right knee replacement History of colonoscopy History of back surgery s/p fusion L3-L5 History of neck surgery H/O: hysterectomy S/P cholecystectomy S/p bilateral carpal tunnel release Status post total knee replacement, left Remote Family History Other CAD (coronary artery disease) Diabetes Social History Smoking and tobacco/nicotine status: never used tobacco/nicotine Second hand smoke exposure: Yes (as a child (father smoked)) Alcohol intake: current Alcohol intake frequency: holidays/special occasions only Substance/Drug Use: never Lives independently: Yes Household members: spouse Marital status: Do you think of yourself as: Straight/Heterosexual Current gender identity: Female Female Reproductive History: Para: 3 Spontaneous abortions: No Physical Exam 2 Const: COMMON NORMALS: no acute distress, patient oriented x3 and no limitations GENERAL APPEARANCE: cooperative, comfortable and well developed NUTRITIONAL APPEARANCE: obese morbidly obese ORIENTATION/CONSCIOUSNESS: Yes awake, Yes oriented to person, Yes oriented to place and Yes oriented to time HENMT: COMMON NORMALS: normocephalic, atraumatic and hearing grossly normal bilaterally HEAD & SCALP: normocephalic and atraumatic Eye: COMMON NORMALS: Equal, round and reactive pupils present, EOMs intact bilaterally and conjunctivae normal CONJUNCTIVA: Yes conjunctivae normal P UPIL: Yes Equal, round and reactive pupils present Neck/C-Spine: COMMON NORMALS: full ROM, supple and no JVD Resp: COMMON NORMALS: normal respiratory effort, No retractions, No use of accessory muscles and clear to auscultation bilaterally AUSCULTATION: clear to auscultation bilaterally Cardio: COMMON NORMALS: no JVD, regular rate, regular rhythm, No clicks present (Cardio), No murmurs present (Cardio) and No rub (Cardio) RATE: r egular rate RHYTHM: regular rhythm GI: COMMON NORMALS: Normal to inspection, nondistended, normoactive bowel sounds present, Soft to palpation and non-tender AUSCULTATION: Yes normoactive bowel sounds PALPATION: Yes Soft to palpation RECTAL EXAM: d eferred Extremity: COMMON NORMALS: full ROM and capillary refill normal NARRATIVE EXTREMITY EXAM: Bilateral pedal edema Neuro: COMMON NORMALS: patient oriented x3, moves all extremities, no focal motor deficits and no sensory deficits noted SENSORIUM/ORIENTATION: Yes oriented to person, Yes oriented to place and Yes oriented to time Psych: COMMON NORMALS: mental status grossly normal and Normal thought process present THOUGHT PROCESS: Normal thought process present Skin: COMMON NORMALS: no rashes or lesions noted GENERAL SKIN EXAM: no rashes or lesions noted Course 2 Vital Signs: Vital signs: Vital Signs Temperature 98.2 F 11/26/23 18:16 Pulse Rate 81 11/26/23 20:09 Respiratory Rate 18 11/26/23 20:09 Blood Pressure 170/81 11/26/23 20:09 Pulse Oximetry 97 11/26/23 20:09 Oxygen Delivery Me thod Room Air 11/26/23 20:09 MDM - SOB/Dyspnea Medical Decision Making Patient presented for evaluation of chest pain and shortness of breath. She was in the hospital 2 weeks ago due to pulmonary embolism, was started on Eliquis afterwards. States she was normal up until yesterday when she had onset of symptoms. On arrival her vitals were unremarkable she was breathing 97% on room air. Her condition has remained stable throughout her ED course, she has not taken her nightly meds yet. Her CBC normal. CMP unremarkable. BNP normal. Troponin unremarkable. EKG reviewed with Dr. Loving and showed normal sinus rhythm with no acute STEMI. Chest x-ray showed stable findings, no acute cardiopulmonary processes. Patient does have a history of anxiety and I do believe that her shortness of breath may be related to body habitus as well. She is on oxygen as needed at night, will continue to do this. She will follow- up with her primary care early next week and she is given strict return precautions such that if her pain worsens or she develops any new concerning symptoms she will return for reevaluation. Care of patient discussed with Dr. Loving who agrees with discharge at this time. Lab Data 11/26/23 18:52 11/26/23 18:52 Labs/Radiology: Radiology Impressions Chest X-Ray 11/26/23 18:35 IMPRESSION: 1. Stable [id number] cardiomegaly with mild pulmonary vascular congestion no interstitial edema. 2. Other chronic and postsurgical findings detailed above. No significant interval radiographic change from 11/08/2023. Laboratory Results WBC 8.94 10^3/uL (3.29-11.43) 11/26/23 18:52 RBC 4.24 10^6/uL (3.85-5.65) 11/26/23 18:52 Hgb 13.00 g/dL (11.27-16.99) 11/26/23 18:52 Hct 39.6 % (36-47) 11/26/23 18:52 MCV 93.4 fl (85-98) 11/26/23 18:52 MCH 30.7 pg (27-33) 11/26/23 18:52 MCHC 32.8 g/dL (30-55) 11/26/23 18:52 RDW 13.8 % (12.1-15.1) 11/26/23 18:52 Plt Count 221 10^3/cmm (157-399) 11/26/23 18:52 MPV 9.7 fL (7.4-10.4) 11/26/23 18:52 Neut % (Auto) 62.8 % 11/26/23 18:52 Lymph % (Auto) 25.1 % 11/26/23 18:52 Evans % (Auto) 5.1 % 11/26/23 18:52 Eos % (Auto) 5.9 % 11/26/23 18:52 Baso % (Auto) 0.4 % 11/26/23 18:52 Neut # (Auto) 5.61 10^3/uL (1.8-7.7) 11/26/23 18:52 Lymph # (Auto) 2.2 10^3/uL (0.8-4.8) 11/26/23 18:52 Evans # (Auto) 0.5 10^3/uL (0.2-0.9) 11/26/23 18:52 Eos # (Auto) 0.5 10^3/uL (0.0-0.8) 11/26/23 18:52 Baso # (Auto) 0.0 10^3/uL (0.0-0.1) 11/26/23 18:52 Nucleated RBC % (auto) 0 % 11/26/23 18:52 Nucleated RBCs # 0.0 /100WBC 11/26/23 18:52 PT 14.10 SECONDS (12.1-14.9) 11/26/23 18:52 INR 1.06 (0.8-1.2) 11/26/23 18:52 APTT 32.1 SECONDS (23.9-36.7) 11/26/23 18:52 Sodium 142 mmol/L (136-145) 11/26/23 18:52 Potassium 4.4 mmol/L (3.5-5.1) 11/26/23 18:52 Chloride 104 mmol/L (98-107) 11/26/23 18:52 Carbon Dioxide 25 mmol/L (22-29) 11/26/23 18:52 Anion Gap 17.4 (5-19) 11/26/23 18:52 BUN 20 mg/dL (8-23) 11/26/23 18:52 Creatinine 0.8 mg/dL (0.5-0.9) 11/26/23 18:52 GFR Calculation Not Reportable 11/26/23 18:52 Glucose 180 mg/dL (65-115) H 11/26/23 18:52 Calculated Osmolality 301 mOsm/kg (285-295) H 11/26/23 18:52 Calcium 9.5 mg/dL (8.5-10.5) 11/26/23 18:52 Total Bilirubin 0.3 mg/dL (0.15-1.2) 11/26/23 18:52 AST 13 U/L (0-32) 11/26/23 18:52 ALT 15 U/L (0-33) 11/26/23 18:52 Alkaline Phosphatase 109 U/L (35-105) H 11/26/23 18:52 Troponin T Baseline 18 ng/L (0-10) H 11/26/23 18:52 NT-Pro-B Natriuret Pep 71 pg/mL (0-125) 11/26/23 18:52 Total Protein 6.9 g/dL (6.6-8.7) 11/26/23 18:52 Albumin 4.3 g/dL (3.5-5.2) 11/26/23 18:52 Globulin 2.6 g/dL (1.3-4.6) 11/26/23 18:52 Urine Color Yellow (Yellow) 11/26/23 18:52 Urine Appearance Clear (CLEAR) 11/26/23 18:52 Urine pH 8 (5-7) H 11/26/23 18:52 Ur Specific Casar 1.010 (1.005-1.030) 11/26/23 18:52 Urine Protein Neg (Negative) 11/26/23 18:52 Urine Glucose (UA) Norm (Normal) 11/26/23 18:52 Urine Ketones Negative (Negative) 11/26/23 18:52 Urine Blood Neg (Negative) 11/26/23 18:52 Urine Nitrate Negative (Negative) 11/26/23 18:52 Urine Bilirubin Neg (Negative) 11/26/23 18:52 Urine Urobilinogen Neg mg/dL (Negative) 11/26/23 18:52 Ur Leukocyte Esterase Trace (Negative) H 11/26/23 18:52 Urine RBC 0-4 /hpf (0-2) H 11/26/23 18:52 Urine WBC 0-4 /hpf (0-5) H 11/26/23 18:52 Ur Squamous Epith Cells 0-4 /hpf (0-5) H 11/26/23 18:52 Amorphous Sediment Not Reportable 11/26/23 18:52 Urine Bacteria Trace /hpf (NONE) 11/26/23 18:52 All radiology interpretation(s) finalized by discharge Discharge Plan Discharge Patient Disposition: Home Clinical Impression: Chest pain Condition: Stable Prescriptions: No Action atorvastatin 20 mg tablet 20 mg PO DAILY Qty: 90 3RF (DME) lift recliner See Rx Instructions .Route .MEDSUPPLY Qty: 1 0RF Rx Instructions: As directed indomethacin 50 mg capsule 50 mg PO TID Qty: 9 0RF Rx Instructions: administer with food or milk (DME) Accu-Chek Leeann Plus test strp Strip See Rx Instructions .ROUTE .MEDSUPPLY Qty: 200 1RF Rx Instructions: ONE DAILY (DME) lancets [Accu-Chek Softclix Lancets] Misc See Rx Instructions .Route Qty: 200 0RF Rx Instructions: As directed (DME) upright wheeled walker See Rx Instructions .Route .MEDSUPPLY Qty: 1 0RF Rx Instructions: As directed venlafaxine [Effexor XR] 150 mg capsule,extended release 24hr 150 mg PO DAILY Qty: 90 3RF Rx Instructions: ALONG WITH 75MG TO =225MG TOTAL losartan 50 mg tablet 50 mg PO DAILY Qty: 90 3RF tramadol 50 mg tablet 50 mg PO Q6H PRN (Reason: pain) 30 Days Qty: 30 0RF pregabalin 50 mg capsule 50 mg PO TID Qty: 90 5RF acarbose 25 mg tablet 25 mg PO TID PRN (Reason: MD order) Qty: 270 0RF (DME) pen needle, diabetic [BD Rosalva 2nd Gen Pen Needle] 32 gauge x 5/32 needle See Rx Instructions .ROUTE .COMPLEX Qty: 100 1RF Dose Instruction: USE WITH INSULIN DAILY Rx Instructions: USE WITH INSULIN DAILY (DME) BIPAP with 16/12 with Oxygen with supplies See Rx Instructions .Route .MEDSUPPLY Qty: 1 0RF Rx Instructions: As directed insulin glargine [Lantus Solostar U-100 Insulin] 100 unit/mL (3 mL) insulin pen 46 unit SUBCUT BID 90 Days Qty: 83 0RF trazodone 100 mg tablet See Rx Instructions .ROUTE .COMPLEX Qty: 90 0RF Dose Instruction: TAKE 1 TABLET BY MOUTH EVERY DAY Rx Instructions: TAKE 1 TABLET BY MOUTH EVERY DAY pantoprazole 40 mg tablet,delayed release (DR/EC) 40 mg PO DAILY Qty: 90 1RF venlafaxine 75 mg capsule,extended release 24hr 75 mg PO DAILY Rx Instructions: ALONG WITH THE 150 MG TO =225MG TOTAL tizanidine 2 mg tablet 2 mg PO TID PRN (Reason: MUSCLE SPASMS) fluoxetine 10 mg tablet 10 mg PO DAILY allopurinol 100 mg tablet 100 mg PO DAILY Eliquis DVT-PE Treat 30D Start 5 mg (74 tabs) tablets,dose pack See Rx Instructions .ROUTE .COMPLEX 90 Days Qty: 180 0RF Rx Instructions: Take 10mg (2tab) twice daily for first 7 days, then reduce to 5mg (1tab) twice daily isosorbide mononitrate 30 mg tablet extended release 24 hr 60 mg PO DAILY 30 Days Qty: 30 0RF Discharge Orders: Discharge ED (Routine); Ordered 11/26/23 Ordered By: Zhen Bourgeois Referrals: Jay August MD [Primary Care Provider] - Discharge Diet: Usual diet Discharge Activity: Increase activity as tolerated Patient Instructions: Chest Pain (ED) Activity Restrictions/Additional Instructions: Continue medications at home, including her Eliquis. Oxygen at night as needed. Please follow-up with primary care as discussed. Return if you develop any worsening chest pain, worsening shortness of breath, or any other new concerning symptoms you may have. Coding Level of Care Code ED Medical Transcriber for Ben Salomon
[2023-11-26 18:59] LABS: Basophils % 0.4 %; Eosinophils # 0.5 10^3/uL (0.0-0.8); Eosinophils % 5.9 %; Hematocrit 39.6 % (36-47); Lymphocytes # 2.2 10^3/uL (0.8-4.8); Lymphocytes % 25.1 %; Mean Corpuscular HGB Conc 32.8 g/dL (30-55); Mean Corpuscular Hemoglobin 30.7 pg (27-33); Mean Corpuscular Volume 93.4 fl (85-98); Mean Platelet Volume 9.7 fL (7.4-10.4); Monocytes # 0.5 10^3/uL (0.2-0.9); Monocytes % 5.1 %; Neutrophils # 5.61 10^3/uL (1.8-7.7); Neutrophils % 62.8 %; Nucleated Red Blood Cells % 0 %; Platelet Count 221 10^3/cmm (157-399); Red Blood Count 4.24 10^6/uL (3.85-5.65); Red Cell Distribution Width 13.8 % (12.1-15.1); White Blood Count 8.94 10^3/uL (3.29-11.43)
[2023-11-26 19:07] LABS: Urine Appearance Clear (CLEAR); Urine Color Yellow (Yellow); pH Urine 8 (5-7)
[2023-11-26 19:08] LABS: Add Urine Microscopic? YES; Bacteria Urine TRACE /hpf; Bilirubin Urine Neg (Negative); Blood Urine Neg (Negative); Glucose Urine UA Norm (Normal); Ketones Urine Negative (Negative); Leukocyte Esterase Urine Trace (Negative); Nitrate Urine Negative (Negative); Protein Urine Neg (Negative); RBC Urine 0-4 /hpf (0-2); Squamous Epithelial Cell Urine 0-4 /hpf (0-5); Urobilinogen Urine Neg (Negative); WBC Urine 0-4 /hpf (0-5)
[2023-11-26 19:12] LABS: INR 1.06 (0.8-1.2)
[2023-11-26 19:13] LABS: Partial Thromboplastin Time 32.1 SECONDS (23.9-36.7)
[2023-11-26 19:24] VITALS: PULSE 75; O2SAT 96
[2023-11-26 19:25] LABS: Troponin(5th) Baseline 18 ng/L (0-10)
[2023-11-26 19:31] LABS: Alanine Aminotransferase 15 U/L (0-33); Albumin Level 4.3 g/dL (3.5-5.2); Alkaline Phosphatase 109 U/L (35-105); Blood Urea Nitrogen 20 mg/dL (8-23); Calcium 9.5 mg/dL (8.5-10.5); Carbon Dioxide 25 mmol/L (22-29); Chloride 104 mmol/L (98-107); Creatinine Clr Calc Pharmacy 80.6309; Globulin 2.6 g/dL (1.3-4.6); Glucose 180 mg/dL (65-115); NT Pro B Type Natriuretic Pept 71 pg/mL (0-125); Osmolality Calculated 301 mOsm/kg (285-295); Sodium 142 mmol/L (136-145); Total Bilirubin 0.3 mg/dL (0.15-1.2); Total Protein 6.9 g/dL (6.6-8.7)
[2023-11-26 19:45] LABS: Anion Gap 17.4 (5-19); Aspartate Amino Transferase 13 U/L (0-32); Potassium 4.4 mmol/L (3.5-5.1)
[2023-11-26 20:09] VITALS: BP 170/81; PULSE 81; RESP 18; O2SAT 97
== END 2023-11-26 20:32 | disposition home or self-care (01) ==
PROVIDERS: Emergency Provider Physician Assistant; PCP Family Medicine Adult Medicine
DX: R07.9 Chest pain, unspecified (principal); Z79.01 Long term (current) use of anticoagulants; Z79.4 Long term (current) use of insulin; Z77.22 Contact with and (suspected) exposure to environmental tobacco smoke (acute) (chronic); E11.42 Type 2 diabetes mellitus with diabetic polyneuropathy; I10 Essential (primary) hypertension; E78.5 Hyperlipidemia, unspecified
CPT/HCPCS: 71045; 80053; 81001; 83880; 84484; 85025; 85610; 85730; 93005; 99285

== ENCOUNTER → 2023-12-13 10:58 | Outpatient (BNVA) | payer MEDICARE, SELFPAY | PROVIDERS: PCP Family Medicine Adult Medicine; Visit Provider Nurse Practitioner Family | DX: I11.0 Hypertensive heart disease with heart failure (principal); I50.33 Acute on chronic diastolic (congestive) heart failure | CPT/HCPCS: 99213 ==

== ENCOUNTER → 2024-02-21 08:21 | Outpatient (BNVA) | payer MEDICARE, SELFPAY | PROVIDERS: PCP Family Medicine Adult Medicine; Visit Provider Dermatology | DX: C44.311 Basal cell carcinoma of skin of nose (principal) | CPT/HCPCS: 14060; 17311 ==

== ENCOUNTER → 2024-03-01 11:20 | Outpatient (BNVA) | payer MEDICARE, SELFPAY | PROVIDERS: PCP Family Medicine Adult Medicine; Visit Provider Dermatology | DX: C44.311 Basal cell carcinoma of skin of nose (principal); Z48.817 Encounter for surgical aftercare following surgery on the skin and subcutaneous tissue | CPT/HCPCS: 99213 ==

== ENCOUNTER → 2024-05-17 07:38 | Outpatient (BNVA) | payer MEDICARE, OTHER, SELFPAY | PROVIDERS: Visit Provider Nurse Practitioner Family | DX: I26.99 Other pulmonary embolism without acute cor pulmonale (principal); I11.0 Hypertensive heart disease with heart failure; I50.33 Acute on chronic diastolic (congestive) heart failure | CPT/HCPCS: 99213 ==

== ENCOUNTER 2024-05-17 14:31 | Outpatient (CLI) | payer MEDICARE, SELFPAY ==
--- NOTE | 2024-05-17 14:41 | XR_ITS ---
WS: [id number] XR lumbar spine min 4V [id number] REASON FOR EXAM: vertebrogenic low back pain FINDINGS: Posterior decompression with pedicle screws and interconnecting rods L4-L5. Extensive calcification of the L4-L5 disc space. Significant sclerosis of the endplates of L2 and L3 with vacuum disc L2-L3. Very large anterior bridg ing osteophytes L2-L3. A focal angulation has developed at the L2-L3 level with widening of the disc space and an apparent fracture through the large anterior bridging osteophyte. Significant change com pared to 05/25/2023. Moderate narrowing of the disc space with large bridging osteophyte L1-L2. Thoracic dorsal column stimulator in place. XR/XR lumbar spine min 4V [id number] IMPRESSION: Posterior lumbar fusion as above. Significant interval change at L2-L3 as described above.
== END 2024-05-17 14:32 | disposition home or self-care (01) ==
LOC: RAD 14:35
PROVIDERS: Visit Provider Anesthesiology Pain Medicine
DX: M54.51 Vertebrogenic low back pain (principal); Z98.1 Arthrodesis status; M51.86 Other intervertebral disc disorders, lumbar region; G95.89 Other specified diseases of spinal cord; M25.78 Osteophyte, vertebrae; M43.8X6 Other specified deforming dorsopathies, lumbar region; M48.061 Spinal stenosis, lumbar region without neurogenic claudication; Z96.89 Presence of other specified functional implants; R93.89 Abnormal findings on diagnostic imaging of other specified body structures
CPT/HCPCS: 36415; 72110; 80061

== ENCOUNTER 2024-05-18 14:50 | Emergency (ER) | payer MEDICARE, SELFPAY ==
[2024-05-18 15:01] VITALS: BP 194/99; PULSE 61; RESP 18; TEMP 36.7; O2SAT 93; BMI 51.5
--- NOTE | 2024-05-18 15:50 | XRR_ITS ---
PROCEDURE INFORMATION: Exam: XR Chest Exam date and time: 05/18/2024 3:56 PM Age: 74 years old Clinical indication: Dyspnea TECHNIQUE: Imaging protocol: Radiologic exam of the chest. Views: 1 view. COMPARISON: CR XR chest 1V portable [id number] 11/26/2023 6:52 PM FINDINGS: Tubes, catheters and devices: Spinal stimulator leads noted within the thoracic spine. Lungs: Unremarkable. No consolidation. Pleural spaces: Unremarkable. No pleural effusion. No pneumothorax. Heart/Mediastinum: Unremarkable. No cardiomegaly. Bones/joints: ACDF hardware in the lower cervical spine. Visualized osseous structures are intact. XR/XR chest 1V portable [id number] IMPRESSION: No acute findings.
--- NOTE | 2024-05-18 15:51 | ECG_ITS ---
sfilatino Test Date: 2024-05-18 Pat Name: Melissa De Jesus Department: Room: Gender: Female Equity Analyst: : 1950 Requested By: Marc Rey Order Number: [id number] Reading MD: RENETTA FERNÁNDEZ Measurements Intervals [place] Rate: 61 P: 83 MA: 155 QRS: 16 QRSD: 84 T: 16 QT: 364 QTc: 367 Interpretive Statements SINUS RHYTHM WITH OCCASIONAL SUPRAVENTRICULAR PREMATURE COMPLEXES LOW QRS VOLTAGE IN PRECORDIAL LEADS [QRS DEFLECTION < 1.0 mV IN CHEST LEADS] PATTERN CONSISTENT WITH PULMONARY DISEASE Compared to ECG 11/26/2023 18:17:10 Low QRS voltage now present Electronically Signed On 05-19-2024 23:23:29 DIRECTOR OF BUSINESS OPERATIONS by RENETTA FERNÁNDEZ [email or web address]
--- NOTE | 2024-05-18 15:52 | W.ED.SOB ---
Documented by User: Marc Rey MD 05/18/24 18:24 HPI - SOB/Dyspnea General: Chief Complaint: Shortness of Breath/Dyspnea Stated Complaint: sob Time Seen by Provider: 05/18/24 15:42 History of Present Illness: HPI Narrative: Chief complaint is elevated blood pressure. The patient states that she is here because her blood pressure was elevated. She states that she saw her social media content manager yesterday and her blood pressure was elevated. She states that she went to her chiropractor today and when they checked her blood pressure it was 180s so she decided to come to the emergency room. She states she has noticed some shortness of breath for the last 6 weeks or longer. She states it is not any clear pattern to it. She states she just feels a little out of breath with activity. She states she does get some slight pressure on her chest substernally at times. She states that it will be there for hours at a time and sometimes is not there at all. No headache. No new cough. No hemoptysis. No new leg pain or swelling. No fever. No abdominal pain vomiting or diarrhea. No black or bloody stools. She states she does have a history of congestive heart failure and hypertension. She has never had Cardiac stents that she is aware of. She states she is supposed to be on Eliquis because she has had a prior DVT in the past remotely and then in October of last year she had pulmonary embolus but she states she stopped taking the Eliquis about 5 months ago because of cost. She states she has no headache. No weakness in her arms or legs.She has chronic back pain which is unchanged. She has not noticed orthopnea. Related Data Home Medications Medication Instructions Recorded Confirmed acarbose 25 mg tablet 25 mg PO TID PRN high bs 05/18/24 05/18/24 amlodipine 10 mg tablet 10 mg PO DAILY 05/18/24 05/18/24 insulin glargine 100 unit/mL (3 55 unit SUBCUT BID 05/18/24 05/18/24 mL) subcutaneous pen (Lantus Solostar U-100 Insulin) metoprolol succinate 50 mg 50 mg PO DAILY 05/18/24 05/18/24 tablet,extended release 24 hr mupirocin 2 % topical ointment See Rx Instructions .Route .COMPLEX 05/18/24 05/18/24 trazodone 100 mg tablet 100 mg PO BEDTIME 05/18/24 05/18/24 venlafaxine 150 mg 150 mg PO DAILY 05/18/24 05/18/24 capsule,extended release 24 hr Previous Rx's Medication Instructions Recorded lift recliner #1 ea 05/12/22 blood sugar diagnostic (Accu-Chek #200 ea 10/01/22 Leeann Plus test strips) upright wheeled walker #1 ea 03/16/23 lancets (Accu-Chek Softclix #200 ea 04/23/23 Lancets) losartan 50 mg tablet 50 mg PO DAILY #90 tabs 06/10/23 tramadol 50 mg tablet 50 mg PO Q6H PRN pain 30 days #30 07/22/23 tabs BIPAP with 17/04 with Oxygen with #1 ea 09/09/23 supplies pantoprazole 40 mg tablet,delayed 40 mg PO DAILY #90 tabs 10/28/23 release isosorbide mononitrate 30 mg 60 mg (2 x 30 mg) PO DAILY 30 days 11/12/23 tablet,extended release 24 hr #30 tabs furosemide 20 mg tablet 20 mg PO DAILY PRN edema #90 tabs 12/13/23 tizanidine 2 mg tablet 2 mg PO TID PRN MUSCLE SPASMS #90 03/09/24 tabs venlafaxine 75 mg capsule,extended 75 mg PO DAILY #90 caps 03/09/24 release 24 hr pregabalin 50 mg capsule 50 mg PO TID #90 caps 04/05/24 allopurinol 100 mg tablet 100 mg PO DAILY #90 tabs 04/10/24 fluoxetine 10 mg tablet 10 mg PO DAILY #90 tabs 04/10/24 pen needle, diabetic 32 gauge x #100 ea 05/01/24 (BD Rosalva 2nd Gen Pen Needle) atorvastatin 20 mg tablet 40 mg (2 x 20 mg) PO DAILY #360 05/18/24 tabs clonidine HCl 0.1 mg tablet 0.1 mg PO QID PRN For blood 05/18/24 pressure greater than 180/100 #30 tabs Allergies Allergy/AdvReac Type Severity Reaction Status Date / Time Iodinated Contrast Media Allergy Unknown Verified 05/17/24 08:25 meperidine [From Demerol] Allergy HIVES Verified 05/17/24 08:25 shellfish derived Allergy ANAPHYLAXIS Verified 05/17/24 08:25 cortisone AdvReac Mild high blood Verified 05/17/24 08:25 sugar PFSH ED PFSH: Medical History (Updated 05/18/24 @ 19:57 by Ángel Best DO) Pulmonary embolism on left Pancreatic mass On CT imaging from 01/2023, stable cystic mass measuring 7 mm in the tail of the pancreas. No interval change since 2019. Lumbar stenosis with neurogenic claudication Spinal cord stimulator status Gout Urinary incontinence Obstructive sleep apnea On bipap, settings 17/04 with 2 lpm oxygen 3 para 3 Diabetes type 2, uncontrolled COVID-19 (~2021) Diverticulitis Essential (primary) hypertension Depression GERD (gastroesophageal reflux disease) Insomnia, controlled Hyperlipidemia Diabetic neuropathy Surgical History (Updated 12/26/23 @ 13:09 by Jay August MD) S/P total knee arthroplasty bilateral History of cardiac catheterization 08/2022 - 40% LAD, no other significant disease noted Status post total right knee replacement History of colonoscopy History of back surgery s/p fusion L3-L5 History of neck surgery H/O: hysterectomy S/P cholecystectomy S/p bilateral carpal tunnel release Status post total knee replacement, left Remote Family History Other CAD (coronary artery disease) Diabetes Social History Smoking and tobacco/nicotine status: never used tobacco/nicotine Second hand smoke exposure: Yes (as a child (father smoked)) Alcohol intake: current Alcohol intake frequency: holidays/special occasions only Substance/Drug Use: never Lives independently: Yes Household members: spouse Marital status: Do you think of yourself as: Straight/Heterosexual Current gender identity: Female Female Reproductive History: Para: 3 Spontaneous abortions: No Physical Exam Narrative: EXAM NARRATIVE: Patient is alert anxious mild distress. Lung sounds are clear. Heart regular rate and rhythm. Abdomen soft nontender. She has trace edema in both lower extremities. No calf tenderness. Neck is supple. She does not show pain with sitting up from laying at 30 degrees. She has moist mucous membrane. Conjunctive was within normal limits. Pupils are equal and reactive to light.She moves her arms and legs freely and has no focal deficits on exam. Her speech is clear. Course Vital Signs: Vital signs: Vital Signs Temperature 98.1 F 05/18/24 15:01 Pulse Rate 70 05/18/24 18:29 Respiratory Rate 14 05/18/24 18:29 Blood Pressure 181/74 05/18/24 18:29 Pulse Oximetry 93 05/18/24 18:29 Oxygen Delivery Me thod Room Air 05/18/24 15:01 MDM - SOB/Dyspnea Medical Decision Making Patient presents complaining of elevated blood pressure. She has no headache. She gets some pressure in her chest but some vague pressure sensation she will get off and on and has had that for months off and on. She also states she feels short of breath at times Mainly with activity. This has been going on for 6 weeks or longer she tells me. No significant rapid progression or change. She does have a history of PEs however and has not been compliant with her medication. I advised her the importance of medication compliance and she expresses understanding. CHF exacerbation, PE, OR, dissection, pericardial effusion, cardiac dysrhythmia, pleural effusion, bronchitis, anxiety, hypertensive crisis, among many others in the differential. Not suggestive symptoms of dissection. Not suggestive of PE either however with her history warrants checking a D-dimer. She states she is allergic to IV dye but she tolerates CAT scan dye with premedication with Benadryl in the past without issue and is comfortable proceeding with CT with contrast if D-dimer is elevated. I ordered CBC and CMP and troponin and proBNP and chest x-ray. Will monitor her blood pressure. She currently is in the 180s over 90s. Patient's blood pressure remains elevated. I ordered 20 mg Lasix IV and clonidine 0.1 mg p.o. Patient also has chronic pain and takes tramadol and Tylenol she states and would like her normal home dose and I ordered 100 mg of tramadol per her request and 650 mg of p.o. Tylenol for her request for her chronic pain. Patient's alert using her phone in the bed In no acute distress. Patient's D-dimer was not significantly elevated with age adjusted and low pretest probability.Patient's white count was within normal limits. Patient chest x-ray negative for acute process per radiology. Patient's first troponin is indeterminate. Delta troponin is pending. Patient white count is within normal limits. Patient's white blood cell count within normal limits. Patient EKG shows a sinus rhythm with PACs to my interpretation. Patient creatinine within normal limits. Patient blood pressure went up over 200. After 20 mg of Lasix IV and 0.1 of clonidine p.o. the patient blood pressure is close to 180. Patient remains asymptomatic. Will administer additional 0.1 clonidine. If patient's blood pressure continues to trend down reasonable discharge home if delta troponin is negative with continued close outpatient follow-up. Patient endorsed to Dr. Best Lab Data 05/18/24 16:23 05/18/24 16:23 Labs/Radiology: Radiology Impressions Chest X-Ray 05/18/24 15:50 IMPRESSION: No acute findings. Laboratory Results WBC 7.43 10^3/uL (3.29-11.43) 05/18/24 16: RBC 4.22 10^6/uL (3.85-5.65) 05/18/24 16:23 Hgb 12.40 g/dL (11.27-16.99) 05/18/24 16:23 Hct 39.1 % (36-47) 05/18/24 16:23 MCV 92.7 fl (85-98) 05/18/24 16:23 MCH 29.4 pg (27-33) 05/18/24 16: MCHC 31.7 g/dL (30-55) 05/18/24 16: RDW 14.3 % (12.1-15.1) 05/18/24 16: Plt Count 185 10^3/cmm (157-399) 05/18/24 16: MPV 10.0 fL (7.4-10.4) 05/18/24 16:23 Neut % (Auto) 57.4 % 05/18/24 16:23 Lymph % (Auto) 30.4 % 05/18/24 16:23 Brewster % (Auto) 7.1 % 05/18/24 16:23 Eos % (Auto) 4.2 % 05/18/24 16: Baso % (Auto) 0.5 % 05/18/24 16: Neut # (Auto) 4.26 10^3/uL (1.8-7.7) 05/18/24 16: Lymph # (Auto) 2.3 10^3/uL (0.8-4.8) 05/18/24 16:23 Brewster # (Auto) 0.5 10^3/uL (0.2-0.9) 05/18/24 16:23 Eos # (Auto) 0.3 10^3/uL (0.0-0.8) 05/18/24 16:23 Baso # (Auto) 0.0 10^3/uL (0.0-0.1) 05/18/24 16:23 Nucleated RBC % (auto) 0 % 05/18/24 16: Nucleated RBCs # 0.0 /100WBC 05/18/24 16:23 D-Dimer 0.66 ug/mLFEU (0-0.59) H 05/18/24 16:23 Sodium 144 mmol/L (136-145) 05/18/24 16:23 Potassium 3.8 mmol/L (3.5-5.1) 05/18/24 16:23 Chloride 107 mmol/L (98-107) 05/18/24 16:23 Carbon Dioxide 29 mmol/L (22-29) 05/18/24 16:23 Anion Gap 11.8 (5-19) 05/18/24 16:23 BUN 18 mg/dL (8-23) 05/18/24 16:23 Creatinine 0.8 mg/dL (0.5-0.9) 05/18/24 16:23 GFR Calculation Not Reportable 05/18/24 16:23 Glucose 136 mg/dL (65-115) H 05/18/24 16:23 Calculated Osmolality 302 mOsm/kg (285-295) H 05/18/24 16:23 Calcium 8.9 mg/dL (8.5-10.5) 05/18/24 16:23 Total Bilirubin 0.3 mg/dL (0.15-1.2) 05/18/24 16:23 AST 12 U/L (0-32) 05/18/24 16:23 ALT 12 U/L (0-33) 05/18/24 16:23 Alkaline Phosphatase 110 U/L (35-105) H 05/18/24 16:23 Troponin T Baseline 22 ng/L (0-10) H 05/18/24 16:23 Troponin T 120 Minute 20.47 ng/L (0-10) H 05/18/24 18:52 Delta Troponin T -1.53 ABS# (0-10) L 05/18/24 18:52 NT-Pro-B Natriuret Pep 388 pg/mL (0-450) 05/18/24 16:23 Total Protein 6.4 g/dL (6.6-8.7) L 05/18/24 16:23 Albumin 4.0 g/dL (3.5-5.2) 05/18/24 16:23 Globulin 2.4 g/dL (1.3-4.6) 05/18/24 16:23 Discharge Plan Discharge Patient Disposition: Home Clinical Impression: Essential (primary) hypertension, Shortness of breath Chest pain Qualifiers: Chest pain type: unspecified Qualified Code(s): R07.9 - Chest pain, unspecified Condition: Stable Prescriptions: New clonidine HCl 0.1 mg tablet 0.1 mg PO QID PRN (Reason: For blood pressure greater than 180/100) Qty: 30 0RF No Action (DME) lift recliner See Rx Instructions .Route .MEDSUPPLY Qty: 1 0RF Rx Instructions: As directed (DME) Accu-Chek Leeann Plus test strp Strip See Rx Instructions .ROUTE .MEDSUPPLY Qty: 200 1RF Rx Instructions: ONE DAILY (DME) lancets [Accu-Chek Softclix Lancets] Misc See Rx Instructions .Route Qty: 200 0RF Rx Instructions: As directed (DME) upright wheeled walker See Rx Instructions .Route .MEDSUPPLY Qty: 1 0RF Rx Instructions: As directed furosemide 20 mg tablet 20 mg PO DAILY PRN (Reason: edema) Qty: 90 1RF losartan 50 mg tablet 50 mg PO DAILY Qty: 90 3RF tramadol 50 mg tablet 50 mg PO Q6H PRN (Reason: pain) 30 Days Qty: 30 0RF (DME) BIPAP with 16/12 with Oxygen with supplies See Rx Instructions .Route .MEDSUPPLY Qty: 1 0RF Rx Instructions: As directed tizanidine 2 mg tablet 2 mg PO TID PRN (Reason: MUSCLE SPASMS) Qty: 90 2RF venlafaxine 75 mg capsule,extended release 24hr 75 mg PO DAILY Qty: 90 0RF Rx Instructions: ALONG WITH THE 150 MG TO =225MG TOTAL pregabalin 50 mg capsule 50 mg PO TID Qty: 90 0RF fluoxetine 10 mg tablet 10 mg PO DAILY Qty: 90 0RF allopurinol 100 mg tablet 100 mg PO DAILY Qty: 90 0RF (DME) pen needle, diabetic [BD Rosalva 2nd Gen Pen Needle] 32 gauge x 5/32 needle See Rx Instructions .ROUTE .COMPLEX Qty: 100 0RF Dose Instruction: USE WITH INSULIN DAILY Rx Instructions: USE WITH INSULIN DAILY atorvastatin 20 mg tablet 40 mg PO DAILY Qty: 360 3RF pantoprazole 40 mg tablet,delayed release (DR/EC) 40 mg PO DAILY Qty: 90 1RF isosorbide mononitrate 30 mg tablet extended release 24 hr 60 mg PO DAILY 30 Days Qty: 30 0RF metoprolol succinate 50 mg tablet extended release 24 hr 50 mg PO DAILY amlodipine 10 mg tablet 10 mg PO DAILY mupirocin 2 % ointment See Rx Instructions .ROUTE .COMPLEX Rx Instructions: APPLY TO SURGICAL SITE ON NOSE 1-2 TIMES DAILY UNTIL HEALED. venlafaxine 150 mg capsule,extended release 24hr 150 mg PO DAILY Rx Instructions: along with 75mg in=577si total trazodone 100 mg tablet 100 mg PO BEDTIME acarbose 25 mg tablet 25 mg PO TID PRN (Reason: high bs) insulin glargine [Lantus Solostar U-100 Insulin] 100 unit/mL (3 mL) insulin pen 55 unit SUBCUT BID Discharge Orders: Discharge ED (Routine); Ordered 05/18/24 Ordered By: Ángel Best Patient Instructions: Chest Pain (ED), Chronic Hypertension (ED), Shortness of Breath (ED) Activity Restrictions/Additional Instructions: You are given clonidine for your high blood pressure in ER. You have been sent home with a prescription for clonidine. Please take it as directed. Please take 1 pill every 4 hours as needed only if your blood pressure is greater than 180/100. Please keep a blood pressure log. Please follow-up with your family practice physician within the next 7 days. Coding Level of Care Code ED Rehabilitation Technician for Chg Fwd Documented by User: Ángel Best DO 05/18/24 19:59 HPI - SOB/Dyspnea General: Chief Complaint: Shortness of Breath/Dyspnea Stated Complaint: sob Time Seen by Provider: 05/18/24 15:42 Related Data Home Medications Medication Instructions Recorded Confirmed acarbose 25 mg tablet 25 mg PO TID PRN high bs 05/18/24 05/18/24 amlodipine 10 mg tablet 10 mg PO DAILY 05/18/24 05/18/24 insulin glargine 100 unit/mL (3 55 unit SUBCUT BID 05/18/24 05/18/24 mL) subcutaneous pen (Lantus Solostar U-100 Insulin) metoprolol succinate 50 mg 50 mg PO DAILY 05/18/24 05/18/24 tablet,extended release 24 hr mupirocin 2 % topical ointment See Rx Instructions .Route .COMPLEX 05/18/24 05/18/24 trazodone 100 mg tablet 100 mg PO BEDTIME 05/18/24 05/18/24 venlafaxine 150 mg 150 mg PO DAILY 05/18/24 05/18/24 capsule,extended release 24 hr Previous Rx's Medication Instructions Recorded lift recliner #1 ea 05/12/22 blood sugar diagnostic (Accu-Chek #200 ea 10/01/22 Leeann Plus test strips) upright wheeled walker #1 ea 03/16/23 lancets (Accu-Chek Softclix #200 ea 04/23/23 Lancets) losartan 50 mg tablet 50 mg PO DAILY #90 tabs 06/10/23 tramadol 50 mg tablet 50 mg PO Q6H PRN pain 30 days #30 07/22/23 tabs BIPAP with 17/04 with Oxygen with #1 ea 09/09/23 supplies pantoprazole 40 mg tablet,delayed 40 mg PO DAILY #90 tabs 10/28/23 release isosorbide mononitrate 30 mg 60 mg (2 x 30 mg) PO DAILY 30 days 11/12/23 tablet,extended release 24 hr #30 tabs furosemide 20 mg tablet 20 mg PO DAILY PRN edema #90 tabs 12/13/23 tizanidine 2 mg tablet 2 mg PO TID PRN MUSCLE SPASMS #90 03/09/24 tabs venlafaxine 75 mg capsule,extended 75 mg PO DAILY #90 caps 03/09/24 release 24 hr pregabalin 50 mg capsule 50 mg PO TID #90 caps 04/05/24 allopurinol 100 mg tablet 100 mg PO DAILY #90 tabs 04/10/24 fluoxetine 10 mg tablet 10 mg PO DAILY #90 tabs 04/10/24 pen needle, diabetic 32 gauge x #100 ea 05/01/24 (BD Rosalva 2nd Gen Pen Needle) atorvastatin 20 mg tablet 40 mg (2 x 20 mg) PO DAILY #360 05/18/24 tabs clonidine HCl 0.1 mg tablet 0.1 mg PO QID PRN For blood 05/18/24 pressure greater than 180/100 #30 tabs Allergies Allergy/AdvReac Type Severity Reaction Status Date / Time Iodinated Contrast Media Allergy Unknown Verified 05/17/24 08:25 meperidine [From Demerol] Allergy HIVES Verified 05/17/24 08:25 shellfish derived Allergy ANAPHYLAXIS Verified 05/17/24 08:25 cortisone AdvReac Mild high blood Verified 05/17/24 08:25 sugar [facility]: Medical History (Updated 05/18/24 @ 19:57 by Ángel Best DO) Pulmonary embolism on left Pancreatic mass On CT imaging from 01/2023, stable cystic mass measuring 7 mm in the tail of the pancreas. No interval change since 2019. Lumbar stenosis with neurogenic claudication Spinal cord stimulator status Gout Urinary incontinence Obstructive sleep apnea On bipap, settings 16/12 with 2 lpm oxygen 3 para 3 Diabetes type 2, uncontrolled COVID-19 (~2021) Diverticulitis Essential (primary) hypertension Depression GERD (gastroesophageal reflux disease) Insomnia, controlled Hyperlipidemia Diabetic neuropathy Surgical History (Updated 12/26/23 @ 13:09 by Jay August MD) S/P total knee arthroplasty bilateral History of cardiac catheterization 08/2022 - 40% LAD, no other significant disease noted Status post total right knee replacement History of colonoscopy History of back surgery s/p fusion L3-L5 History of neck surgery H/O: hysterectomy S/P cholecystectomy S/p bilateral carpal tunnel release Status post total knee replacement, left Remote Family History Other CAD (coronary artery disease) Diabetes Social History Smoking and tobacco/nicotine status: never used tobacco/nicotine Second hand smoke exposure: Yes (as a child (father smoked)) Alcohol intake: current Alcohol intake frequency: holidays/special occasions only Substance/Drug Use: never Lives independently: Yes Household members: spouse Marital status: Do you think of yourself as: Straight/Heterosexual Current gender identity: Female Course Vital Signs: Vital signs: Vital Signs Temperature 98.1 F 05/18/24 15:01 Pulse Rate 70 05/18/24 18:29 Respiratory Rate 14 05/18/24 18:29 Blood Pressure 181/74 05/18/24 18:29 Pulse Oximetry 93 05/18/24 18:29 Oxygen Delivery Me thod Room Air 05/18/24 15:01 MDM - SOB/Dyspnea Medical Decision Making Patient presents complaining of elevated blood pressure. She has no headache. She gets some pressure in her chest but some vague pressure sensation she will get off and on and has had that for months off and on. She also states she feels short of breath at times Mainly with activity. This has been going on for 6 weeks or longer she tells me. No significant rapid progression or change. She does have a history of PEs however and has not been compliant with her medication. I advised her the importance of medication compliance and she expresses understanding. CHF exacerbation, PE, OR, dissection, pericardial effusion, cardiac dysrhythmia, pleural effusion, bronchitis, anxiety, hypertensive crisis, among many others in the differential. Not suggestive symptoms of dissection. Not suggestive of PE either however with her history warrants checking a D-dimer. She states she is allergic to IV dye but she tolerates CAT scan dye with premedication with Benadryl in the past without issue and is comfortable proceeding with CT with contrast if D-dimer is elevated. I ordered CBC and CMP and troponin and proBNP and chest x-ray. Will monitor her blood pressure. She currently is in the 180s over 90s. Patient's blood pressure remains elevated. I ordered 20 mg Lasix IV and clonidine 0.1 mg p.o. Patient also has chronic pain and takes tramadol and Tylenol she states and would like her normal home dose and I ordered 100 mg of tramadol per her request and 650 mg of p.o. Tylenol for her request for her chronic pain. Patient's alert using her phone in the bed In no acute distress. Patient's D-dimer was not significantly elevated with age adjusted and low pretest probability.Patient's white count was within normal limits. Patient chest x-ray negative for acute process per radiology. Patient's first troponin is indeterminate. Delta troponin is pending. Patient white count is within normal limits. Patient's white blood cell count within normal limits. Patient EKG shows a sinus rhythm with PACs to my interpretation. Patient creatinine within normal limits. Patient blood pressure went up over 200. After 20 mg of Lasix IV and 0.1 of clonidine p.o. the patient blood pressure is close to 180. Patient remains asymptomatic. Will administer additional 0.1 clonidine. If patient's blood pressure continues to trend down reasonable discharge home if delta troponin is negative with continued close outpatient follow-up. Patient endorsed to Dr. Best Patient care transferred over to myself at shift change, lab work was reviewed, patient is stable. Patient be discharged. Lab Data 05/18/24 16:23 05/18/24 16:23 Labs/Radiology: Radiology Impressions Chest X-Ray 05/18/24 15:50 IMPRESSION: No acute findings. Laboratory Results WBC 7.43 10^3/uL (3.29-11.43) 05/18/24 16: RBC 4.22 10^6/uL (3.85-5.65) 05/18/24 16: Hgb 12.40 g/dL (11.27-16.99) 05/18/24 16: Hct 39.1 % (36-47) 05/18/24 16: MCV 92.7 fl (85-98) 05/18/24 16:23 MCH 29.4 pg (27-33) 05/18/24 16: MCHC 31.7 g/dL (30-55) 05/18/24 16: RDW 14.3 % (12.1-15.1) 05/18/24 16: Plt Count 185 10^3/cmm (157-399) 05/18/24 16: MPV 10.0 fL (7.4-10.4) 05/18/24 16: Neut % (Auto) 57.4 % 05/18/24 16:23 Lymph % (Auto) 30.4 % 05/18/24 16:23 Brewster % (Auto) 7.1 % 05/18/24 16:23 Eos % (Auto) 4.2 % 05/18/24 16:23 Baso % (Auto) 0.5 % 05/18/24 16:23 Neut # (Auto) 4.26 10^3/uL (1.8-7.7) 05/18/24 16:23 Lymph # (Auto) 2.3 10^3/uL (0.8-4.8) 05/18/24 16:23 Brewster # (Auto) 0.5 10^3/uL (0.2-0.9) 05/18/24 16:23 Eos # (Auto) 0.3 10^3/uL (0.0-0.8) 05/18/24 16: Baso # (Auto) 0.0 10^3/uL (0.0-0.1) 05/18/24 16:23 Nucleated RBC % (auto) 0 % 05/18/24 16: Nucleated RBCs # 0.0 /100WBC 05/18/24 16:23 D-Dimer 0.66 ug/mLFEU (0-0.59) H 05/18/24 16:23 Sodium 144 mmol/L (136-145) 05/18/24 16:23 Potassium 3.8 mmol/L (3.5-5.1) 05/18/24 16:23 Chloride 107 mmol/L (98-107) 05/18/24 16:23 Carbon Dioxide 29 mmol/L (22-29) 05/18/24 16:23 Anion Gap 11.8 (5-19) 05/18/24 16:23 BUN 18 mg/dL (8-23) 05/18/24 16:23 Creatinine 0.8 mg/dL (0.5-0.9) 05/18/24 16:23 GFR Calculation Not Reportable 05/18/24 16:23 Glucose 136 mg/dL (65-115) H 05/18/24 16:23 Calculated Osmolality 302 mOsm/kg (285-295) H 05/18/24 16:23 Calcium 8.9 mg/dL (8.5-10.5) 05/18/24 16:23 Total Bilirubin 0.3 mg/dL (0.15-1.2) 05/18/24 16:23 AST 12 U/L (0-32) 05/18/24 16:23 ALT 12 U/L (0-33) 05/18/24 16:23 Alkaline Phosphatase 110 U/L (35-105) H 05/18/24 16:23 Troponin T Baseline 22 ng/L (0-10) H 05/18/24 16:23 Troponin T 120 Minute 20.47 ng/L (0-10) H 05/18/24 18:52 Delta Troponin T -1.53 ABS# (0-10) L 05/18/24 18:52 NT-Pro-B Natriuret Pep 388 pg/mL (0-450) 05/18/24 16:23 Total Protein 6.4 g/dL (6.6-8.7) L 05/18/24 16:23 Albumin 4.0 g/dL (3.5-5.2) 05/18/24 16:23 Globulin 2.4 g/dL (1.3-4.6) 05/18/24 16:23 All radiology interpretation(s) finalized by discharge Discharge Plan Discharge Patient Disposition: Home Clinical Impression: Essential (primary) hypertension, Shortness of breath Chest pain Qualifiers: Chest pain type: unspecified Qualified Code(s): R07.9 - Chest pain, unspecified Condition: Stable Prescriptions: New clonidine HCl 0.1 mg tablet 0.1 mg PO QID PRN (Reason: For blood pressure greater than 180/100) Qty: 30 0RF No Action (DME) lift recliner See Rx Instructions .Route .MEDSUPPLY Qty: 1 0RF Rx Instructions: As directed (DME) Accu-Chek Leeann Plus test strp Strip See Rx Instructions .ROUTE .MEDSUPPLY Qty: 200 1RF Rx Instructions: ONE DAILY (DME) lancets [Accu-Chek Softclix Lancets] Misc See Rx Instructions .Route Qty: 200 0RF Rx Instructions: As directed (DME) upright wheeled walker See Rx Instructions .Route .MEDSUPPLY Qty: 1 0RF Rx Instructions: As directed furosemide 20 mg tablet 20 mg PO DAILY PRN (Reason: edema) Qty: 90 1RF losartan 50 mg tablet 50 mg PO DAILY Qty: 90 3RF tramadol 50 mg tablet 50 mg PO Q6H PRN (Reason: pain) 30 Days Qty: 30 0RF (DME) BIPAP with / with Oxygen with supplies See Rx Instructions .Route .MEDSUPPLY Qty: 1 0RF Rx Instructions: As directed tizanidine 2 mg tablet 2 mg PO TID PRN (Reason: MUSCLE SPASMS) Qty: 90 2RF venlafaxine 75 mg capsule,extended release 24hr 75 mg PO DAILY Qty: 90 0RF Rx Instructions: ALONG WITH THE 150 MG TO =225MG TOTAL pregabalin 50 mg capsule 50 mg PO TID Qty: 90 0RF fluoxetine 10 mg tablet 10 mg PO DAILY Qty: 90 0RF allopurinol 100 mg tablet 100 mg PO DAILY Qty: 90 0RF (DME) pen needle, diabetic [BD Rosalva 2nd Gen Pen Needle] 32 gauge x 5/32 needle See Rx Instructions .ROUTE .COMPLEX Qty: 100 0RF Dose Instruction: USE WITH INSULIN DAILY Rx Instructions: USE WITH INSULIN DAILY atorvastatin 20 mg tablet 40 mg PO DAILY Qty: 360 3RF pantoprazole 40 mg tablet,delayed release (DR/EC) 40 mg PO DAILY Qty: 90 1RF isosorbide mononitrate 30 mg tablet extended release 24 hr 60 mg PO DAILY 30 Days Qty: 30 0RF metoprolol succinate 50 mg tablet extended release 24 hr 50 mg PO DAILY amlodipine 10 mg tablet 10 mg PO DAILY mupirocin 2 % ointment See Rx Instructions .ROUTE .COMPLEX Rx Instructions: APPLY TO SURGICAL SITE ON NOSE 1-2 TIMES DAILY UNTIL HEALED. venlafaxine 150 mg capsule,extended release 24hr 150 mg PO DAILY Rx Instructions: along with 75mg fr=832pc total trazodone 100 mg tablet 100 mg PO BEDTIME acarbose 25 mg tablet 25 mg PO TID PRN (Reason: high bs) insulin glargine [Lantus Solostar U-100 Insulin] 100 unit/mL (3 mL) insulin pen 55 unit SUBCUT BID Discharge Orders: Discharge ED (Routine); Ordered 05/18/24 Ordered By: Ángel Best Patient Instructions: Chest Pain (ED), Chronic Hypertension (ED), Shortness of Breath (ED) Activity Restrictions/Additional Instructions: You are given clonidine for your high blood pressure in ER. You have been sent home with a prescription for clonidine. Please take it as directed. Please take 1 pill every 4 hours as needed only if your blood pressure is greater than 180/100. Please keep a blood pressure log. Please follow-up with your family practice physician within the next 7 days. Coding Level of Care Code ED Rehabilitation Technician for Ben Salomon
[2024-05-18 16:31] LABS: Basophils % 0.5 %; Eosinophils # 0.3 10^3/uL (0.0-0.8); Eosinophils % 4.2 %; Hematocrit 39.1 % (36-47); Lymphocytes # 2.3 10^3/uL (0.8-4.8); Lymphocytes % 30.4 %; Mean Corpuscular HGB Conc 31.7 g/dL (30-55); Mean Corpuscular Hemoglobin 29.4 pg (27-33); Mean Corpuscular Volume 92.7 fl (85-98); Monocytes # 0.5 10^3/uL (0.2-0.9); Monocytes % 7.1 %; Neutrophils # 4.26 10^3/uL (1.8-7.7); Neutrophils % 57.4 %; Nucleated Red Blood Cells % 0 %; Platelet Count 185 10^3/cmm (157-399); Red Blood Count 4.22 10^6/uL (3.85-5.65); Red Cell Distribution Width 14.3 % (12.1-15.1); White Blood Count 7.43 10^3/uL (3.29-11.43)
[2024-05-18 16:48] LABS: D Dimer 0.66 ug/mLFEU (0-0.59)
[2024-05-18 17:14] LABS: Troponin(5th) Baseline 22 ng/L (0-10)
[2024-05-18 17:23] LABS: Alanine Aminotransferase 12 U/L (0-33); Alkaline Phosphatase 110 U/L (35-105); Anion Gap 11.8 (5-19); Aspartate Amino Transferase 12 U/L (0-32); Blood Urea Nitrogen 18 mg/dL (8-23); Calcium 8.9 mg/dL (8.5-10.5); Carbon Dioxide 29 mmol/L (22-29); Chloride 107 mmol/L (98-107); Creatinine Clr Calc Pharmacy 83.6915; Globulin 2.4 g/dL (1.3-4.6); Glucose 136 mg/dL (65-115); NT Pro B Type Natriuretic Pept 388 pg/mL (0-450); Osmolality Calculated 302 mOsm/kg (285-295); Potassium 3.8 mmol/L (3.5-5.1); Sodium 144 mmol/L (136-145); Total Bilirubin 0.3 mg/dL (0.15-1.2); Total Protein 6.4 g/dL (6.6-8.7)
[2024-05-18 17:42] VITALS: BP 208/104
[2024-05-18] MEDS: cloNIDine 0.1 mg Tablet PO ×2 (17:42→18:27)
[2024-05-18] MEDS: FUROsemide 10 mg/mL SDV 2mL 20 MG IVP (17:42)
[2024-05-18] MEDS: TRAMadol 50 mg Tablet 100 MG PO (17:42)
[2024-05-18] MEDS: acetaminophen 325 mg Tablet 650 MG PO (17:42)
[2024-05-18 17:51] VITALS: PULSE 66; O2SAT 92
--- NOTE | 2024-05-18 17:51 | ECG_ITS ---
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
[2024-05-18 18:27] VITALS: BP 181/74
[2024-05-18 18:29] VITALS: BP 181/74; PULSE 70; RESP 14; O2SAT 93
[2024-05-18 19:46] LABS: Troponin 5 2HR 20.47 ng/L (0-10)
[2024-05-18 19:49] LABS: Troponin 5 2HR Delta -1.53 ABS# (0-10)
[2024-05-18 20:19] VITALS: BP 190/84; PULSE 78; RESP 20; O2SAT 100
== END 2024-05-18 20:27 | disposition home or self-care (01) ==
PROVIDERS: Emergency Provider Emergency Medicine
DX: I10 Essential (primary) hypertension (principal); R06.02 Shortness of breath; R07.9 Chest pain, unspecified; Z79.4 Long term (current) use of insulin; E11.40 Type 2 diabetes mellitus with diabetic neuropathy, unspecified; E78.5 Hyperlipidemia, unspecified
CPT/HCPCS: 36415; 71045; 80053; 83880; 84484; 85025; 85378; 93005; 96374; 99285; J1940

== ENCOUNTER 2024-05-23 10:12 | Outpatient (CLI) | payer MEDICARE, OTHER, SELFPAY ==
--- NOTE | 2024-05-23 10:30 | USCV_ITS ---
Melissa De Jesus Age: 74 Gender: F : 1950 Exam Date: 05/23/2024 10:24 Ordering Phys: Gabbie Nieves NP Technologist: WENDY [place] [facility] [place]: Swelling HISTORY: Lower extremity swelling. PROCEDURES: Venous duplex imaging was performed in bilateral lower extremities. The following venous structures were evaluated: common femoral vein, profunda vein, proximal portion of the greater saphenous vein, superficial femoral vein, and the popliteal vein. In addition, the posterior tibial and peroneal trunk were evaluated. Serial compression, augmentation maneuvers, and spectral Doppler flow evaluation were performed. FINDINGS: Normal 2-D Doppler and augmentation and compressibility throughout the lower extremity venous structures. Additional imaging through the proximal calf veins also reveals no thrombus. Limited evaluation of the greater saphenous vein is patent with no thrombus. CONCLUSIONS No DVT bilateral lower extremities. Dr. Aruna Roger DO (Electronically Signed) Final Date: 23 May 2024 12:19 S
== END 2024-05-23 10:13 | disposition home or self-care (01) ==
LOC: RAD 10:14
PROVIDERS: Visit Provider Nurse Practitioner Family
DX: I26.99 Other pulmonary embolism without acute cor pulmonale (principal)
CPT/HCPCS: 93970

== ENCOUNTER → 2024-06-15 09:16 | Outpatient (BNVA) | payer MEDICARE, OTHER, SELFPAY | PROVIDERS: Visit Provider Nurse Practitioner Family | DX: L82.1 Other seborrheic keratosis (principal); L73.8 Other specified follicular disorders; L57.8 Other skin changes due to chronic exposure to nonionizing radiation; L81.4 Other melanin hyperpigmentation; Z08 Encounter for follow-up examination after completed treatment for malignant neoplasm | CPT/HCPCS: 11200; 99213 ==

== ENCOUNTER → 2024-06-27 09:45 | Outpatient (BNVA) | payer MEDICARE, OTHER, SELFPAY | PROVIDERS: Visit Provider Internal Medicine | DX: Z01.810 Encounter for preprocedural cardiovascular examination (principal); R06.09 Other forms of dyspnea; E11.65 Type 2 diabetes mellitus with hyperglycemia; E78.2 Mixed hyperlipidemia; I10 Essential (primary) hypertension; Z79.4 Long term (current) use of insulin | CPT/HCPCS: 99214 ==

== ENCOUNTER 2024-07-12 08:19 | Outpatient (CLI) | payer MEDICARE, OTHER, SELFPAY ==
[2024-07-12 08:45] VITALS: BMI 52.7
--- NOTE | 2024-07-12 08:48 | ECG_ITS ---
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 Interpretive Statements LEXISCAN: Procedure: At the baseline, the blood pressure was 182/93 mmHg with a heart rate of 69 bpm. The electrocardiogram showed normal sinus rhythm, normal axis with normal ST and T's. The Lexiscan was infused over a period of 20 seconds. A total of 0.4 mg of Lexiscan was infused. The stress phase was continued for a total of 5 minutes. Heart rate was at the end of stress phase was 73 bpm and a blood pressure of 167/85 mmHg. The EKG at the peak infusion revealed normal sinus rhythm with no significant ST-T wave changes. Sestamibi was injected 20 seconds after the Lexiscan infusion. Blood pressure at the end of recovery phase was 167/87 mmHg with a heart rate of 73 bpm. Conclusion: 1. Normal EKG response to Lexiscan infusion 2. No Lexiscan induced chest pain or cardiac arrhythmia. 3. Normal blood pressure and heart rate response. 4. Sestamibi/sestamibi perfusion scan pending; see separate report. Electronically Signed On 07-23-2024 01:52:07 CDT by Anders Garrido M.D. [id number] [id number]
--- NOTE | 2024-07-12 08:49 | NMCV_ITS ---
NM aries perf SPECT r/s* [id number] Melissa De Jesus Age: 74 Gender: F : 1950 Exam Date: 07/12/2024 08:49 Ordering Phys: Anders Garrido M.D ([email or web address]) Technologist: HOLLY Aguirre Exam [facility]: [facility] Indications: cp STRESS TEST Please see separate stress test report [facility] for full findings IMAGE PROTOCOL Rest/Stress 1 Lexiscan Day Radiopharmaceutical Dose (mCi) Administration Site Administered by Rest: Tc-99m 10.9 IV HOLLY Aguirre Sestamibi Stress:Tc-99m 32.8 IV HOLLY Lewis Sestamibi Rest: 12-Jul-2024 60 Discovery 630 Stress: 12-Jul-2024 30 Discovery 630 0.4mg Lexiscan. Supine position only as patient was unable to lay prone. SPECT RESULTS Technical Quality: Good Raw Data Analysis: Breast attenuation, Soft tissue attenuation Image Corrections: No attenuation or motion correction applied Summed Stress Score: 3 Summed Rest Score: 9 Summed Difference Score: 0 PERFUSION FINDINGS Medium sized area of fixed perfusion defect seen in the apical lateral wall. 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 Medium sized area of inconsistent, reversible reduced radiotracer uptake seen in septal wall. This may represent medium sized area of ischemia in septal wall. However attenuation artifact can not be ruled out. Prone imaging not performed. FUNCTIONAL RESULTS (calculated via Gated SPECT) Stress Image LV EF (%): 72 Stress EDV (mL):135 TID: 1.03 Stress ESV (mL):38 FUNCTIONAL FINDINGS: There is normal left ventricular systolic function. IMPRESSIONS 1. 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 Medium sized area of ischemia versus attenuation artifact in the septal wall. Clinical correlation is required. 3. LV systolic function is normal Anders Garrido MD (Electronically Signed) Final Date: 13 July 2024 12:58 S
[2024-07-12] MEDS: regadenoson 0.4 Mg/5 ml Syringe IVP (10:34)
[2024-07-12 11:03] VITALS: BP 167/87; PULSE 72
== END 2024-07-12 08:20 | disposition home or self-care (01) ==
LOC: CDL 08:21
PROVIDERS: PCP Family Medicine; Visit Provider Internal Medicine
DX: R07.9 Chest pain, unspecified (principal); R93.1 Abnormal findings on diagnostic imaging of heart and coronary circulation
CPT/HCPCS: 36415; 78452; 93017; 96374; A9500; J2785

== ENCOUNTER → 2024-07-27 14:24 | Outpatient (BNVA) | payer MEDICARE, OTHER, SELFPAY | PROVIDERS: PCP Family Medicine; Visit Provider Family Medicine | DX: I10 Essential (primary) hypertension (principal); E11.65 Type 2 diabetes mellitus with hyperglycemia; I26.99 Other pulmonary embolism without acute cor pulmonale; R58 Hemorrhage, not elsewhere classified; R06.02 Shortness of breath; R94.39 Abnormal result of other cardiovascular function study | CPT/HCPCS: 80053; 83036; 84439; 84443 ==

== ENCOUNTER → 2024-07-28 08:39 | Outpatient (BNVA) | payer MEDICARE, OTHER, SELFPAY | PROVIDERS: PCP Family Medicine; Visit Provider Internal Medicine | DX: E11.65 Type 2 diabetes mellitus with hyperglycemia (principal); E78.2 Mixed hyperlipidemia; R00.1 Bradycardia, unspecified | CPT/HCPCS: 99214 ==

== ENCOUNTER 2024-08-15 08:52 | Outpatient (CLI) | payer MEDICARE, OTHER, SELFPAY ==
[2024-08-15] VITALS (13 sets, daily range): BP systolic 142–207; BP diastolic 74–116; PULSE 71–82; RESP 17–24; TEMP 36.4–36.8; O2SAT 90–95; BMI 50.4
--- NOTE | 2024-08-15 09:00 | XACV_ITS ---
Exam Room: 2 Ht: 163 cm Wt: 133 kg BSA: 2.54 m2 Gender: Female : 1950 Any Known Allergies: Contrast Exam Priority: Routine Procedure(s): Procedure Description: Diagnostic procedure Procedure Description: Coronary Angiography Procedure Description: Pressure Wire Diagnostic Cath Status: Elective Diagnostic Findings * INDICATION: 74-year-old female who was found history of diabetes, who has been having significant dyspnea on exertion. Stress test was performed previously that is abnormal. Probably possible PCI. Also planning to have bariatric surgery. * Left Main has no significant disease. * Circumflex has no significant disease. * Mid Left Anterior Descending: moderate 40- 50% stenosis, PADILLA: 3 flow. iFR performed that showed non-ischemic value of 0.96. * Mid Right Coronary Artery: mild 20-30% stenosis, PADILLA: 3 flow. * Coronary angiography shows right dominance. PCI Status: Elective Interventional Findings * Procedure detail: We engaged left main artery with XB 3.0 guide catheter. Heparin was administered to maintain anticoagulation. After normalization, IFR wire was advanced into distal LAD. iFR value of 0.96 was obtained that was nonischemic. iFR wire was removed and final angiogram was performed. Patient left the Brand Marketing Coordinator in a stable condition. Conclusions 1. Moderate mid LAD stenosis status post IFR that is nonischemic. Medical therapy.. Recommendations * Aggressive risk factor modification. * Outpatient cardiology follow up in 2-4 weeks. Interventional RX Recommendation: medical therapy and/or counseling Diagnostic RX Recommendation: other cardiac therapy w/o CABG/PCI Anticoagulation: Heparin Pressures Phase:Rest AO : 142 / 92 ( 116 ) @ 1:50:00 PM 165 / 75 ( 106 ) @ 1:55:00 PM Clinical Evaluation EBL: 5mL-10mL Procedural Details Procedure Consent Obtained. Pre-Procedure Time Out. Identified patient by full name and date of as verbalized by the patient/guarantor. Does the consent match the physician's order: Yes. Accurate & Complete Informed Consent: Yes. Inpatient/Outpatient History & Physical on Chart: Yes. If H&P is completed, is and addenduem needed: No; If yes, is the addendum complete: N/A. Visualize and Verify Site with Patient/Guarantor: N/A. Relevant Radiology Images available: Yes. The risks, benefits, and alternatives of sedation and/or procedure were discussed by physician. The patient agrees to continue. Procedure started. [facility] Clinical Fraility Score: 6: Moderately Frail. Brand Marketing Coordinator Indications: HEWITT/Abnormal stress test. Chest Pain Symptom Assessment: Atypical Angina. Cardiovascular Instability: No. Correct patient, site and procedure confirmed by cath team. PERRLA. Strong, equal hand slasher tender helper bilaterally. Lungs clear x 5 lobes. IV Site on Arrival: 20 gauge in the left anticubital. IV Fluids: 0.9% NaCl at KVO. 0 mL infused prior to cath laboratory technician. Pre Procedural Pulses: bilateral dorsalis pedis was 3+. Pre Procedural Pulses: bilateral posterior tibial was 3+. Pre Procedural Pulses: bilateral radial was 3+. Oxygen started at 2liters/min via nasal canula. right groin was prepped with chloroprep then draped in the usual sterile fashion. right radial was prepped with chloroprep then draped in the usual sterile fashion. Physician notified. Baseline sample Acquired. HR: 79 BPM. Patient's family in CPRU room #4. Dr. Garrido will update at the completion of the procedure. Equipment: 6F - Radial. Cardiac Cath Pack. ACIST Manifold Kit Model BT 2000. Heparinized Saline (2 units/mL), 1000 mL bag. Physician arrived. Physician scrubbed in. Immediate Pre-Procedure Time Out. Correct Patient: Yes; Correct Procedure: Yes; Correct Site: Yes; Correct Patient Position: Yes; Correct Supplies: Yes; Dried Flammable Prep: Yes; Blood Products Available: N/A. Lidocaine 1% infiltrated to the right radial. Arterial access obtained. Lidocaine 1% infiltrated to the right radial. A 5 amharic TIG catheter in over the exchange J wire. Multiple views taken of left coronary artery. Catheter redirected to the RCA. Multiple views taken of right coronary artery. Catheter removed over the standard J wire. 6 amharic XB 3 guide catheter was inserted over the exchange J wire. iFR wire in and advanced distal to the lesion in the Mid LAD. iFR of the LAD = 0.96 with a pullback of 0.94. iFR wire out. Cineography of the LCA performed. Guide catheter out over the exchange J wire. Dr. Garrido scrubbed out. A TR Band was successful obtaining hemostatsis at the Right Radial artery insertion site. Post Procedure: Pulses reassessed and unchanged. PERRLA. Strong, equal hand slasher tender helper bilaterally. No VTE prophylaxis required. Medication's Wasted: Lidocaine 1% = 16 mL. Medication's Wasted: Nitro = 49.6 mg. Medication's Wasted: Heparin = 2000 units. Medication's Wasted: Other = Hydralazine 10 mg. Total IV fluids: 20 mL. Post-op diagnosis: Moderate stenosis of the Mid LAD S/P iFR of 0.96. Complications: none. Estimated blood loss: 5mL-10mL. Responsiveness - Normal response to verbal stimuli; alert and oriented, PERRLA. Airway - Unaffected, no intervention required; spontaneous ventilation. Circulation: W/N/L, pulses unchanged. Nausea/Vomiting: No. Procedure completed. Patient transferred by bed to 1st floor. Vital chart was stopped. Access Site Site: Right Radial artery Sheath Size: 6 Fr Hemostasis Method: TR Band Hemostasis Success: Successful Procedure Medications Start: 12:45 PM Stop: 12:45 PM Medication: Versed Amount: 1 mg Route: I.V. Start: 12:46 PM Stop: 12:46 PM Medication: Fentanyl Amount: 50 mcg Route: I.V. Start: 12:46 PM Stop: 12:46 PM Medication: Versed Amount: 1 mg Route: I.V. Start: 12:46 PM Stop: 12:46 PM Medication: Nitrogylcerin Amount: 300 mcg Route: I.A. Start: 12:48 PM Stop: 12:48 PM Medication: Heparin Amount: 5000 units Route: I.V. Start: 12:50 PM Stop: 12:50 PM Medication: Hydralazine Amount: 10 mg Route: I.V. Start: 12:52 PM Stop: 12:52 PM Medication: Fentanyl Amount: 25 mcg Route: I.V. Start: 12:53 PM Stop: 12:53 PM Medication: Nitrogylcerin Amount: 100 mcg Route: I.A. Start: 12:54 PM Stop: 12:54 PM Medication: Heparin Amount: 4000 units Route: I.V. Start: 12:55 PM Stop: 12:55 PM Medication: Fentanyl Amount: 25 mcg Route: I.V. I, the attending physician, have reviewed and verified all procedure medications. Yes, all medications given per verbal order History/Risk Factors Hypertension: Yes Dyslipidemia: No Peripheral Arterial Disease (PAD): No Myocardial Infarction (VT): No Obesity: Yes Renal Disease: No Prior Interventions PCI: No CABG: No Valve Surgery: No Report Signatures Finalized by Anders Garrido MD on 08/25/2024 08:53 AM
[2024-08-15 09:44] LABS: Basophils % 0.2 %; Hematocrit 41.4 % (36-47); Lymphocytes # 1.1 10^3/uL (0.8-4.8); Lymphocytes % 13.5 %; Mean Corpuscular HGB Conc 32.6 g/dL (30-55); Mean Corpuscular Hemoglobin 30.1 pg (27-33); Mean Corpuscular Volume 92.2 fl (85-98); Mean Platelet Volume 10.5 fL (7.4-10.4); Monocytes # 0.1 10^3/uL (0.2-0.9); Monocytes % 0.6 %; Neutrophils # 7.12 10^3/uL (1.8-7.7); Neutrophils % 84.7 %; Nucleated Red Blood Cells % 0 %; Platelet Count 225 10^3/cmm (157-399); Red Blood Count 4.49 10^6/uL (3.85-5.65); Red Cell Distribution Width 13.4 % (12.1-15.1)
[2024-08-15] MEDS: aspirin 325 mg Tablet PO (09:55)
[2024-08-15] MEDS: diphenhydrAMINE 50 mg Capsule PO (09:55)
[2024-08-15 10:02] LABS: Anion Gap 17.8 (5-19); Blood Urea Nitrogen 26 mg/dL (8-23); Calcium 9.7 mg/dL (8.5-10.5); Carbon Dioxide 22 mmol/L (22-29); Chloride 99 mmol/L (98-107); Creatinine Clr Calc Pharmacy 73.4641; Osmolality Calculated 307 mOsm/kg (285-295); Potassium 4.8 mmol/L (3.5-5.1); Sodium 134 mmol/L (136-145)
[2024-08-15 10:03] LABS: Glucose 533 mg/dL (65-115)
--- NOTE | 2024-08-15 10:09 | SUR.PREOP ---
Critical Lab Glucose 533 with Lab draw. Reported to Dr Garrido. Verbal orders to give 10 units regular insulin sub Q received. Noted. Blood pressure 207/116 also reported. No new orders at this time for that received.
[2024-08-15] MEDS: insulin lispro 100 unit/1 mL 10 UNIT SUBCUT ×2 (10:23→11:17)
[2024-08-15 11:06] LABS: Glucose Point of Care 450 mg/dL (70-110)
--- NOTE | 2024-08-15 12:16 | PM.HP ---
Providers/Chief Complaint Primary Care Provider: Devi Shaw DO Chief Complaint: R94.39, I20.0 History of Present Illness Melissa De Jesus is a 74 year old female Medications/Allergies Home Medications ?Medication ?Instructions ?Recorded ?Confirmed ?Last Taken ?Type lift recliner #1 ea 05/12/22 08/14/24 08/14/24 09:00 Rx blood sugar diagnostic (Accu-Chek #200 ea 10/01/22 08/14/24 08/14/24 09:00 Rx Leeann Plus test strips) upright wheeled walker #1 ea 03/16/23 08/14/24 08/14/24 09:00 Rx lancets (Accu-Chek Softclix #200 ea 04/23/23 08/14/24 08/14/24 09:00 Rx Lancets) tramadol 50 mg tablet 50 mg PO Q6H PRN pain 30 days #30 07/22/23 08/15/24 Unknown Rx tabs BIPAP with 16/12 with Oxygen with #1 ea 09/09/23 08/14/24 08/14/24 09:00 Rx supplies isosorbide mononitrate 30 mg 60 mg (2 x 30 mg) PO DAILY 30 days 11/12/23 08/14/24 08/14/24 09:00 Rx tablet,extended release 24 hr #30 tabs acarbose 25 mg tablet 25 mg PO TID PRN high bs 05/18/24 08/15/24 Unknown History amlodipine 10 mg tablet 10 mg PO DAILY 05/18/24 08/14/24 08/14/24 09:00 History atorvastatin 20 mg tablet 40 mg (2 x 20 mg) PO DAILY #360 05/18/24 08/14/24 08/14/24 09:00 Rx tabs clonidine HCl 0.1 mg tablet 0.1 mg PO QID PRN For blood 05/18/24 08/15/24 Unknown Rx pressure greater than 180/100 #30 tabs losartan 100 mg tablet 100 mg PO DAILY #90 tabs 05/23/24 08/14/24 08/14/24 09:00 Rx trazodone 100 mg tablet 100 mg PO BEDTIME #90 tabs 05/29/24 08/15/24 08/14/24 21:00 Rx furosemide 20 mg tablet 20 mg PO DAILY PRN edema #90 tabs 06/10/24 08/15/24 Unknown Rx allopurinol 100 mg tablet 100 mg PO DAILY #90 tabs 07/13/24 08/14/24 08/14/24 09:00 Rx fluoxetine 10 mg tablet 10 mg PO DAILY #90 tabs 07/13/24 08/14/24 08/14/24 09:00 Rx hydralazine 100 mg tablet 100 mg PO BID #180 tabs 07/21/24 08/14/24 08/14/24 09:00 Rx pantoprazole 40 mg tablet,delayed 40 mg PO DAILY #90 tabs 07/24/24 08/14/24 08/14/24 09:00 Rx release pregabalin 50 mg capsule 50 mg PO TID #270 caps 07/27/24 08/15/24 08/14/24 21:00 Rx rivaroxaban 20 mg tablet (Xarelto) 20 mg PO DAILY #30 tabs 07/27/24 08/15/24 08/11/24 22:00 Rx tizanidine 2 mg tablet See Rx Instructions .Route 07/27/24 08/15/24 Unknown Rx .COMPLEX #270 tabs venlafaxine 150 mg 150 mg PO DAILY #90 caps 07/27/24 08/14/24 08/14/24 09:00 Rx capsule,extended release 24 hr venlafaxine 75 mg capsule,extended See Rx Instructions .Route 07/27/24 08/14/24 08/14/24 09:00 Rx release 24 hr .COMPLEX #90 caps pen needle, diabetic 32 gauge x #100 ea 07/28/24 08/14/24 08/14/24 09:00 Rx Basaglar KwikPen U-100 Insulin 100 55 unit (0.55 mL) SUBCUT BID 30 08/10/24 08/15/24 08/14/24 21:00 Rx unit/mL (3 mL) subcutaneous days #33 mL (insulin glargine) diphenhydramine HCl 25 mg tablet 25 mg PO DIRECTED allergy 08/14/24 08/15/24 08:00 Rx (Benadryl Allergy) symptoms #2 tabs enoxaparin 120 mg/0.8 mL 120 mg (0.8 mL) SUBCUT ONCE #0.8 mL 08/14/24 08/14/24 22:00 Rx subcutaneous syringe (Lovenox) prednisone 50 mg tablet 50 mg PO DIRECTED #3 tabs 08/14/24 08/15/24 08:30 Rx Allergies Allergy/AdvReac Type Severity Reaction Status Date / Time Iodinated Contrast Media Allergy Unknown Verified 08/15/24 10:17 meperidine (From Demerol) Allergy HIVES Verified 08/15/24 10:17 shellfish derived Allergy ANAPHYLAXIS Verified 08/15/24 10:17 cortisone AdvReac Mild high blood Verified 08/15/24 10:17 sugar PFSH Acute PFSH: Medical History Pulmonary embolism on left Pancreatic mass On CT imaging from 01/2023, stable cystic mass measuring 7 mm in the tail of the pancreas. No interval change since 2019. Lumbar stenosis with neurogenic claudication Spinal cord stimulator status Gout Urinary incontinence Obstructive sleep apnea On bipap, settings 16/12 with 2 lpm oxygen 3 para 3 Diabetes type 2, uncontrolled COVID-19 (~2021) Diverticulitis Essential (primary) hypertension Depression GERD (gastroesophageal reflux disease) Insomnia, controlled Hyperlipidemia Diabetic neuropathy Surgical History S/P total knee arthroplasty bilateral History of cardiac catheterization 08/2022 - 40% LAD, no other significant disease noted Status post total right knee replacement History of colonoscopy History of back surgery s/p fusion L3-L5 History of neck surgery H/O: hysterectomy S/P cholecystectomy S/p bilateral carpal tunnel release Status post total knee replacement, left Remote Family History Other CAD (coronary artery disease) Diabetes Social History Smoking and tobacco/nicotine status: never used tobacco/nicotine Second hand smoke exposure: Yes (as a child (father smoked)) Alcohol intake: current Alcohol intake frequency: holidays/special occasions only Substance/Drug Use: never Lives independently: Yes Household members: spouse Marital status: Do you think of yourself as: Straight/Heterosexual Current gender identity: Female Female Reproductive History: Para: 3 Spontaneous abortions: No Vitals/I&O/Wt Last Vital Signs Temp 98.2 F 08/15/24 10:03 Pulse 71 08/15/24 10:03 Resp 18 08/15/24 10:03 BP 207/116 08/15/24 10:03 Pulse Ox 92 08/15/24 10:03 O2 Del Method Room Air 08/15/24 10:03 Weight last 48 hrs Weight 294 lb Data 08/15/24 09:30 08/15/24 09:30 A&P PDMP PDMP Reviewed: Not Reviewed Coding Level of Care Code Acute Code for Chg Fwd
--- NOTE | 2024-08-15 12:37 | W.PM.OPSFHP ---
Same Day Surgery H&P Indication for Procedure/HPI DATE OF PROCEDURE: August 15, 2024 CHIEF COMPLAINT/INDICATIONFOR SURGICAL PROCEDURE: Dyspnea on exertion/abnormal stress test PREOP DIAGNOSIS: Dyspnea on exertion/abnormal stress test PLANNED PROCEDURE: Operation Date: 08/15/24 10:00 Proposed Procedures p Cardiac Catheterization - [facility] w/wo LV & Coros(Left) - Anders Garrido M.D Possible percutaneous coronary intervention 74-year-old male who was found history of diabetes, who has been having significant dyspnea on exertion. Stress test was performed previously that is abnormal. Probably possible PCI. Also planning to have bariatric surgery. Medications/Allergies* Home Medications ?Medication ?Instructions ?Recorded ?Confirmed ?Type acarbose 25 mg tablet 25 mg PO TID PRN high bs 05/18/24 08/15/24 History amlodipine 10 mg tablet 10 mg PO DAILY 05/18/24 08/14/24 History Allergies/Adverse Reactions Allergy/AdvReac Type Severity Reaction Status Date / Time Iodinated Contrast Media Allergy Unknown Verified 08/15/24 10:17 meperidine (From Demerol) Allergy HIVES Verified 08/15/24 10:17 shellfish derived Allergy ANAPHYLAXIS Verified 08/15/24 10:17 cortisone AdvReac Mild high blood Verified 08/15/24 10:17 sugar Current Medications: Generic Name Dose Route Start Last Admin Trade Name Freq PRN Reason Stop Dose Admin Sodium Chloride 1,000 mls @ 50 mls/hr 08/15/24 09:00 08/15/24 09:55 Sodium Chloride 0.9% IV 08/16/24 04:59 Not Given .Q20H ONE Pertinent History/Comorbid Conditions* Medical History (Updated 07/30/24 @ 15:36 by Devi Shaw DO) Pulmonary embolism on left Pancreatic mass On CT imaging from 01/2023, stable cystic mass measuring 7 mm in the tail of the pancreas. No interval change since 2019. Lumbar stenosis with neurogenic claudication Spinal cord stimulator status Gout Urinary incontinence Obstructive sleep apnea On bipap, settings / with 2 lpm oxygen 3 para 3 Diabetes type 2, uncontrolled COVID-19 (~2021) Diverticulitis Essential (primary) hypertension Depression GERD (gastroesophageal reflux disease) Insomnia, controlled Hyperlipidemia Diabetic neuropathy Surgical History (Updated 12/26/23 @ 13:09 by Jay August MD) S/P total knee arthroplasty bilateral History of cardiac catheterization 08/2022 - 40% LAD, no other significant disease noted Status post total right knee replacement History of colonoscopy History of back surgery s/p fusion L3-L5 History of neck surgery H/O: hysterectomy S/P cholecystectomy S/p bilateral carpal tunnel release Status post total knee replacement, left Remote Family History (Updated 06/01/19 @ 10:41 by Ronda Lubin LPN) Diabetes CAD (coronary artery disease) Social History Smoking and tobacco/nicotine status: never used tobacco/nicotine Second hand smoke exposure: Yes (as a child (father smoked)) Alcohol intake: current Alcohol intake frequency: holidays/special occasions only Substance/Drug Use: never Lives independently: Yes Household members: spouse Marital status: Do you think of yourself as: Straight/Heterosexual Current gender identity: Female Pertinent Exam Findings alert, oriented x 3, clear to auscultation bilaterally and regular rate & rhythm Conscious Sedation Assessment PATIENT ASSESSED PRIOR TO SEDATION, WITH NO CHANGE NOTED: Yes AIRWAY EVAL/ANESTHESIA PLAN: normal airway, ASA III, Local Anesthesia, Risks, benefits & alternatives of sedation and/or procedure discussed and Patient agrees to continue as planned ADDITIONAL INFORMATION: Moderate sedation Recommendations Risks and benefits of procedure reviewed Surgery/Procedure today (Left heart cath with possible percutaneous coronary intervention) Coding Level of Care Code Acute Code for Ben Salomon
--- NOTE | 2024-08-15 13:08 | PM.PROC ---
Procedure Note: Date of procedure: 08/15/24 Pre-procedure diagnosis: Dyspnea on exertion/abnormal stress test Post-procedure diagnosis: other (Moderate mid LAD stenosis s/p iFR that is negative for ischemia) Procedure: Mid LAD has a moderate 40 to 50% stenosis. iFR was performed that is nonischemic. Medical therapy Performing Provider: Anders Garrido Estimated blood loss (mL): 5 Complications: None Condition: stable Disposition: same day Coding Level of Care Code Acute Code for Ben Salomon
[2024-08-15 13:45] LABS: Glucose Point of Care 351 mg/dL (70-110)
[2024-08-15 16:10] LABS: Glucose Point of Care 371 mg/dL (70-110)
== END 2024-08-15 16:35 | disposition home or self-care (01) ==
LOC: CCL 08:58 → CSU 13:08
PROVIDERS: PCP Family Medicine; Visit Provider Internal Medicine
DX: I25.10 Atherosclerotic heart disease of native coronary artery without angina pectoris (principal); I10 Essential (primary) hypertension; E66.9 Obesity, unspecified; Z68.43 Body mass index [BMI] 50.0-59.9, adult; G47.33 Obstructive sleep apnea (adult) (pediatric); K21.9 Gastro-esophageal reflux disease without esophagitis; E78.5 Hyperlipidemia, unspecified; Z82.49 Family history of ischemic heart disease and other diseases of the circulatory system; E11.40 Type 2 diabetes mellitus with diabetic neuropathy, unspecified
CPT/HCPCS: 36415; 36416; 80048; 82962; 85025; 93454; 93571; 96374; 96375; 99152; 99153; C1769; C1887; C1894; J0360; J1644; J1815; J2250; J3010; J3490; J7030; J9999; Q0163; Q9967

== ENCOUNTER → 2024-08-24 13:05 | Outpatient (BNVA) | payer MEDICARE, OTHER, SELFPAY | PROVIDERS: PCP Family Medicine; Visit Provider Nurse Practitioner Family | DX: R06.09 Other forms of dyspnea (principal); Z09 Encounter for follow-up examination after completed treatment for conditions other than malignant neoplasm; E66.2 Morbid (severe) obesity with alveolar hypoventilation; Z68.43 Body mass index [BMI] 50.0-59.9, adult; I25.10 Atherosclerotic heart disease of native coronary artery without angina pectoris; E78.5 Hyperlipidemia, unspecified; Z86.711 Personal history of pulmonary embolism; Z79.01 Long term (current) use of anticoagulants | CPT/HCPCS: 99214 ==

== ENCOUNTER 2024-10-26 08:48 | Outpatient (CLI) | payer MEDICARE, OTHER, SELFPAY ==
[2024-10-26 10:25] LABS: Alanine Aminotransferase 14 U/L (0-33); Albumin Level 3.7 g/dL (3.5-5.2); Alkaline Phosphatase 100 U/L (35-105); Anion Gap 16.2 (5-19); Aspartate Amino Transferase 14 U/L (0-32); Blood Urea Nitrogen 14 mg/dL (8-23); Calcium 9.4 mg/dL (8.5-10.5); Carbon Dioxide 25 mmol/L (22-29); Chloride 106 mmol/L (98-107); Chol HDL Ratio 4.31 mg/dL (0.0-4.40); Cholesterol 155 mg/dL (0-200); Globulin 2.8 g/dL (1.3-4.6); Glucose 110 mg/dL (65-115); HDL Cholesterol 36 mg/dL (60-100); LDL Cholesterol Calculated 99 mg/dL (50-129); LDL HDL Ratio 2.75 RATIO (0.00-3.22); Osmolality Calculated 297 mOsm/kg (285-295); Potassium 4.2 mmol/L (3.5-5.1); Sodium 143 mmol/L (136-145); Total Bilirubin 0.4 mg/dL (0.15-1.2); Total Protein 6.5 g/dL (6.6-8.7); Triglycerides 101 mg/dL (0-150)
[2024-10-26 10:33] LABS: Estmated Average Glucose 217; Hemoglobin A1C 9.2 % (4.0-6.0)
[2024-10-26 10:38] LABS: Creatinine Urine, Random 89 mg/dL (28-217); Microalbumin Random Urine 5 ug/dL (0-20)
[2024-10-26 10:39] LABS: Microalbum Creatinine Ratio Ur 56 mg/dL (0-20)
== END 2024-10-26 08:49 | disposition home or self-care (01) ==
LOC: LAB 08:52
PROVIDERS: PCP Family Medicine; Visit Provider Internal Medicine
DX: E11.65 Type 2 diabetes mellitus with hyperglycemia (principal); R00.1 Bradycardia, unspecified; E78.2 Mixed hyperlipidemia
CPT/HCPCS: 36415; 80053; 80061; 82044; 83036

== ENCOUNTER 2024-11-07 11:55 | Emergency (ER) | payer MEDICARE, OTHER, SELFPAY ==
--- OUTSIDE RECORDS SUMMARY | 2024-11-07 12:01 | XMS_ITS | Patient Health Record ---
Author Organization [email or web address] Address [address] [place], [place] [id number] Care Team Providers Care Transformation Analyst Name Role Phone Devi Shaw DO Primary Care Provider Flo Shepard MD, Alexsander Unavailable [phone] Serg Connell DO Unavailable Unavailable Carlin BROILER SUPERVISORKenisha Unavailable [phone] Allergies Allergen (clinical drug ingredient) Drug/Non Drug Allergy documented on EMR Reaction Allergy Type Onset Date Status iodinated contrast media (uncoded) anaphylaxis Allergy Active shellfish derived (uncoded) Unknown Allergy Active meperidine meperidine hives Drug Allergy Activ e Results Component Value Reference Range Notes Embedded PDF Reviewed date:08/07/2024 07:55:27 AM Interpretation: Performing Lab: Notes/Report: Acetyl fentanyl: Fentanyl Negative. Acetyl norfentanyl: Fentanyl Negative. Acry l fentanyl: Fentanyl Negative. Carfentanil: Fentanyl Negative. Para-fluorofentan yl: Fentanyl Negative. [place], [address], [facility] [address] [address], , L ab Director: Amanda Figueroa MD, CLIA ID# [id number] Brightfish Results Reviewed date:08/07/2024 07:55:18 AM Interpretation: Performing Lab:[id number] [place], [address] [facility] [address] Amanda Figueroa MD Notes/Report: [place], [address] [facility] [address], [place] [address], , L ab Director: Amanda Figueroa MD, IA ID# [id number] OPIATES SCREEN negative 300 ng/mL Codeine Quantification negative 50 ng/mL Morphine Quantification negative 50 ng/mL Hydrocodone Quantification negative 50 ng/mL Norhydrocodone Quantification negative 50 ng/mL Hydromorphone Quantification negative 50 ng/mL OXYCODONE SCREEN negative 100 ng/mL Oxycodone Quantification negative 50 ng/mL Noroxycodone Quantification negative 50 ng/mL Oxymorphone Quantification negative 50 ng/mL BUPRENORPHINE SCREEN negative 10 ng/mL Buprenorphine Quantification negative 5 ng/mL Norbuprenorphine Quantification negative 20 ng/mL FENTANYL SCREEN negative 2 ng/mL Fentanyl Quantification negative 1 ng/mL Norfentanyl Quantification negative 8 ng/mL METHADONE SCREEN negative 300 ng/mL Methadone Quantification negative 100 ng/mL EDDP (Methadone metabolite) Quantification negative 100 ng/mL TRAMADOL SCREEN positive 200 ng/mL Tramadol Quantification positive-5978.254 100 ng/mL S-zseteopos-wcihajnt Quantification positive-2177.104 100 ng/mL K-Wqzhouubv-Dlauhvvo Quantification positive-4688.654 100 ng/mL Tapentadol Quantification negative 50 ng/mL BENZODIAZEPINES SCREEN negative 200 ng/mL Alpha-Hydroxyalprazolam Quantification negative 20 ng/mL 5-Qihib-Bacbxpntax Quantification negative 20 ng/m L Lorazepam Quantification negative 40 ng/mL Nordiazepam Quantification negative 40 ng/mL Temazepam Quantification negative 50 ng/mL Oxazepam Quantification negative 40 ng/mL AMPHETAMINES SCREEN negative 500 ng/mL Amphetamine Quantification negative 100 ng/mL Gabapentin Quantification negative 1000 ng/mL Pregabalin Quantification positive-49155.734 400 ng/mL Naltrexone Quantification negative 10 ng/mL Naltrexol Quantification negative 10 ng/mL Naloxone Quantification negative 20 ng/mL Carisoprodol Quantification negative 100 ng/mL Meprobamate Quantification negative 100 ng/mL BARBITURATES SCREEN negative 200 ng/mL Pentobarbital Quantification negative 200 ng/mL Phenobarbital Quantification negative 200 ng/mL Secobarbital Quantification negative 200 ng/mL Butalbital Quantification negative 200 ng/mL Methamphetamine Quantification negative 100 ng/mL COCAINE METABOLITE SCREEN negative 150 ng/mL Cocaine metabolite Quantification negative 50 ng/m L CANNABINOIDS (cTHC) SCREEN negative 50 ng/mL cTHC (Marijuana metabolite) Quantification negative 15 ng/mL MDMA SCREEN negative 500 ng/mL MDMA Quantification negative 100 ng/mL HEROIN METABOLITE SCREEN negative 10 ng/mL 6-RICKI (Heroin metabolite) Quantification negative 10 ng/mL PHENCYCLIDINE SCREEN negative 25 ng/mL Phencyclidine Quantification negative 10 ng/mL Acetyl fentanyl Quantification Fen Neg 2 ng/mL Acetyl norfentanyl Quantification Fen Neg 5 ng/mL Acryl fentanyl Quantification Fen Neg 1 ng/mL Carfentanil Quantification Fen Neg 2 ng/mL Para-fluorofentanyl Quantification Fen Neg 1 ng/m L CREATININE normal-23.5 >20 mg/dL mg/dL OXIDANT normal-0 <200 ug/mL ug/mL PH normal-6.0 4.5 - 9.5 SPECIFIC GRAVITY normal-1.006 1.003 - 1.035 Urine tox screen / MS if ind icated Reviewed date:08/07/2024 07:55:49 AM Interpretation:Consistent Performing Lab: Notes/Report: Consistent Urine tox screen / MS if ind icated Reviewed date:08/07/2024 07:55:49 AM Interpretation:Consistent Performing Lab: Notes/Report: Consistent X-ray: Lumbar spine (AP and Lateral, Flexion and Extension) 19731 Reviewed date:05/18/2024 10:37:39 AM Interpretation: Performing Lab: Notes/Report: Reason For Referral No Information Medications Medication SIG (Take, Route, Frequency, Duration) Notes Start Date End Date Status traZODone 100 mg 1 tab(s) orally once a day Active Glucotrust - Healthy Blood Sugar Support Formula Active furosemide 20 mg 1 tab(s) orally once a day Active Xarelto 20 mg TAKE 1 TABLET BY MOUTH EVERY DAY WITH EVENING MEAL for 30 Days Active FLUoxetine 10 mg 1 tab(s) orally once a day for 30 day(s) Active venlafaxine 150 mg 1 cap(s) orally once a day Active allopurinol 100 mg 1 tab(s) orally once a day Active venlafaxine 75 mg 1 tab(s) orally 2 times a day Active glipiZIDE 10 mg 1 tab(s) orally once a day Active pantoprazole 40 mg 1 tab(s) orally once a day Active Metoprolol Succinate ER 50 mg 1 tab(s) orally once a day Active losartan 100 mg 1 tab(s) orally once a day for 30 days Active pregabalin 50 mg 1 cap orally Q8H for 28 days 09/21/2024 Active traMADol 50 mg 1 tab orally Q4H prn pain (max 4/day; hold within 4H of planned sleep) for 28 days ICD-10: G89.29 09/21/2024 Active acarbose 25 mg 1 tab(s) orally 3 times a day for 30 day(s) Active atorvastatin 40 mg 1 tab(s) orally once a day Active isosorbide mononitrate 30 mg 1 tab(s) orally once a day (in the morning) Active tiZANidine 2 mg 1 tab orally Q8H prn spasm Active Social History Tobacco Use: Social History Observation Description Date Details (start date - stop date) Never Smoker NA - NA Tobacco use: Question Answer Notes : nonsmoker AUDIT-C (Standard) Question Answer Notes Did you have a drink contain ing alcohol in the past year? Yes How often did you have six o r more drinks on one occasion in the past year? Never (0 point) How many drinks did you have on a typical day when you were drinking in the past year? 1 or 2 drinks (0 point) How often did you have a dri nk containing alcohol in the past year? 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 (Z79.891) Active confirmed Problem Obstructive sleep apnea syndrome (disorder) (18033991) Obstructive sleep apnea (adult) (pediatric) (G47.33) Active confirmed Problem Chronic pain (68128610) Other chronic pain (G89.29) Active confirmed Problem Essential hypertension (75336589) Essential (primary) hypertension (I10) Active confirmed Problem Post-laminectomy syndrome (80965688) Postlaminectomy syndrome, not elsewhere classified (M96.1) Active confirmed Problem Long-term current use of drug therapy (640612755) Other penitentiary (current) drug therapy (Z79.899) Active confirmed Problem Neurogenic claudication (743599809) Spinal stenosis, lumbar region with neurogenic claudication (M48.062) Active confirmed Problem Low back pain (finding) (806479686) Vertebrogenic low back pain (M54.51) Active confirmed Vital Signs Temperature 94.2 degrees Fahrenheit 09/21/2024 Blood pressure diastolic 68 mm Hg 08/02/2024 Oximetry 92 % 09/21/2024 Height 64 in 09/21/2024 Blood pressure systolic 152 mm Hg 08/02/2024 Weight 296.2 lbs 09/21/2024 BMI 50.84 kg/m2 09/21/2024 Encounters Encounter Location Date Provider Diagnosis [facility] [address] [place], [place] [id number] 12/01/2023 Kenisha Carlin Vertebrogenic low ba ck pain M54.51 ; Other chronic pain G89.29 ; Postlaminectomy syndrome, not elsewhere classified M96.1 ; Obstructive sleep apnea (adult) (pediatric) G47.33 and care home (current) use of opiate analgesic Z79.891 [facility] [address] [place], [place] [id number] 02/16/2024 Alexsander Shepard Vertebrogenic low ba ck pain M54.51 ; Other chronic pain G89.29 ; Postlaminectomy syndrome, not elsewhere classified M96.1 and Obstructive sleep apnea (adult) (pediatric) G47.33 [facility] [address] [place], [place] [id number] 05/17/2024 Alexsander Shepard Vertebrogenic low ba ck pain M54.51 ; Other chronic pain G89.29 and Obstructive sleep apnea (adult) (pediatric) G47.33 [facility] [address] [place], [place] [id number] 06/06/2024 Alexsander Shepard Vertebrogenic low ba ck pain M54.51 ; Other chronic pain G89.29 and Obstructive sleep apnea (adult) (pediatric) G47.33 [facility] [address] [place], [place] [id number] 08/02/2024 Alexsander Shepard Vertebrogenic low ba ck pain M54.51 ; Other chronic pain G89.29 ; Essential (primary) hypertension I10 ; Obstructive sleep apnea (adult) (pediatric) G47.33 and 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 Post-laminectomy syndrome s/p SCS system implantation. Patient has not been able to follow up with device floor representative as previously recommended. Patient agrees to follow up at today's visit. Will call current floor representative to facilitate a reprogramming session for the system. Consider joint work up and treatment for lumosacral spine regarding interventional spine procedures pending outcome of SCS system reprogramming. RADIOLOGIST'S IMPRESSION OF L-SPINE X-RAY ON 05/17/24: 1. Posterior lumbar fusion as noted in the report. 2. Significant interval change at L2-L3 as described in the report. 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 Plan to continue oral opioid medication management. 08/02/2024 Vertebrogenic low back pain (ICD-10 - M54.51) Chronic axial lumbosacral spine pain. Post-laminectomy syndrome s/p SCS system implantation. Patient to follow up with production line worker to facilitate a reprogramming session for the system (in progress). 09/21/2024 Other chronic pain (ICD-10 - G89.29) Patient reports that taking her pain medication allows her to complete her daily greenskeeper head and work in her yard. Plan to continue oral opioid medication at today's visit. 09/21/2024 Vertebrogenic low back pain (ICD-10 - M54.51) Chronic axial lumbosacral spine pain. Patient encouraged to maintain contact with her [employer] Risk Control Officer for SCS / IPG reprogramming in the future if needed. 05/17/2024 Other chronic pain (ICD-10 - G89.29) Patient reports that taking her pain medication allows her to complete greenskeeper head. Plan to continue oral opioid medication management. 05/17/2024 Vertebrogenic low back pain (ICD-10 - M54.51) Chronic axial lumbar spine pain. Persistent right low back / buttock pain s/p fall the last week of 04/2024. She does not feel it is resolving as expected. Plan imaging. Post-laminectomy syndrome s/p SCS system implantation. Patient has not followed up with device floor representative as recommended. 02/16/2024 Other chronic pain (ICD-10 - G89.29) Patient reports that taking her pain medication allows her to complete greenskeeper head. Plan to continue oral opioid medication management. 02/16/2024 Vertebrogenic low back pain (ICD-10 - M54.51) Chronic axial lumbar spine pain. 12/01/2023 Vertebrogenic low back pain (ICD-10 - M54.51) Chronic axial lumbar spine pain. 12/01/2023 Other chronic pain (ICD-10 - G89.29) Patient reports that taking her pain medication allows her to spend time with family. Plan to continue oral opioid medication management. 12/01/2023 Postlaminectomy syndrome, not elsewhere classified (ICD-10 - M96.1) Prior appointment with Dr. Hall in [place], [place] for a second surgical opinion resulted in weight loss recommendation. Patient has reported considering Bariatric surgery as recommended by Dr. Hall. Patient's SCS system previously quit working. Lead migration was mentioned by patient as possible cause after her prior discussion with another health care provider. Previously and strongly recommended patient contact the company floor representative for reprogramming of the device; patient still trying to make contact with Rep. 02/16/2024 Postlaminectomy syndrome, not elsewhere classified (ICD-10 - M96.1) Prior appointment with Dr. Hall in [place], [place] for a second surgical opinion resulted in weight loss recommendation. Patient is proceeding with preparations for Bariatric surgery as recommended by Dr. Hall. Patient's SCS system previously quit working. Lead migration was mentioned by patient as possible cause after her prior discussion with another health care provider. Previously and strongly recommended patient contact the company floor representative for reprogramming of the device; patient has not followed up on this recommendation. 05/17/2024 Obstructive sleep apnea (adult) (pediatric) (ICD-10 - G47.33) Patient confirms she is wearing her BiPAP device with oxygen nightly. Plan to continue to restrict opioid usage in relation to sleep for safety concerns. 09/21/2024 Obstructive sleep apnea (adult) (pediatric) (ICD-10 - G47.33) Patient reports using her BiPAP device with oxygen nightly. Plan to continue to restrict opioid usage in relation to sleep for safety concerns. 08/02/2024 Essential (primary) hypertension (ICD-10 - I10) Education sheet given at today's visit; patient to address with PCP. 06/06/2024 Other chronic pain (ICD-10 - G89.29) Patient reports that taking her pain medication allows her to be more active. Plan to continue oral opioid medication management. RADIOLOGIST'S IMPRESSION OF L-SPINE X-RAY ON 05/17/24: 1. Posterior lumbar fusion as noted in the report. 2. Significant interval change at L2-L3 as described in the report. 08/02/2024 Obstructive sleep apnea (adult) (pediatric) (ICD-10 - G47.33) Patient reports using her BiPAP device with oxygen nightly. Plan to continue to restrict opioid usage in relation to sleep for safety concerns. 06/06/2024 Obstructive sleep apnea (adult) (pediatric) (ICD-10 - G47.33) Patient reports using her BiPAP device with oxygen nightly. Plan to continue to restrict opioid usage in relation to sleep for safety concerns. RADIOLOGIST'S IMPRESSION OF L-SPINE X-RAY ON 05/17/24: 1. Posterior lumbar fusion as noted in the report. 2. Significant interval change at L2-L3 as described in the report. 02/16/2024 Obstructive sleep apnea (adult) (pediatric) (ICD-10 - G47.33) Patient confirms she is wearing her BiPAP device with oxygen nightly. Plan to continue to restrict opioid usage in relation to sleep for safety concerns. 12/01/2023 Obstructive sleep apnea (adult) (pediatric) (ICD-10 - G47.33) Patient had updated sleep study which recommended BiPAP with 2L/M oxygen and she has reported being placed on oxygen for use at bedtime with BiPAP. Plan to continue to restrict opioid usage in relation to sleep for safety concerns. 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 This places the patient in the [facility] moderate risk category for total daily opioid usage. 2022 opioid (OUD) risk tool score = 1. This places the patient in the low risk category. 08/02/2024 care home (current) use of opiate analgesic (ICD-10 - Z79.891) 2022 opioid (OUD) risk tool score = 1. This places the patient in the low risk category. Plan urine toxicology screen today with [facility] to monitor for presence of any unprescribed or illicit controlled substance(s), as well as prescribed tramadol (unable to test for tramadol in-office). 06/06/2024 Other RADIOLOGIST'S IMPRESSION OF L-SPINE X-RAY ON 05/17/24: 1. Posterior lumbar fusion as noted in the report. 2. Significant interval change at L2-L3 as described in the report. 08/02/2024 Other The service was provided by YAMILE Sanchez, as part of the ongoing care plan established by Alexsander Shepard MD, who was present in the office for direct supervision during the encounter. 09/21/2024 Other The service was provided by YAMILE Sanchez, as part of the ongoing care plan established by Alexsander Shepard MD, who was present in the office for direct supervision during the encounter. Patient was provided with a letter at today's visit informing patient that this clinic is closing due to Dr. Shepard's skilled nursing; see scanned document. Terminal prescriptions were given to the patient along with tapering instructions. 05/17/2024 Other The service was provided by YAMILE Sanchez, as part of the ongoing care plan established by Alexsander Shepard MD, who was present in the office for direct supervision during the encounter. 12/01/2023 Other 02/16/2024 Other The service was provided by YAMILE Sanchez, as part of the ongoing care plan established by Alexsander Shepard MD, who was present in the office for direct supervision during the encounter. Plan Of Treatment No Information Insurance Providers Payer Name Payer Address Payer Phone Subscriber Number Group Number Insured Name Patient Relationship to Insured Coverage Start Date Coverage End Date [employer] Medicare Part B Claims Department [address] [address] [place] [address] [id number] Melissa De Jesus Self - patient is the insured [facility] [address] [address] [place] [address] [id number] Melissa De Jesus Self - patient is the insured Medical (General) History Medical History History ICD Code Chronic pain Low back pain Sciatica Sacroiliitis Lumbar spondylosis, disc dis ease, multilevel spinal stenosis, spondylolisthesis and post-laminectomy syndrome Lumbar spinal stenosis with neurogenic claudication (as per external history) Neck pain Pancreatic mass (followed since 2018) Lesion of soft palate Diabetes type 2 Covid-19 (2021) Diverticulitis Hypertension Depression GERD Hyperlipidemia Vitamin D defeciency Diabetic neuropathy Insomnia Obstructive sleep apnea, moderate, AHI = 21, PAP device use History of order for nocturnal oxygen us e post completion of sleep study Obesity, morbid Surgical History Surgery Date(Month/Year) Hysterectomy, Cholecystectomy, Fusion L3-L5, performed in [place], [place], Fusion C2-3, C34, performed in [place], [place], Carpal tunnel release, bilateral, Spinal cord stimulator ([employer]), performed at [facility] in [place], [place], 2003 Knee replacement, right, performed at [facility] by Dr. Stewart, 2020, EGD, performed at [facility] in [place], [place], 09/20/24 Hospitalization History Reason Date(Month/Year) Blood clot, lung, treated at [facility], Congestive heart failure (diastolic), tr eated at [facility], 04/2023
[2024-11-07 12:41] VITALS: BP 131/72; PULSE 53; TEMP 36.7; O2SAT 95; BMI 51.5
--- NOTE | 2024-11-07 12:48 | W.ED.LOWEXIN ---
HPI - Extremity Injury (Lower) General: Chief Complaint: Extremity Injury, Lower Stated Complaint: rt ankle inj Time Seen by Provider: 11/07/24 12:47 Source: patient Mode of arrival: wheelchair Limitations: no limitations History of Present Illness: Patient is a 74-year-old female presents to ED today with a complaint of right leg pain. Patient states she was getting into her [id number] when she accidentally slipped and injured the right leg-reports feeling/hearing a large pop to her calf. She complains of pain from her lower leg down into her ankle and foot. She states she cannot bear weight secondary to discomfort. She has no other injuries or complaints at this time. MD complaint: leg injury, ankle injury and foot injury Onset (ago): hour(s) Injury: Right: ankle and foot Place: home Severity: moderate Relieving factors: immobilization Exacerbating factors: weight bearing, movement and palpation Context: fall Associated symptoms: Reports inability to bear weight Other symptoms: none Related Data Home Medications ?Medication ?Instructions ?Recorded ?Confirmed amlodipine 10 mg tablet 10 mg PO DAILY 05/18/24 10/25/24 cholecalciferol (vitamin D3) 50 50 mcg PO DAILY 10/16/24 10/25/24 mcg (2,000 unit) capsule Previous Rx's ?Medication ?Instructions ?Recorded lift recliner #1 ea 05/12/22 blood sugar diagnostic (Accu-Chek #200 ea 10/01/22 Leeann Plus test strips) upright wheeled walker #1 ea 03/16/23 lancets (Accu-Chek Softclix #200 ea 04/23/23 Lancets) tramadol 50 mg tablet 50 mg PO Q6H PRN pain 30 days #30 07/22/23 tabs BIPAP with 17/04 with Oxygen with #1 ea 09/09/23 supplies atorvastatin 20 mg tablet 40 mg (2 x 20 mg) PO DAILY #360 05/18/24 tabs losartan 100 mg tablet 100 mg PO DAILY #90 tabs 05/23/24 furosemide 20 mg tablet 20 mg PO DAILY PRN edema #90 tabs 06/10/24 fluoxetine 10 mg tablet 10 mg PO DAILY #90 tabs 07/13/24 hydralazine 100 mg tablet 100 mg PO BID #180 tabs 07/21/24 pantoprazole 40 mg tablet,delayed 40 mg PO DAILY #90 tabs 07/24/24 release pregabalin 50 mg capsule 50 mg PO TID #270 caps 07/27/24 rivaroxaban 20 mg tablet (Xarelto) 20 mg PO DAILY #30 tabs 07/27/24 tizanidine 2 mg tablet See Rx Instructions .Route 07/27/24 .COMPLEX #270 tabs venlafaxine 150 mg 150 mg PO DAILY #90 caps 07/27/24 capsule,extended release 24 hr venlafaxine 75 mg capsule,extended See Rx Instructions .Route 07/27/24 release 24 hr .COMPLEX #90 caps Basaglar KwikPen U-100 Insulin 100 55 unit (0.55 mL) SUBCUT BID 30 08/10/24 unit/mL (3 mL) subcutaneous days #33 mL (insulin glargine) diphenhydramine HCl 25 mg tablet 25 mg PO DIRECTED allergy 08/14/24 (Benadryl Allergy) symptoms #2 tabs albuterol sulfate 90 mcg/actuation 2 inh inhalation Q8H PRN shortness 08/24/24 aerosol inhaler (Ventolin HFA) of breath or wheezing #6.7 grams trazodone 100 mg tablet 100 mg PO BEDTIME #90 tabs 08/28/24 enoxaparin 150 mg/mL subcutaneous 150 mg SUBCUT Q12H #4 mL 09/05/24 syringe (Lovenox) isosorbide mononitrate 30 mg 60 mg (2 x 30 mg) PO DAILY #180 10/02/24 tablet,extended release 24 hr tabs pen needle, diabetic 32 gauge x #100 ea 10/02/24 acarbose 25 mg tablet 25 mg PO TID PRN high bs #270 tabs 10/03/24 allopurinol 100 mg tablet 100 mg PO DAILY #90 tabs 10/16/24 buspirone 5 mg tablet 5 mg PO BID PRN anxiety #90 tabs 10/26/24 clonidine HCl 0.1 mg tablet 0.1 mg PO QID PRN For blood 10/27/24 pressure greater than 180/100 #30 tabs Allergies Allergy/AdvReac Type Severity Reaction Status Date / Time Iodinated Contrast Media Allergy Unknown Verified 11/07/24 12:45 meperidine (From Demerol) Allergy HIVES Verified 11/07/24 12:45 shellfish derived Allergy ANAPHYLAXIS Verified 11/07/24 12:45 cortisone AdvReac Mild high blood Verified 11/07/24 12:45 sugar Review of Systems Musc: Reports: extremity pain, extremity swelling, joint pain and joint swelling; Denies: neck pain, back pain, joint redness, joint warmth, joint stiffness or muscle cramps Neuro: Reports: difficulty walking (secondary to pain in R LE); Denies: numbness in extremities, weakness in extremities or sensory changes PFSH ED PFSH: Medical History Throat irritation Pulmonary embolism on left Pancreatic mass On CT imaging from 01/2023, stable cystic mass measuring 7 mm in the tail of the pancreas. No interval change since 2019. Lumbar stenosis with neurogenic claudication Spinal cord stimulator status Gout Urinary incontinence Obstructive sleep apnea On bipap, settings 16/ with 2 lpm oxygen 3 para 3 Diabetes type 2, uncontrolled COVID-19 (~2021) Diverticulitis Essential (primary) hypertension Depression GERD (gastroesophageal reflux disease) Insomnia, controlled Hyperlipidemia Diabetic neuropathy Surgical History S/P total knee arthroplasty bilateral History of cardiac catheterization 08/2022 - 40% LAD, no other significant disease noted Status post total right knee replacement History of colonoscopy History of back surgery s/p fusion L3-L5 History of neck surgery H/O: hysterectomy S/P cholecystectomy S/p bilateral carpal tunnel release Status post total knee replacement, left Remote Family History Other CAD (coronary artery disease) Diabetes Social History Smoking and tobacco/nicotine status: unknown if used tobacco/nicotine Second hand smoke exposure: Yes (as a child (father smoked)) Alcohol intake: current Alcohol intake frequency: holidays/special occasions only Substance/Drug Use: never Lives independently: Yes Household members: spouse Marital status: Do you think of yourself as: Straight/Heterosexual Current gender identity: Female Female Reproductive History: Para: 3 Spontaneous abortions: No Physical Exam Const: COMMON NORMALS: no acute distress, patient oriented x3, no limitations, alert and well nourished GENERAL APPEARANCE: cooperative NUTRITIONAL APPEARANCE: obese morbidly obese (BMI 51.5) ORIENTATION/CONSCIOUSNESS: Yes awake, Yes oriented to person, Yes oriented to place and Yes oriented to time Back/Pelvis: COMMON NORMALS: thoracic and lumbar spine normal to inspection and no thoracic nor lumbar tenderness Extremity: GENERAL: Yes normal exam except as noted RIGHT LOWER EXTREMITY: Yes lower leg, Yes foot & digits and Yes foot & digits OTHER: pain throughout R LE (mainly calf) and into ankle/foot; Joy's deformity; NV intact Neuro: COMMON NORMALS: patient oriented x3, moves all extremities, no focal motor deficits and no sensory deficits noted SENSORIUM/ORIENTATION: Yes alert, Yes oriented to person, Yes oriented to place and Yes oriented to time Course Vital Signs: Vital signs: Vital Signs Temperature 98.1 F 11/07/24 12:41 Pulse Rate 55 L 11/07/24 13:33 Respiratory Rate 18 11/07/24 14:23 Blood Pressure 131/72 11/07/24 12:41 Pulse Oximetry 95 11/07/24 14:23 Oxygen Delivery Me thod Room Air 11/07/24 13:33 MDM - Extremity Injury (Lower) Medical Decision Making XR of the R tib/fib, ankle, foot obtained and showing no acute fractures. Patient reports hearing a pop to her right calf. She will be placed in a cam boot with heel lift. She states she cannot bear weight on the leg secondary to discomfort. She normally uses a cane for ambulation. She does not feel like she would be able to use crutches or a walker. She is requesting a wheelchair which we will be provided prior to discharge. Will have case management set her up with a follow-up orthopedic appointment. Medical Records I reviewed the patient's medical records. Lab Data Radiology Impressions Tibia/Fibula X-Ray 11/07/24 12:51 IMPRESSION: No acute osseous findings. Ankle X-Ray 11/07/24 12:54 IMPRESSION: No acute findings. All radiology interpretation(s) finalized by discharge Discharge Plan Discharge Patient Disposition: Home Clinical Impression: Strain of right calf muscle Condition: Stable Prescriptions: No Action (DME) lift recliner See Rx Instructions .Route .MEDSUPPLY Qty: 1 0RF Rx Instructions: As directed albuterol sulfate [Ventolin HFA] 90 mcg/actuation HFA aerosol inhaler 2 inh inhalation Q8H PRN (Reason: shortness of breath or wheezing) Qty: 6.7 0RF acarbose 25 mg tablet 25 mg PO TID PRN (Reason: high bs) Qty: 270 1RF (DME) Accu-Chek Leeann Plus test strp Strip See Rx Instructions .ROUTE .MEDSUPPLY Qty: 200 1RF Rx Instructions: ONE DAILY (DME) lancets [Accu-Chek Softclix Lancets] Misc See Rx Instructions .Route Qty: 200 0RF Rx Instructions: As directed (DME) upright wheeled walker See Rx Instructions .Route .MEDSUPPLY Qty: 1 0RF Rx Instructions: As directed Xarelto 20 mg tablet 20 mg PO DAILY Qty: 30 3RF Rx Instructions: must administer with evening meal cholecalciferol (vitamin D3) 50 mcg (2,000 unit) capsule 50 mcg PO DAILY tramadol 50 mg tablet 50 mg PO Q6H PRN (Reason: pain) 30 Days Qty: 30 0RF (DME) BIPAP with 16/12 with Oxygen with supplies See Rx Instructions .Route .MEDSUPPLY Qty: 1 0RF Rx Instructions: As directed atorvastatin 20 mg tablet 40 mg PO DAILY Qty: 360 3RF losartan 100 mg tablet 100 mg PO DAILY Qty: 90 3RF furosemide 20 mg tablet 20 mg PO DAILY PRN (Reason: edema) Qty: 90 1RF fluoxetine 10 mg tablet 10 mg PO DAILY Qty: 90 0RF hydralazine 100 mg tablet 100 mg PO BID Qty: 180 3RF pantoprazole 40 mg tablet,delayed release (DR/EC) 40 mg PO DAILY Qty: 90 1RF pregabalin 50 mg capsule 50 mg PO TID Qty: 270 1RF tizanidine 2 mg tablet See Rx Instructions .ROUTE .COMPLEX Qty: 270 0RF Dose Instruction: TAKE 1 TABLET BY MOUTH THREE TIMES DAILY NEEDED FOR MUSCLE SPASMS Rx Instructions: TAKE 1 TABLET BY MOUTH THREE TIMES DAILY NEEDED FOR MUSCLE SPASMS venlafaxine 75 mg capsule,extended release 24hr See Rx Instructions .ROUTE .COMPLEX Qty: 90 0RF Dose Instruction: TAKE 1 CAP BY MOUTH DAILY ALONG WITH THE 150 MG TO =225MG TOTAL Rx Instructions: TAKE 1 CAP BY MOUTH DAILY ALONG WITH THE 150 MG TO =225MG TOTAL insulin glargine [Basaglar KwikPen U-100 Insulin] 100 unit/mL (3 mL) insulin pen 55 unit SUBCUT BID 30 Days Qty: 33 3RF diphenhydramine HCl [Benadryl Allergy] 25 mg tablet 25 mg PO DIRECTED Qty: 2 0RF Rx Instructions: Take 50mg (2 tabs) 1 hour prior to procedure. trazodone 100 mg tablet 100 mg PO BEDTIME Qty: 90 1RF Rx Instructions: Patient needs a new doctor. enoxaparin [Lovenox] 150 mg/mL syringe 150 mg SUBCUT Q12H Qty: 4 0RF Rx Instructions: 09/18/24 One injection in AM & PM 09/19/24 One injection in AM & PM isosorbide mononitrate 30 mg tablet extended release 24 hr 60 mg PO DAILY Qty: 180 3RF (DME) pen needle, diabetic 32 gauge x needle See Rx Instructions .ROUTE .COMPLEX Qty: 100 3RF Dose Instruction: USE WITH INSULIN DAILY Rx Instructions: USE WITH INSULIN DAILY allopurinol 100 mg tablet 100 mg PO DAILY Qty: 90 0RF buspirone 5 mg tablet 5 mg PO BID PRN (Reason: anxiety) Qty: 90 0RF clonidine HCl 0.1 mg tablet 0.1 mg PO QID PRN (Reason: For blood pressure greater than 180/100) Qty: 30 1RF amlodipine 10 mg tablet 10 mg PO DAILY venlafaxine 150 mg capsule,extended release 24hr 150 mg PO DAILY Qty: 90 1RF Rx Instructions: along with 75mg al=[id number] total Discharge Orders: Discharge ED (Routine); Ordered 11/07/24 Ordered By: Gabbie Dorantes Other Ambulatory Orders: DME: Wheelchair (Order) Location: None Selected Ordered By: Gabbie Dorantes Referrals: Devi Shaw DO [Primary Care Provider, Family Practice] Patient Instructions: Patient Portal & Emilie Instructions Activity Restrictions/Additional Instructions: As discussed, case management should contact you this week to help set you up with your follow-up orthopedic appointment. You may bear weight as tolerated in your cam boot. You will be sent home with a wheelchair as well as you states you are not able to bear weight on your leg. Print Language: Yi Coding Level of Care Code ED [employer] Worker for Ben Salomon
--- NOTE | 2024-11-07 12:51 | XRR_ITS ---
PROCEDURE INFORMATION: Exam: XR Right Tibia and Fibula Exam date and time: 11/07/2024 1:17 PM Age: 74 years old Clinical indication: Injury or trauma; Fall; Blunt trauma; Lower leg; Right; Additional info: Injury/fall TECHNIQUE: Imaging protocol: Radiologic exam of the right tibia and fibula. Views: 2 views. COMPARISON: CR XR ankle RT min 3V* [id number] 11/07/2024 1:15 PM FINDINGS: Bones/joints: Right knee replacement. No acute osseous or joint abnormality. Soft tissues: Soft tissue calcification at the level of the medial mid calf. XR/XR tibia fibula RT 2V [id number] IMPRESSION: No acute osseous findings.
--- NOTE | 2024-11-07 12:51 | XR_ITS ---
WS: [id number] Exam: XR foot RT min 3V* [id number] Date/Time of Exam: 11/07/2024 12:59 PM Reason For Exam: injury No acute fracture. Degenerative changes in the IP, first MP and midfoot joints. Calcaneal spurs. Calcifications and probable thickening of the Achilles tendon. IMPRESSION1. Degenerative changes. No acute fracture.
--- NOTE | 2024-11-07 12:54 | XRR_ITS ---
PROCEDURE INFORMATION: Exam: XR Right Ankle Exam date and time: 11/07/2024 1:15 PM Age: 74 years old Clinical indication: Injury or trauma; Other: Not specified; Blunt trauma; Ankle; Right; Additional info: RT ankle injury TECHNIQUE: Imaging protocol: Radiologic exam of the right ankle. Views: 3 or more views. COMPARISON: CR XR foot RT min 3V* [id number] 11/07/2024 1:11 PM FINDINGS: Bones/joints: Plantar calcaneal spurring. Soft tissues: Normal. XR/XR ankle RT min 3V* [id number] IMPRESSION: No acute findings.
[2024-11-07 13:33] VITALS: PULSE 55; O2SAT 95
[2024-11-07 14:23] VITALS: RESP 18; O2SAT 95
[2024-11-07] MEDS: morphine 4 mg/mL SDV 1 mL IM (14:23)
--- NOTE | 2024-11-07 15:27 | PC.NURSE ---
pt voiced that she did not want a w/c, that with the CAM boot and with her walker at home that she will be able to ambulate just fine. Pt did paint formulator room and ambulate with out difficulty. Jayna notified and HOME w/c cancelled.
[2024-11-07 15:28] VITALS: PULSE 60; O2SAT 96
--- NOTE | 2024-11-08 11:51 | DCPLANNER ---
Message sent to Ortho for follow up- XR of the R tib/fib, ankle, foot obtained and showing no acute fractures. Patient reports hearing a pop to her right calf. She will be placed in a cam boot with heel lift. She states she cannot bear weight on the leg secondary to discomfort. She normally uses a cane for ambulation. She does not feel like she would be able to use crutches or a walker. She is requesting a wheelchair which we will be provided prior to discharge. Will have case management set her up with a follow-up orthopedic appointment.
== END 2024-11-07 15:29 | disposition home or self-care (01) ==
PROVIDERS: Emergency Provider Physician Assistant; PCP Family Medicine
DX: S86.811A Strain of other muscle(s) and tendon(s) at lower leg level, right leg, initial encounter (principal); Z79.4 Long term (current) use of insulin; E78.5 Hyperlipidemia, unspecified; I10 Essential (primary) hypertension; E11.9 Type 2 diabetes mellitus without complications; W01.0XXA Fall on same level from slipping, tripping and stumbling without subsequent striking against object, initial encounter
CPT/HCPCS: 73590; 73600; 73610; 73630; 96372; 97760; 99284; J2270; L3332; L4361

== ENCOUNTER → 2024-11-09 09:36 | Outpatient (BNVA) | payer MEDICARE, OTHER, SELFPAY | PROVIDERS: PCP Family Medicine; Visit Provider Podiatrist Foot & Ankle Surgery | DX: S86.011A Strain of right Achilles tendon, initial encounter (principal); W19.XXXA Unspecified fall, initial encounter | CPT/HCPCS: 99204 ==

== ENCOUNTER 2024-11-11 20:08 | Inpatient (IN) | payer MEDICARE, OTHER, SELFPAY ==
[2024-11-11 20:13] VITALS: BP 198/79; PULSE 65; RESP 18; TEMP 36.9; O2SAT 94; BMI 51.5
--- OUTSIDE RECORDS SUMMARY | 2024-11-11 20:16 | XMS_ITS | Patient Health Record ---
Author Organization [facility] Address [address] [place], [place] [id number] Care Team Providers Care Driver Recruiter Name Role Phone Devi Shaw DO Primary Care Provider Flo Shepard MD, Alexsander Unavailable [phone] Serg Connell DO Unavailable Unavailable Kenisha Henry Unavailable [phone] Allergies Allergen (clinical drug ingredient) Drug/Non Drug Allergy documented on EMR Reaction Allergy Type Onset Date Status iodinated contrast media (uncoded) anaphylaxis Allergy Active shellfish derived (uncoded) Unknown Allergy Active meperidine meperidine hives Drug Allergy Activ e Results Component Value Reference Range Notes X-ray: Lumbar spine (AP and Lateral, Flexion and Extension) 12142 Reviewed date:05/18/2024 10:37:39 AM Interpretation: Performing Lab: Notes/Report: Urine tox screen / MS if ind icated Reviewed date:08/07/2024 07:55:49 AM Interpretation:Consistent Performing Lab: Notes/Report: Consistent Urine tox screen / MS if ind icated Reviewed date:08/07/2024 07:55:49 AM Interpretation:Consistent Performing Lab: Notes/Report: Consistent Embedded PDF Reviewed date:08/07/2024 07:55:27 AM Interpretation: Performing Lab: Notes/Report: Acetyl fentanyl: Fentanyl Negative. Acetyl norfentanyl: Fentanyl Negative. Acry l fentanyl: Fentanyl Negative. Carfentanil: Fentanyl Negative. Para-fluorofentan yl: Fentanyl Negative. [facility], [address], [place] [address], , L ab Director: Amanda Figueroa MD, CLIA ID# [id number] [facility] Results Reviewed date:08/07/2024 07:55:18 AM Interpretation: Performing Lab:[id number] [facility], [address] [facility] [id number] Amanda Figueroa MD Notes/Report: [facility], [address] [facility], [facility] [address], [place] [address], , L ab Director: Amanda Figueroa MD, CLIA ID# [id number] OPIATES SCREEN negative 300 ng/mL Codeine Quantification [...] 200 ng/mL Tramadol Quantification positive-5978.254 100 ng/mL L-omnqjjkyc-kyjyurha Quantification positive-2177.104 100 ng/mL D-Fdqoptjad-Omvgnkzo Quantification positive-4688.654 100 ng/mL Tapentadol Quantification negative 50 ng/mL BENZODIAZEPINES SCREEN negative 200 ng/mL Alpha-Hydroxyalprazolam Quantification negative 20 ng/mL 7-Oahjl-Jhkrdbbbcz Quantification negative 20 ng/m L Lorazepam Quantification negative 40 ng/mL Nordiazepam Quantification negative 40 ng/mL Temazepam Quantification negative 50 ng/mL Oxazepam Quantification negative 40 ng/mL AMPHETAMINES SCREEN negative 500 ng/mL Amphetamine Quantification negative 100 ng/mL Gabapentin Quantification negative 1000 ng/mL Pregabalin Quantification positive-28114.734 400 ng/mL Naltrexone Quantification negative 10 ng/mL [...] 9.5 SPECIFIC GRAVITY normal-1.006 1.003 - 1.035 Reason For Referral No Information Medications Medication [...] W/U Status Risk Notes Problem Solitary sacroiliitis (086921044) Sacroiliitis, not elsewhere classified (M46.1) Active confirmed Problem High risk drug monitoring status (603370164) 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 (Z79.891) Active confirmed Problem Obstructive sleep apnea syndrome (disorder) (43962100) Obstructive sleep apnea (adult) (pediatric) (G47.33) Active confirmed Problem Chronic pain (91241238) Other chronic pain (G89.29) Active confirmed Problem Essential hypertension (69993312) Essential (primary) hypertension (I10) Active confirmed Problem Post-laminectomy syndrome (76845266) Postlaminectomy syndrome, not elsewhere classified (M96.1) Active confirmed Problem Long-term current use of drug therapy (468988701) Other intermediate (current) drug therapy (Z79.899) Active confirmed Problem Neurogenic claudication (345946036) Spinal stenosis, lumbar region with neurogenic claudication (M48.062) Active confirmed Problem Low back pain (finding) (344427215) Vertebrogenic low back pain (M54.51) Active confirmed Vital Signs Temperature 94.2 degrees Fahrenheit 09/21/2024 Oximetry 92 % 09/21/2024 Blood pressure diastolic 68 mm Hg 08/02/2024 Height 64 in 09/21/2024 Blood pressure systolic 152 mm Hg 08/02/2024 Weight 296.2 lbs 09/21/2024 BMI 50.84 kg/m2 09/21/2024 Encounters Encounter Location Date Provider Diagnosis [facility] [address] [place], [place] [id number] 12/01/2023 Kenisha Carlin Vertebrogenic low ba ck pain M54.51 ; Other chronic pain G89.29 ; Postlaminectomy syndrome, not elsewhere classified M96.1 ; Obstructive sleep apnea (adult) (pediatric) G47.33 and 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 Z79.891 [facility] [address] [place], [place] [id number] 02/16/2024 Alexsander Shepard Vertebrogenic low ba ck pain M54.51 ; Other chronic pain G89.29 ; Postlaminectomy syndrome, not elsewhere classified M96.1 and Obstructive sleep apnea (adult) (pediatric) G47.33 [facility] [address] [place], [place] [id number] 05/17/2024 Alexsander Shepard Vertebrogenic low ba ck pain M54.51 ; Other chronic pain G89.29 and Obstructive sleep apnea (adult) (pediatric) G47.33 [facility] [address] [place], [place] [id number] 06/06/2024 Alexsander Shepard Vertebrogenic low ba ck pain M54.51 ; Other chronic pain G89.29 and Obstructive sleep apnea (adult) (pediatric) G47.33 [facility] [address] [place], [place] [id number] 08/02/2024 Alexsander Shepard Vertebrogenic low ba ck pain M54.51 ; Other chronic pain G89.29 ; Essential (primary) hypertension I10 ; Obstructive sleep apnea (adult) (pediatric) G47.33 and FDC (current) use of opiate analgesic Z79.891 [facility] [address] [place], [place] [id number] 09/21/2024 Alexsander Shepard Vertebrogenic low ba ck pain M54.51 ; Other chronic pain G89.29 and Obstructive sleep apnea (adult) (pediatric) G47.33 [facility], [address] [id number] 04/04/2024 Alexsander Shepard Assessments Encounter Date Diagnosis (ICD Code) Assessment Notes Treatment Notes Treatment Clinical Notes Section Notes 12/01/2023 Vertebrogenic low back pain (ICD-10 - M54.51) Chronic axial lumbar spine pain. 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 Plan to continue oral opioid medication management. 02/16/2024 Vertebrogenic low back pain (ICD-10 - M54.51) Chronic axial lumbar spine pain. 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 Plan to continue oral opioid medication management. 05/17/2024 Vertebrogenic low back pain (ICD-10 - M54.51) Chronic axial lumbar spine pain. Persistent right low back / buttock pain s/p fall the last week of 04/2024. She does not feel it is resolving as expected. Plan imaging. Post-laminectomy syndrome s/p SCS system implantation. Patient has not followed up with device technical sales representative as recommended. 06/06/2024 Vertebrogenic low back pain (ICD-10 - M54.51) Chronic axial lumbaosacral spine pain. Post-laminectomy syndrome s/p SCS system implantation. Patient has not been able to follow up with device technical sales representative as previously recommended. Patient agrees to follow up at today's visit. 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 Plan to continue oral opioid medication management. 08/02/2024 Vertebrogenic low back pain (ICD-10 - M54.51) Chronic axial lumbosacral spine pain. Post-laminectomy syndrome s/p SCS system implantation. Patient to follow up with technical product manager to facilitate a reprogramming session for the system (in progress). 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 Plan to continue oral opioid medication at today's visit. 09/21/2024 Vertebrogenic low back pain (ICD-10 - M54.51) Chronic axial lumbosacral spine pain. Patient encouraged to maintain contact with her Salesforce General Assembler Installer for SCS / IPG reprogramming in the future if needed. 09/21/2024 Obstructive sleep apnea (adult) (pediatric) (ICD-10 [...] at L2-L3 as described in the report. 05/17/2024 Obstructive sleep apnea (adult) (pediatric) (ICD-10 - G47.33) Patient confirms she is wearing her BiPAP device with oxygen nightly. Plan to continue to restrict opioid usage in relation to sleep for safety concerns. 02/16/2024 Postlaminectomy syndrome, not elsewhere classified (ICD-10 - M96.1) Prior appointment with Dr. Hall in [place], [place] for a second surgical opinion resulted in weight loss recommendation. Patient is proceeding with preparations for Bariatric surgery as recommended by Dr. Hall. Patient's SCS system previously quit working. Lead migration was mentioned by patient as possible cause after her prior discussion with another health care provider. Previously and strongly recommended patient contact the [employer] technical sales representative for reprogramming of the device; patient has not followed up on this recommendation. 12/01/2023 Other chronic pain (ICD-10 - G89.29) Patient reports that taking her pain medication allows her to spend time with family. Plan to continue oral opioid medication management. 12/01/2023 Postlaminectomy syndrome, not elsewhere classified (ICD-10 - M96.1) Prior appointment with Dr. Hall in [place], [place] for a second surgical opinion resulted in weight loss recommendation. Patient has reported considering Bariatric surgery as recommended by Dr. Hall. Patient's SCS system previously quit working. Lead migration was mentioned by patient as possible cause after her prior discussion with another health care provider. Previously and strongly recommended patient contact the company technical sales representative for reprogramming of the device; patient still trying to make contact with Rep. 02/16/2024 Obstructive sleep apnea (adult) (pediatric) (ICD-10 [...] at L2-L3 as described in the report. 12/01/2023 Obstructive sleep apnea (adult) (pediatric) (ICD-10 - G47.33) Patient had updated sleep study which recommended BiPAP with 2L/M oxygen and she has reported being placed on oxygen for use at bedtime with BiPAP. Plan to continue to restrict opioid usage in relation to sleep for safety concerns. 08/02/2024 Obstructive sleep apnea (adult) (pediatric) (ICD-10 - G47.33) Patient reports using her BiPAP device with oxygen nightly. Plan to continue to restrict opioid usage in relation to sleep for safety concerns. 08/02/2024 FDC (current) use of opiate analgesic (ICD-10 - Z79.891) 2022 opioid (OUD) risk tool score = 1. This places the patient in the low risk category. Plan urine toxicology screen today with [email or web address] to monitor for presence of any unprescribed or illicit controlled substance(s), as well as prescribed tramadol (unable to test for tramadol in-office). 12/01/2023 FDC (current) use of opiate analgesic (ICD-10 - Z79.891) Patient has a total daily MED of 40. This places the patient in the [facility] moderate risk category for total daily opioid usage. 2022 opioid (OUD) risk tool score = 1. This places the patient in the low risk category. 06/06/2024 Other RADIOLOGIST'S IMPRESSION OF L-SPINE X-RAY [...] clinic is closing due to Dr. Shepard's shelter; see scanned document. Terminal prescriptions were given [...] Medicare Part B Claims Department [address] [address] [place] [address] [id number] Melissa De Jesus Self - [facility] the [facility] [address] [address] [place] [address] [id number] Melissa De Jesus Self - patient is [...] Date(Month/Year) Hysterectomy, Cholecystectomy, Fusion L3-L5, performed in [place], [place], Fusion C2-3, C34, performed in [place], [place], Carpal tunnel release, bilateral, Spinal cord stimulator (Odersun), performed at [facility] in [place], [place], 2003 Knee replacement, right, performed at [facility] by Dr. Stewart, 2020, EGD, performed at [facility] in [place], [place], 09/20/24 Hospitalization History Reason Date(Month/Year) Blood clot, lung, treated at [facility], Congestive heart failure (diastolic), tr eated at [facility], 04/2023
--- NOTE | 2024-11-11 20:41 | XRR_ITS ---
PROCEDURE INFORMATION: Exam: XR Chest Exam date and time: 11/11/2024 8:42 PM Age: 74 years old Clinical indication: Shortness of breath; Prior surgery; Surgery date: 6+ months; Surgery type: Gb; C/O SOB. TECHNIQUE: Imaging protocol: Radiologic exam of the chest. Views: 1 view. COMPARISON: CR XR chest 1V portable [id number] 05/18/2024 3:56 PM FINDINGS: Tubes, catheters and devices: Stable pain management/neurostimulator device. Lungs: Left discoid atelectasis and/or scarring. Pleural spaces: Unremarkable. No pleural effusion. No pneumothorax. Heart/Mediastinum: Mild to moderate globular cardiomegaly consistent with 4-chamber enlargment and/or pericardial effusion. Bones/joints: Stable postoperative metallic fixation of the cervical spine with or without metallic artifact. XR/XR chest 1V portable [id number] IMPRESSION: Mild to moderate globular cardiomegaly consistent with 4-chamber enlargment and/or pericardial effusion.
--- NOTE | 2024-11-11 20:41 | ECG_ITS ---
[facility] Date: 2024-11-11 Pat Name: Melissa De Jesus Department: Room: Gender: Female Hotel Custodian: : 1950 Requested By: Miguel A Batista Order Number: [id number] Riddhi MD: Cedric Hurd M.D. Measurements Intervals [place] Rate: 61 P: 89 MN: 166 QRS: 63 QRSD: 83 T: 61 QT: 398 QTc: 404 Interpretive Statements SINUS RHYTHM Compared to ECG 05/18/2024 18:05:18 No significant changes Electronically Signed On 11-14-2024 10:08:54 CDT by Cedric Hurd M.D. [id number]
[2024-11-11 21:00] VITALS: PULSE 60; RESP 18; O2SAT 95
[2024-11-11 21:02] VITALS: PULSE 58; RESP 18; O2SAT 93
[2024-11-11 21:12] LABS: Hematocrit 35.8 % (36-47); Hemoglobin 11.30 g/dL (11.27-16.99); Mean Corpuscular HGB Conc 31.6 g/dL (30-55); Mean Corpuscular Hemoglobin 29.3 pg (27-33); Mean Corpuscular Volume 92.7 fl (85-98); Nucleated Red Blood Cells % 0 %; Platelet Count 207 10^3/cmm (157-399); Red Blood Count 3.86 10^6/uL (3.85-5.65); White Blood Count 7.56 10^3/uL (3.29-11.43)
[2024-11-11 21:29] LABS: Lactic Sepsis W/Reflex 0.7 mmol/L (0.5-2.2)
[2024-11-11 21:31] LABS: Troponin(5th) Baseline 21 ng/L (0-10)
[2024-11-11 21:40] LABS: Alanine Aminotransferase 14 U/L (0-33); Albumin Level 3.9 g/dL (3.5-5.2); Alkaline Phosphatase 108 U/L (35-105); Anion Gap 14.6 (5-19); Aspartate Amino Transferase 13 U/L (0-32); Blood Urea Nitrogen 10 mg/dL (8-23); Calcium 9.5 mg/dL (8.5-10.5); Carbon Dioxide 27 mmol/L (22-29); Chloride 106 mmol/L (98-107); Creatinine Clr Calc Pharmacy 83.6915; Globulin 2.2 g/dL (1.3-4.6); Glucose 116 mg/dL (65-115); NT Pro B Type Natriuretic Pept 560 pg/mL (0-450); Osmolality Calculated 296 mOsm/kg (285-295); Potassium 4.6 mmol/L (3.5-5.1); Sodium 143 mmol/L (136-145); Total Protein 6.1 g/dL (6.6-8.7)
--- NOTE | 2024-11-11 21:42 | W.ED.SOB ---
HPI - SOB/Dyspnea General: Chief Complaint: Shortness of Breath/Dyspnea Stated Complaint: SOB cant breath to talk well HBP Time Seen by Provider: 11/11/24 20:20 History of Present Illness: HPI Narrative: 74-year-old female with a history of COPD and high blood pressure. She presents with worsening shortness of breath over the last 24 to 36 hours. She has been coughing. Minimal sputum production. She has been wheezy as well. She felt feverish. She states her legs have been swollen. Some chest discomfort with deep breathing. Related Data Home Medications ?Medication ?Instructions ?Recorded ?Confirmed amlodipine 10 mg tablet 10 mg PO DAILY 05/18/24 11/09/24 cholecalciferol (vitamin D3) 50 50 mcg PO DAILY 10/16/24 11/09/24 mcg (2,000 unit) capsule Previous Rx's ?Medication ?Instructions ?Recorded lift recliner #1 ea 05/12/22 blood sugar diagnostic (Accu-Chek #200 ea 10/01/22 Leeann Plus test strips) upright wheeled walker #1 ea 03/16/23 lancets (Accu-Chek Softclix #200 ea 04/23/23 Lancets) tramadol 50 mg tablet 50 mg PO Q6H PRN pain 30 days #30 07/22/23 tabs BIPAP with 17/04 with Oxygen with #1 ea 09/09/23 supplies atorvastatin 20 mg tablet 40 mg (2 x 20 mg) PO DAILY #360 05/18/24 tabs losartan 100 mg tablet 100 mg PO DAILY #90 tabs 05/23/24 furosemide 20 mg tablet 20 mg PO DAILY PRN edema #90 tabs 06/10/24 fluoxetine 10 mg tablet 10 mg PO DAILY #90 tabs 07/13/24 hydralazine 100 mg tablet 100 mg PO BID #180 tabs 07/21/24 pantoprazole 40 mg tablet,delayed 40 mg PO DAILY #90 tabs 07/24/24 release pregabalin 50 mg capsule 50 mg PO TID #270 caps 07/27/24 rivaroxaban 20 mg tablet (Xarelto) 20 mg PO DAILY #30 tabs 07/27/24 tizanidine 2 mg tablet See Rx Instructions .Route 07/27/24 .COMPLEX #270 tabs venlafaxine 150 mg 150 mg PO DAILY #90 caps 07/27/24 capsule,extended release 24 hr venlafaxine 75 mg capsule,extended See Rx Instructions .Route 07/27/24 release 24 hr .COMPLEX #90 caps Basaglar FacundoPen U-100 Insulin 100 55 unit (0.55 mL) SUBCUT BID 30 08/10/24 unit/mL (3 mL) subcutaneous days #33 mL (insulin glargine) diphenhydramine HCl 25 mg tablet 25 mg PO DIRECTED allergy 08/14/24 (Benadryl Allergy) symptoms #2 tabs albuterol sulfate 90 mcg/actuation 2 inh inhalation Q8H PRN shortness 08/24/24 aerosol inhaler (Ventolin HFA) of breath or wheezing #6.7 grams trazodone 100 mg tablet 100 mg PO BEDTIME #90 tabs 08/28/24 enoxaparin 150 mg/mL subcutaneous 150 mg SUBCUT Q12H #4 mL 09/05/24 syringe (Lovenox) isosorbide mononitrate 30 mg 60 mg (2 x 30 mg) PO DAILY #180 10/02/24 tablet,extended release 24 hr tabs pen needle, diabetic 32 gauge x #100 ea 10/02/24 acarbose 25 mg tablet 25 mg PO TID PRN high bs #270 tabs 10/03/24 allopurinol 100 mg tablet 100 mg PO DAILY #90 tabs 10/16/24 buspirone 5 mg tablet 5 mg PO BID PRN anxiety #90 tabs 10/26/24 clonidine HCl 0.1 mg tablet 0.1 mg PO QID PRN For blood 10/27/24 pressure greater than 180/100 #30 tabs wheel chair #1 ea 11/09/24 Allergies Allergy/AdvReac Type Severity Reaction Status Date / Time Iodinated Contrast Media Allergy Unknown Verified 11/09/24 09:55 meperidine (From Demerol) Allergy HIVES Verified 11/09/24 09:55 shellfish derived Allergy ANAPHYLAXIS Verified 11/09/24 09:55 cortisone AdvReac Mild high blood Verified 11/09/24 09:55 sugar COUNT INCLUDES THE [facility] ED PFSH: Medical History Throat irritation Pulmonary embolism on left Pancreatic mass On CT imaging from 01/2023, stable cystic mass measuring 7 mm in the tail of the pancreas. No interval change since 2019. Lumbar stenosis with neurogenic claudication Spinal cord stimulator status Gout Urinary incontinence Obstructive sleep apnea On bipap, settings 16/12 with 2 lpm oxygen 3 para 3 Diabetes type 2, uncontrolled COVID-19 (~2021) Diverticulitis Essential (primary) hypertension Depression GERD (gastroesophageal reflux disease) Insomnia, controlled Hyperlipidemia Diabetic neuropathy Surgical History S/P total knee arthroplasty bilateral History of cardiac catheterization 08/2022 - 40% LAD, no other significant disease noted Status post total right knee replacement History of colonoscopy History of back surgery s/p fusion L3-L5 History of neck surgery H/O: hysterectomy S/P cholecystectomy S/p bilateral carpal tunnel release Status post total knee replacement, left Remote Family History Other CAD (coronary artery disease) Diabetes Social History Smoking and tobacco/nicotine status: unknown if used tobacco/nicotine Second hand smoke exposure: Yes (as a child (father smoked)) Alcohol intake: current Alcohol intake frequency: holidays/special occasions only Substance/Drug Use: never Lives independently: Yes Household members: spouse Marital status: Do you think of yourself as: Straight/Heterosexual Current gender identity: Female Female Reproductive History: Para: 3 Spontaneous abortions: No Physical Exam Const: COMMON NORMALS: no acute distress GENERAL APPEARANCE: cooperative and ill appearing (Mildly); not frail appearing HENMT: COMMON NORMALS: normocephalic, atraumatic and Normal external nose present HEAD & SCALP: normocephalic and atraumatic FACE & SINUS: normal facial exam and face symmetric NOSE: Normal external nose present Eye: COMMON NORMALS: Equal, round and reactive pupils present and EOMs intact bilaterally PUPIL: Yes Equal, round and reactive pupils present Neck/C-Spine: GENERAL: Yes trachea midline Chest: CHEST: Yes Symmetrical chest wall rise Resp: EFFORT & INSPECTION: Yes tachypneic and No respiratory distress AUSCULTATION: wheezes (Intermittent) Cardio: COMMON NORMALS: regular rate and regular rhythm RATE: regular rate RHYTHM: regular rhythm GI: COMMON NORMALS: Normal to inspection, nondistended, normoactive bowel sounds present Extremity: GENERAL: Yes edema Neuro: AMEYA COMA SCALE: document GCS findings [place] coma scale eye opening: Spontaneous Ameya coma scale verbal response: Orientated Ameya coma scale motor response: Obey commands Ameya coma scale total score: 15 SENSORY EXAM: Yes extremities (intact) Psych: COMMON NORMALS: speech normal SPEECH: Yes normal speech Skin: COMMON NORMALS: no rashes or lesions noted GENERAL SKIN EXAM: no rashes or lesions noted Course Vital Signs: Vital signs: Vital Signs Temperature 98.5 F 11/11/24 20:13 Pulse Rate 67 11/12/24 00:01 Respiratory Rate 16 11/12/24 00:01 Blood Pressure 191/83 11/12/24 00:01 Pulse Oximetry 92 11/12/24 00:01 Oxygen Delivery Me thod Nasal Cannula 11/12/24 00:01 Oxygen Flow Rate 2 11/12/24 00:01 MDM - SOB/Dyspnea Medical Decision Making She is breathing 2 L nasal cannula 93 to 94%. Blood pressure is improved currently. CBC is normal. BMP is normal. Lactic acid is 0.7.Chest x-ray shows cardiomegaly, mild vascular congestion. No effusions. No infiltrate. Patient declined ABG. She is wheezing on exam. She had transient improvement with DuoNeb treatment, although she is having trouble again. She states that when she gets steroids, her blood sugar gets quite high. Because of this, she will require admission. Steroids, doxycycline, breathing treatments. Potential for echocardiogram given her bottle shaped heart on chest x-ray in the morning. Lab Data 11/11/24 21:02 11/11/24 21:02 Labs/Radiology: Radiology Impressions Chest X-Ray 11/11/24 20:41 IMPRESSION: Mild to moderate globular cardiomegaly consistent with 4-chamber enlargment and/or pericardial effusion. Laboratory Results WBC 7.56 10^3/uL (3.29-11.43) 11/11/24 21:02 RBC 3.86 10^6/uL (3.85-5.65) 11/11/24 21:02 Hgb 11.30 g/dL (11.27-16.99) 11/11/24 21:02 Hct 35.8 % (36-47) L 11/11/24 21:02 MCV 92.7 fl (85-98) 11/11/24 21:02 MCH 29.3 pg (27-33) 11/11/24 21:02 MCHC 31.6 g/dL (30-55) 11/11/24 21:02 RDW 14.5 % (12.1-15.1) 11/11/24 21:02 Plt Count 207 10^3/cmm (157-399) 11/11/24 21:02 MPV 9.9 fL (7.4-10.4) 11/11/24 21:02 Neut % (Auto) 71.5 % 11/11/24 21:02 Lymph % (Auto) 16.9 % 11/11/24 21:02 [place] % (Auto) 7.4 % 11/11/24 21:02 Eos % (Auto) 3.4 % 11/11/24 21:02 Baso % (Auto) 0.4 % 11/11/24 21:02 Neut # (Auto) 5.40 10^3/uL (1.8-7.7) 11/11/24 21:02 Lymph # (Auto) 1.3 10^3/uL (0.8-4.8) 11/11/24 21:02 [place] # (Auto) 0.6 10^3/uL (0.2-0.9) 11/11/24 21:02 Eos # (Auto) 0.3 10^3/uL (0.0-0.8) 11/11/24 21:02 Baso # (Auto) 0.0 10^3/uL (0.0-0.1) 11/11/24 21: Nucleated RBC % (auto) 0 % 11/11/24 21: Nucleated RBCs # 0.0 /100WBC 11/11/24 21:02 Sodium 143 mmol/L (136-145) 11/11/24 21:02 Potassium 4.6 mmol/L (3.5-5.1) 11/11/24 21:02 Chloride 106 mmol/L (98-107) 11/11/24 21:02 Carbon Dioxide 27 mmol/L (22-29) 11/11/24 21:02 Anion Gap 14.6 (5-19) 11/11/24 21:02 BUN 10 mg/dL (8-23) 11/11/24 21:02 Creatinine 0.6 mg/dL (0.5-0.9) 11/11/24 21:02 GFR Calculation Not Reportable 11/11/24 21:02 Glucose 116 mg/dL (65-115) H 11/11/24 21:02 Calculated Osmolality 296 mOsm/kg (285-295) H 11/11/24 21:02 Lactic Acid 0.7 mmol/L (0.5-2.2) 11/11/24 21:02 Calcium 9.5 mg/dL (8.5-10.5) 11/11/24 21:02 Total Bilirubin 0.5 mg/dL (0.15-1.2) 11/11/24 21:02 AST 13 U/L (0-32) 11/11/24 21:02 ALT 14 U/L (0-33) 11/11/24 21:02 Alkaline Phosphatase 108 U/L (35-105) H 11/11/24 21:02 Troponin T Baseline 21 ng/L (0-10) H 11/11/24 21:02 Troponin T 120 Minute 19.31 ng/L (0-10) H 11/11/24 11:25 Delta Troponin T -1.69 ABS# (0-10) L 11/11/24 11:25 NT-Pro-B Natriuret Pep 560 pg/mL (0-450) H 11/11/24 21:02 Total Protein 6.1 g/dL (6.6-8.7) L 11/11/24 21:02 Albumin 3.9 g/dL (3.5-5.2) 11/11/24 21:02 Globulin 2.2 g/dL (1.3-4.6) 11/11/24 21:02 Influenza A (PCR) Negative (Negative) 11/11/24 21:02 Influenza Type B (PCR) Negative (Negative) 11/11/24 21:02 RSV (PCR) Negative (Negative) 11/11/24 21:02 SARS-CoV-2 (PCR) Negative (Negative) 11/11/24 21:02 All radiology interpretation(s) finalized by discharge Discharge Plan Discharge Patient Disposition: Admitted As Inpatient Admit Provider: Violet Welch Clinical Impression: Acute bronchitis, Acute hypoxic respiratory failure, Hypertension Condition: Stable Coding Level of Care Code ED Phlebotomy Services Technician for g Fwrobb
[2024-11-11 21:48] LABS: Respiratory Syncytial Virus Ce NEGATIVE (Negative); SARS-CoV-2 PCR NEGATIVE (Negative)
--- NOTE | 2024-11-11 22:52 | ECG_ITS ---
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 Measurements Intervals [place] Rate: 61 P: 85 MD: 173 QRS: 68 QRSD: 82 T: 66 QT: 398 QTc: 402 Interpretive Statements SINUS RHYTHM Compared to ECG 11/11/2024 20:45:59 No significant changes Electronically Signed On 11-15-2024 00:32:18 CDT by Cedric Hurd M.D. [id number] [id number]
[2024-11-11] MEDS: hyDRALAzine 20 mg/mL INJ 1 mL 10 MG IVP (23:24)
[2024-11-11] MEDS: methylPREDNISolone sod succ 125 mg/2 mL INJ 80 MG IVP (23:24)
[2024-11-11 23:37] VITALS: PULSE 62; RESP 18; O2SAT 94
[2024-11-11 23:39] VITALS: PULSE 63; RESP 18; O2SAT 93
[2024-11-11 23:54] LABS: Troponin 5 2HR 19.31 ng/L (0-10)
[2024-11-11 23:58] LABS: Troponin 5 2HR Delta -1.69 ABS# (0-10)
[2024-11-12] VITALS (16 sets, daily range): BP systolic 110–210; BP diastolic 64–95; PULSE 67–93; RESP 16–20; TEMP 36.6–36.9; O2SAT 90–96; BMI 53.1
[2024-11-12] MEDS: labetalol 5 mg/mL SDV 20mL 20 MG IVP (01:46)
--- NOTE | 2024-11-12 01:47 | PM.HP ---
Providers/Chief Complaint Admitting Physician: Violet Welch MD Primary Care Provider: Devi Shaw DO Chief Complaint: SOB cant breathe to talk well. HBP History of Present Illness Melissa De Jesus is a 74 year old female with past medical history of uncontrolled diabetes, PE on Xarelto, hypertension, hyperlipidemia, obesity , TANK on chronic Bipap at night time with 02. She is presenting to the ER today with c/o increased dyspnea ove rthe past 24 hrs. Denies any fever or chills. Denies any chest pain. Denies any cough with expectoration. She was noted to have significant wheezing on arrival and needing 02 supplementation at 2lpm. She has received steroids and nebulization in the ER. Review of Systems General: Reports: 10 or more systems reviewed and unremarkable except in HPI and below Const: Denies: fever(s), chills or body aches Eyes: Denies: change in vision, blurry vision or photophobia ENMT: Reports: hoarseness; Denies: throat pain, enlarged tonsils, odynophagia or nasal congestion Card: Denies: chest pain, palpitations, irregular heart rhythm, edema, swelling of feet/ankles, lightheadedness, pre-syncope, dyspnea on exertion or orthopnea Resp: Denies: dyspnea, productive cough, non-productive cough, wheezing, stridor, pain on inspiration, change in phlegm color, hemoptysis or chest congestion GI: Denies: abdominal pain, nausea, vomiting, hematemesis, coffee ground emesis, dysphagia, heartburn, diarrhea, constipation, GI cramping, change in stool character, hematochezia or melena : Denies: flank pain, difficulty voiding, dysuria, urinary frequency, urinary urgency, urinary hesitancy or hematuria Musc: Denies: neck pain, back pain, extremity pain, joint swelling, joint warmth or deformity Neuro: Denies: headache(s), numbness in extremities, weakness in extremities, sensory changes, difficulty walking, frequent falls, dizziness, vertigo, behavioral changes, Slurred speech present or seizure-like activity Psych: Denies: anxiety, depression, suicidal ideation or homicidal ideation Endo: Denies: polyuria, polydipsia, tired all the time, cold intolerance or hot flashes Charly/Lymph: Denies: easy bruising or easy bleeding Medications/Allergies Home Medications ?Medication ?Instructions ?Recorded ?Confirmed ?Last Taken ?Type lift recliner #1 ea 05/12/22 11/12/24 08/14/24 09:00 Rx blood sugar diagnostic (Accu-Chek #200 ea 10/01/22 11/12/24 08/14/24 09:00 Rx Leeann Plus test strips) upright wheeled walker #1 ea 03/16/23 11/12/24 08/14/24 09:00 Rx lancets (Accu-Chek Softclix #200 ea 04/23/23 11/12/24 08/14/24 09:00 Rx Lancets) tramadol 50 mg tablet 50 mg PO Q6H PRN pain 30 days #30 07/22/23 11/12/24 Unknown Rx tabs BIPAP with 17/04 with Oxygen with #1 ea 09/09/23 11/12/24 08/14/24 09:00 Rx supplies amlodipine 10 mg tablet 10 mg PO DAILY 05/18/24 11/12/24 08/14/24 09:00 History atorvastatin 20 mg tablet 40 mg (2 x 20 mg) PO DAILY #360 05/18/24 11/12/24 08/14/24 09:00 Rx tabs losartan 100 mg tablet 100 mg PO DAILY #90 tabs 05/23/24 11/12/24 08/14/24 09:00 Rx furosemide 20 mg tablet 20 mg PO DAILY PRN edema #90 tabs 06/10/24 11/12/24 Unknown Rx fluoxetine 10 mg tablet 10 mg PO DAILY #90 tabs 07/13/24 11/12/24 08/14/24 09:00 Rx hydralazine 100 mg tablet 100 mg PO BID #180 tabs 07/21/24 11/12/24 08/14/24 09:00 Rx pantoprazole 40 mg tablet,delayed 40 mg PO DAILY #90 tabs 07/24/24 11/12/24 08/14/24 09:00 Rx release pregabalin 50 mg capsule 50 mg PO TID #270 caps 07/27/24 11/12/24 08/14/24 21:00 Rx rivaroxaban 20 mg tablet (Xarelto) 20 mg PO DAILY #30 tabs 07/27/24 11/12/24 08/11/24 22:00 Rx tizanidine 2 mg tablet See Rx Instructions .Route 07/27/24 11/12/24 Unknown Rx .COMPLEX #270 tabs venlafaxine 150 mg 150 mg PO DAILY #90 caps 07/27/24 11/12/24 08/14/24 09:00 Rx capsule,extended release 24 hr venlafaxine 75 mg capsule,extended See Rx Instructions .Route 07/27/24 11/12/24 08/14/24 09:00 Rx release 24 hr .COMPLEX #90 caps Basaglar FacundoPen U-100 Insulin 100 55 unit (0.55 mL) SUBCUT BID 30 08/10/24 11/12/24 08/14/24 21:00 Rx unit/mL (3 mL) subcutaneous days #33 mL (insulin glargine) albuterol sulfate 90 mcg/actuation 2 inh inhalation Q8H PRN shortness 08/24/24 11/12/24 Unknown Rx aerosol inhaler (Ventolin HFA) of breath or wheezing #6.7 grams trazodone 100 mg tablet 100 mg PO BEDTIME #90 tabs 08/28/24 11/12/24 Unknown Rx isosorbide mononitrate 30 mg 60 mg (2 x 30 mg) PO DAILY #180 10/02/24 11/12/24 Unknown Rx tablet,extended release 24 hr tabs pen needle, diabetic 32 gauge x #100 ea 10/02/24 11/12/24 Unknown Rx acarbose 25 mg tablet 25 mg PO TID PRN high bs #270 tabs 10/03/24 11/12/24 Unknown Rx allopurinol 100 mg tablet 100 mg PO DAILY #90 tabs 10/16/24 11/12/24 Unknown Rx cholecalciferol (vitamin D3) 50 50 mcg PO DAILY 10/16/24 11/12/24 Unknown History mcg (2,000 unit) capsule buspirone 5 mg tablet 5 mg PO BID PRN anxiety #90 tabs 10/26/24 11/12/24 Unknown Rx clonidine HCl 0.1 mg tablet 0.1 mg PO QID PRN For blood 10/27/24 11/12/24 Unknown Rx pressure greater than 180/100 #30 tabs wheel chair #1 ea 11/09/24 11/12/24 Unknown Rx diphenhydramine HCl 25 mg tablet 25 mg PO DIRECTED PRN allergy 11/12/24 11/12/24 Unknown History (Benadryl Allergy) symptoms Allergies Allergy/AdvReac Type Severity Reaction Status Date / Time Iodinated Contrast Media Allergy Unknown Verified 11/09/24 09:55 meperidine (From Demerol) Allergy HIVES Verified 11/09/24 09:55 shellfish derived Allergy ANAPHYLAXIS Verified 11/09/24 09:55 cortisone AdvReac Mild high blood Verified 11/09/24 09:55 sugar PFSH Acute PFSH: Medical History Throat irritation Pulmonary embolism on left Pancreatic mass On CT imaging from 01/2023, stable cystic mass measuring 7 mm in the tail of the pancreas. No interval change since 2019. Lumbar stenosis with neurogenic claudication Spinal cord stimulator status Gout Urinary incontinence Obstructive sleep apnea On bipap, settings 16/12 with 2 lpm oxygen 3 para 3 Diabetes type 2, uncontrolled COVID-19 (~2021) Diverticulitis Essential (primary) hypertension Depression GERD (gastroesophageal reflux disease) Insomnia, controlled Hyperlipidemia Diabetic neuropathy Surgical History S/P total knee arthroplasty bilateral History of cardiac catheterization 08/2022 - 40% LAD, no other significant disease noted Status post total right knee replacement History of colonoscopy History of back surgery s/p fusion L3-L5 History of neck surgery H/O: hysterectomy S/P cholecystectomy S/p bilateral carpal tunnel release Status post total knee replacement, left Remote Family History Other CAD (coronary artery disease) Diabetes Social History Smoking and tobacco/nicotine status: unknown if used tobacco/nicotine Second hand smoke exposure: Yes (as a child (father smoked)) Alcohol intake: current Alcohol intake frequency: holidays/special occasions only Substance/Drug Use: never Lives independently: Yes Household members: spouse Marital status: Do you think of yourself as: Straight/Heterosexual Current gender identity: Female Female Reproductive History: Para: 3 Spontaneous abortions: No Vitals/I&O/Wt Last Vital Signs Temp 98.1 F 11/12/24 01:16 Pulse 70 11/12/24 01:16 Resp 18 11/12/24 01:16 BP 190/95 11/12/24 01:16 Pulse Ox 92 11/12/24 01:16 O2 Del Method Nasal Cannula 11/12/24 01:16 O2 Flow Rate 2 11/12/24 01:16 Weight last 48 hrs Weight 140.296 kg Weight 136.078 kg Physical Exam Narrative: General: No acute distress, AO x3 HEENT: PERRLA, pupils bilaterally equal and reactive, pallors not present Chest: Normal vesicular breath sounds, no added sounds, equal good air entry bilaterally CVS: S1-S2 regular, no murmurs, no tachycardia, no gallops, no rubs Abdomen: Soft, nontender, no organomegaly, bowel sounds present Neuro: No focal deficits, no facial deformity, AO x3, power 5/5 in all limbs Data 11/11/24 21:02 11/11/24 21:02 Other data: Radiology Impressions Chest X-Ray 11/11/24 20:41 IMPRESSION: Mild to moderate globular cardiomegaly consistent with 4-chamber enlargment and/or pericardial effusion. Laboratory Results WBC 7.56 10^3/uL (3.29-11.43) 11/11/24 21: RBC 3.86 10^6/uL (3.85-5.65) 11/11/24 21:02 Hgb 11.30 g/dL (11.27-16.99) 11/11/24 21:02 Hct 35.8 % (36-47) L 11/11/24 21: MCV 92.7 fl (85-98) 11/11/24 21:02 MCH 29.3 pg (27-33) 11/11/24 21:02 MCHC 31.6 g/dL (30-55) 11/11/24 21:02 RDW 14.5 % (12.1-15.1) 11/11/24 21:02 Plt Count 207 10^3/cmm (157-399) 11/11/24 21:02 MPV 9.9 fL (7.4-10.4) 11/11/24 21:02 Neut % (Auto) 71.5 % 11/11/24 21:02 Lymph % (Auto) 16.9 % 11/11/24 21:02 [place] % (Auto) 7.4 % 11/11/24 21:02 Eos % (Auto) 3.4 % 11/11/24 21:02 Baso % (Auto) 0.4 % 11/11/24 21:02 Neut # (Auto) 5.40 10^3/uL (1.8-7.7) 11/11/24 21:02 Lymph # (Auto) 1.3 10^3/uL (0.8-4.8) 11/11/24 21:02 [place] # (Auto) 0.6 10^3/uL (0.2-0.9) 11/11/24 21:02 Eos # (Auto) 0.3 10^3/uL (0.0-0.8) 11/11/24 21:02 Baso # (Auto) 0.0 10^3/uL (0.0-0.1) 11/11/24 21:02 Nucleated RBC % (auto) 0 % 11/11/24 21:02 Nucleated RBCs # 0.0 /100WBC 11/11/24 21:02 Sodium 143 mmol/L (136-145) 11/11/24 21:02 Potassium 4.6 mmol/L (3.5-5.1) 11/11/24 21:02 Chloride 106 mmol/L (98-107) 11/11/24 21:02 Carbon Dioxide 27 mmol/L (22-29) 11/11/24 21:02 Anion Gap 14.6 (5-19) 11/11/24 21:02 BUN 10 mg/dL (8-23) 11/11/24 21:02 Creatinine 0.6 mg/dL (0.5-0.9) 11/11/24 21:02 GFR Calculation Not Reportable 11/11/24 21:02 Glucose 116 mg/dL (65-115) H 11/11/24 21:02 Calculated Osmolality 296 mOsm/kg (285-295) H 11/11/24 21:02 Lactic Acid 0.7 mmol/L (0.5-2.2) 11/11/24 21:02 Calcium 9.5 mg/dL (8.5-10.5) 11/11/24 21:02 Total Bilirubin 0.5 mg/dL (0.15-1.2) 11/11/24 21:02 AST 13 U/L (0-32) 11/11/24 21:02 ALT 14 U/L (0-33) 11/11/24 21:02 Alkaline Phosphatase 108 U/L (35-105) H 11/11/24 21:02 Troponin T Baseline 21 ng/L (0-10) H 11/11/24 21:02 Troponin T 120 Minute 19.31 ng/L (0-10) H 11/11/24 11:25 Delta Troponin T -1.69 ABS# (0-10) L 11/11/24 11:25 Troponin T Hi Sens 6Hr 18.83 ng/L (0-10) H 11/12/24 02:38 Troponin T Hi Sens 6Hr Delta -2.17 ng/L (0-12) L 11/12/24 02:38 NT-Pro-B Natriuret Pep 560 pg/mL (0-450) H 11/11/24 21:02 Total Protein 6.1 g/dL (6.6-8.7) L 11/11/24 21:02 Albumin 3.9 g/dL (3.5-5.2) 11/11/24 21:02 Globulin 2.2 g/dL (1.3-4.6) 11/11/24 21:02 Influenza A (PCR) Negative (Negative) 11/11/24 21:02 Influenza Type B (PCR) Negative (Negative) 11/11/24 21:02 RSV (PCR) Negative (Negative) 11/11/24 21:02 SARS-CoV-2 (PCR) Negative (Negative) 11/11/24 21:02 A&P Assessment and plan 1. Acute bronchitis: 2. Obstructive sleep apnea: 3. Acute on chronic hypoxic respiratory failure: Plan: 74-year-old lady with past medical history of PE, chronically on Xarelto, history of obstructive sleep apnea, presenting to the hospital with chief complaints of dyspnea since yesterday. Chest x-ray showing bilateral infiltrates which appear to be concerning for pulmonary edema. Additionally patient is noted to be wheezing on exam today. Typically patient wears 2 L/min supplemental O2 bleeding into the BiPAP at nighttime. Currently she is requiring 2 L/min supplemental O2 to maintain sats. Overall clinical impression is that of acute bronchitis and CHF exacerbation. Respiratory viral panel is negative for influenza COVID and RSV. Methylprednisone 40mg iv every 8 hrs duoneb q6h, budesonide q12h scheduled nebulization Unlikely PE given patient is chronically on xarelto. continue home Bipap use while in the hospital CXR showing B/L infiltrates concerning for edema, also noted to have cardiomegaly on CXR Last echo one year echo with normal EF, gr 1 diastolic dysfunction. Lasix 40mg iv q24h , monitor urine output and renal function DVT ppx: Xarelto 20mg po daily Full code PDMP PDMP Reviewed: Not Reviewed Attestations Medical Necessity Statement*: > 2 midnight stay is anticipated Coding Level of Care Code Acute Code for [facility] Diagnoses Acute bronchitis J20.9 Obstructive sleep apnea G47.33 Acute on chronic hypoxic respiratory failure J96.21
[2024-11-12] MEDS: FUROsemide 10 mg/mL SDV 4mL 40 MG IVP ×2 (02:16→16:26)
--- NOTE | 2024-11-12 02:41 | ECG_ITS ---
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 Measurements Intervals Scott Rate: 72 P: 84 MO: 148 QRS: 81 QRSD: 89 T: 64 QT: 387 QTc: 425 Interpretive Statements SINUS RHYTHM Compared to ECG 11/11/2024 22:52:38 No significant changes Electronically Signed On 11-15-2024 00:32:11 CDT by Cedric Hurd M.D. [id number] [id number]
[2024-11-12 03:06] LABS: Troponin 5 6HR 18.83 ng/L (0-10)
[2024-11-12 03:07] LABS: Troponin 5 6HR Delta -2.17 ng/L (0-12)
[2024-11-12 05:42] LABS: Procalcitonin 0.07 ng/mL (0-0.5)
[2024-11-12] MEDS: methylPREDNISolone sod succ 40 mg/mL INJ IVP ×3 (06:22→22:35)
[2024-11-12] MEDS: venlafaxine ER (24HR) 150 mg Capsule PO (08:20)
[2024-11-12] MEDS: venlafaxine ER (24HR) 75 mg Capsule PO (08:20)
--- NOTE | 2024-11-12 14:00 | P.PN_ITS ---
Subjective 2 Subjective: Patient with green phlegm brought up since hospitalization. She is feeling much better after diuresis. She wears BiPAP at home does not know settings but I see settings of 17/04 with 2 L O2. She says is a ResMed machine that is white which is consistent with a ResMed 11 probable V auto Vitals/I&O/Wt Last Vital Signs Temp 98.2 F 11/12/24 11:57 Pulse 92 11/12/24 11:57 Resp 18 11/12/24 11:57 BP 183/85 11/12/24 11:57 Pulse Ox 90 11/12/24 11:57 O2 Del Method Nasal Cannula 11/12/24 11:57 O2 Flow Rate 2 11/12/24 08:40 11/11/24 11/12/24 11/12/24 22:59 06:59 14:59 Intake Total 600 / 600 Output Total 2200 / 2200 Balance -2200 / -2200 600 / 600 Weight last 48 hrs Weight 139.616 kg Weight 140.296 kg Weight 136.078 kg Physical Exam 2 Narrative: General Well-developed well-nourished morbidly obese female in no acute cardiopulmonary stress CV regular rate and rhythm with a 4/6 systolic ejection murmur best heard at the right upper sternal border Lungs clear except diminished in the bases Calves trace to 1+ edema Data 11/11/24 21:02 11/11/24 21:02 A&P Assessment and plan 1. Acute bronchitis: Continue with doxycycline 100 mg twice a day 2. Obstructive sleep apnea: Bring in your home CPAP machine 3. Acute on chronic hypoxic respiratory failure: Due to fluid retention from diastolic heart failure and sleep apnea untreated. 2 L negative so far labs in the morning anticipate discharge home 4. Morbid obesity with BMI of 50.0-59.9, adult: I discussed weighing daily, calorie counting and appetite suppression with medication such as tirzepatide. Patient has been on Ozempic in the past. She is not sure why it was stopped. She states she has gastroparesis but not pancreatic cancer or history of pancreatitis. She also has not had thyroid cancer. She had gone to see specialist for gastric bypass surgery but blood pressure was high at the time about 3 months ago. She is agreeable to weight loss diet. I counseled her and her friend at bedside friends named Leena Plan: 74-year-old lady with past medical history of PE, chronically on Xarelto, history of obstructive sleep apnea, presenting to the hospital with chief complaints of dyspnea since yesterday. Chest x-ray showing bilateral infiltrates which appear to be concerning for pulmonary edema. Additionally patient is noted to be wheezing on exam today. Typically patient wears 2 L/min supplemental O2 bleeding into the BiPAP at nighttime. Currently she is requiring 2 L/min supplemental O2 to maintain sats. Overall clinical impression is that of acute bronchitis and CHF exacerbation. Respiratory viral panel is negative for influenza COVID and RSV. Methylprednisone 40mg iv every 8 hrs duoneb q6h, budesonide q12h scheduled nebulization Unlikely PE given patient is chronically on xarelto. continue home Bipap use while in the hospital CXR showing B/L infiltrates concerning for edema, also noted to have cardiomegaly on CXR Last echo one year echo with normal EF, gr 1 diastolic dysfunction. Lasix 40mg iv q24h , monitor urine output and renal function DVT ppx: Xarelto 20mg po daily Full code PDMP PDMP Reviewed: Not Reviewed Attestations 2 Medical Necessity Statement*: Patient remained in the hospital 1 more night for diuresis anticipates discharge tomorrow Coding Level of Care Code Acute Code for [facility] Diagnoses Acute bronchitis J20.9 Obstructive sleep apnea G47.33 Acute on chronic hypoxic respiratory failure J96.21 Morbid obesity with BMI of 50.0-59.9, adult E66.01; Z68.43 Comment Extended care 30 minutes
[2024-11-12] MEDS: insulin glargine 100 units/1 mL 55 UNIT SUBCUT (17:43)
[2024-11-13] VITALS (17 sets, daily range): BP systolic 102–168; BP diastolic 57–79; PULSE 68–83; RESP 16–19; TEMP 36.2–36.6; O2SAT 90–95
[2024-11-13 05:14] LABS: Hematocrit 35.0 % (36-47); Hemoglobin 11.00 g/dL (11.27-16.99); Mean Corpuscular HGB Conc 31.4 g/dL (30-55); Mean Corpuscular Hemoglobin 28.9 pg (27-33); Mean Corpuscular Volume 91.9 fl (85-98); Nucleated Red Blood Cells % 0 %; Platelet Count 193 10^3/cmm (157-399); Red Blood Count 3.81 10^6/uL (3.85-5.65); White Blood Count 8.60 10^3/uL (3.29-11.43)
[2024-11-13] MEDS: FUROsemide 10 mg/mL SDV 4mL 40 MG IVP (05:31)
[2024-11-13 05:37] LABS: Alanine Aminotransferase 14 U/L (0-33); Albumin Level 3.5 g/dL (3.5-5.2); Alkaline Phosphatase 103 U/L (35-105); Anion Gap 16.1 (5-19); Aspartate Amino Transferase 16 U/L (0-32); Blood Urea Nitrogen 29 mg/dL (8-23); Calcium 9.3 mg/dL (8.5-10.5); Carbon Dioxide 26 mmol/L (22-29); Chloride 97 mmol/L (98-107); Creatinine Clr Calc Pharmacy 75.6008; Globulin 2.9 g/dL (1.3-4.6); Glucose 408 mg/dL (65-115); Osmolality Calculated 301 mOsm/kg (285-295); Potassium 5.1 mmol/L (3.5-5.1); Sodium 134 mmol/L (136-145); Total Protein 6.4 g/dL (6.6-8.7)
[2024-11-13] MEDS: methylPREDNISolone sod succ 40 mg/mL INJ IVP (06:36)
[2024-11-13] MEDS: venlafaxine ER (24HR) 75 mg Capsule PO (08:02)
[2024-11-13] MEDS: venlafaxine ER (24HR) 150 mg Capsule PO (08:03)
[2024-11-13] MEDS: insulin glargine 100 units/1 mL 55 UNIT SUBCUT ×2 (08:05→18:04)
--- NOTE | 2024-11-13 09:56 | PC.CHAP ---
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 [] Patient/Family/Request visit [] Outpatient visit [] Follow-up visit [] Physician referral [] Code/Alert [] Routine visit [] Staff referral [] Actively dying [x] Patient sleeping [] Family support [] [] Out of room [] Palliative care [] [] Receiving care in room [] Pre-surgical visit [] Trauma [] Long length of stay [] ICU visit [] Other: Relational/Emotional Strength [] Patient feels connected with others/family/visitors/staff [] Distress [] Loneliness/isolation [] Abandonment Spirituality of Patient [] Person of Anitha [] Attends Sabianism of their Anitha [] Believes in Prayer [] Reads Bible or Gnosticist materials [] There are Spiritual issues to be addressed Senior Integration Architect Interventions [] Prayer [] Active listening [] Non-anxious presence [] Spiritual/emotional support [] Crisis/trauma care [] Spiritual counseling [] Bereavement support [] Provided bereavement packet [] Provided Bible/devotional materials [] Provided toy/stuffed animal, coloring book to patient or family member [] Provided Communion [] Anointing/Convoy [] Salvation [] Completed spiritual assessment [] Other: Impact on Illness or Injury [] Angry [] Fearful [] Anxious [] Often cries [] Exhaustion [] Unable to work [] Unable to attend religion [] Unable to walk/stand [] Unable to read [] Unable to drive [] Unable to eat/drink [] Unable to sleep [] Unable to be with family [] Patient intubated [] Other: Summary Time spent with patient
--- NOTE | 2024-11-13 11:23 | P.PN_ITS ---
Subjective 2 Subjective: Patient with green phlegm brought up since hospitalization. She is feeling much better after diuresis but not to baseline. She wore BiPAP for 7-1/2 hours last night at a BiPAP pressure of 16/12 with 2 L O2. The machine is a ResMed 11 V auto and confirms good mask fit overnight. Patient received steroids for COPD exacerbation and unfortunately her blood sugars been quite elevated this morning at 500 and then higher than readable. She received 18 units insulin. We discussed her going home at this going to have be delayed due to [id number] blood sugars Vitals/I&O/Wt Last Vital Signs Temp 97.6 F 11/13/24 07:24 Pulse 83 11/13/24 08:10 Resp 18 11/13/24 07:59 BP 168/79 11/13/24 08:03 Pulse Ox 93 11/13/24 11:22 O2 Del Method Room Air 11/13/24 07:59 O2 Flow Rate 2 11/12/24 20:00 11/12/24 11/13/24 11/13/24 22:59 06:59 14:59 Intake Total 480 / 1080 720 / 1800 480 / 480 Output Total 800 / 800 1600 / 2400 400 / 400 Balance -320 / 280 -880 / -600 80 / 80 Weight last 48 hrs Weight 139.621 kg Weight 139.616 kg Weight 140.296 kg Weight 136.078 kg Physical Exam 2 Narrative: General Well-developed well-nourished morbidly obese female in no acute cardiopulmonary stress CV regular rate and rhythm with a 4/6 systolic ejection murmur best heard at the right upper sternal border Lungs clear except diminished in the bases Calves trace to 1+ edema Data 11/13/24 04:38 11/13/24 04:38 A&P Assessment and plan 1. Acute bronchitis: Continue with doxycycline 100 mg twice a day. Hold steroids for now due to [id number] blood sugar 2. Obstructive sleep apnea: Continue with BiPAP at current settings again tonight 3. Acute on chronic hypoxic respiratory failure: Due to fluid retention from diastolic heart failure and sleep apnea untreated. 2700 cc negative so far. Potassium sergio with spironolactone. She was on furosemide 20 mg daily at home but no potassium replacement. Here on furosemide 40 mg IV twice a day I added spironolactone 25 mg and 20 mill colons of potassium daily and she sergio her potassium to 5.1. Appears euvolemic at this time we will decrease furosemide to 40 mg daily anticipating this as her discharge dose and spironolactone 25 mg daily potassium will be discontinued labs in the morning anticipate discharge home 4. Morbid obesity with BMI of 50.0-59.9, adult: I discussed weighing daily, calorie counting and appetite suppression with medication such as tirzepatide. Patient has been on Ozempic in the past. She is not sure why it was stopped. She states she has gastroparesis but not pancreatic cancer or history of pancreatitis. She also has not had thyroid cancer. She had gone to see specialist for gastric bypass surgery but blood pressure was high at the time about 3 months ago. She is agreeable to weight loss diet. I counseled her and her friend at bedside friends named Leena Patient's BMI of 52 and multiple comorbid conditions makes treatment overall difficult as she is on maximal doses of many of her medications. She is agreeable to a 1500-calorie ADA weight loss diet here. She reports modest addiction to sweets 5. Essential (primary) hypertension: Patient reports difficult to control blood pressure. She has coronary artery disease with moderate mid LAD stenosis found 08/15/2024 I added carvedilol low- dose and this will need to be monitored as she is also on clonidine. 6. Diabetes type 2, uncontrolled: Blood sugars [id number] with steroids. Steroids will be stopped 7. Pulmonary embolism on left: Seen on CT scan 11/10/2023 and she remains on Xarelto 8. CAD (coronary artery disease): Patient with moderate mid LAD stenosis seen on selective coronary angiogram 08/15/2024. Plan: DVT ppx: Xarelto 20mg po daily Full code PDMP PDMP Reviewed: Not Reviewed Attestations 2 Medical Necessity Statement*: Patient will require additional time in the hospital for management of hypertension that is out of control and blood sugars [id number] in the setting of COPD exacerbation and CHF Coding Level of Care Code 56278 Diagnoses Acute bronchitis J20.9 Obstructive sleep apnea G47.33 Acute on chronic hypoxic respiratory failure J96.21 Morbid obesity with BMI of 50.0-59.9, adult E66.01; Z68.43 Essential (primary) hypertension I10 Diabetes type 2, uncontrolled Pulmonary embolism on left I26.99 CAD (coronary artery disease) I25.10 Time Spent (min) 40
[2024-11-13] MEDS: insulin regular-human 100 units/1 mL 10 UNIT IVP (14:31)
[2024-11-13 14:37] LABS: Glucose Urine UA 3+ (Normal); Nitrate Urine Negative (Negative); Specific Gravity, Urine 1.017 (1.005-1.030)
[2024-11-13 14:42] LABS: Add Urine Microscopic? YES
[2024-11-14] VITALS (22 sets, daily range): BP systolic 100–143; BP diastolic 52–77; PULSE 61–102; RESP 13–23; TEMP 36.4–36.8; O2SAT 90–95
[2024-11-14] MEDS: venlafaxine ER (24HR) 150 mg Capsule PO (08:02)
[2024-11-14] MEDS: venlafaxine ER (24HR) 75 mg Capsule PO (08:03)
[2024-11-14] MEDS: insulin glargine 100 units/1 mL 55 UNIT SUBCUT ×2 (08:16→18:03)
--- NOTE | 2024-11-14 09:06 | PC.CHAP ---
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 adult remedial education instructor visit [] Patient/Family/Request visit [] Outpatient visit [] Follow-up visit [] Physician referral [] Code/Alert [x] Routine visit [] Staff referral [] Actively dying [] Patient sleeping [x] Family support [] [] Out of room [] Palliative care [] [] Receiving care in room [] Pre-surgical visit [] Trauma [] Long length of stay [] ICU visit [] Other: Relational/Emotional Strength [x] Patient feels connected with others/family/visitors/staff [] Distress [] Loneliness/isolation [] Abandonment Spirituality of Patient [x] Person of Anitha [] Attends Orthodox of their Anitha [x] Believes in Prayer [] Reads Bible or Mosque materials [] There are Spiritual issues to be addressed Diving Supervisor Interventions [x] Prayer [x] Active listening [] Non-anxious presence [x] Spiritual/emotional support [] Crisis/trauma care [] Spiritual counseling [] Bereavement support [] Provided bereavement packet [] Provided Bible/devotional materials [] Provided toy/stuffed animal, coloring book to patient or family member [] Provided Communion [] Anointing/[place] [] Salvation [x] Completed spiritual assessment [] Other: Impact on Illness or Injury [] Angry [] Fearful [] Anxious [] Often cries [] Exhaustion [] Unable to work [] Unable to attend mosque [] Unable to walk/stand [] Unable to read [] Unable to drive [] Unable to eat/drink [] Unable to sleep [] Unable to be with family [] Patient intubated [] Other: Summary Time spent with patient 5 min
--- NOTE | 2024-11-14 12:30 | ECG_ITS ---
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 Measurements Intervals [place] Rate: 118 P: 0 RI: 0 QRS: 29 QRSD: 84 T: 39 QT: 302 QTc: 423 Interpretive Statements ATRIAL FLUTTER WITH RAPID VENTRICULAR RESPONSE MODERATE ST DEPRESSION [0.05+ mV ST DEPRESSION] Compared to ECG 11/12/2024 02:56:32 ST (T wave) deviation now present Sinus rhythm no longer present Electronically Signed On 11-14-2024 14:57:52 CDT by Anders Garrido M.D. [id number]
[2024-11-14] MEDS: dilTIAZem 5 mg/mL SDV 5 mL 10 MG IVP ×2 (12:33→15:39)
[2024-11-14] MEDS: magnesium sulfate premix 2 GM/50 ML PIGGYBACK IV (12:35)
--- NOTE | 2024-11-14 13:22 | P.PN_ITS ---
Subjective 2 Subjective: 74-year-old female yesterday's potential discharge held due to hyperglycemia from steroids. Steroids were stopped. Green phlegm is resolved. She is on room air intermittently but is on oxygen at home. She did wear her BiPAP 17/04 with 2 L/min oxygen bleed overnight and sugars down to 170s to 190s this morning. Patient reports dizziness and dyspnea on exertion with going to the bathroom this morning and heart was racing. In fact her heart was A-fib at 150 on the monitor and EKG confirmed A-fib. She was given a dose of diltiazem and magnesium 2 g IV empirically. Admit magnesium was 1.9 prior to diuresis and oral replacement with maintenance dose of 400 mg daily. Patient's heart rate currently 85 and irregular. I reviewed old Holter from 11/2023 and it shows that she had some A-fib flutter brief runs. She is also had myocardial perfusion scan 07/12/2024 showed medium sized area of prior infarct in the left circumflex territory and medium sized area of ischemia in the septal wall. Selective coronary angiogram on 08/15/2024 showed left main and circumflex healthy LAD moderate 40 to 50% stenosis RCA 20 to 30% stenosis. Medical management Vitals/I&O/Wt Last Vital Signs Temp 97.5 F L 11/14/24 11:40 Pulse 86 11/14/24 11:40 Resp 18 11/14/24 11:40 BP 114/70 11/14/24 11:40 Pulse Ox 92 11/14/24 11:40 O2 Del Method Room Air 11/14/24 11:40 O2 Flow Rate 4 11/14/24 02:40 11/13/24 11/14/24 11/14/24 22:59 06:59 14:59 Intake Total 800 / 1760 600 / 2360 1200 / 1200 Output Total 1200 / 2600 300 / 2900 2300 / 2300 Balance -400 / -840 300 / -540 -1100 / -1100 Weight last 48 hrs Weight 138.516 kg Weight 139.621 kg Physical Exam 2 Narrative: General Well-developed well-nourished morbidly obese female in no acute cardiopulmonary stress CV regular rate and rhythm with a 4/6 systolic ejection murmur best heard at the right upper sternal border Lungs clear except diminished in the bases Calves trace to 1+ edema Data 11/13/24 04:38 11/13/24 04:38 A&P Assessment and plan 1. Paroxysmal atrial fibrillation: Looks like the patient has had this to a lesser degree in the past but stress of hyperglycemia, steroids, COPD, morbid obesity, sleep apnea has brought this on. It is well-controlled with diltiazem IV for rate. Hopefully she will convert on her own. She is already on rivaroxaban for history of PE so could be cardioverted if needed 2. Acute bronchitis: Continue with doxycycline 100 mg twice a day. Steroids stopped due to [id number] blood sugar and lung exam is good 3. Obstructive sleep apnea: Continue with BiPAP 17/04 with 2 L/min oxygen bleed 4. Acute on chronic hypoxic respiratory failure: Due to fluid retention from diastolic heart failure and sleep apnea untreated. 4400 cc negative so far. Potassium sergio with spironolactone. She was on furosemide 20 mg daily at home but no potassium replacement. Here on furosemide 40 mg IV twice a day I added spironolactone 25 mg and 20 mill colons of potassium daily and she sergio her potassium to 5.1. A-fib this morning will recheck BMP and magnesium Appears euvolemic at this time we will decrease furosemide to 40 mg daily anticipating this as her discharge dose and spironolactone 25 mg daily potassium will be discontinued labs in the morning anticipate discharge home 5. Morbid obesity with BMI of 50.0-59.9, adult: I discussed weighing daily, calorie counting and appetite suppression with medication such as tirzepatide. Patient has been on Ozempic in the past. She is not sure why it was stopped. She states she has gastroparesis but not pancreatic cancer or history of pancreatitis. She also has not had thyroid cancer. She had gone to see specialist for gastric bypass surgery but blood pressure was high at the time about 3 months ago. She is agreeable to weight loss diet. I counseled her and her friend at bedside friends named Leena Patient's BMI of 52 and multiple comorbid conditions makes treatment overall difficult as she is on maximal doses of many of her medications. She is agreeable to a 1500-calorie ADA weight loss diet here. She reports modest addiction to sweets Continue with weight loss diet. I encouraged her to comply with diet and celebrate steady slow weight loss as it was steady slow weight gain and dramatic immediate weight loss is not possible. Do not be discouraged 6. Essential (primary) hypertension: Patient reports difficult to control blood pressure. She has coronary artery disease with moderate mid LAD stenosis found 08/15/2024 I added carvedilol low- dose and this will need to be monitored as she is also on clonidine. 7. Uncontrolled type 2 diabetes mellitus with hyperglycemia: Blood sugars [id number] with steroids. Steroids now stopped. Insulin drip avoided yesterday with 2 doses of IV insulin blood sugars improved and now managed with subcu insulin 8. Pulmonary embolism on left: Seen on CT scan 11/10/2023 and she remains on Xarelto 9. Coronary artery disease of [place] artery of [place] heart with stable angina pectoris: Patient with moderate 40% mid LAD stenosis seen on selective coronary angiogram 08/15/2024. Plan: DVT ppx: Xarelto 20mg po daily Full code PDMP PDMP Reviewed: Not Reviewed Attestations 2 Medical Necessity Statement*: Patient will require additional 1-2 nights in the hospital for control of A-fib rapid ventricular response and also further physical therapy due to deconditioning from acute illness Coding Level of Care Code 40689 Diagnoses Paroxysmal atrial fibrillation I48.0 Acute bronchitis J20.9 Obstructive sleep apnea G47.33 Acute on chronic hypoxic respiratory failure J96.21 Morbid obesity with BMI of 50.0-59.9, adult E66.01; Z68.43 Essential (primary) hypertension I10 Uncontrolled type 2 diabetes mellitus with hyperglycemia E11.65 Glycemic state: with hyperglycemia Pulmonary embolism on left I26.99 Coronary artery 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 transplanted heart: [place] heart Associated angina: with stable angina Time Spent (min) 45
[2024-11-14 14:17] LABS: Anion Gap 15.9 (5-19); Blood Urea Nitrogen 34 mg/dL (8-23); Calcium 9.2 mg/dL (8.5-10.5); Carbon Dioxide 27 mmol/L (22-29); Chloride 97 mmol/L (98-107); Creatinine Clr Calc Pharmacy 67.7015; Glucose 180 mg/dL (65-115); Magnesium 2.4 mg/dL (1.7-2.3); Osmolality Calculated 294 mOsm/kg (285-295); Potassium 3.9 mmol/L (3.5-5.1); Sodium 136 mmol/L (136-145)
--- NOTE | 2024-11-14 15:02 | PC.NURSE ---
Addendum entered by Lorena Salguero LPN 11/14/24 15:50: pt complains of chest pain 8/[address] Gonzalez notifed again. Verbal order given for EKG and Dr. oGnzalez is placing transfer orders for pt to go to [facility]. Addendum entered by Lorena Salguero LPN 11/14/24 15:30: This nurse called Dr. Gonzalez again at 1530. Verbal orders given to do another 10mg IVP Cardizem. This nurse placed order. Original Note: Pt HR is 140s and 150s at rest, even after IVP cardizem. This nurse has text and called Dr. Gonzalez to notify him. Awaiting a response.
--- NOTE | 2024-11-14 15:51 | ECG_ITS ---
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 Measurements Intervals [place] Rate: 114 P: 0 CA: 0 QRS: 13 QRSD: 84 T: 40 QT: 316 QTc: 436 Interpretive Statements ATRIAL FIBRILLATION WITH RAPID VENTRICULAR RESPONSE ABNORMAL RHYTHM ECG Compared to ECG 11/14/2024 12:30:16 Atrial flutter no longer present ST (T wave) deviation no longer present Electronically Signed On 11-14-2024 18:34:02 CDT by Cedric Hurd M.D. [id number]
--- NOTE | 2024-11-14 16:07 | PC.NURSE ---
This nurse called report to SULLY Jara in ICU at 1605. Sublingual Nitro and PO Cardizem being administered by TRENT Atkinson. A 2nd EKG is also being obtained at bedside.
--- NOTE | 2024-11-14 17:17 | PC.NURSE ---
received patient from [facility] surge staff at 1630. Patient is awake and alert. Oriented to person, place, time, and situation. HR: 109, BP: 123/71. SPO2: 91%, RR: 20, Patient's heart rythm is afib. Occaisinally Pwaves are detected, but mostly afib. Rate between 90-110.
--- NOTE | 2024-11-14 18:16 | PC.NURSE ---
SInce arrival in ICU, patient has had 3 short periods of bradycardia. Lasting 5 to 10 seconds each. Patient is asymptomatic during these episodes. When questioned about activity during these episodes nothing seems to be preceding them. Nurse alerted Dr cortés. Received orders for troponin series.
--- NOTE | 2024-11-14 18:36 | PC.NURSE ---
Medication held: 100mg of hydralazine held. BP: 95/67. physician made aware.
[2024-11-14 20:20] LABS: Troponin T (5th) Once 30 ng/L (0-10)
[2024-11-15] VITALS (29 sets, daily range): BP systolic 100–167; BP diastolic 50–99; PULSE 58–84; RESP 11–22; TEMP 36.2–37; O2SAT 86–94
--- NOTE | 2024-11-15 05:54 | PC.NURSE ---
Patient stayed in sinus rhythm throughout the night with heart rate mostly in 60's. Cardizem held due to hr under 75.
[2024-11-15 06:07] LABS: Anion Gap 15.9 (5-19); Blood Urea Nitrogen 37 mg/dL (8-23); Calcium 9.3 mg/dL (8.5-10.5); Carbon Dioxide 27 mmol/L (22-29); Chloride 98 mmol/L (98-107); Creatinine Clr Calc Pharmacy 67.7015; Glucose 97 mg/dL (65-115); Osmolality Calculated 293 mOsm/kg (285-295); Potassium 3.9 mmol/L (3.5-5.1); Sodium 137 mmol/L (136-145)
--- NOTE | 2024-11-15 06:57 | PC.NURSE ---
Late note: at 1837 on 11/14/2024. Patient went bradycardic again and then converted to sinus rythm. Physician notified
[2024-11-15] MEDS: venlafaxine ER (24HR) 150 mg Capsule PO (08:14)
[2024-11-15] MEDS: insulin glargine 100 units/1 mL 55 UNIT SUBCUT ×2 (08:15→17:25)
[2024-11-15] MEDS: venlafaxine ER (24HR) 75 mg Capsule PO (08:18)
--- NOTE | 2024-11-15 10:39 | USCV_ITS ---
Neal Melissa Age: 74 Gender: F : 1950 Exam Date: 11/15/2024 13:51 Ordering Phys: Nicki Gallegos Technologist: WENDY Exam Location: [facility] Indication: LVEF, SOB BP: 130 / 80 HR: 58 Rhythm: Sinus Technical Quality: Adequate MEASUREMENTS (Male / Female) Normal Values 2D ECHO LV Diastolic Diameter PLAX 5.3 cm 4.2 - 5.9 / 3.9 - 5.3 cm IVS Diastolic Thickness 1.4 cm 0.6 - 1.0 / 0.6 - 0.9 cm IVS Systolic Thickness 1.8 cm LVPW Diastolic Thickness 1.6 cm 0.6 - 1.0 / 0.6 - 0.9 cm LVPW Systolic Thickness 1.9 cm LVOT Diameter 2.1 cm LV Ejection Fraction 2D Teich 56.8 % LV Ejection Fraction MOD 4C 61.7 % LV Ejection Fraction MOD 2C 61.1 % LV Ejection Fraction 2C AL 63.8 % LA Diameter 4.5 cm RA Systolic Volume 4C AL 50.6 ml RA Systolic Volume 4C MOD 47.6 ml LA Sys Volume AL 71.9 cm cubed LA Sys Volume Index AL 28.0 cm cubed/m squared Aorta at Sinotubular Diameter 3.0 cm IVC Diameter 2.4 cm M-MODE LA Ao Ratio MM 1.4 AV Cusp Separation MM 1.4 cm DOPPLER AV Peak Velocity 113.0 cm/s LVOT Peak Velocity 100.0 cm/s AV Area Cont Eq vti 2.6 cm squared AV Area Cont Eq pk 3.0 cm squared MV Peak Velocity 101.0 cm/s MV Area PHT 2.6 cm squared Mitral E to A Ratio 0.8 TR Peak Velocity 104.0 cm/s TR Peak Gradient 4.3 mmHg TV Peak E Velocity 69.0 cm/s PV Peak Velocity 107.0 cm/s FINDINGS Left Ventricle Normal left ventricular size, systolic function and wall thickness, with no regional wall motion abnormalities. Left ventricular ejection fraction is estimated at 60 %. Grade I/IV diastolic dysfunction (abnormal relaxation filling pattern), normal to mildly elevated filling pressures. Right Ventricle The right ventricle is normal in size and function. Right Atrium The right atrium is normal in size. Left Atrium The left atrium is normal in size. Mitral Valve Structurally normal mitral valve without significant stenosis or prolapse. There is no mitral regurgitation. Aortic Valve Severe aortic valve calcification. Mild aortic valve stenosis, mean gradient 2.3 mmHg, BARRY 2.6 cm squared. Trace aortic valve regurgitation. Tricuspid Valve Structurally normal tricuspid valve without significant stenosis or regurgitation. Pulmonary artery systolic pressure is normal. Pulmonic Valve Structurally normal pulmonic valve without significant stenosis. There is no pulmonic regurgitation. Pericardium Normal pericardium without effusion. Aorta Normal ascending aorta dimension. IVC The inferior vena cava appears normal. CONCLUSIONS Normal left ventricular size, systolic function and wall thickness, with no regional wall motion abnormalities. Left ventricular ejection fraction is estimated at 60 %. Grade I/IV diastolic dysfunction (abnormal relaxation filling pattern), normal to mildly elevated filling pressures. Severe aortic valve calcification. Mild aortic valve stenosis, mean gradient 2.3 mmHg, BARRY 2.6 cm squared. Trace aortic valve regurgitation. There is no pericardial effusion. Right atrial pressure is around 5 mm of mercury. Libby Graham MD (Electronically Signed) Final Date: 15 November 2024 19:14 S
--- NOTE | 2024-11-15 10:55 | PC.NURSE ---
Assisted to [facility] and then patient transferred to chair at bedside. Offered to walk patient per Dr. Gonzalez order. Patient states I can not walk other than to the bathroom and back to bed or chair per my PCP orders because of my torn achilles tendon. Notified Dr. Gonzalez. Dr. Gonzalez states she needs to walk so we can see if she can go home.
--- NOTE | 2024-11-15 13:53 | P.CONIM_ITS ---
<Statement entered by Libby Graham MD - 11/16/24 20:16> Patient was evaluated and cared for in conjunction with an advanced practice practitioner. I personally examined the patient and reviewed the chart and all pertinent data including imaging, telemetry, and laboratory results. I discussed the patient in detail with the advanced practice practitioner. Please see their note for complete H&P testing result and agreed upon plan of care for the patient. Providers/Reason For Consult 2 Consulting Physician/Specialty*: Dr Roslyn Graham, cardiology Reason for Consult*: bradycardia Requesting Physician: Hussein Gonzalez MD Attending Physician: Hussein Gonzalez MD Primary Care Provider: Devi Shaw DO History of Present Illness History of Present Illness Melissa De Jesus is a 74 year old female with past medical history of diabetes, pulmonary embolism anticoagulated with Xarelto, TANK on BiPAP, hypertension, hyperlipidemia, CAD (coronary angiogram 08/15/2024: 40-50% mid LAD stenosis nonischemic by iFR, 20-30% mid RCA stenosis). She was admitted to the hospital 11/11/2024 for worsening dyspnea. She was treated for acute bronchitis, diuresed with good symptomatic improvement. She was found to have atrial fibrillation with RVR 11/14/2024 and was treated with diltiazem IV which converted her to sinus rhythm. Following that she developed some instances of bradycardia. Cardiology input requested for medication management for atrial fibrillation. Review of the equipment monitor phototypesetting today showed some QRS complexes without P waves, appearing to be an intermittent junctional rhythm after administration of diltiazem. Previous 7-day Holter in November 2023 showed sinus rhythm, frequent SVE totaling 12% of total heartbeats, short runs of PAT as well. Less than 1% ventricular ectopy, no pauses or bradycardia at that time with an average heart rate of 76 bpm. No atrial fibrillation noted. Most recent echocardiogram 11/08/2023: LVEF 73%, moderate LVH, grade 1 diastolic dysfunction, mild left atrial enlargement. No significant valvular abnormality. She has already been anticoagulated with Xarelto for the last year due to nonocclusive left lower lobe pulmonary embolism, previous to that had DVT- lifelong anticoagulation previously recommended. Review of Systems 2 Const: Denies: fever(s), chills, change in weight, fatigue or diaphoresis Eyes: Denies: change in vision ENMT: Denies: epistaxis Card: Denies: chest pain, palpitations, irregular heart rhythm, edema, syncope, pre-syncope, dyspnea on exertion, orthopnea or leg pain with exertion Resp: Denies: dyspnea, productive cough or wheezing GI: Denies: nausea, vomiting, hematemesis, hematochezia or melena : Denies: hematuria Musc: Denies: extremity swelling Charly/Lymph: Denies: easy bruising or easy bleeding Medications/Allergies Home Medications ?Medication ?Instructions ?Recorded ?Confirmed ?Last Taken ?Type lift recliner #1 ea 05/12/22 11/12/2408/01 09:00 Rx blood sugar diagnostic (Accu-Chek #200 ea 10/01/2208/14/24 09:00 Rx Leeann Plus test strips) upright wheeled walker #1 ea 03/16/23 11/12/2408/01 09:00 Rx lancets (Accu-Chek Softclix #200 ea 04/23/23 11/12/24 08/14/24 09:00 Rx Lancets) tramadol 50 mg tablet 50 mg PO Q6H PRN pain 30 day s #30 07/22/23 11/12/24 Unknown Rx tabs BIPAP with 17/04 with Oxygen with #1 ea 09/09/2311/1208/14/24 09:00 Rx supplies amlodipine 10 mg tablet 10 mg PO DAILY 05/18/2410/3108/14/24 09:00 History atorvastatin 20 mg tablet 40 mg (2 x 20 mg) PO DAILY # 360 05/18/24 11/12/24 08/14/24 09:00 Rx tabs losartan 100 mg tablet 100 mg PO DAILY #90 tabs 11/12/24 08/14/24 09:00 Rx furosemide 20 mg tablet 20 mg PO DAILY PRN edema #90 tabs 06/10/24 11/12/24 Unknown Rx fluoxetine 10 mg tablet 10 mg PO DAILY #90 tabs 07/0111/12/24 08/14/24 09:00 Rx hydralazine 100 mg tablet 100 mg PO BID #180 tabs 07/0211/12/24 08/14/24 09:00 Rx pantoprazole 40 mg tablet,delayed 40 mg PO DAILY #90 t abs 07/24/24 11/12/24 08/14/24 09:00 Rx release pregabalin 50 mg capsule 50 mg PO TID #270 caps 07/2711/12/24 08/14/24 21:00 Rx rivaroxaban 20 mg tablet (Xarelto) 20 mg PO DAILY #30 tabs 07/27/24 11/12/24 08/11/24 22:00 Rx tizanidine 2 mg tablet See Rx Instructions .Route 0 07/27/24 11/12/24 Unknown Rx .COMPLEX #270 tabs venlafaxine 150 mg 150 mg PO DAILY #90 caps 11/12/24 08/14/24 09:00 Rx capsule,extended release 24 hr venlafaxine 75 mg capsule,extended See Rx Instructions .Route 07/27/24 11/12/24 08/14/24 09:00 Rx release 24 hr .COMPLEX #90 caps Basaglar KwikPen U-100 Insulin 100 55 unit (0.55 mL) S UBCUT BID 30 08/10/24 11/12/24 08/14/24 21:00 Rx unit/mL (3 mL) subcutaneous days #33 mL (insulin glargine) albuterol sulfate 90 mcg/actuation 2 inh inhalation Q8 H PRN shortness 08/24/24 11/12/24 Unknown Rx aerosol inhaler (Ventolin HFA) of breath or wheezing # 6.7 grams trazodone 100 mg tablet 100 mg PO BEDTIME #90 tabs 0 08/28/24 11/12/24 Unknown Rx isosorbide mononitrate 30 mg 60 mg (2 x 30 mg) PO ROMA Y #180 10/02/24 11/12/24 Unknown Rx tablet,extended release 24 hr tabs pen needle, diabetic 32 gauge x #100 ea 10/02/2411/12 Unknown Rx acarbose 25 mg tablet 25 mg PO TID PRN high bs #27 0 tabs 10/03/24 11/12/24 Unknown Rx allopurinol 100 mg tablet 100 mg PO DAILY #90 tabs 11/12/24 Unknown Rx cholecalciferol (vitamin D3) 50 50 mcg PO DAILY 11/12/24 Unknown History mcg (2,000 unit) capsule buspirone 5 mg tablet 5 mg PO BID PRN anxiety #90 tabs 10/26/24 11/12/24 Unknown Rx clonidine HCl 0.1 mg tablet 0.1 mg PO QID PRN For bloo d 10/27/24 11/12/24 Unknown Rx pressure greater than 180/100 #30 tabs wheel chair #1 ea 11/09/24 11/12/24 Unkn own Rx diphenhydramine HCl 25 mg tablet 25 mg PO DIRECTED PRN allergy 11/12/24 11/12/24 Unknown History (Benadryl Allergy) symptoms Allergies Allergy/AdvReac Type Severity Reaction Status Date / Time Iodinated Contrast Media Allergy Unknown Verified 11/09/24 09:55 meperidine (From Demerol) Allergy HIVES Verified 11/09/24 09:55 shellfish derived Allergy ANAPHYLAXIS Verified 11/09/24 09:55 cortisone AdvReac Mild high blood Verified 11/09/24 09:55 sugar Current Medications Generic Name Dose Route Start Last Admin Trade Name Freq PRN Reason Stop Dose Admin Acetaminophen 650 mg 11/12/24 01:51 11/13/24 20:12 Acetaminophen 325 Mg Tablet PO 650 mg Q6H PRN Administration Mild/Mod Pain Or Temp >/= 101 Albuterol/Ipratropium 3 ml 11/12/24 02:00 11/15/24 07:59 Ipratropium-Albuterol 3 Ml Neb INHALATION 3 ml Q6H.RESP BRII Administration Allopurinol 100 mg 11/12/24 09:00 11/15/24 08:13 Allopurinol 100 Mg Tablet PO 100 mg DAILY BRII Administration Atorvastatin Calcium 40 mg 11/12/24 09:00 11/15/24 08:13 Atorvastatin 40 Mg Tablet PO 40 mg DAILY BRII Administration Benzonatate 100 mg 11/12/24 01:51 11/14/24 16:38 Benzonatate 100 Mg Capsule PO 100 mg TID PRN Administration COUGH Budesonide 0.5 mg 11/12/24 08:00 11/15/24 07:59 Budesonide 0.5 Mg/2 Ml Neb INHALATION 0.5 mg BID.RESPIRATORY BRII Administration Clonidine HCl 0.1 mg 11/12/24 15:00 11/15/24 08:14 Clonidine 0.1 Mg Tablet PO 0.1 mg TID BRII Administration Doxycycline Monohydrate 100 mg 11/12/24 14:00 11/15/24 08:14 Doxycycline 100 Mg Tablet PO 100 mg BID BRII Administration Protocol Furosemide 40 mg 11/14/24 08:00 11/15/24 08:12 Furosemide 40 Mg Tablet PO 40 mg DAILY@0800 BRII Administration Hydralazine HCl 100 mg 11/12/24 09:00 11/15/24 08:12 Hydralazine 50 Mg Tablet PO 100 mg BID BRII Administration Insulin Glargine 55 unit 11/12/24 09:00 11/15/24 08:15 Insulin Glargine 100 Units/1 Ml SUBCUT 55 unit BID BRII Administration Insulin Human Lispro 0 unit 11/12/24 18:00 11/15/24 11:53 Insulin Lispro 100 Unit/1 Ml SUBCUT 8 unit WM&BEDTIME BRII Administration Protocol Isosorbide Mononitrate 60 mg 11/12/24 09:00 11/15/24 08:10 Isosorbide Mononitrate Er 30 Mg Tablet PO 60 mg DAILY BRII Administration Losartan Potassium 100 mg 11/12/24 09:00 11/15/24 08:14 Losartan 50 Mg Tablet PO 100 mg DAILY BRII Administration Magnesium Oxide 400 mg 11/12/24 13:15 11/15/24 08:13 Magnesium Oxide 400 Mg Tablet PO 400 mg DAILY BRII Administration Nitroglycerin 0.4 mg 11/14/24 15:50 11/14/24 16:00 Nitroglycerin 0.4 Mg Sublingual Tablet SUBLINGUAL 0.4 mg Q5M PRN Administration CHEST PAIN Pantoprazole Sodium 40 mg 11/12/24 09:00 11/15/24 08:[address] 40 Mg Tablet PO 40 mg DAILY BRII Administration Potassium Chloride 20 meq 11/14/24 15:45 11/15/24 08:14 Potassium Chloride Er 20 Meq Tablet PO 20 meq DAILY BRII Administration Pregabalin 50 mg 11/12/24 09:00 11/15/24 08:10 Pregabalin 50 Mg Capsule PO 50 mg TID BRII Administration Rivaroxaban 20 mg 11/12/24 09:00 11/15/24 08:10 Rivaroxaban 10 Mg Tablet PO 20 mg DAILY BRII Administration Spironolactone 25 mg 11/12/24 13:15 11/15/24 08:15 Spironolactone 25 Mg Tablet PO 25 mg DAILY BRII Administration Tizanidine HCl 2 mg 11/12/24 02:11 11/13/24 08:12 Tizanidine 4 Mg Tablet PO 2 mg TID PRN Administration MUSCLE SPASMS Tramadol HCl 50 mg 11/12/24 01:54 11/15/24 08:11 Tramadol 50 Mg Tablet PO 50 mg Q6H PRN Administration PAIN Trazodone HCl 100 mg 11/12/24 01:55 11/14/24 20:57 Trazodone 100 Mg Tablet PO 100 mg BEDTIME BRII Administration Venlafaxine HCl 150 mg 11/12/24 09:00 11/15/24 08:14 Venlafaxine Er (24hr) 150 Mg Capsule PO 150 mg DAILY BRII Administration Venlafaxine HCl 75 mg 11/12/24 09:00 11/15/24 08:18 Venlafaxine Er (24hr) 75 Mg Capsule PO 75 mg DAILY BRII Administration Vitamin D 2,000 unit 11/14/24 09:00 11/15/24 08:13 Cholecalciferol (Vitamin D3) 1,000 Unit Tablet PO 2,000 unit DAILY BRII Administration PFSH Acute 2 PFSH: Medical History Paroxysmal atrial fibrillation Throat irritation Pulmonary embolism on left Pancreatic mass On CT imaging from 01/2023, stable cystic mass measuring 7 mm in the tail of the pancreas. No interval change since 2019. Lumbar stenosis with neurogenic claudication Spinal cord stimulator status Gout Urinary incontinence Obstructive sleep apnea On bipap, settings 17/04 with 2 lpm oxygen 3 para 3 Diabetes type 2, uncontrolled COVID-19 (~2021) Diverticulitis Essential (primary) hypertension Depression GERD (gastroesophageal reflux disease) Insomnia, controlled Hyperlipidemia Diabetic neuropathy Surgical History S/P total knee arthroplasty bilateral History of cardiac catheterization 08/2022 - 40% LAD, no other significant disease noted Status post total right knee replacement History of colonoscopy History of back surgery s/p fusion L3-L5 History of neck surgery H/O: hysterectomy S/P cholecystectomy S/p bilateral carpal tunnel release Status post total knee replacement, left Remote Family History Other CAD (coronary artery disease) Diabetes Social History Smoking and tobacco/nicotine status: unknown if used tobacco/nicotine Second hand smoke exposure: Yes (as a child (father smoked)) Alcohol intake: current Alcohol intake frequency: holidays/special occasions only Substance/Drug Use: never Lives independently: Yes Household members: spouse Marital status: Do you think of yourself as: Straight/Heterosexual Current gender identity: Female Female Reproductive History: Para: 3 Spontaneous abortions: No Vitals/I&O/Wt Last Vital Signs Temp 98.2 F 11/15/24 12:00 Pulse 66 11/15/24 12:00 Resp 18 11/15/24 12:00 BP 123/60 11/15/24 12:00 Pulse Ox 92 11/15/24 12:00 O2 Del Method Room Air 11/15/24 12:00 O2 Flow Rate 4 11/15/24 03:55 11/14/24 11/15/24 11/15/24 22:59 06:59 14:59 Intake Total 1150 / 1150 Output Total 1250 / 1250 Balance -100 / -100 Weight last 48 hrs Weight 300 lb 4.8 oz Weight 300 lb 4.8 oz Weight 305 lb 6 oz Physical Exam 2 Const: COMMON NORMALS: no acute distress and patient oriented x3 GENERAL APPEARANCE: cooperative and comfortable ORIENTATION/CONSCIOUSNESS: Yes awake, Yes oriented to person, Yes oriented to place and Yes oriented to time Chest: COMMONS NORMALS: normal inspection of the chest and normal palpation of entire chest wall CHEST: Yes Symmetrical chest wall rise Resp: COMMON NORMALS: normal respiratory effort, No retractions, No use of accessory muscles and clear to auscultation bilaterally EFFORT & INSPECTION: Yes symmetric chest movement AUSCULTATION: clear to auscultation bilaterally Cardio: COMMON NORMALS: regular rate, regular rhythm, S1 normal heart sound present, S2 normal heart sound present, No gallops present (Cardio), No clicks present (Cardio), No murmurs present (Cardio) and No rub (Cardio) RATE: r egular rate RHYTHM: regular rhythm HEART SOUNDS: S1 normal heart sound present and S2 normal heart sound present PERIPHERAL PULSES: radial pulses present Extremity: COMMON NORMALS: no pedal edema Neuro: COMMON NORMALS: patient oriented x3 and moves all extremities S ENSORIUM/ORIENTATION: Yes oriented to person, Yes oriented to place and Yes oriented to time Data 11/13/24 04:38 11/15/24 04:20 A&P Assessment and plan 1. CAD (coronary artery disease): 2. Hypertension: 3. Pulmonary embolism on left: 4. Bradycardia: 5. Diabetes type 2, uncontrolled: 6. Morbid obesity with BMI of 50.0-59.9, adult: 7. Acute bronchitis: 8. Uses bilevel positive airway pressure (BPAP) ventilation at home: 9. Paroxysmal atrial fibrillation: Plan: Will stop carvedilol, start diltiazem in a long-acting form at 180 mg daily. Recommend 30-day event monitor placement. Otherwise she can stop amlodipine, continue hydralazine-dose may need to be changed to 3 times a day dosing, continue losartan. Due to the potential for clonidine cause bradycardia, will discontinue. She has only received it yesterday and today as a scheduled medication so no taper is needed. Further plan can be devised based on response to medicine changes. PDMP PDMP Reviewed: Not Reviewed Coding Level of Care Code Acute Code for Chg Fwd Diagnoses CAD (coronary artery disease) I25.10 Hypertension I10 Pulmonary embolism on left I26.99 Bradycardia R00.1 Diabetes type 2, uncontrolled Morbid obesity with BMI of 50.0-59.9, adult E66.01; Z68.43 Acute bronchitis J20.9 Uses bilevel positive airway pressure (BPAP) ventilation at home Z99.89 Paroxysmal atrial fibrillation I48.0
--- NOTE | 2024-11-15 14:50 | PC.SOCIAL ---
IMM updated IMM dated and initialed, copy given to patient and copy placed in chart.
--- NOTE | 2024-11-15 17:20 | P.PN_ITS ---
Subjective 2 Subjective: 74-year-old female yesterday's potential discharge held due to hyperglycemia from steroids. Steroids were stopped. Green phlegm is resolved. She is on room air intermittently but is on oxygen at home. She did wear her BiPAP 17/04 with 2 L/min oxygen bleed overnight and sugars down to 170s to 190s this morning. Patient reports dizziness and dyspnea on exertion with going to the bathroom this morning and heart was racing. In fact her heart was A-fib at 150 on the monitor and EKG confirmed A-fib. She was given a dose of diltiazem and magnesium 2 g IV empirically. Admit magnesium was 1.9 prior to diuresis and oral replacement with maintenance dose of 400 mg daily. Patient's heart rate currently 85 and irregular. I reviewed old Holter from 11/2023 and it shows that she had some A-fib flutter brief runs. She is also had myocardial perfusion scan 07/12/2024 showed medium sized area of prior infarct in the left circumflex territory and medium sized area of ischemia in the septal wall. Selective coronary angiogram on 08/15/2024 showed left main and circumflex healthy LAD moderate 40 to 50% stenosis RCA 20 to 30% stenosis. Medical management Patient had uncontrolled tachycardia with atrial fibrillation heart rate to the 150s and felt palpitations. Retrospectively she says sometimes she is standing they are walking in her vision tunnels and she thinks she is having episodes of this at home. Her blood pressure medicine was clonidine 4 times a day at home as needed and because her blood pressure was high I gave that to her regularly and added carvedilol and diltiazem. Nicki Gallegos and Dr. Libby Graham saw the patient at my request and changed her to long-acting diltiazem 180 mg. Carvedilol was stopped along with the clonidine. Patient states she feels okay today nurses noted that she walked fine and did not have heart rate racing. She has not had significant pauses. Patient would like to be monitored overnight Vitals/I&O/Wt Last Vital Signs Temp 97.2 F L 11/15/24 16:00 Pulse 69 11/15/24 16:00 Resp 19 H 11/15/24 16:00 BP 143/99 11/15/24 16:00 Pulse Ox 89 L 11/15/24 16:00 O2 Del Method Room Air 11/15/24 16:00 O2 Flow Rate 4 11/15/24 03:55 11/15/24 11/15/24 11/15/24 06:59 14:59 22:59 Intake Total 1150 / 1150 Output Total 1250 / 1250 850 / 2100 Balance -100 / -100 -850 / -950 Weight last 48 hrs Weight 136.214 kg Weight 136.214 kg Weight 138.516 kg Physical Exam 2 Narrative: General Well-developed well-nourished morbidly obese female in no acute cardiopulmonary stress CV regular rate and rhythm with a 4/6 systolic ejection murmur best heard at the right upper sternal border Lungs clear except diminished in the bases Calves trace trace Data 11/13/24 04:38 11/15/24 04:20 A&P Assessment and plan 1. Paroxysmal atrial fibrillation: Looks like the patient has had this to a lesser degree in the past but stress of hyperglycemia, steroids, COPD, morbid obesity, sleep apnea has brought this on. It is well-controlled with diltiazem IV for rate. Hopefully she will convert on her own. She is already on rivaroxaban for history of PE so could be cardioverted if needed Proceed with rate control with diltiazem 180 mg CD daily monitor overnight 2. Acute bronchitis: Continue with doxycycline 100 mg twice a day. Steroids stopped due to [id number] blood sugar and lung exam is good 3. Obstructive sleep apnea: Continue with BiPAP 17/04 with 2 L/min oxygen bleed 4. Acute on chronic hypoxic respiratory failure: Due to fluid retention from diastolic heart failure and sleep apnea untreated. 4400 cc negative so far. Potassium sergio with spironolactone. She was on furosemide 20 mg daily at home but no potassium replacement. Here on furosemide 40 mg IV twice a day I added spironolactone 25 mg and 20 mill colons of potassium daily and she sergio her potassium to 5.1. Appears euvolemic at this time we will decrease furosemide to 40 mg daily anticipating this as her discharge dose and spironolactone 25 mg daily. Potassium has been discontinued. Recheck labs in the morning anticipate discharge home 5. Morbid obesity with BMI of 50.0-59.9, adult: I discussed weighing daily, calorie counting and appetite suppression with medication such as tirzepatide. Patient has been on Ozempic in the past. She is not sure why it was stopped. She states she has gastroparesis but not pancreatic cancer or history of pancreatitis. She also has not had thyroid cancer. She had gone to see specialist for gastric bypass surgery but blood pressure was high at the time about 3 months ago. She is agreeable to weight loss diet. I counseled her and her friend at bedside friends named Leena Patient's BMI of 52 and multiple comorbid conditions makes treatment overall difficult as she is on maximal doses of many of her medications. She is agreeable to a 1500-calorie ADA weight loss diet here. She reports modest addiction to sweets Continue with weight loss diet. I encouraged her to comply with diet and celebrate steady slow weight loss as it was steady slow weight gain and dramatic immediate weight loss is not possible. Do not be discouraged 6. Essential (primary) hypertension: Patient reports difficult to control blood pressure. She has coronary artery disease with moderate mid LAD stenosis found 08/15/2024 Monitor blood pressure on diltiazem hydralazine, losartan spironolactone and furosemide. 7. Uncontrolled type 2 diabetes mellitus with hyperglycemia: Blood sugars [id number] with steroids. Steroids now stopped. Stable on sliding scale insulin at this time 8. Pulmonary embolism on left: Seen on CT scan 11/10/2023 and she remains on Xarelto 9. Coronary artery disease of [place] artery of [place] heart with stable angina pectoris: Patient with moderate 40% mid LAD stenosis seen on selective coronary angiogram 08/15/2024. Plan: DVT ppx: Xarelto 20mg po daily Full code PDMP PDMP Reviewed: Not Reviewed Attestations 2 Medical Necessity Statement*: Patient requires 1 more midnight to monitor heart rate on new medication regimen Coding Level of Care Code 70119 Diagnoses Paroxysmal atrial fibrillation I48.0 Acute bronchitis J20.9 Obstructive sleep apnea G47.33 Acute on chronic hypoxic respiratory failure J96.21 Morbid obesity with BMI of 50.0-59.9, adult E66.01; Z68.43 Essential (primary) hypertension I10 Uncontrolled type 2 diabetes mellitus with hyperglycemia E11.65 Glycemic state: with hyperglycemia Pulmonary embolism on left I26.99 Coronary artery disease of [place] artery of [place] heart with stable angina pectoris I25.118 Coronary Disease-Associated Artery/Lesion type: [place] artery [place] vs. transplanted heart: [place] heart Associated angina: with stable angina Time Spent (min) 35
[2024-11-16] VITALS (20 sets, daily range): BP systolic 115–181; BP diastolic 61–93; PULSE 62–93; RESP 12–25; TEMP 36.1–36.2; O2SAT 89–97
[2024-11-16 05:39] LABS: Blood Urea Nitrogen 31 mg/dL (8-23); Calcium 9.8 mg/dL (8.5-10.5); Carbon Dioxide 28 mmol/L (22-29); Chloride 103 mmol/L (98-107); Creatinine Clr Calc Pharmacy 74.4388; Glucose 122 mg/dL (65-115); Magnesium 2.0 mg/dL (1.7-2.3); Osmolality Calculated 300 mOsm/kg (285-295); Sodium 141 mmol/L (136-145)
[2024-11-16 05:43] LABS: Anion Gap 14.6 (5-19); Potassium 4.6 mmol/L (3.5-5.1)
--- NOTE | 2024-11-16 08:05 | P.PN_ITS ---
<Statement entered by Libby Graham MD - 11/16/24 20:02> Patient was evaluated and cared for in conjunction with an advanced practice practitioner. I personally examined the patient and reviewed the chart and all pertinent data including imaging, telemetry, and laboratory results. I discussed the patient in detail with the advanced practice practitioner. Please see their note for complete H&P testing result and agreed upon plan of care for the patient. Subjective 2 Subjective: She is sitting up in the chair this morning, breathing is improved. She is in sinus rhythm, heart rate 60s to 70s. Blood pressure controlled. Labs reviewed. She is 950 mL negative, -5 L cumulative. She expresses desire to go to a intermediate for rehab. Vitals/I&O/Wt Last Vital Signs Temp 97.2 F L 11/16/24 13:01 Pulse 84 11/16/24 12:00 Resp 14 11/16/24 12:00 BP 142/71 11/16/24 12:00 Pulse Ox 96 11/16/24 12:00 O2 Del Method Room Air 11/16/24 12:00 O2 Flow Rate 4 11/15/24 03:55 11/15/24 11/16/24 11/16/24 22:59 06:59 14:59 Intake Total 600 / 1750 900 / 900 Output Total 1400 / 2650 675 / 675 Balance -800 / -900 225 / 225 Weight last 48 hrs Weight 299 lb 3.2 oz Weight 299 lb 3.2 oz Weight 300 lb 4.8 oz Weight 300 lb 4.8 oz Physical Exam 2 Const: COMMON NORMALS: no acute distress and patient oriented x3 GENERAL APPEARANCE: cooperative and comfortable ORIENTATION/CONSCIOUSNESS: Yes awake, Yes oriented to person, Yes oriented to place and Yes oriented to time Chest: COMMONS NORMALS: normal inspection of the chest and normal palpation of entire chest wall CHEST: Yes Symmetrical chest wall rise Resp: COMMON NORMALS: normal respiratory effort, No retractions, No use of accessory muscles and clear to auscultation bilaterally EFFORT & INSPECTION: Yes symmetric chest movement AUSCULTATION: clear to auscultation bilaterally Cardio: COMMON NORMALS: regular rate, regular rhythm, S1 normal heart sound present, S2 normal heart sound present, No gallops present (Cardio), No clicks present (Cardio), No murmurs present (Cardio) and No rub (Cardio) RATE: r egular rate RHYTHM: regular rhythm HEART SOUNDS: S1 normal heart sound present and S2 normal heart sound present PERIPHERAL PULSES: radial pulses present Extremity: COMMON NORMALS: no pedal edema Neuro: COMMON NORMALS: patient oriented x3 and moves all extremities S ENSORIUM/ORIENTATION: Yes oriented to person, Yes oriented to place and Yes oriented to time Data 11/13/24 04:38 11/16/24 04:30 A&P Assessment and plan 1. CAD (coronary artery disease): 2. Hypertension: 3. Pulmonary embolism on left: 4. Diabetes type 2, uncontrolled: 5. Morbid obesity with BMI of 50.0-59.9, adult: 6. Obstructive sleep apnea: 7. Acute bronchitis: 8. Uses bilevel positive airway pressure (BPAP) ventilation at home: 9. Paroxysmal atrial fibrillation: Plan: She has not had any more bradycardia on the current regimen. Recommend an event monitor for surveillance. If she does go to the intermediate they can maintain blood pressure log for her and antihypertensive regimen can be adjusted on follow-up. PDMP PDMP Reviewed: Not Reviewed Attestations 2 Medical Necessity Statement*: Per hospitalist Coding Level of Care Code Acute Code for g Fwd Diagnoses CAD (coronary artery disease) I25.10 Hypertension I10 Pulmonary embolism on left I26.99 Diabetes type 2, uncontrolled Morbid obesity with BMI of 50.0-59.9, adult E66.01; Z68.43 Obstructive sleep apnea G47.33 Acute bronchitis J20.9 Uses bilevel positive airway pressure (BPAP) ventilation at home Z99.89 Paroxysmal atrial fibrillation I48.0
[2024-11-16] MEDS: dilTIAZem ER (24HR) 180 mg Capsule PO (08:46)
[2024-11-16] MEDS: venlafaxine ER (24HR) 150 mg Capsule PO (08:47)
[2024-11-16] MEDS: venlafaxine ER (24HR) 75 mg Capsule PO (08:48)
[2024-11-16] MEDS: insulin glargine 100 units/1 mL 55 UNIT SUBCUT (08:55)
--- NOTE | 2024-11-16 11:31 | P.DS_ITS ---
Discharge Providers Date of Admission: 11/12/24 00:04 Date of Discharge: November 16, 2024 Attending Provider at Admission: Violet Welch MD Attending Provider at Discharge: Hussein Gonzalez MD Primary Care Provider: Devi Shaw DO Diagnoses at Discharge Discharge Diagnosis 1. Paroxysmal atrial fibrillation: Details from hospital stay: Controlled on current regimen consider outpatient Holter monitor 2. Acute bronchitis: Details from hospital stay: Will treat with doxycycline for another 5 days and start Advair 500/50 mcg twice a day 3. Obstructive sleep apnea: Details from hospital stay: Continue BiPAP 16/10 with 2 L/min O2 bleed at night 4. Acute on chronic hypoxic respiratory failure: Details from hospital stay: Continue 2 L/min oxygen through the day 5. Morbid obesity with BMI of 50.0-59.9, adult: Details from hospital stay: Weight loss diet as discussed and start Mounjaro for diabetes which should also help with weight loss 6. Essential (primary) hypertension: Details from hospital stay: Blood pressure regimen changed. Hydralazine increased to 3 times a day amlodipine stopped diltiazem started at 240 mg CD daily 7. Uncontrolled type 2 diabetes mellitus with hyperglycemia: Details from hospital stay: Blood sugars were very high on steroids so oral and IV steroids relatively contraindicated. Start Advair. Start Mounjaro for diabetes monitor blood sugars for potential hypoglycemia or need for lower dose of insulin 8. Pulmonary embolism on left: Details from hospital stay: Continue with Xarelto anticoagulation 9. Coronary artery disease of [place] artery of [place] heart with stable angina pectoris: Details from hospital stay: She has mid LAD 40% not in need of intervention Reason for Visit Reason for Visit: SOB cant breathe to talk well. HBP Brief History: Melsisa De Jesus is a 74 year old female with past medical history of uncontrolled diabetes, PE on Xarelto, hypertension, hyperlipidemia, obesity , TANK on chronic Bipap at night time with 02. She is presenting to the ER today with c/o increased dyspnea ove rthe past 24 hrs. Denies any fever or chills. Denies any chest pain. Denies any cough with expectoration. She was noted to have significant wheezing on arrival and needing 02 supplementation at 2lpm. She has received steroids and nebulization in the ER. Hospital Course Hospital Course Patient was admitted with COPD exacerbation was treated with steroids nebulizers continued BiPAP. She was also diuresed due to fluid retention. Patient had improved respiratory status but significant hyperglycemia to greater than 600 and was given IV insulin in addition to these high-dose subcutaneous insulin. While awaiting ICU bed the IV insulin did successfully lower the blood sugar averting ultimately transfer the ICU. The potential home discharge further complicated by A-fib with rapid ventricular response. She was on clonidine and amlodipine at home along with hydralazine 100 mg twice a day and losartan 100 mg. I added carvedilol and diltiazem for heart rate control. She had pauses with her heart rhythm. I consulted cardiology and we simplified the treatment to diltiazem for rate control and discontinued carvedilol and clonidine. Dose was increased to 240 mg CD daily diltiazem. Hydralazine increased to 100 mg 3 times daily for blood pressure Currently blood pressure 159/93 pulse 78 prior to increasing the hydralazine and diltiazem. Patient elected to go to [place] for rehab. I have counseled her regarding need for calorie restriction to 1500 cyndi daily and adjust 100 cyndi up or down per day to effect weight loss 2 to 3 pounds a week for the first month then 2 pounds a week thereafter. I think the patient would be a good candidate for tirzepatide. Will add that to her discharge medications 2.5 mg weekly she has not had pancreatitis, alcoholism, thyroid cancer. She states her gallbladder has already been removed Physical Exam 2 Narrative: General well-developed well-nourished morbidly obese female in no acute cardiopulmonary distress CV regular rate and rhythm Lungs clear to auscultation bilaterally Calves trace ankle edema Right side walking boot in place Discharge Data Studies Completed and Pending Completed Studies During Hospitalization Category Date Time Status XR chest 1V portable [id number] Stat Exams 11/11/24 20:41 Completed CV. echo complete* [id number] Stat Ultrasound 11/15/24 10:39 Completed Radiology Impressions Chest X-Ray 11/11/24 20:41 IMPRESSION: Mild to moderate globular cardiomegaly consistent with 4-chamber enlargment and/or pericardial effusion. Laboratory Results WBC 8.60 10^3/uL (3.29-11.43) 11/13/24 04:38 RBC 3.81 10^6/uL (3.85-5.65) L 11/13/24 04:38 Hgb 11.00 g/dL (11.27-16.99) L 11/13/24 04:38 Hct 35.0 % (36-47) L 11/13/24 04:38 MCV 91.9 fl (85-98) 11/13/24 04:38 MCH 28.9 pg (27-33) 11/13/24 04:38 MCHC 31.4 g/dL (30-55) 11/13/24 04:38 RDW 14.2 % (12.1-15.1) 11/13/24 04:38 Plt Count 193 10^3/cmm (157-399) 11/13/24 04:38 MPV 10.5 fL (7.4-10.4) H 11/13/24 04:38 Neut % (Auto) 86.5 % 11/13/24 04:38 Lymph % (Auto) 9.2 % 11/13/24 04:38 Weld % (Auto) 3.3 % 11/13/24 04:38 Eos % (Auto) 0.0 % 11/13/24 04:38 Baso % (Auto) 0.1 % 11/13/24 04:38 Neut # (Auto) 7.44 10^3/uL (1.8-7.7) 11/13/24 04:38 Lymph # (Auto) 0.8 10^3/uL (0.8-4.8) 11/13/24 04:38 Weld # (Auto) 0.3 10^3/uL (0.2-0.9) 11/13/24 04:38 Eos # (Auto) 0.0 10^3/uL (0.0-0.8) 11/13/24 04:38 Baso # (Auto) 0.0 10^3/uL (0.0-0.1) 11/13/24 04:38 Nucleated RBC % (auto) 0 % 11/13/24 04:38 Nucleated RBCs # 0.0 /100WBC 11/13/24 04:38 Sodium 141 mmol/L (136-145) 11/16/24 04:30 Potassium 4.6 mmol/L (3.5-5.1) 11/16/24 04:30 Chloride 103 mmol/L (98-107) 11/16/24 04:30 Carbon Dioxide 28 mmol/L (22-29) 11/16/24 04:30 Anion Gap 14.6 (5-19) 11/16/24 04:30 BUN 31 mg/dL (8-23) H 11/16/24 04:30 Creatinine 0.9 mg/dL (0.5-0.9) 11/16/24 04:30 GFR Calculation Not Reportable 11/16/24 04:30 Glucose 122 mg/dL (65-115) H 11/16/24 04:30 POC Glucose 119 mg/dL (70-110) H 11/16/24 07:38 Calculated Osmolality 300 mOsm/kg (285-295) H 11/16/24 04:30 Lactic Acid 0.7 mmol/L (0.5-2.2) 11/11/24 21:02 Calcium 9.8 mg/dL (8.5-10.5) 11/16/24 04:30 Phosphorus 3.6 mg/dL (2.5-4.5) 11/16/24 04:30 Magnesium 2.0 mg/dL (1.7-2.3) 11/16/24 04:30 Total Bilirubin 0.5 mg/dL (0.15-1.2) 11/13/24 04:38 AST 16 U/L (0-32) 11/13/24 04:38 ALT 14 U/L (0-33) 11/13/24 04:38 Alkaline Phosphatase 103 U/L (35-105) 11/13/24 04:38 Troponin T 5th Gen ng/L 30 ng/L (0-10) H 11/14/24 19:31 Troponin T Baseline 21 ng/L (0-10) H 11/11/24 21:02 Troponin T 120 Minute 19.31 ng/L (0-10) H 11/11/24 11:25 Delta Troponin T -1.69 ABS# (0-10) L 11/11/24 11:25 Troponin T Hi Sens 6Hr 18.83 ng/L (0-10) H 11/12/24 02:38 Troponin T Hi Sens 6Hr Delta -2.17 ng/L (0-12) L 11/12/24 02:38 NT-Pro-B Natriuret Pep 560 pg/mL (0-450) H 11/11/24 21:02 Total Protein 6.4 g/dL (6.6-8.7) L 11/13/24 04:38 Albumin 3.5 g/dL (3.5-5.2) 11/13/24 04:38 Globulin 2.9 g/dL (1.3-4.6) 11/13/24 04:38 Procalcitonin 0.07 ng/mL (0-0.5) 11/12/24 02:38 Urine Color Yellow (Yellow) 11/13/24 14:15 Urine Appearance Clear (CLEAR) 11/13/24 14:15 Urine pH 5.5 (5-7) 11/13/24 14:15 Ur Specific Funk 1.017 (1.005-1.030) 11/13/24 14:15 Urine Protein Negative (Negative) 11/13/24 14:15 Urine Glucose (UA) 3+ (Normal) H 11/13/24 14:15 Urine Ketones Negative (Negative) 11/13/24 14:15 Urine Blood Negative (Negative) 11/13/24 14:15 Urine Nitrate Negative (Negative) 11/13/24 14:15 Urine Bilirubin Negative (Negative) 11/13/24 14:15 Urine Urobilinogen 1.0 mg/dL (Negative) 11/13/24 14:15 Ur Leukocyte Esterase Negative (Negative) 11/13/24 14:15 Urine RBC 0-2 /hpf (0-2) 11/13/24 14:15 Urine WBC 0-5 /hpf (0-5) 11/13/24 14:15 Ur Squamous Epith Cells 0-5 /hpf (0-5) 11/13/24 14:15 Amorphous Sediment Not Reportable 11/13/24 14:15 Urine Bacteria None seen /hpf (NONE) 11/13/24 14:15 Hyaline Casts 5.36 /lpf 11/13/24 14:15 Influenza A (PCR) Negative (Negative) 11/11/24 21:02 Influenza Type B (PCR) Negative (Negative) 11/11/24 21:02 RSV (PCR) Negative (Negative) 11/11/24 21:02 SARS-CoV-2 (PCR) Negative (Negative) 11/11/24 21:02 Vitals Last Vital Signs Temp 96.9 F L 11/16/24 08:00 Pulse 78 11/16/24 09:00 Resp 20 H 11/16/24 09:00 BP 159/93 11/16/24 09:00 Pulse Ox 93 11/16/24 09:00 O2 Del Method Room Air 11/16/24 09:00 O2 Flow Rate 4 11/15/24 03:55 Discharge Plan Discharge Patient Disposition: Home Condition: Stable Prescriptions: New potassium chloride [Klor-Con M20] 20 mEq Tablet,Er Particles/Crystals 20 meq PO DAILY Qty: 30 0RF magnesium oxide 400 mg (241.3 mg magnesium) Tablet 400 mg PO DAILY Qty: 30 0RF nitroglycerin 0.4 mg Tablet, Sublingual 0.4 mg sublingual Q5M PRN (Reason: Chest Pain) Qty: 20 0RF diltiazem HCl [Cardizem CD] 240 mg capsule,extended release 24hr 240 mg PO DAILY Qty: 30 0RF furosemide 40 mg Tablet 40 mg PO DAILY@0800 Qty: 30 0RF doxycycline monohydrate 100 mg Tablet 100 mg PO BID Qty: 10 0RF fluticasone propion-salmeterol [Wixela Inhub] 500-50 mcg/dose blister with device 1 inh inhalation BID Qty: 60 0RF Mounjaro 2.5 mg/0.5 mL pen injector 2.5 mg SUBCUT .Weekly Qty: 2 0RF Continued (DME) lift recliner See Rx Instructions .Route .MEDSUPPLY Qty: 1 0RF Rx Instructions: As directed albuterol sulfate [Ventolin HFA] 90 mcg/actuation HFA aerosol inhaler 2 inh inhalation Q8H PRN (Reason: shortness of breath or wheezing) Qty: 6.7 0RF acarbose 25 mg tablet 25 mg PO TID PRN (Reason: high bs) Qty: 270 1RF (DME) wheel chair See Rx Instructions .Route .MEDSUPPLY Qty: 1 0RF Rx Instructions: length of need 90 days (DME) Accu-Chek Leeann Plus test strp Strip See Rx Instructions .ROUTE .MEDSUPPLY Qty: 200 1RF Rx Instructions: ONE DAILY (DME) lancets [Accu-Chek Softclix Lancets] Misc See Rx Instructions .Route Qty: 200 0RF Rx Instructions: As directed (DME) upright wheeled walker See Rx Instructions .Route .MEDSUPPLY Qty: 1 0RF Rx Instructions: As directed Xarelto 20 mg tablet 20 mg PO DAILY Qty: 30 3RF Rx Instructions: must administer with evening meal cholecalciferol (vitamin D3) 50 mcg (2,000 unit) capsule 50 mcg PO DAILY tramadol 50 mg tablet 50 mg PO Q6H PRN (Reason: pain) 30 Days Qty: 30 0RF (DME) BIPAP with 16/12 with Oxygen with supplies See Rx Instructions .Route .MEDSUPPLY Qty: 1 0RF Rx Instructions: As directed atorvastatin 20 mg tablet 40 mg PO DAILY Qty: 360 3RF losartan 100 mg tablet 100 mg PO DAILY Qty: 90 3RF fluoxetine 10 mg tablet 10 mg PO DAILY Qty: 90 0RF pantoprazole 40 mg tablet,delayed release (DR/EC) 40 mg PO DAILY Qty: 90 1RF pregabalin 50 mg capsule 50 mg PO TID Qty: 270 1RF tizanidine 2 mg tablet See Rx Instructions .ROUTE .COMPLEX Qty: 270 0RF Dose Instruction: TAKE 1 TABLET BY MOUTH THREE TIMES DAILY NEEDED FOR MUSCLE SPASMS Rx Instructions: TAKE 1 TABLET BY MOUTH THREE TIMES DAILY NEEDED FOR MUSCLE SPASMS venlafaxine 75 mg capsule,extended release 24hr See Rx Instructions .ROUTE .COMPLEX Qty: 90 0RF Dose Instruction: TAKE 1 CAP BY MOUTH DAILY ALONG WITH THE 150 MG TO =225MG TOTAL Rx Instructions: TAKE 1 CAP BY MOUTH DAILY ALONG WITH THE 150 MG TO =225MG TOTAL insulin glargine [Basaglar KwikPen U-100 Insulin] 100 unit/mL (3 mL) insulin pen 55 unit SUBCUT BID 30 Days Qty: 33 3RF trazodone 100 mg tablet 100 mg PO BEDTIME Qty: 90 1RF Rx Instructions: Patient needs a new doctor. isosorbide mononitrate 30 mg tablet extended release 24 hr 60 mg PO DAILY Qty: 180 3RF (DME) pen needle, diabetic 32 gauge x /32 needle See Rx Instructions .ROUTE .COMPLEX Qty: 100 3RF Dose Instruction: USE WITH INSULIN DAILY Rx Instructions: USE WITH INSULIN DAILY allopurinol 100 mg tablet 100 mg PO DAILY Qty: 90 0RF buspirone 5 mg tablet 5 mg PO BID PRN (Reason: anxiety) Qty: 90 0RF diphenhydramine HCl [Benadryl Allergy] 25 mg tablet 25 mg PO DIRECTED PRN (Reason: allergy symptoms) Rx Instructions: Take 50mg (2 tabs) 1 hour prior to procedure. venlafaxine 150 mg capsule,extended release 24hr 150 mg PO DAILY Qty: 90 1RF Rx Instructions: along with 75mg so=839to total Changed hydralazine 100 mg tablet 100 mg PO TID Qty: 180 3RF Discontinued furosemide 20 mg tablet 20 mg PO DAILY PRN (Reason: edema) Qty: 90 1RF clonidine HCl 0.1 mg tablet 0.1 mg PO QID PRN (Reason: For blood pressure greater than 180/100) Qty: 30 1RF amlodipine 10 mg tablet 10 mg PO DAILY Referrals: Devi Shaw DO [Primary Care Provider, [facility] - 11/20/24 2:00 pm Discharge Diet: Diabetic Discharge Activity: Increase activity as tolerated, Oxygen as instructed and Cpap/Bipap as instructed Patient Instructions: Opioid Safety, Patient Portal & Emilie Instructions Activity Restrictions/Additional Instructions: Please follow a 1500-calorie ADA weight loss diet. Following this we will cause you to lose 2 pounds a week and you will feel much better over the course of 2 or 3 months. Oxygen 2 L/min during the day BiPAP 16/10 with oxygen 2 L/min bleed in for sleep day or night Continue with walking boot as directed by orthopedist Discharge Attestations Time Spent in Discharge Care*: greater than 30 min Quality Metrics Clinical Quality Measures [ No reported AMI, CVA or VTE this stay] Coding Level of Care Code 33422 Diagnoses Paroxysmal atrial fibrillation I48.0 Acute bronchitis J20.9 Obstructive sleep apnea G47.33 Acute on chronic hypoxic respiratory failure J96.21 Morbid obesity with BMI of 50.0-59.9, adult E66.01; Z68.43 Essential (primary) hypertension I10 Uncontrolled type 2 diabetes mellitus with hyperglycemia E11.65 Glycemic state: with hyperglycemia Pulmonary embolism on left I26.99 Coronary artery disease of [place] artery of [place] heart with stable angina pectoris I25.118 Associated angina: with stable angina Coronary Disease-Associated Artery/Lesion type: [place] artery [place] vs. transplanted heart: [place] heart Time Spent (min) 40
--- NOTE | 2024-11-16 12:54 | PC.NURSE ---
Second attempt to call report to Laine Gillette, Message no one is available to take your call. First attempt at 1245, voice message left requesting a return phone call.
--- NOTE | 2024-11-16 13:27 | PC.NURSE ---
Attempt to call Laine Gillette again two times. NO one available to answer call either time. Left message to please call back on the last attempt.
--- NOTE | 2024-11-16 14:00 | PC.NURSE ---
Attempted to contact Laine Gillette a couple more times to give report. Contacted [employer] cafeteria operator and requested her to try, if contacted please transfer call to me.
--- NOTE | 2024-11-16 14:35 | PC.NURSE ---
Ready transport here for pt transport. Report given to Laine Gillette via telephone.. Report given to Vladislav Jovel RN.
--- NOTE | 2024-11-16 15:19 | PC.NURSE ---
Called [facility], . Prescriptions not transmitted appropriately to them were reported verbally via telephone, as they now have her in their system.
== END 2024-11-16 14:50 | disposition skilled nursing facility (03) | DRG 291 ==
LOC: ER 23:21 → MEDSURG 11-12 00:04 → ICU 11-14 16:19
PROVIDERS: Admitting Provider Student in an Organized Health Care Education/Training Program; Emergency Provider Emergency Medicine; PCP Family Medicine; Visit Provider Internal Medicine
DX: I11.0 Hypertensive heart disease with heart failure (principal); I50.33 Acute on chronic diastolic (congestive) heart failure; J96.21 Acute and chronic respiratory failure with hypoxia; J44.1 Chronic obstructive pulmonary disease with (acute) exacerbation; Z68.43 Body mass index [BMI] 50.0-59.9, adult; J44.0 Chronic obstructive pulmonary disease with (acute) lower respiratory infection; J20.9 Acute bronchitis, unspecified; G47.33 Obstructive sleep apnea (adult) (pediatric); E66.01 Morbid (severe) obesity due to excess calories; E11.65 Type 2 diabetes mellitus with hyperglycemia; E11.40 Type 2 diabetes mellitus with diabetic neuropathy, unspecified; Z86.711 Personal history of pulmonary embolism; I25.10 Atherosclerotic heart disease of native coronary artery without angina pectoris; Z79.01 Long term (current) use of anticoagulants; E78.5 Hyperlipidemia, unspecified; Z99.81 Dependence on supplemental oxygen; Z79.85 Long-term (current) use of injectable non-insulin antidiabetic drugs; Z79.891 Long term (current) use of opiate analgesic; R60.9 Edema, unspecified; I48.0 Paroxysmal atrial fibrillation; T38.0X5A Adverse effect of glucocorticoids and synthetic analogues, initial encounter; Z96.653 Presence of artificial knee joint, bilateral; G47.00 Insomnia, unspecified; Z79.4 Long term (current) use of insulin; F32.A Depression, unspecified; K21.9 Gastro-esophageal reflux disease without esophagitis; Z86.16 Personal history of COVID-19; M10.9 Gout, unspecified; Z96.82 Presence of neurostimulator; M48.062 Spinal stenosis, lumbar region with neurogenic claudication; K86.9 Disease of pancreas, unspecified
CPT/HCPCS: 36415; 36416; 71045; 80048; 80053; 81001; 82962; 83605; 83735; 83880; 84100; 84145; 84484; 85025; 87637; 93005; 93306; 94640; 94760; 96372; 96374; 96375; 97110; 97161; 97167; 97530; 97535; 99204; 99285; J0360; J1815; J1938; J2919; J3475; J3490; J7613; J7626; J7644; J9999

== ENCOUNTER 2024-11-19 11:54 | Inpatient (IN) | payer MEDICARE, OTHER, SELFPAY ==
[2024-11-19] VITALS (38 sets, daily range): BP systolic 83–149; BP diastolic 46–86; PULSE 63–135; RESP 7–31; TEMP 36.4–36.9; O2SAT 88–98; BMI 52.8
--- OUTSIDE RECORDS SUMMARY | 2024-11-19 11:58 | XMS_ITS | Patient Health Record ---
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 Name Role Phone Devi Shaw DO Primary Care Provider Flo Shepard MD, Alexsander Unavailable [phone] Serg Connell DO Unavailable Unavailable Kenisha Henry Unavailable [phone] Allergies Allergen (clinical drug ingredient) Drug/Non Drug Allergy documented on EMR Reaction Allergy Type Onset Date Status iodinated contrast media (uncoded) anaphylaxis Allergy Active shellfish derived (uncoded) Unknown Allergy Active meperidine meperidine hives Drug Allergy Activ e Results Component Value Reference Range Notes X-ray: Lumbar spine (AP and Lateral, Flexion and Extension) 73829 Reviewed date:05/18/2024 10:37:39 AM Interpretation: Performing Lab: [...] Carfentanil: Fentanyl Negative. Para-fluorofentan yl: Fentanyl Negative. [facility], [address], [place] [address], , L ab Director: Amanda Figueroa MD, CLIA ID# [id number] [facility] Results Reviewed date:08/07/2024 07:55:18 AM Interpretation: Performing Lab:[id number] [facility], [address] [facility] [address] Amanda Figueroa MD Notes/Report: [facility], [address] [address] [facility], [facility] [address], [place] [address], , L ab Director: Amanda Figueroa MD, CLIA ID# [id number] OPIATES SCREEN negative 300 ng/mL Codeine Quantification [...] 200 ng/mL Tramadol Quantification positive-5978.254 100 ng/mL C-oqiicztda-jblfygfj Quantification positive-2177.104 100 ng/mL C-Icaijxdvc-Aeikvgrz Quantification positive-4688.654 100 ng/mL Tapentadol Quantification negative 50 ng/mL BENZODIAZEPINES SCREEN negative 200 ng/mL Alpha-Hydroxyalprazolam Quantification negative 20 ng/mL 5-Sapgt-Zydgegzute Quantification negative 20 ng/m L Lorazepam Quantification negative 40 ng/mL Nordiazepam Quantification negative 40 ng/mL Temazepam Quantification negative 50 ng/mL Oxazepam Quantification negative 40 ng/mL AMPHETAMINES SCREEN negative 500 ng/mL Amphetamine Quantification negative 100 ng/mL Gabapentin Quantification negative 1000 ng/mL Pregabalin Quantification positive-20540.734 400 ng/mL Naltrexone Quantification negative 10 ng/mL [...] W/U Status Risk Notes Problem Solitary sacroiliitis (754908210) Sacroiliitis, not elsewhere classified (M46.1) Active confirmed Problem High risk drug monitoring status (598441888) 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) Active confirmed Problem Obstructive sleep apnea syndrome (disorder) (91430383) Obstructive sleep apnea (adult) (pediatric) (G47.33) Active confirmed Problem Chronic pain (40783052) Other chronic pain (G89.29) Active confirmed Problem Essential hypertension (35356158) Essential (primary) hypertension (I10) Active confirmed Problem Post-laminectomy syndrome (01164241) Postlaminectomy syndrome, not elsewhere classified (M96.1) Active confirmed Problem Long-term current use of drug therapy (179983008) Other residential (current) drug therapy (Z79.899) Active confirmed Problem Neurogenic claudication (786516982) Spinal stenosis, lumbar region with neurogenic claudication (M48.062) Active confirmed Problem Low back pain (finding) (787435901) Vertebrogenic low back pain (M54.51) Active confirmed Vital Signs Temperature 94.2 degrees Fahrenheit 09/21/2024 Blood pressure diastolic 68 mm Hg 08/02/2024 Oximetry 92 % 09/21/2024 Height 64 in 09/21/2024 Blood pressure systolic 152 mm Hg 08/02/2024 Weight 296.2 lbs 09/21/2024 BMI 50.84 kg/m2 09/21/2024 Encounters Encounter Location Date Provider Diagnosis [facility] [address] [place], [place] [id number] 12/01/2023 Kenisha Carlin Vertebrogenic low ba ck pain M54.51 ; Other chronic pain G89.29 ; Postlaminectomy syndrome, not elsewhere classified M96.1 ; Obstructive sleep apnea (adult) (pediatric) G47.33 and 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 analgesic Z79.891 [facility] [address] [place], [place] [id number] 02/16/2024 Alexsander Shepard Vertebrogenic low ba ck pain M54.51 ; Other chronic pain G89.29 ; Postlaminectomy syndrome, not elsewhere classified M96.1 and Obstructive sleep apnea (adult) (pediatric) G47.33 [facility] [address] [place], [place] [id number] 05/17/2024 Alexsander Shepard Vertebrogenic low ba ck pain M54.51 ; Other chronic pain G89.29 and Obstructive sleep apnea (adult) (pediatric) G47.33 [facility] [address] [place], [place] [id number] 06/06/2024 Alexsander Shepard Vertebrogenic low ba ck pain M54.51 ; Other chronic pain G89.29 and Obstructive sleep apnea (adult) (pediatric) G47.33 [facility] [address] [place], [place] [id number] 08/02/2024 Alexsander Shepard Vertebrogenic low ba ck pain M54.51 ; Other chronic pain G89.29 ; Essential (primary) hypertension I10 ; Obstructive sleep apnea (adult) (pediatric) G47.33 and residential (current) use of opiate analgesic Z79.891 [facility] [address] [place], [place] [id number] 09/21/2024 Alexsander Shepard Vertebrogenic low ba ck pain M54.51 ; Other chronic pain G89.29 and Obstructive sleep apnea (adult) (pediatric) G47.33 [facility] [address] [place] [id number] 04/04/2024 Alexsander Shepard Assessments Encounter Date Diagnosis (ICD Code) Assessment Notes Treatment Notes Treatment Clinical Notes Section Notes 09/21/2024 Other chronic pain (ICD-10 - G89.29) Patient reports that taking her pain medication 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 Plan to continue oral opioid medication at today's visit. 09/21/2024 Vertebrogenic low back pain (ICD-10 - M54.51) Chronic axial lumbosacral spine pain. Patient encouraged to maintain contact with her [employer] Specialist for SCS / IPG reprogramming in the future if needed. 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 Plan to continue oral opioid medication management. 08/02/2024 Vertebrogenic low back pain (ICD-10 - M54.51) Chronic axial lumbosacral spine pain. Post-laminectomy syndrome s/p SCS system implantation. Patient to follow up with product operations associate to facilitate a reprogramming session for the system (in progress). 06/06/2024 Vertebrogenic low back pain (ICD-10 - M54.51) Chronic axial lumbaosacral spine pain. Post-laminectomy syndrome s/p SCS system implantation. Patient has not been able to follow up with device agency sales representative as previously recommended. Patient agrees to follow up at today's visit. Will call current agency sales representative to facilitate a reprogramming session for the system. Consider joint work up and treatment for lumosacral spine regarding interventional spine procedures pending outcome of SCS system reprogramming. RADIOLOGIST'S IMPRESSION OF L-SPINE X-RAY ON 05/17/24: 1. Posterior lumbar fusion as noted in the report. 2. Significant interval change at L2-L3 as described in the report. 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 Plan to continue oral opioid medication management. 02/16/2024 Vertebrogenic low back pain (ICD-10 - M54.51) Chronic axial lumbar spine pain. 12/01/2023 Vertebrogenic low back pain (ICD-10 - M54.51) Chronic axial lumbar spine pain. 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 Plan to continue oral opioid medication management. 05/17/2024 Vertebrogenic low back pain (ICD-10 - M54.51) Chronic axial lumbar spine pain. Persistent right low back / buttock pain s/p fall the last week of 04/2024. She does not feel it is resolving as expected. Plan imaging. Post-laminectomy syndrome s/p SCS system implantation. Patient has not followed up with device agency sales representative as recommended. 05/17/2024 Obstructive sleep apnea (adult) (pediatric) (ICD-10 - G47.33) Patient confirms she is wearing her BiPAP device with oxygen nightly. Plan to continue to restrict opioid usage in relation to sleep for safety concerns. 12/01/2023 Other chronic pain (ICD-10 - G89.29) Patient reports that taking her pain medication allows her to spend time with family. Plan to continue oral opioid medication management. 12/01/2023 Postlaminectomy syndrome, not elsewhere classified (ICD-10 - M96.1) Prior appointment with Dr. Hall in [place], [place] for a second surgical opinion resulted in weight loss recommendation. Patient has reported considering Bariatric surgery as recommended by Dr. Hall. Patient's SCS system previously quit working. Lead migration was mentioned by patient as possible cause after her prior discussion with another health care provider. Previously and strongly recommended patient contact the company agency sales representative for reprogramming of the device; patient still trying to make contact with Rep. 06/06/2024 Other chronic pain (ICD-10 - G89.29) Patient reports that taking her pain medication allows her to be more active. Plan to continue oral opioid medication management. RADIOLOGIST'S IMPRESSION OF L-SPINE X-RAY ON 05/17/24: 1. Posterior lumbar fusion as noted in the report. 2. Significant interval change at L2-L3 as described in the report. 02/16/2024 Postlaminectomy syndrome, not elsewhere classified (ICD-10 - M96.1) Prior appointment with Dr. Hall in [place], [place] for a second surgical opinion resulted in weight loss recommendation. Patient is proceeding with preparations for Bariatric surgery as recommended by Dr. Hall. Patient's SCS system previously quit working. Lead migration was mentioned by patient as possible cause after her prior discussion with another health care provider. Previously and strongly recommended patient contact the company agency sales representative for reprogramming of the device; patient has not followed up on this recommendation. 08/02/2024 Essential (primary) hypertension (ICD-10 - I10) Education sheet given at today's visit; patient to address with PCP. 09/21/2024 Obstructive sleep apnea (adult) (pediatric) (ICD-10 [...] relation to sleep for safety concerns. 12/01/2023 residential (current) use of opiate analgesic (ICD-10 - Z79.891) Patient has a total daily MED of 40. This places the patient in the [facility] moderate risk category for total daily opioid usage. 2022 opioid (OUD) risk tool score = 1. This places the patient in the low risk category. 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 This places the patient in the low risk category. Plan urine toxicology screen today with [facility] to monitor for presence of any unprescribed [...] clinic is closing due to Dr. Shepard's care home; see scanned document. Terminal prescriptions were given [...] Medicare Part B Claims Department [address] [address] [place] [address] [id number] Melissa De Jesus Self - patient is the insured [facility] [address] [address] [place] [address] [id number] Melissa De Jesus Self - patient is [...] Date(Month/Year) Hysterectomy, Cholecystectomy, Fusion L3-L5, performed in [place], [place], Fusion C2-3, C34, performed in [place], [place], Carpal tunnel release, bilateral, Spinal cord stimulator ([employer]), performed at [facility] in [place], [place], 2003 Knee replacement, right, performed at [facility] by Dr. Stewart, 2020, EGD, performed at [facility] in [place], [place], 09/20/24 Hospitalization History Reason Date(Month/Year) Blood clot, lung, treated at [facility], Congestive heart failure (diastolic), tr eated at [facility], 04/2023
--- NOTE | 2024-11-19 12:03 | XRR_ITS ---
PROCEDURE INFORMATION: Exam: XR Chest Exam date and time: 11/19/2024 12:28 PM Age: 74 years old Clinical indication: Chest pressure; Chest pain TECHNIQUE: Imaging protocol: Radiologic exam of the chest. Views: 1 view. COMPARISON: CR (CHEST, ) 11/11/2024 8:42 PM FINDINGS: Lungs: Unremarkable. No consolidation. Pleural spaces: Unremarkable. No pleural effusion. No pneumothorax. Heart/Mediastinum: Unremarkable. No cardiomegaly. Bones/joints: Unremarkable. XR/XR chest 1V portable [id number] IMPRESSION: No acute findings.
[2024-11-19 12:14] LABS: Hematocrit 42.8 % (36-47); Hemoglobin 13.40 g/dL (11.27-16.99); Mean Corpuscular HGB Conc 31.3 g/dL (30-55); Mean Corpuscular Hemoglobin 28.4 pg (27-33); Mean Corpuscular Volume 90.7 fl (85-98); Nucleated Red Blood Cells % 0 %; Platelet Count 277 10^3/cmm (157-399); Red Blood Count 4.72 10^6/uL (3.85-5.65); White Blood Count 10.60 10^3/uL (3.29-11.43)
[2024-11-19 12:25] LABS: Lactic Sepsis W/Reflex 1.7 mmol/L (0.5-2.2)
[2024-11-19 12:29] LABS: Troponin(5th) Baseline 29 ng/L (0-10)
[2024-11-19 12:36] LABS: Alanine Aminotransferase 24 U/L (0-33); Albumin Level 4.0 g/dL (3.5-5.2); Alkaline Phosphatase 120 U/L (35-105); Anion Gap 16.8 (5-19); Aspartate Amino Transferase 15 U/L (0-32); Blood Urea Nitrogen 21 mg/dL (8-23); Calcium 10.1 mg/dL (8.5-10.5); Carbon Dioxide 27 mmol/L (22-29); Chloride 94 mmol/L (98-107); Creatinine Clr Calc Pharmacy 61.8789; Globulin 3.4 g/dL (1.3-4.6); Glucose 401 mg/dL (65-115); NT Pro B Type Natriuretic Pept 430 pg/mL (0-450); Osmolality Calculated 296 mOsm/kg (285-295); Potassium 4.8 mmol/L (3.5-5.1); Sodium 133 mmol/L (136-145); Total Protein 7.4 g/dL (6.6-8.7)
[2024-11-19] MEDS: dilTIAZem 100 MG in sodium chloride 0.9% (add-van) 100 ML 15 MG IV (12:44)
--- NOTE | 2024-11-19 13:17 | W.ED.WEAKNES ---
HPI - Weakness General: Chief complaint: Weakness Stated complaint: hyperglycemia; afib Time Seen by Provider: 11/19/24 12:03 History of Present Illness: Melissa De Jesus, a patient with a history of type 2 diabetes, presents with severely elevated blood glucose levels, reporting a morning blood sugar of 450 mg/dL. This follows a recent hospitalization for bronchitis and flu, during which she received steroid treatment. Ms. De Jesus reports that her blood sugar levels have been elevated for about a week. She was admitted to the hospital last week for bronchitis and flu, where doctors initially hesitated to administer steroids due to her diabetes. However, after a consultation, she was admitted for steroid treatment. During her hospital stay, her blood sugar levels spiked to over 600 mg/dL, and she developed atrial fibrillation, resulting in a transfer to the ICU on Wednesday evening. The steroids were discontinued at this point. Prior to her recent illness, Ms. De Jesus states her blood sugar levels were stable. She experienced a severe coughing fit which coincided with her heart rhythm converting back to normal. On , she was transferred to a retirement. Despite the attentive care from the nursing staff, she reports not having seen a doctor since her transfer. Last night, she experienced rising blood sugar levels despite minimal food intake and felt nauseous. Ms. De Jesus's current diabetes management includes 55 units of Lantus twice daily, glipizide (which she started a few months ago), and acarbose with meals. She mentions that she is pursuing bariatric surgery but needs better blood sugar control to qualify. She is also taking Cardizem at home for heart rate control and received additional doses intravenously during her hospital stay. The patient reports current symptoms consistent with hyperosmolar hyperglycemic state (HHS), including high blood sugar, dehydration, stomach cramping, and nausea. She continues to take Lasix, which she acknowledges may complicate her dehydration issues. Patient daughter was an independent historian used to ascertain the above history. Related Data Home Medications ?Medication ?Instructions ?Recorded ?Confirmed cholecalciferol (vitamin D3) 50 50 mcg PO DAILY 10/16/24 11/19/24 mcg (2,000 unit) capsule diphenhydramine HCl 25 mg tablet 25 mg PO DIRECTED PRN allergy 11/12/24 11/19/24 (Benadryl Allergy) symptoms rivaroxaban 20 mg tablet (Xarelto) 20 mg PO QPM 11/19/24 11/19/24 venlafaxine 150 mg 150 mg PO DAILY 11/19/24 11/19/24 capsule,extended release 24 hr (Effexor XR) Previous Rx's ?Medication ?Instructions ?Recorded lift recliner #1 ea 05/12/22 blood sugar diagnostic (Accu-Chek #200 ea 10/01/22 Leeann Plus test strips) upright wheeled walker #1 ea 03/16/23 lancets (Accu-Chek Softclix #200 ea 04/23/23 Lancets) tramadol 50 mg tablet 50 mg PO Q6H PRN pain 30 days #30 07/22/23 tabs BIPAP with 17/04 with Oxygen with #1 ea 09/09/23 supplies atorvastatin 20 mg tablet 40 mg (2 x 20 mg) PO DAILY #360 05/18/24 tabs losartan 100 mg tablet 100 mg PO DAILY #90 tabs 05/23/24 fluoxetine 10 mg tablet 10 mg PO DAILY #90 tabs 07/13/24 pantoprazole 40 mg tablet,delayed 40 mg PO DAILY #90 tabs 07/24/24 release pregabalin 50 mg capsule 50 mg PO TID #270 caps 07/27/24 tizanidine 2 mg tablet See Rx Instructions .Route 07/27/24 .COMPLEX #270 tabs venlafaxine 75 mg capsule,extended See Rx Instructions .Route 07/27/24 release 24 hr .COMPLEX #90 caps Basaglar KwikPen U-100 Insulin 100 55 unit (0.55 mL) SUBCUT BID 30 08/10/24 unit/mL (3 mL) subcutaneous days #33 mL (insulin glargine) albuterol sulfate 90 mcg/actuation 2 inh inhalation Q8H PRN shortness 08/24/24 aerosol inhaler (Ventolin HFA) of breath or wheezing #6.7 grams trazodone 100 mg tablet 100 mg PO BEDTIME #90 tabs 08/28/24 isosorbide mononitrate 30 mg 60 mg (2 x 30 mg) PO DAILY #180 10/02/24 tablet,extended release 24 hr tabs pen needle, diabetic 32 gauge x #100 ea 10/02/24 acarbose 25 mg tablet 25 mg PO TID PRN high bs #270 tabs 10/03/24 allopurinol 100 mg tablet 100 mg PO DAILY #90 tabs 10/16/24 buspirone 5 mg tablet 5 mg PO BID PRN anxiety #90 tabs 10/26/24 wheel chair #1 ea 11/09/24 diltiazem HCl 240 mg 240 mg PO DAILY #30 caps 11/16/24 capsule,extended release 24 hr (Cardizem CD) doxycycline monohydrate 100 mg 100 mg PO BID #10 tabs 11/16/24 tablet fluticasone 500 mcg-salmeterol 50 1 inh inhalation BID #60 ea 11/16/24 mcg/dose blistr powdr for inhalation (Wixela Inhub) furosemide 40 mg tablet 40 mg PO DAILY@0800 #30 tabs 11/16/24 hydralazine 100 mg tablet 100 mg PO TID #180 tabs 11/16/24 magnesium oxide 400 mg (241.3 mg 400 mg PO DAILY #30 tabs 11/16/24 magnesium) tablet nitroglycerin 0.4 mg sublingual 0.4 mg sublingual Q5M PRN Chest 11/16/24 tablet Pain #20 tabs potassium chloride 20 mEq 20 meq PO DAILY #30 tabs 11/16/24 tablet,extended release(part/cryst) (Klor-Con M) tirzepatide 2.5 mg/0.5 mL 2.5 mg (0.5 mL) SUBCUT .Weekly #2 11/16/24 subcutaneous pen injector mL (Mounjaro) Allergies Allergy/AdvReac Type Severity Reaction Status Date / Time Iodinated Contrast Media Allergy Unknown Verified 11/09/24 09:55 meperidine (From Demerol) Allergy HIVES Verified 11/09/24 09:55 shellfish derived Allergy ANAPHYLAXIS Verified 11/09/24 09:55 cortisone AdvReac Mild high blood Verified 11/09/24 09:55 sugar Review of Systems General: Reports: 10 or more systems reviewed and unremarkable except in HPI and below PFSH ED PFSH: Medical History (Updated 11/19/24 @ 18:03 by Leonel Dalton MD) Paroxysmal atrial fibrillation new onset Throat irritation Pulmonary embolism on left Pancreatic mass On CT imaging from 01/2023, stable cystic mass measuring 7 mm in the tail of the pancreas. No interval change since 2019. Lumbar stenosis with neurogenic claudication Spinal cord stimulator status Gout Urinary incontinence Obstructive sleep apnea On bipap, settings 16/12 with 2 lpm oxygen 3 para 3 Diabetes type 2, uncontrolled COVID-19 (~2021) Diverticulitis Essential (primary) hypertension Depression GERD (gastroesophageal reflux disease) Insomnia, controlled Hyperlipidemia Diabetic neuropathy Surgical History S/P total knee arthroplasty bilateral History of cardiac catheterization 08/2022 - 40% LAD, no other significant disease noted Status post total right knee replacement History of colonoscopy History of back surgery s/p fusion L3-L5 History of neck surgery H/O: hysterectomy S/P cholecystectomy S/p bilateral carpal tunnel release Status post total knee replacement, left Remote Family History Other CAD (coronary artery disease) Diabetes Social History Smoking and tobacco/nicotine status: unknown if used tobacco/nicotine Second hand smoke exposure: Yes (as a child (father smoked)) Alcohol intake: current Alcohol intake frequency: holidays/special occasions only Substance/Drug Use: never Lives independently: Yes Household members: spouse Marital status: Do you think of yourself as: Straight/Heterosexual Current gender identity: Female Female Reproductive History: Para: 3 Spontaneous abortions: No Physical Exam Const: COMMON NORMALS: no acute distress, patient oriented x3, healthy appearing, alert and well nourished HENMT: COMMON NORMALS: normocephalic HEAD & SCALP: normocephalic Eye: COMMON NORMALS: EOMs intact bilaterally Neck/C-Spine: COMMON NORMALS: full ROM and supple Resp: COMMON NORMALS: normal respiratory effort, No retractions and clear to auscultation bilaterally AUSCULTATION: clear to auscultation bilaterally Cardio: COMMON NORMALS: No gallops present (Cardio) and No murmurs present (Cardio); negative for regular rate (Tachycardic) and negative for regular rhythm (Irregularly irregular) RATE: abnormal rate (Tachycardic) RHYTHM: abnormal rhythm (Irregularly irregular) GI: COMMON NORMALS: Soft to palpation and non-tender PALPATION: Yes Soft to palpation Extremity: GENERAL: Yes normal exam except as noted Neuro: COMMON NORMALS: patient oriented x3 SENSORIUM/ORIENTATION: Yes alert Skin: COMMON NORMALS: no rashes or lesions noted GENERAL SKIN EXAM: no rashes or lesions noted Course Vital Signs: Vital signs: Vital Signs Temperature 98.4 F 11/19/24 12:01 Pulse Rate 86 11/19/24 17:30 Respiratory Rate 14 11/19/24 17:30 Blood Pressure 103/63 11/19/24 17:30 Pulse Oximetry 98 11/19/24 17:30 Oxygen Delivery Me thod Room Air 11/19/24 12:01 MDM - Weakness Medical Decision Making Hyperglycemia: Patient experienced severe hyperglycemia during recent hospitalization for bronchitis and flu, likely precipitated by steroid treatment. Currently, blood sugar remains elevated. Lab results are consistent with hyperosmolar hyperglycemic state (HHS). Patient is on Lantus 55 units twice daily, glipizide, and acarbose. Recent steroid use and possible dehydration are contributing factors to the persistent hyperglycemia. - Administer 2L NS IV fluids to address dehydration - She has significant hyperglycemia and hyperosmolality on laboratory evaluation. Negative for ketones. Does not meet criteria for HHS. Atrial flutter: Patient developed atrial fibrillation during hospitalization. Patient converted back to normal sinus rhythm after a bout of coughing while in the hospital. Currently in a flutter with rapid ventricular rate - Started Cardizem (diltiazem) drip with initial bolus for rate control - Monitor heart rate and rhythm Hyponatremia: Patient started on normal saline. Given the patient's clinical picture and need for IV Cardizem for rate control admission was discussed with the patient and her daughter who in agreement with this plan. The case was discussed with Dr. Dalton who agreed to admit the patient for further management. Lab Data 11/19/24 11:30 11/19/24 11:30 Radiology Impressions Chest X-Ray 11/19/24 12:03 IMPRESSION: No acute findings. Laboratory Results WBC 10.60 10^3/uL (3.29-11.43) 11/19/24 11:30 RBC 4.72 10^6/uL (3.85-5.65) 11/19/24 11:30 Hgb 13.40 g/dL (11.27-16.99) 11/19/24 11:30 Hct 42.8 % (36-47) 11/19/24 11:30 MCV 90.7 fl (85-98) 11/19/24 11:30 MCH 28.4 pg (27-33) 11/19/24 11:30 MCHC 31.3 g/dL (30-55) 11/19/24 11:30 RDW 14.6 % (12.1-15.1) 11/19/24 11:30 Plt Count 277 10^3/cmm (157-399) 11/19/24 11:30 MPV 10.3 fL (7.4-10.4) 11/19/24 11:30 Neut % (Auto) 68.1 % 11/19/24 11:30 Lymph % (Auto) 21.2 % 11/19/24 11:30 [place] % (Auto) 7.5 % 11/19/24 11:30 Eos % (Auto) 2.1 % 11/19/24 11:30 Baso % (Auto) 0.4 % 11/19/24 11:30 Neut # (Auto) 7.22 10^3/uL (1.8-7.7) 11/19/24 11:30 Lymph # (Auto) 2.3 10^3/uL (0.8-4.8) 11/19/24 11:30 [place] # (Auto) 0.8 10^3/uL (0.2-0.9) 11/19/24 11:30 Eos # (Auto) 0.2 10^3/uL (0.0-0.8) 11/19/24 11:30 Baso # (Auto) 0.0 10^3/uL (0.0-0.1) 11/19/24 11:30 Nucleated RBC % (auto) 0 % 11/19/24 11:30 Nucleated RBCs # 0.0 /100WBC 11/19/24 11:30 Sodium 133 mmol/L (136-145) L 11/19/24 11:30 Potassium 4.8 mmol/L (3.5-5.1) 11/19/24 11:30 Chloride 94 mmol/L (98-107) L 11/19/24 11:30 Carbon Dioxide 27 mmol/L (22-29) 11/19/24 11:30 Anion Gap 16.8 (5-19) 11/19/24 11:30 BUN 21 mg/dL (8-23) 11/19/24 11:30 Creatinine 1.1 mg/dL (0.5-0.9) H 11/19/24 11:30 GFR Calculation Not Reportable 11/19/24 11:30 Glucose 401 mg/dL (65-115) H 11/19/24 11:30 POC Glucose 376 mg/dL (70-110) H 11/19/24 12:04 Calculated Osmolality 296 mOsm/kg (285-295) H 11/19/24 11:30 Lactic Acid 1.7 mmol/L (0.5-2.2) 11/19/24 11:30 Calcium 10.1 mg/dL (8.5-10.5) 11/19/24 11:30 Total Bilirubin 0.7 mg/dL (0.15-1.2) 11/19/24 11:30 AST 15 U/L (0-32) 11/19/24 11:30 ALT 24 U/L (0-33) 11/19/24 11:30 Alkaline Phosphatase 120 U/L (35-105) H 11/19/24 11:30 Troponin T Baseline 29 ng/L (0-10) H 11/19/24 11:30 Troponin T 120 Minute 30.81 ng/L (0-10) H 11/19/24 13:28 Delta Troponin T 1.81 ABS# (0-10) 11/19/24 13:28 NT-Pro-B Natriuret Pep 412 pg/mL (0-450) 11/19/24 11:30 NT-Pro-B Natriuret Pep 430 pg/mL (0-450) 11/19/24 11:30 Total Protein 7.4 g/dL (6.6-8.7) 11/19/24 11:30 Albumin 4.0 g/dL (3.5-5.2) 11/19/24 11:30 Globulin 3.4 g/dL (1.3-4.6) 11/19/24 11:30 Urine Color Yellow (Yellow) 11/19/24 13:30 Urine Appearance Clear (CLEAR) 11/19/24 13:30 Urine pH 7.0 (5-7) 11/19/24 13:30 Ur Specific [place] 1.010 (1.005-1.030) 11/19/24 13:30 Urine Protein Negative (Negative) 11/19/24 13:30 Urine Glucose (UA) 1+ (Normal) H 11/19/24 13:30 Urine Ketones Negative (Negative) 11/19/24 13:30 Urine Blood Negative (Negative) 11/19/24 13:30 Urine Nitrate Negative (Negative) 11/19/24 13:30 Urine Bilirubin Negative (Negative) 11/19/24 13:30 Urine Urobilinogen 1.0 mg/dL (Negative) 11/19/24 13:30 Ur Leukocyte Esterase Negative (Negative) 11/19/24 13:30 Urine RBC 0-2 /hpf (0-2) 11/19/24 13:30 Urine WBC 0-5 /hpf (0-5) 11/19/24 13:30 Ur Squamous Epith Cells 0-5 /hpf (0-5) 11/19/24 13:30 Amorphous Sediment Not Reportable 11/19/24 13:30 Urine Bacteria None seen /hpf (NONE) 11/19/24 13:30 Hyaline Casts 0.40 /lpf 11/19/24 13:30 Imaging Data CXR: Radiologist's impression: IMPRESSION: No acute findings All radiology interpretation(s) finalized by discharge Discharge Plan Discharge Patient Disposition: Admitted As Inpatient Admit Provider: Leonel Dalton Clinical Impression: Atrial flutter Qualifiers: Atrial flutter type: unspecified Qualified Code(s): I48.92 - Unspecified atrial flutter Hyperglycemia due to type 2 diabetes mellitus Qualifiers: Diabetes mellitus fci insulin use: with superintendent container terminal use Qualified Code(s): E11.65 - Type 2 diabetes mellitus with hyperglycemia Condition: Stable Coding Level of Care Code 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
[2024-11-19 13:53] LABS: Troponin 5 2HR 30.81 ng/L (0-10); Troponin 5 2HR Delta 1.81 ABS# (0-10)
--- NOTE | 2024-11-19 13:56 | ECG_ITS ---
[employer] Test Date: 2024-11-19 Pat Name: Melissa De Jesus Department: Room: Gender: Female Outsole Compressor: : 1950 Requested By: Anthony Zarate Order Number: [id number] Riddhi MD: Cedric Hurd M.D. Measurements Intervals [place] Rate: 105 P: 0 LA: 0 QRS: 8 QRSD: 80 T: 30 QT: 313 QTc: 414 Interpretive Statements ATRIAL FLUTTER/TACHYCARDIA WITH RAPID VENTRICULAR RESPONSE SEPTAL MYOCARDIAL INFARCTION , PROBABLY OLD [40+ ms Q WAVE IN V1/V2] Compared to ECG 11/14/2024 16:07:25 Myocardial infarct finding now present Atrial fibrillation no longer present Electronically Signed On 11-19-2024 18:37:56 CDT by Cedric Hurd M.D. [email or web address]
[2024-11-19 14:04] LABS: Glucose Urine UA 1+ (Normal); Nitrate Urine Negative (Negative); Specific Gravity, Urine 1.010 (1.005-1.030)
[2024-11-19 14:09] LABS: Add Urine Microscopic? YES
--- NOTE | 2024-11-19 16:23 | PC.NURSE ---
Helped pt up to bedside commode, pt urinated.
--- NOTE | 2024-11-19 16:24 | PC.NURSE ---
Placed pt on 2 liters of oxygen, pt was sleeping and O2 sats dropped to 87-88%. Pt states that she wears bipap when she sleeps.
[2024-11-19] MEDS: metoclopramide 5 mg/mL SDV 2 mL 10 MG IVP (17:42)
--- NOTE | 2024-11-19 17:55 | PM.HP ---
Providers/Chief Complaint Admitting Physician: Leonel Dalton MD Primary Care Provider: Devi Shaw DO Chief Complaint: hyperglycemia; afib History of Present Illness Melissa De Jesus is a 74 year old female With a past medical history of type 2 diabetes mellitus, Hypertension, pulmonary embolism, Xarelto, who presents [facility] due to elevated blood sugars, chest palpitations currently patient is alert oriented x 3, following all commands, currently in atrial fibrillation/flutter, on a Cardizem drip at 7.5, denies any chest pain, does report palpitations, no facial droop, slurring of words, does report increased urination, no abdominal pain, no nausea, no vomiting, does report recent steroid use, recent hospitalization, she is in a boot for her right Achilles tendon, follows up with Dr. Valles Review of Systems Const: Denies: fever(s) or chills Card: Reports: palpitations GI: Denies: abdominal pain : Denies: flank pain Medications/Allergies Home Medications ?Medication ?Instructions ?Recorded ?Confirmed ?Last Taken ?Type lift recliner #1 ea 05/12/22 11/19/24 08/14/24 09:00 Rx blood sugar diagnostic (Accu-Chek #200 ea 10/01/22 11/19/24 08/14/24 09:00 Rx Leeann Plus test strips) upright wheeled walker #1 ea 03/16/23 11/19/24 08/14/24 09:00 Rx lancets (Accu-Chek Softclix #200 ea 04/23/23 11/19/24 08/14/24 09:00 Rx Lancets) tramadol 50 mg tablet 50 mg PO Q6H PRN pain 30 days #30 07/22/23 11/19/24 11/18/24 22:25 Rx tabs BIPAP with / with Oxygen with #1 ea 09/09/23 11/19/24 08/14/24 09:00 Rx supplies atorvastatin 20 mg tablet 40 mg (2 x 20 mg) PO DAILY #360 05/18/24 11/19/24 11/19/24 09:00 Rx tabs losartan 100 mg tablet 100 mg PO DAILY #90 tabs 05/23/24 11/19/24 11/19/24 09:00 Rx fluoxetine 10 mg tablet 10 mg PO DAILY #90 tabs 07/13/24 11/19/24 11/19/24 09:00 Rx pantoprazole 40 mg tablet,delayed 40 mg PO DAILY #90 tabs 07/24/24 11/19/24 11/19/24 05:20 Rx release pregabalin 50 mg capsule 50 mg PO TID #270 caps 07/27/24 11/19/24 08/14/24 21:00 Rx tizanidine 2 mg tablet See Rx Instructions .Route 07/27/24 11/19/24 Unknown Rx .COMPLEX #270 tabs venlafaxine 75 mg capsule,extended See Rx Instructions .Route 07/27/24 11/19/24 11/19/24 09:00 Rx release 24 hr .COMPLEX #90 caps Basaglar MicheleikPen U-100 Insulin 100 55 unit (0.55 mL) SUBCUT BID 30 08/10/24 11/19/24 08/14/24 21:00 Rx unit/mL (3 mL) subcutaneous days #33 mL (insulin glargine) albuterol sulfate 90 mcg/actuation 2 inh inhalation Q8H PRN shortness 08/24/24 11/19/24 Unknown Rx aerosol inhaler (Ventolin HFA) of breath or wheezing #6.7 grams trazodone 100 mg tablet 100 mg PO BEDTIME #90 tabs 08/28/24 11/19/24 11/18/24 19:20 Rx isosorbide mononitrate 30 mg 60 mg (2 x 30 mg) PO DAILY #180 10/02/24 11/19/24 11/19/24 09:00 Rx tablet,extended release 24 hr tabs pen needle, diabetic 32 gauge x #100 ea 10/02/24 11/19/24 Unknown Rx acarbose 25 mg tablet 25 mg PO TID PRN high bs #270 tabs 10/03/24 11/19/24 11/19/24 Rx allopurinol 100 mg tablet 100 mg PO DAILY #90 tabs 10/16/24 11/19/24 11/19/24 09:00 Rx cholecalciferol (vitamin D3) 50 50 mcg PO DAILY 10/16/24 11/19/24 11/19/24 09:00 History mcg (2,000 unit) capsule buspirone 5 mg tablet 5 mg PO BID PRN anxiety #90 tabs 10/26/24 11/19/24 Unknown Rx wheel chair #1 ea 11/09/24 11/19/24 Unknown Rx diphenhydramine HCl 25 mg tablet 25 mg PO DIRECTED PRN allergy 11/12/24 11/19/24 Unknown History (Benadryl Allergy) symptoms diltiazem HCl 240 mg 240 mg PO DAILY #30 caps 11/16/24 11/19/24 11/19/24 Rx capsule,extended release 24 hr (Cardizem CD) doxycycline monohydrate 100 mg 100 mg PO BID #10 tabs 11/16/24 11/19/24 11/19/24 09:00 Rx tablet fluticasone 500 mcg-salmeterol 50 1 inh inhalation BID #60 ea 11/16/24 11/19/24 11/19/24 09:00 Rx mcg/dose blistr powdr for inhalation (Wixela Inhub) furosemide 40 mg tablet 40 mg PO DAILY@0800 #30 tabs 11/16/24 11/19/24 11/19/24 09:00 Rx hydralazine 100 mg tablet 100 mg PO TID #180 tabs 11/16/24 11/19/24 11/19/24 09:00 Rx magnesium oxide 400 mg (241.3 mg 400 mg PO DAILY #30 tabs 11/16/24 11/19/24 11/19/24 09:00 Rx magnesium) tablet nitroglycerin 0.4 mg sublingual 0.4 mg sublingual Q5M PRN Chest 11/16/24 11/19/24 Unknown Rx tablet Pain #20 tabs potassium chloride 20 mEq 20 meq PO DAILY #30 tabs 11/16/24 11/19/24 11/19/24 09:00 Rx tablet,extended release(part/cryst) (Klor-Con M) tirzepatide 2.5 mg/0.5 mL 2.5 mg (0.5 mL) SUBCUT .Weekly #2 11/16/24 11/19/24 Unknown Rx subcutaneous pen injector mL (Mounking) rivaroxaban 20 mg tablet (Xarelto) 20 mg PO QPM 11/19/24 11/19/24 11/18/24 19:15 History venlafaxine 150 mg 150 mg PO DAILY 11/19/24 11/19/24 11/19/24 09:00 History capsule,extended release 24 hr (Effexor XR) Allergies Allergy/AdvReac Type Severity Reaction Status Date / Time Iodinated Contrast Media Allergy Unknown Verified 11/09/24 09:55 meperidine (From Demerol) Allergy HIVES Verified 11/09/24 09:55 shellfish derived Allergy ANAPHYLAXIS Verified 11/09/24 09:55 cortisone AdvReac Mild high blood Verified 11/09/24 09:55 sugar PFSH Acute PFSH: Medical History Paroxysmal atrial fibrillation new onset Throat irritation Pulmonary embolism on left Pancreatic mass On CT imaging from 01/2023, stable cystic mass measuring 7 mm in the tail of the pancreas. No interval change since 2019. Lumbar stenosis with neurogenic claudication Spinal cord stimulator status Gout Urinary incontinence Obstructive sleep apnea On bipap, settings 16/12 with 2 lpm oxygen 3 para 3 Diabetes type 2, uncontrolled COVID-19 (~2021) Diverticulitis Essential (primary) hypertension Depression GERD (gastroesophageal reflux disease) Insomnia, controlled Hyperlipidemia Diabetic neuropathy Surgical History S/P total knee arthroplasty bilateral History of cardiac catheterization 08/2022 - 40% LAD, no other significant disease noted Status post total right knee replacement History of colonoscopy History of back surgery s/p fusion L3-L5 History of neck surgery H/O: hysterectomy S/P cholecystectomy S/p bilateral carpal tunnel release Status post total knee replacement, left Remote Family History Other CAD (coronary artery disease) Diabetes Social History Smoking and tobacco/nicotine status: unknown if used tobacco/nicotine Second hand smoke exposure: Yes (as a child (father smoked)) Alcohol intake: current Alcohol intake frequency: holidays/special occasions only Substance/Drug Use: never Lives independently: Yes Household members: spouse Marital status: Do you think of yourself as: Straight/Heterosexual Current gender identity: Female Female Reproductive History: Para: 3 Spontaneous abortions: No Vitals/I&O/Wt Last Vital Signs Temp 98.4 F 11/19/24 12:01 Pulse 86 11/19/24 17:30 Resp 14 11/19/24 17:30 BP 103/63 11/19/24 17:30 Pulse Ox 98 11/19/24 17:30 O2 Del Method Room Air 11/19/24 12:01 11/19/24 11/19/24 11/19/24 06:59 14:59 22:59 Intake Total 1005 / 1005 Balance 1005 / 1005 Weight last 48 hrs Weight 139.706 kg Physical Exam Const: COMMON NORMALS: no acute distress and patient oriented x3 HENMT: COMMON NORMALS: normocephalic HEAD & SCALP: normocephalic Neck/C-Spine: COMMON NORMALS: no JVD Resp: COMMON NORMALS: normal respiratory effort, No retractions, No use of accessory muscles and clear to auscultation bilaterally AUSCULTATION: clear to auscultation bilaterally Cardio: COMMON NORMALS: no JVD, S1 normal heart sound present and S2 normal heart sound present RATE: tachycardic RHYTHM: abnormal rhythm irregularly irregular HEART SOUNDS: S1 normal heart sound present and S2 normal heart sound present GI: COMMON NORMALS: Normal to inspection, nondistended, normoactive bowel sounds present, Soft to palpation, non-tender, No hepatosplenomegaly present, no masses and no bruits PALPATION: Yes Soft to palpation and Yes No hepatosplenomegaly present Extremity: COMMON NORMALS: capillary refill normal, no clubbing, cyanosis or edema, no calf tenderness and no pedal edema Neuro: COMMON NORMALS: patient oriented x3, CN's II-XII intact bilaterally and moves all extremities Psych: COMMON NORMALS: mental status grossly normal Data 11/19/24 11:30 11/19/24 11:30 A&P Assessment and plan 1. Atrial fibrillation with RVR: 2. Diabetes type 2, uncontrolled: 3. Hyperglycemia due to type 2 diabetes mellitus: Plan: Atrial fibrillation with rapid ventricular response - Check TSH - Check magnesium level - Serial EKGs, troponins, telemetry monitoring - Continue Cardizem drip - Transition to p.o. Cardizem 60 mg p.o. every 6 hours - Continue Xarelto Hyperglycemia due to type 2 diabetes -Anion gap 16.8, bicarb 27 - Confirm with group home insulin dosing recently her Lantus was increased from 55 to 58 units twice daily - For now continue Lantus 55 units twice daily - With a moderate dose sliding scale NSTEMI, monitor EKGs, troponins, telemetry monitoring Full code Xarelto for DVT prophylaxis PDMP PDMP Reviewed: Last Reviewed 11/19/24 17:56 by Leonel Dalton MD Attestations Medical Necessity Statement*: Patient requires hospitalization, inpatient, greater than 2 midnights, for A-fib with RVR Diagnoses Atrial fibrillation with RVR I48.91 Diabetes type 2, uncontrolled Hyperglycemia due to type 2 diabetes mellitus E11.65
[2024-11-19 17:58] LABS: Troponin 5 6HR 26.07 ng/L (0-10)
[2024-11-19 18:03] LABS: Troponin 5 6HR Delta -2.93 ng/L (0-12)
--- NOTE | 2024-11-19 18:05 | ECG_ITS ---
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 Measurements Intervals [place] Rate: 89 P: 0 IA: 0 QRS: 13 QRSD: 88 T: 20 QT: 337 QTc: 410 Interpretive Statements ATRIAL FLUTTER/TACHYCARDIA SEPTAL MYOCARDIAL INFARCTION , PROBABLY OLD [40+ ms Q WAVE IN V1/V2] Compared to ECG 11/19/2024 13:56:40 No significant changes Electronically Signed On 11-19-2024 18:37:27 CDT by Cedric Hurd M.D. [email or web address]
[2024-11-19 18:21] LABS: NT Pro B Type Natriuretic Pept 412 pg/mL (0-450)
--- NOTE | 2024-11-19 18:44 | PC.NURSE ---
received in to room 108 from er via stretcher at this time.pt is alert and oriented x 4.denies pain at present.aflutter on monitor at controlled rate.on cardizem drip at 7.5 mg/hr.oriented to room environment.instructed to notify staff for any pain,sob,or for any concerns at all.pt verb understanding of instructions
[2024-11-19 19:16] LABS: Thyroid Stimulating Hormone 1.13 uIU/mL (0.27-4.20)
[2024-11-19] MEDS: insulin glargine 100 units/1 mL 55 UNIT SUBCUT (20:47)
[2024-11-19] MEDS: dilTIAZem 100 MG in sodium chloride 0.9% (add-van) 100 ML IV (20:51)
[2024-11-20] VITALS (22 sets, daily range): BP systolic 92–153; BP diastolic 51–89; PULSE 71–110; RESP 12–24; TEMP 36.3–36.8; O2SAT 93–96
[2024-11-20] MEDS: insulin glargine 100 units/1 mL 55 UNIT SUBCUT ×2 (06:29→21:02)
[2024-11-20 07:15] LABS: Hematocrit 38.2 % (36-47); Hemoglobin 11.60 g/dL (11.27-16.99); Mean Corpuscular HGB Conc 30.4 g/dL (30-55); Mean Corpuscular Hemoglobin 28.7 pg (27-33); Mean Corpuscular Volume 94.6 fl (85-98); Nucleated Red Blood Cells % 0 %; Platelet Count 191 10^3/cmm (157-399); Red Blood Count 4.04 10^6/uL (3.85-5.65); White Blood Count 7.91 10^3/uL (3.29-11.43)
[2024-11-20 07:22] LABS: Alanine Aminotransferase 17 U/L (0-33); Albumin Level 3.4 g/dL (3.5-5.2); Alkaline Phosphatase 102 U/L (35-105); Anion Gap 16.8 (5-19); Aspartate Amino Transferase 12 U/L (0-32); Blood Urea Nitrogen 19 mg/dL (8-23); Calcium 9.3 mg/dL (8.5-10.5); Carbon Dioxide 24 mmol/L (22-29); Chloride 103 mmol/L (98-107); Creatinine Clr Calc Pharmacy 67.0646; Globulin 2.6 g/dL (1.3-4.6); Glucose 260 mg/dL (65-115); Magnesium 1.7 mg/dL (1.7-2.3); Osmolality Calculated 299 mOsm/kg (285-295); Potassium 4.8 mmol/L (3.5-5.1); Sodium 139 mmol/L (136-145); Total Protein 6.0 g/dL (6.6-8.7)
[2024-11-20 07:30] LABS: Estmated Average Glucose 206; Hemoglobin A1C 8.8 % (4.0-6.0)
[2024-11-20] MEDS: venlafaxine ER (24HR) 75 mg Capsule PO (08:28)
[2024-11-20] MEDS: venlafaxine ER (24HR) 150 mg Capsule PO (08:28)
--- NOTE | 2024-11-20 16:45 | P.PN_ITS ---
Subjective 2 Subjective: Patient was seen this morning, currently alert oriented x 3, following all commands, denies any fevers, no chills, no cough, no lightheadedness, dizziness, she is currently off the Cardizem drip, heart rates do increase into the 120s upon minimal exertion, discussed trying metoprolol, after receiving metoprolol heart rates remain in the 120s to 130s on exertion, A-fib with RVR, will switch her to an amiodarone drip Vitals/I&O/Wt Last Vital Signs Temp 97.9 F 11/20/24 12:00 Pulse 84 11/20/24 15:24 Resp 18 11/20/24 15:24 BP 118/72 11/20/24 15:16 Pulse Ox 96 11/20/24 15:24 O2 Del Method Nasal Cannula 11/20/24 15:24 O2 Flow Rate 2 11/20/24 15:24 11/20/24 11/20/24 11/20/24 06:59 14:59 22:59 Intake Total 5.917 / 2114.584 480 / 480 0 / 480 Balance 5.917 / 1514.584 480 / 480 0 / 480 Weight last 48 hrs Weight 136.441 kg Weight 136.894 kg Weight 139.706 kg Physical Exam 2 Const: COMMON NORMALS: no acute distress Resp: COMMON NORMALS: normal respiratory effort, No retractions, No use of accessory muscles and clear to auscultation bilaterally AUSCULTATION: clear to auscultation bilaterally Cardio: COMMON NORMALS: S1 normal heart sound present and S2 normal heart sound present RATE: tachycardic RHYTHM: abnormal rhythm irregularly irregular HEART SOUNDS: S1 normal heart sound present and S2 normal heart sound present GI: COMMON NORMALS: Normal to inspection, nondistended, normoactive bowel sounds present and non-tender Extremity: COMMON NORMALS: no clubbing, cyanosis or edema and no pedal edema Data 11/20/24 06:59 11/20/24 06:59 A&P Assessment and plan 1. Atrial fibrillation with RVR: 2. Diabetes type 2, uncontrolled: 3. Hyperglycemia due to type 2 diabetes mellitus: Plan: Atrial fibrillation with rapid ventricular response - Check TSH, within normal limits - Check magnesium level, within normal limits - Serial EKGs, troponins, telemetry monitoring - Switch to amiodarone drip - Stop Cardizem and switch to metoprolol 25 twice daily - Continue Xarelto Hyperglycemia due to type 2 diabetes -Anion gap 16.8, bicarb 27 - Confirm with intermediate insulin dosing recently her Lantus was increased from 55 to 58 units twice daily - For now continue Lantus 55 units twice daily - With a moderate dose sliding scale NSTEMI, monitor EKGs, troponins, telemetry monitoring Left lower extremity, Achilles tendon partial tear Full code Xarelto for DVT prophylaxis PDMP PDMP Reviewed: Last Reviewed 11/19/24 17:56 by Leonel Dalton MD Attestations 2 Medical Necessity Statement*: Patient requires hospitalization, inpatient, greater than 2 minutes for A-fib with RVR, requiring amiodarone drip Diagnoses Atrial fibrillation with RVR I48.91 Diabetes type 2, uncontrolled Hyperglycemia due to type 2 diabetes mellitus E11.65
[2024-11-21] VITALS (16 sets, daily range): BP systolic 91–128; BP diastolic 48–89; PULSE 61–90; RESP 14–22; TEMP 36.1–36.9; O2SAT 94–96
[2024-11-21] MEDS: morphine 4 mg/mL SDV 1 mL 2 MG IVP ×2 (03:07→22:25)
[2024-11-21 03:59] LABS: Hematocrit 36.7 % (36-47); Hemoglobin 11.30 g/dL (11.27-16.99); Mean Corpuscular HGB Conc 30.8 g/dL (30-55); Mean Corpuscular Hemoglobin 28.8 pg (27-33); Mean Corpuscular Volume 93.4 fl (85-98); Nucleated Red Blood Cells % 0 %; Platelet Count 200 10^3/cmm (157-399); Red Blood Count 3.93 10^6/uL (3.85-5.65); White Blood Count 9.08 10^3/uL (3.29-11.43)
[2024-11-21 04:19] LABS: Alanine Aminotransferase 17 U/L (0-33); Albumin Level 3.2 g/dL (3.5-5.2); Alkaline Phosphatase 101 U/L (35-105); Anion Gap 14.3 (5-19); Aspartate Amino Transferase 13 U/L (0-32); Blood Urea Nitrogen 21 mg/dL (8-23); Calcium 9.5 mg/dL (8.5-10.5); Carbon Dioxide 25 mmol/L (22-29); Chloride 101 mmol/L (98-107); Creatinine Clr Calc Pharmacy 55.8872; Globulin 2.8 g/dL (1.3-4.6); Glucose 219 mg/dL (65-115); Magnesium 1.6 mg/dL (1.7-2.3); Osmolality Calculated 292 mOsm/kg (285-295); Potassium 4.3 mmol/L (3.5-5.1); Sodium 136 mmol/L (136-145); Total Protein 6.0 g/dL (6.6-8.7)
[2024-11-21] MEDS: venlafaxine ER (24HR) 75 mg Capsule PO (09:12)
[2024-11-21] MEDS: insulin glargine 100 units/1 mL 55 UNIT SUBCUT ×2 (09:13→20:58)
[2024-11-21] MEDS: venlafaxine ER (24HR) 150 mg Capsule PO (09:13)
--- NOTE | 2024-11-21 15:24 | PC.NURSE ---
dr rojas apprised of orthostatic bp measurements....he ordered to hold 1500 dose of hydralazine
--- NOTE | 2024-11-21 16:46 | P.PN_ITS ---
Subjective 2 Subjective: - Patient was examined this morning - Currently blood pressure is 100/60 she is alert oriented x 3, following all commands, denies any lightheadedness, dizziness, heart rates are in the 60s, remains in atrial fibrillation, was taken off amiodarone drip, to p.o. amiodarone - Plans on discharging today as long as blood pressure and heart rates are reasonable - She does tell me that when she gets up with physical therapy this morning her heart rates taken into the 130s - This afternoon, patient's heart rates are more reasonable, but blood pressures drop into the 90s over 60s, she does not feel well she feels a bit dizzy, she and her daughter are reluctant about going to the [facility], she tells us that she does not feel well - Orthostatic vitals are within normal l imits - Will decrease her hydralazine, her Imd ur, [place], will monitor for another 24 hours Vitals/I&O/Wt Last Vital Signs Temp 97.0 F L 11/21/24 12:00 Pulse 83 11/21/24 15:44 Resp 18 11/21/24 15:44 BP 119/73 11/21/24 15:13 Pulse Ox 94 11/21/24 15:44 O2 Del Method Room Air 11/21/24 15:44 O2 Flow Rate 2 11/20/24 15:24 11/21/24 11/21/24 11/21/24 06:59 14:59 22:59 Intake Total 200 / 1400 680 / 680 Output Total 500 / 1650 1000 / 1000 Balance -300 / -250 -320 / -320 Weight last 48 hrs Weight 137.529 kg Weight 136.441 kg Weight 136.894 kg Physical Exam 2 Const: COMMON NORMALS: no acute distress and patient oriented x3 Resp: COMMON NORMALS: normal respiratory effort, No retractions, No use of accessory muscles and clear to auscultation bilaterally AUSCULTATION: clear to auscultation bilaterally Cardio: COMMON NORMALS: regular rate, regular rhythm, S1 normal heart sound present and S2 normal heart sound present RATE: regular rate RHYTHM: r egular rhythm HEART SOUNDS: S1 normal heart sound present and S2 normal heart sound present GI: COMMON NORMALS: Normal to inspection, nondistended, normoactive bowel sounds present and non-tender Extremity: COMMON NORMALS: no pedal edema Neuro: COMMON NORMALS: patient oriented x3 Psych: COMMON NORMALS: mental status grossly normal Data 11/21/24 03:41 11/21/24 03:41 A&P Assessment and plan 1. Atrial fibrillation with RVR: 2. Diabetes type 2, uncontrolled: 3. Hyperglycemia due to type 2 diabetes mellitus: Plan: Atrial fibrillation with rapid ventricular response - Check TSH, within normal limits - Check magnesium level, within normal limits - Serial EKGs, troponins, telemetry monitoring - Switch to amiodarone drip, switch to p.o. amiodarone - Stop Cardizem and switch to metoprolol 25 twice daily - Continue Xarelto Low blood pressures - Decrease doses of hydralazine, losartan, Imdur Hyperglycemia due to type 2 diabetes -Anion gap 16.8, bicarb 27 - Confirm with [facility] insulin dosing recently her Lantus was increased from 55 to 58 units twice daily - For now continue Lantus 55 units twice daily - With a moderate dose sliding scale NSTEMI, monitor EKGs, troponins, telemetry monitoring Left lower extremity, Achilles tendon partial tear Full code Xarelto for DVT prophylaxis PDMP PDMP Reviewed: Last Reviewed 11/19/24 17:56 by Leonel Dalton MD Attestations 2 Medical Necessity Statement*: Patient requires hospitalization for atrial fibrillation, low blood pressures, Diagnoses Atrial fibrillation with RVR I48.91 Diabetes type 2, uncontrolled Hyperglycemia due to type 2 diabetes mellitus E11.65
[2024-11-22 03:32] LABS: Hematocrit 35.4 % (36-47); Hemoglobin 11.10 g/dL (11.27-16.99); Mean Corpuscular HGB Conc 31.4 g/dL (30-55); Mean Corpuscular Hemoglobin 28.9 pg (27-33); Mean Corpuscular Volume 92.2 fl (85-98); Nucleated Red Blood Cells % 0 %; Platelet Count 203 10^3/cmm (157-399); Red Blood Count 3.84 10^6/uL (3.85-5.65); White Blood Count 8.45 10^3/uL (3.29-11.43)
[2024-11-22 03:34] VITALS: BP 152/69; PULSE 73; RESP 14; O2SAT 96
[2024-11-22 03:53] LABS: Alanine Aminotransferase 16 U/L (0-33); Albumin Level 3.2 g/dL (3.5-5.2); Alkaline Phosphatase 100 U/L (35-105); Anion Gap 15.5 (5-19); Aspartate Amino Transferase 10 U/L (0-32); Blood Urea Nitrogen 24 mg/dL (8-23); Calcium 9.3 mg/dL (8.5-10.5); Carbon Dioxide 25 mmol/L (22-29); Chloride 99 mmol/L (98-107); Creatinine Clr Calc Pharmacy 56.2350; Globulin 2.7 g/dL (1.3-4.6); Glucose 228 mg/dL (65-115); Magnesium 1.7 mg/dL (1.7-2.3); Osmolality Calculated 291 mOsm/kg (285-295); Potassium 4.5 mmol/L (3.5-5.1); Sodium 135 mmol/L (136-145); Total Protein 5.9 g/dL (6.6-8.7)
[2024-11-22 05:36] VITALS: PULSE 61
[2024-11-22 07:37] VITALS: BP 143/80; PULSE 61; RESP 14; TEMP 36.6; O2SAT 96
[2024-11-22] MEDS: venlafaxine ER (24HR) 150 mg Capsule PO (08:14)
[2024-11-22] MEDS: venlafaxine ER (24HR) 75 mg Capsule PO (08:15)
[2024-11-22] MEDS: insulin glargine 100 units/1 mL 55 UNIT SUBCUT (08:17)
[2024-11-22 08:18] VITALS: BP 143/80
--- NOTE | 2024-11-22 09:35 | PC.SOCIAL ---
IMM Updated Updated pt on IMM. No questions voiced. Provided pt a copy. Initialed, dated, & timed a copy & placed in chart.
--- NOTE | 2024-11-22 10:31 | P.DS_ITS ---
Discharge Providers Date of Admission: 11/19/24 18:42 Date of Discharge: November 22, 2024 Attending Provider at Admission: Leonel Dalton MD Attending Provider at Discharge: Leonel Dalton MD Primary Care Provider: Devi Shaw DO Diagnoses at Discharge Discharge Diagnosis 1. Atrial fibrillation with RVR: 2. Uncontrolled type 2 diabetes mellitus with hyperglycemia: 3. Hyperglycemia due to type 2 diabetes mellitus: Reason for Visit Reason for Visit: hyperglycemia; afib Hospital Course Hospital Course Melissa De Jesus is a 74 year old female With a past medical history of type 2 diabetes mellitus, Hypertension, pulmonary embolism, Xarelto, who presents [facility] due to elevated blood sugars, chest palpitations currently patient is alert oriented x 3, following all commands, currently in atrial fibrillation/flutter, on a Cardizem drip at 7.5, denies any chest pain, does report palpitations, no facial droop, slurring of words, does report increased urination, no abdominal pain, no nausea, no vomiting, does report recent steroid use, recent hospitalization, she is in a boot for her right Achilles tendon, follows up with Dr. Valles Patient was admitted to [facility] for A-fib with RVR, requiring amiodarone drip, hospitalization was complicated with hypotension, A-fib with RVR with exertion, requiring titration of blood pressure medications and heart rate medication. On discharge, will be discharged with amiodarone taper, metoprolol, with close follow-up with cardiology as outpatient Patient's hospitalization was complicated by orthostatic hypotension, required titration of losartan, hydralazine, Imdur Hyperglycemia due to type 2 diabetes mellitus, required titration of insulin therapy. Will be discharged on Lantus 55 units twice daily, low-dose sliding scale Physical Exam Const: COMMON NORMALS: no acute distress and patient oriented x3 Resp: COMMON NORMALS: normal respiratory effort, No retractions, No use of accessory muscles and clear to auscultation bilaterally AUSCULTATION: clear to auscultation bilaterally Cardio: COMMON NORMALS: regular rate, S1 normal heart sound present and S2 normal heart sound present RATE: regular rate RHYTHM: abnormal rhythm irregularly irregular HEART SOUNDS: S1 normal heart sound present and S2 normal heart sound present GI: COMMON NORMALS: Normal to inspection, nondistended, normoactive bowel sounds present and non-tender Extremity: COMMON NORMALS: no pedal edema Neuro: COMMON NORMALS: patient oriented x3 Psych: COMMON NORMALS: mental status grossly normal Discharge Data Studies Completed and Pending Completed Studies During Hospitalization Category Date Time Status XR chest 1V portable [id number] Stat Exams 11/19/24 12:03 Completed Radiology Impressions Chest X-Ray 11/19/24 12:03 IMPRESSION: No acute findings. Laboratory Results WBC 8.45 10^3/uL (3.29-11.43) 11/22/24 02:58 RBC 3.84 10^6/uL (3.85-5.65) L 11/22/24 02:58 Hgb 11.10 g/dL (11.27-16.99) L 11/22/24 02:58 Hct 35.4 % (36-47) L 11/22/24 02:58 MCV 92.2 fl (85-98) 11/22/24 02:58 MCH 28.9 pg (27-33) 11/22/24 02:58 MCHC 31.4 g/dL (30-55) 11/22/24 02:58 RDW 14.6 % (12.1-15.1) 11/22/24 02:58 Plt Count 203 10^3/cmm (157-399) 11/22/24 02:58 MPV 10.5 fL (7.4-10.4) H 11/22/24 02:58 Neut % (Auto) 58.9 % 11/22/24 02:58 Lymph % (Auto) 26.7 % 11/22/24 02:58 [place] % (Auto) 8.9 % 11/22/24 02:58 Eos % (Auto) 4.3 % 11/22/24 02:58 Baso % (Auto) 0.5 % 11/22/24 02:58 Neut # (Auto) 4.98 10^3/uL (1.8-7.7) 11/22/24 02:58 Lymph # (Auto) 2.3 10^3/uL (0.8-4.8) 11/22/24 02:58 [place] # (Auto) 0.8 10^3/uL (0.2-0.9) 11/22/24 02:58 Eos # (Auto) 0.4 10^3/uL (0.0-0.8) 11/22/24 02:58 Baso # (Auto) 0.0 10^3/uL (0.0-0.1) 11/22/24 02:58 Nucleated RBC % (auto) 0 % 11/22/24 02:58 Nucleated RBCs # 0.0 /100WBC 11/22/24 02:58 Sodium 135 mmol/L (136-145) L 11/22/24 02:58 Potassium 4.5 mmol/L (3.5-5.1) 11/22/24 02:58 Chloride 99 mmol/L (98-107) 11/22/24 02:58 Carbon Dioxide 25 mmol/L (22-29) 11/22/24 02:58 Anion Gap 15.5 (5-19) 11/22/24 02:58 BUN 24 mg/dL (8-23) H 11/22/24 02:58 Creatinine 1.2 mg/dL (0.5-0.9) H 11/22/24 02:58 GFR Calculation Not Reportable 11/22/24 02:58 Glucose 228 mg/dL (65-115) H 11/22/24 02:58 POC Glucose 219 mg/dL (70-110) H 11/22/24 06:23 Estimat Average Glucose 206 11/20/24 06:59 Hemoglobin A1c 8.8 % (4.0-6.0) H 11/20/24 06:59 Calculated Osmolality 291 mOsm/kg (285-295) 11/22/24 02:58 Lactic Acid 1.7 mmol/L (0.5-2.2) 11/19/24 11:30 Calcium 9.3 mg/dL (8.5-10.5) 11/22/24 02:58 Phosphorus 4.2 mg/dL (2.5-4.5) 11/22/24 02:58 Magnesium 1.7 mg/dL (1.7-2.3) 11/22/24 02:58 Total Bilirubin 0.3 mg/dL (0.15-1.2) 11/22/24 02:58 AST 10 U/L (0-32) 11/22/24 02:58 ALT 16 U/L (0-33) 11/22/24 02:58 Alkaline Phosphatase 100 U/L (35-105) 11/22/24 02:58 Troponin T Baseline 29 ng/L (0-10) H 11/19/24 11:30 Troponin T 120 Minute 30.81 ng/L (0-10) H 11/19/24 13:28 Delta Troponin T 1.81 ABS# (0-10) 11/19/24 13:28 Troponin T Hi Sens 6Hr 26.07 ng/L (0-10) H 11/19/24 17:22 Troponin T Hi Sens 6Hr Delta -2.93 ng/L (0-12) L 11/19/24 17:22 NT-Pro-B Natriuret Pep 412 pg/mL (0-450) 11/19/24 11:30 NT-Pro-B Natriuret Pep 430 pg/mL (0-450) 11/19/24 11:30 Total Protein 5.9 g/dL (6.6-8.7) L 11/22/24 02:58 Albumin 3.2 g/dL (3.5-5.2) L 11/22/24 02:58 Globulin 2.7 g/dL (1.3-4.6) 11/22/24 02:58 TSH 1.13 uIU/mL (0.27-4.20) 11/19/24 13:28 Urine Color Yellow (Yellow) 11/19/24 13:30 Urine Appearance Clear (CLEAR) 11/19/24 13:30 Urine pH 7.0 (5-7) 11/19/24 13:30 Ur Specific [place] 1.010 (1.005-1.030) 11/19/24 13:30 Urine Protein Negative (Negative) 11/19/24 13:30 Urine Glucose (UA) 1+ (Normal) H 11/19/24 13:30 Urine Ketones Negative (Negative) 11/19/24 13:30 Urine Blood Negative (Negative) 11/19/24 13:30 Urine Nitrate Negative (Negative) 11/19/24 13:30 Urine Bilirubin Negative (Negative) 11/19/24 13:30 Urine Urobilinogen 1.0 mg/dL (Negative) 11/19/24 13:30 Ur Leukocyte Esterase Negative (Negative) 11/19/24 13:30 Urine RBC 0-2 /hpf (0-2) 11/19/24 13:30 Urine WBC 0-5 /hpf (0-5) 11/19/24 13:30 Ur Squamous Epith Cells 0-5 /hpf (0-5) 11/19/24 13:30 Amorphous Sediment Not Reportable 11/19/24 13:30 Urine Bacteria None seen /hpf (NONE) 11/19/24 13:30 Hyaline Casts 0.40 /lpf 11/19/24 13:30 Vitals Last Vital Signs Temp 97.9 F 11/22/24 07:37 Pulse 61 11/22/24 07:37 Resp 14 11/22/24 07:37 BP 143/80 11/22/24 08:18 Pulse Ox 96 11/22/24 07:37 O2 Del Method CPAP 11/22/24 03:34 O2 Flow Rate 2 11/20/24 15:24 Discharge Plan Discharge Patient Disposition: Xfer SNF Condition: Stable Prescriptions: New insulin lispro [Humalog U-100 Insulin] 100 unit/mL Solution See Rx Instructions .ROUTE .COMPLEX Qty: 10 0RF Rx Instructions: inject, subcut, three times daily after meals based on moderate dose insulin sliding scale albuterol sulfate 0.63 mg/3 mL solution for nebulization 0.63 mg inhalation Q8H PRN (Reason: bronchospasm) Qty: 90 0RF amiodarone [Pacerone] 200 mg Tablet See Rx Instructions .ROUTE .COMPLEX Qty: 60 0RF Rx Instructions: 1 tab bid for 5 days, then 1 tab daily metoprolol tartrate 25 mg Tablet 25 mg PO BID@0900,2100 30 Days Qty: 60 0RF losartan 50 mg Tablet 25 mg PO DAILY 30 Days Qty: 15 0RF hydralazine 25 mg Tablet 25 mg PO TID 30 Days Qty: 90 0RF Continued albuterol sulfate [Ventolin HFA] 90 mcg/actuation HFA aerosol inhaler 2 inh inhalation Q8H PRN (Reason: shortness of breath or wheezing) Qty: 6.7 0RF acarbose 25 mg tablet 25 mg PO TID PRN (Reason: high bs) Qty: 270 1RF cholecalciferol (vitamin D3) 50 mcg (2,000 unit) capsule 50 mcg PO DAILY tramadol 50 mg tablet 50 mg PO Q6H PRN (Reason: pain) 30 Days Qty: 30 0RF atorvastatin 20 mg tablet 40 mg PO DAILY Qty: 360 3RF fluoxetine 10 mg tablet 10 mg PO DAILY Qty: 90 0RF pantoprazole 40 mg tablet,delayed release (DR/EC) 40 mg PO DAILY Qty: 90 1RF pregabalin 50 mg capsule 50 mg PO TID Qty: 270 1RF tizanidine 2 mg tablet See Rx Instructions .ROUTE .COMPLEX Qty: 270 0RF Dose Instruction: TAKE 1 TABLET BY MOUTH THREE TIMES DAILY NEEDED FOR MUSCLE SPASMS Rx Instructions: TAKE 1 TABLET BY MOUTH THREE TIMES DAILY NEEDED FOR MUSCLE SPASMS venlafaxine 75 mg capsule,extended release 24hr See Rx Instructions .ROUTE .COMPLEX Qty: 90 0RF Dose Instruction: TAKE 1 CAP BY MOUTH DAILY ALONG WITH THE 150 MG TO =225MG TOTAL Rx Instructions: TAKE 1 CAP BY MOUTH DAILY ALONG WITH THE 150 MG TO =225MG TOTAL insulin glargine [Basaglar KwikPen U-100 Insulin] 100 unit/mL (3 mL) insulin pen 55 unit SUBCUT BID 30 Days Qty: 33 3RF trazodone 100 mg tablet 100 mg PO BEDTIME Qty: 90 1RF Rx Instructions: Patient needs a new doctor. allopurinol 100 mg tablet 100 mg PO DAILY Qty: 90 0RF buspirone 5 mg tablet 5 mg PO BID PRN (Reason: anxiety) Qty: 90 0RF diphenhydramine HCl [Benadryl Allergy] 25 mg tablet 25 mg PO DIRECTED PRN (Reason: allergy symptoms) Rx Instructions: Take 50mg (2 tabs) 1 hour prior to procedure. potassium chloride [Klor-Con M20] 20 mEq Tablet,Er Particles/Crystals 20 meq PO DAILY Qty: 30 0RF magnesium oxide 400 mg (241.3 mg magnesium) Tablet 400 mg PO DAILY Qty: 30 0RF nitroglycerin 0.4 mg Tablet, Sublingual 0.4 mg sublingual Q5M PRN (Reason: Chest Pain) Qty: 20 0RF furosemide 40 mg Tablet 40 mg PO DAILY@0800 Qty: 30 0RF fluticasone propion-salmeterol [Wixela Inhub] 500-50 mcg/dose blister with device 1 inh inhalation BID Qty: 60 0RF Mounjaro 2.5 mg/0.5 mL pen injector 2.5 mg SUBCUT .Weekly Qty: 2 0RF Xarelto 20 mg tablet 20 mg PO QPM venlafaxine [Effexor XR] 150 mg capsule,extended release 24hr 150 mg PO DAILY Rx Instructions: along with 75mg [id number] total Changed isosorbide mononitrate 30 mg tablet extended release 24 hr 30 mg PO DAILY Qty: 180 3RF Discontinued losartan 100 mg tablet 100 mg PO DAILY Qty: 90 3RF diltiazem HCl [Cardizem CD] 240 mg capsule,extended release 24hr 240 mg PO DAILY Qty: 30 0RF hydralazine 100 mg tablet 100 mg PO TID Qty: 180 3RF doxycycline monohydrate 100 mg Tablet 100 mg PO BID Qty: 10 0RF No Action (DME) lift recliner See Rx Instructions .Route .MEDSUPPLY Qty: 1 0RF Rx Instructions: As directed (DME) wheel chair See Rx Instructions .Route .MEDSUPPLY Qty: 1 0RF Rx Instructions: length of need 90 days (DME) Accu-Chek Leeann Plus test strp Strip See Rx Instructions .ROUTE .MEDSUPPLY Qty: 200 1RF Rx Instructions: ONE DAILY (DME) lancets [Accu-Chek Softclix Lancets] Misc See Rx Instructions .Route Qty: 200 0RF Rx Instructions: As directed (DME) upright wheeled walker See Rx Instructions .Route .MEDSUPPLY Qty: 1 0RF Rx Instructions: As directed (DME) BIPAP with 16/12 with Oxygen with supplies See Rx Instructions .Route .MEDSUPPLY Qty: 1 0RF Rx Instructions: As directed (DME) pen needle, diabetic 32 gauge x 5/32 needle See Rx Instructions .ROUTE .COMPLEX Qty: 100 3RF Dose Instruction: USE WITH INSULIN DAILY Rx Instructions: USE WITH INSULIN DAILY Discharge Order = DC NOW: Discharge Order (Routine); Ordered 11/22/24 Ordered By: Leonel Dalton Referrals: [facility] [Outside] Libby Graham MD [Physician, Cardiology] - 11/28/24 1:00 pm Devi Shaw DO [Primary Care Provider, Family Practice] - 12/04/24 3:00 pm Austen Robles MD [Physician, Endocrinology] - 12/08/24 8:00 am Discharge Diet: Cardiac Discharge Activity: Resume usual activity Patient Instructions: Metoprolol (By mouth) (Lopressor, Toprol XL), Albuterol (By breathing), Amiodarone (By mouth) (Cordarone, Pacerone), Hydralazine (By mouth), Losartan (By mouth) (Cozaar, Arbli), Insulin Lispro Protamine/Insulin Lispro (By injection) (Humalog Mix..., Hyperglycemia, A-fib (Atrial Fibrillation) (DC), Opioid Safety, Patient Portal & Emilie Instructions Activity Restrictions/Additional Instructions: -Please monitor your blood sugars closely -Monitor your blood sugars 3 times daily as after meals -Please record your blood sugars, and a blood sugar log -For your NovoLog -Please inject blood sugar after meals based on sliding scale provided -Do not inject insulin if you do not eat as hypoglycemia kills -This is a NovoLog sliding scale -Insulin sliding ?fingerstick? Insulin ?141-180?4 units/sq 181-220?6 units/sq ?221-260?8 units/sq ?261-300 10 units/sq ?301-350?12 units/sq ?351-400 14 units/sq ?401-450?16 units/sq >450? 20 units/sq -If your blood sugar is greater than 500 go to the emergency room -If your blood sugar is less than 60 or at anytime you feel lightheaded or dizzy or diaphoretic or have chest palpitations check your blood sugar, and eat a hard candy or drink orange juice and go immediately to the emergency room -Remember hypoglycemia kills, so if his blood sugar is less than 60 we have to increase it by taking in a sugary meal such as a hard candy or orange juice and go to the emergency room -If you have any questions please call us where here to help Discharge Attestations Time Spent in Discharge Care*: greater than 30 min Quality Metrics Clinical Quality Measures [ No reported AMI, CVA or VTE this stay] Coding Level of Care Code 48728 Total time (in minutes) for Discharge: 45 Diagnoses Atrial fibrillation with RVR I48.91 Uncontrolled type 2 diabetes mellitus with hyperglycemia E11.65 Glycemic state: with hyperglycemia Hyperglycemia due to type 2 diabetes mellitus E11.65; Z79.4 Diabetes mellitus skilled nursing insulin use: with intermediate accountant use
--- NOTE | 2024-11-22 10:58 | PC.NURSE ---
Patient to be discharged to [facility] for rehab. Report called to SULLY Baires. Patient pending [facility], ~arrival for 12pm.
[2024-11-22 11:12] VITALS: BP 111/56; PULSE 65; RESP 14; TEMP 36.4; O2SAT 95
--- NOTE | 2024-11-22 12:19 | PC.NURSE ---
Patient discharged to [facility]. [facility] provided transportation. Patient denies pain or needs. Patient taken by wheelchair to private vehicle,
[2024-11-22 12:20] VITALS: BP 111/56; PULSE 66; RESP 20; O2SAT 91
== END 2024-11-22 11:59 | disposition home or self-care (01) | DRG 310 ==
LOC: ER 17:14 → CSU 17:23
PROVIDERS: Admitting Provider Family Medicine; Emergency Provider General Practice; PCP Family Medicine; Visit Provider Family Medicine
DX: I48.91 Unspecified atrial fibrillation (principal); E11.65 Type 2 diabetes mellitus with hyperglycemia; E11.40 Type 2 diabetes mellitus with diabetic neuropathy, unspecified; Z79.4 Long term (current) use of insulin; Z79.85 Long-term (current) use of injectable non-insulin antidiabetic drugs; I95.1 Orthostatic hypotension; F32.A Depression, unspecified; I10 Essential (primary) hypertension; E78.5 Hyperlipidemia, unspecified; K21.9 Gastro-esophageal reflux disease without esophagitis; G47.33 Obstructive sleep apnea (adult) (pediatric); Z86.711 Personal history of pulmonary embolism; Z79.01 Long term (current) use of anticoagulants; I25.2 Old myocardial infarction
CPT/HCPCS: 36415; 36416; 71045; 80053; 81001; 82962; 83036; 83605; 83735; 83880; 84100; 84443; 84484; 85025; 93005; 94640; 94660; 96365; 96366; 96372; 96375; 99285; A4222; G0378; J0283; J1815; J2270; J2765; J3490; J7030; J7613; J7626; J9999

== ENCOUNTER → 2024-11-23 15:23 | Outpatient (BNVA) | payer MEDICARE, OTHER, SELFPAY | PROVIDERS: PCP Family Medicine; Visit Provider Podiatrist Foot & Ankle Surgery | DX: S86.011A Strain of right Achilles tendon, initial encounter (principal); X58.XXXA Exposure to other specified factors, initial encounter | CPT/HCPCS: 99213 ==

== ENCOUNTER → 2024-11-28 12:38 | Outpatient (BNVA) | payer MEDICARE, OTHER, SELFPAY | PROVIDERS: PCP Family Medicine; Visit Provider Nurse Practitioner Family | DX: I48.0 Paroxysmal atrial fibrillation (principal); Z79.01 Long term (current) use of anticoagulants; I10 Essential (primary) hypertension; Z09 Encounter for follow-up examination after completed treatment for conditions other than malignant neoplasm | CPT/HCPCS: 36415; 80048; 85025; 99213 ==

== ENCOUNTER → 2024-12-05 09:40 | Outpatient (BNVA) | payer MEDICARE, OTHER, SELFPAY | PROVIDERS: PCP Family Medicine; Visit Provider Internal Medicine | DX: E11.65 Type 2 diabetes mellitus with hyperglycemia (principal); E78.2 Mixed hyperlipidemia; R00.1 Bradycardia, unspecified | CPT/HCPCS: 99214 ==

== ENCOUNTER → 2024-12-06 07:49 | Outpatient (BNVA) | payer MEDICARE, OTHER, SELFPAY | PROVIDERS: PCP Family Medicine; Visit Provider Podiatrist Foot & Ankle Surgery | DX: S86.011A Strain of right Achilles tendon, initial encounter (principal); X58.XXXA Exposure to other specified factors, initial encounter | CPT/HCPCS: 99213 ==

== ENCOUNTER → 2024-12-20 09:55 | Outpatient (BNVA) | payer MEDICARE, OTHER, SELFPAY | PROVIDERS: PCP Family Medicine; Visit Provider Podiatrist Foot & Ankle Surgery | DX: S86.011A Strain of right Achilles tendon, initial encounter (principal); X58.XXXA Exposure to other specified factors, initial encounter | CPT/HCPCS: 99213 ==

== ENCOUNTER → 2024-12-26 15:33 | Outpatient (BNVA) | payer MEDICARE, OTHER, SELFPAY | PROVIDERS: PCP Family Medicine; Visit Provider Internal Medicine | DX: I10 Essential (primary) hypertension (principal); I25.10 Atherosclerotic heart disease of native coronary artery without angina pectoris; E78.5 Hyperlipidemia, unspecified; I48.91 Unspecified atrial fibrillation; Z79.01 Long term (current) use of anticoagulants | CPT/HCPCS: 99213 ==

== ENCOUNTER → 2025-01-02 09:49 | Outpatient (BNVA) | payer MEDICARE, OTHER, SELFPAY | PROVIDERS: PCP Family Medicine; Visit Provider Internal Medicine | DX: E11.65 Type 2 diabetes mellitus with hyperglycemia (principal); E78.2 Mixed hyperlipidemia | CPT/HCPCS: 99214 ==

== ENCOUNTER → 2025-01-03 09:01 | Outpatient (BNVA) | payer MEDICARE, OTHER, SELFPAY | PROVIDERS: PCP Family Medicine; Visit Provider Podiatrist Foot & Ankle Surgery | DX: S86.011A Strain of right Achilles tendon, initial encounter (principal); X58.XXXA Exposure to other specified factors, initial encounter | CPT/HCPCS: 99213 ==

== ENCOUNTER → 2025-01-15 11:13 | Outpatient (BNVA) | payer MEDICARE, OTHER, SELFPAY | PROVIDERS: PCP Family Medicine; Visit Provider Nurse Practitioner Family | DX: L73.8 Other specified follicular disorders (principal); L57.8 Other skin changes due to chronic exposure to nonionizing radiation; L81.4 Other melanin hyperpigmentation; D22.5 Melanocytic nevi of trunk; L82.1 Other seborrheic keratosis; B35.3 Tinea pedis; Z08 Encounter for follow-up examination after completed treatment for malignant neoplasm; Z85.828 Personal history of other malignant neoplasm of skin; L82.0 Inflamed seborrheic keratosis; R58 Hemorrhage, not elsewhere classified; L53.8 Other specified erythematous conditions; R20.8 Other disturbances of skin sensation; D48.5 Neoplasm of uncertain behavior of skin | CPT/HCPCS: 11102; 17110; 99214 ==

== ENCOUNTER → 2025-02-15 12:32 | Outpatient (BNVA) | payer MEDICARE, OTHER, SELFPAY | PROVIDERS: PCP Family Medicine; Visit Provider Podiatrist Foot & Ankle Surgery | DX: E11.65 Type 2 diabetes mellitus with hyperglycemia (principal); L91.8 Other hypertrophic disorders of the skin; Z79.4 Long term (current) use of insulin; S86.011D Strain of right Achilles tendon, subsequent encounter; X58.XXXD Exposure to other specified factors, subsequent encounter | CPT/HCPCS: 99213 ==

== ENCOUNTER 2025-03-13 15:43 | Outpatient (CLI) | payer MEDICARE, OTHER, SELFPAY ==
[2025-03-13 17:30] LABS: Alanine Aminotransferase 21 U/L (0-33); Albumin Level 4.0 g/dL (3.5-5.2); Alkaline Phosphatase 105 U/L (35-105); Anion Gap 13.3 (5-19); Aspartate Amino Transferase 21 U/L (0-32); Blood Urea Nitrogen 21 mg/dL (8-23); Calcium 9.7 mg/dL (8.5-10.5); Carbon Dioxide 29 mmol/L (22-29); Chloride 103 mmol/L (98-107); Cholesterol 151 mg/dL (0-200); Globulin 3.0 g/dL (1.3-4.6); Glucose 227 mg/dL (65-115); HDL Cholesterol 43 mg/dL (60-100); Osmolality Calculated 302 mOsm/kg (285-295); Potassium 4.3 mmol/L (3.5-5.1); Sodium 141 mmol/L (136-145); Total Protein 7.0 g/dL (6.6-8.7); Triglycerides 119 mg/dL (0-150)
[2025-03-13 17:53] LABS: Creatinine Urine, Random 47 mg/dL (28-217); Microalbum Creatinine Ratio Ur 21 mg/dL (0-20)
[2025-03-13 19:36] LABS: Estmated Average Glucose 237; Hemoglobin A1C 9.9 % (4.0-6.0)
== END 2025-03-13 15:44 | disposition home or self-care (01) ==
LOC: LAB 15:44
PROVIDERS: PCP Family Medicine; Visit Provider Internal Medicine
DX: E11.65 Type 2 diabetes mellitus with hyperglycemia (principal)
CPT/HCPCS: 36415; 80053; 80061; 82044; 83036

== ENCOUNTER 2025-04-23 15:49 | Emergency (ER) | payer MEDICARE, OTHER, SELFPAY ==
--- OUTSIDE RECORDS SUMMARY | 2025-04-23 15:55 | XMS_ITS | Data Portability ---
Author Organization [facility], [facility] Address [address] [place] [address] Assessment No assessment recorded. Plan of Treatment Reminders Order Date Submit Date Provider Last Modified By Organization Details Last Modified Time Details Appointments None record ed. Lab None record ed. Referral None record ed. Procedures None record ed. Surgeries None record ed. Imaging None record ed. Medication Orders None record ed. Patient TargetsNo targets recorded. Patient Instructions Encounter Date Encounter Id Patient Instructions Last Modified By Organization Details Last Modified Time 11/27/2024 [id number] Records reviewed . Admitted with a fib/flutter. Required amiodarone drip. Insulin adjusted. Occasionally, tachycardia occurs on amiodarone, hydralazine, losartan, and metoprolol. Will increase metoprolol to 50mg bid. Sugars can improve, increase glargine to 65 units. Labs on Wednesday. [email or web address] Not available 11/29/2024 12:14:48 12/06/2024 [id number] Planning to d/c home soon. Did well with therapy. Mood good. Blood sugars excellent. Change lasix and potassium to daily from prn. [email or web address] Not available 12/06/2024 14:28:15 12/11/2024 [id number] Planning to d/c home after SNF stay for therapy after hospitalization for a fib. Will need home health eval and tx. [email or web address] Not available 12/13/2024 14:15:05 Reason for Referral None Reported. Problems Name Problem SNOMED Code Status Onset Date Resolution Date Notes Provider Name and Address Organization Details Recorded Time Post-discharg e follow-up 942519429 Active 2024 JEAN-CLAUDE jones, [place] [facility] 12:12:52 Persistent atrial fibrillation 747013773 [facility] 12:12:53 Essential hypertension 14917916 Active 2024 [facility] 12:12:55 History of pulmonary embolus 467263821 Active 2024 [facility] 12:12:56 Problem Notes None recorded. Medical Equipment None Reported. Allergies Allergen ID Allergen Name Allergen Category Reaction Reaction Severity Criticality Documentation Date Start Date Code Code System Note Provider Name and Address Organization Details Recorded Time 11850 Demerol medicatio n hives Not available Not available 11/28/2022 35761 1 RxNorm React ion: Hives ; Comme nt: Recor ded 06/01 2:21P M by Vy Junior RN, Offic e Visit ; Promo jaja; Signi fican ce: *; Reaso n: Drug aller gy; ; Not Available [facility] 3 02:28:07 48244 iodine medicatio n anaphylax is Not available Not available 11/28/2022 5933 RxNorm React ion: Anaph ylaxi s;iod ine dye, Hives ;iodi ne dye; Comme nt: Recor ded 06/01 2:21P M by Vy Junior RN, Offic e Visit ; Promo jaja; Signi ficagata ce: *; Reaso n: Drug aller gy; ; Not Available [facility] 3 02:28:07 Medications Name Sig Start Date Stop Date Status Note LastModified by Organization Details LastModified Time losartan 50 mg tablet TAKE 1 TABLET BY MOUTH EVERY DAY 2024 active Not Available Not Available Not Avai lable atorvastat in 40 mg tablet TAKE 1 TABLET BY MOUTH EVERY DAY active Not Available Not Available No t Available buspirone 5 mg tablet TAKE 1 TABLET BY MOUTH TWICE A DAY active Not Available Not Available No t Available clonidine HCl 0.1 mg tablet TAKE 1 TABLET ORALLY 4 TIMES DAILY NEEDED FOR FOR BLOOD PRESSURE GREATER THAN 180/100 active Not Available Not Available No t Available venlafaxin e ER 75 mg capsule,ex tended release 24 hr TAKE 1 CAP BY MOUTH DAILY ALONG WITH THE 150 MG TO =225MG TOTAL active Not Available Not Available No t Available atorvastat in 20 mg tablet TAKE 1 TABLET BY MOUTH EVERY DAY active Not Available Not Available No t Available venlafaxin e 75 mg tablet TAKE 3 TABLETS BY MOUTH DAILY active Not Available Not Available No t Available Toprol XL 100 mg tablet,ext ended release daily 2018 active VO CH/jl; 75180; Recorded 9 9:15AM by Alicia Blount LPN (Authoriz ed through Clement Chino DO), Refill Request; Refill Quantity: 90; Tablet; Not Available Not Available Not Available tizanidine 2 mg tablet TAKE 1 TABLET BY MOUTH THREE TIMES DAILY NEEDED FOR MUSCLE SPASMS active Not Available Not Available No t Available metoprolol succinate ER 50 mg tablet,ext ended release 24 hr TAKE 1 TABLET BY MOUTH DAILY active Not Available Not Available No t Available isosorbide mononitrat e ER 30 mg tablet,ext ended release 24 hr TAKE 1 TABLET BY MOUTH EVERY DAY active Not Available Not Available No t Available lovastatin 40 mg tablet every evening 2018 active VO CH/jl increased to 40mg on 10/21/17; 60160; Recorded 9 4:59PM by Alicia Blount LPN (Authoriz ed through Clement Chino DO), Annotatio n/Addendu m; Refill Quantity: 30; Tablet; Not Available Not Available Not Available fluoxetine 10 mg tablet TAKE 1 TABLET BY MOUTH EVERY DAY active Not Available Not Available No t Available venlafaxin e ER 150 mg capsule,ex tended release 24 hr TAKE 1 CAPSULE BY MOUTH DAILY ALONG WITH 75MG [id number] TOTAL active Not Available Not Available No t Available hydralazin e 25 mg tablet TAKE 1 TABLET BY MOUTH 3 TIMES A DAY active Not Available Not Available No t Available allopurino l 100 mg tablet TAKE 1 TABLET BY MOUTH EVERY DAY active Not Available Not Available No t Available tramadol 50 mg tablet Take 1 tablet every 6 hours by oral route as needed for 30 days. 07/22/ 2025 active Not Available Not Available Not Avai lable trazodone 100 mg tablet TAKE 1 TABLET BY MOUTH EVERYDAY AT BEDTIME active Not Available Not Available No t Available hydralazin e 100 mg tablet TAKE 1 TABLET BY MOUTH TWICE A DAY active Not Available Not Available No t Available pantoprazo le 40 mg tablet,del ayed release TAKE 1 TABLET BY MOUTH DAILY. active Not Available Not Available No t Available Banophen 25 mg tablet TAKE 2 TABLETS BY MOUTH ONE HOUR BEFORE PROCEDURE active Not Available Not Available No t Available ranitidine 150 mg tablet BID 2018 active VO CH/jl; 29493; Recorded 9 4:59PM by Alicia Blount LPN (Authoriz ed through Clement Chino DO), Annotatio n/Addendu m; Refill Quantity: 60; Tablet; Not Available Not Available Not Available prednisone 50 mg tablet TAKE 1 TABLET BY MOUTH 13 HOURS, SEVEN HOURS AND ONE HOUR BEFORE PROCEDURE active Not Available Not Available No t Available fluoxetine 10 mg capsule TAKE 1 CAPSULE BY MOUTH EVERY DAY active Not Available Not Available No t Available enoxaparin 150 mg/mL subcutaneo us syringe INJECT 1 PEN SUBCUTANE OUSLY 09/18/24 ONE INJECTION IN AM & PM 09/19/24 ONE INJECTION IN AM & PM active Not Available Not Available No t Available hydralazin e 50 mg tablet TAKE 1 TABLET BY MOUTH TWICE A DAY active Not Available Not Available No t Available mupirocin 2 % topical ointment APPLY TO SURGICAL SITE ON NOSE 1-2 TIMES DAILY UNTIL HEALED active Not Available Not Available No t Available furosemide 20 mg tablet TAKE 1 TABLET BY MOUTH EVERY DAY NEEDED FOR EDEMA. active Not Available Not Available No t Available albuterol sulfate HFA 90 mcg/actuat ion aerosol inhaler 2 INH INHALED EVERY 8 HOURS NEEDED FOR SHORTNESS OF BREATH OR WHEEZING active Not Available Not Available No t Available losartan 100 mg tablet TAKE 1 TABLET BY MOUTH EVERY DAY active Not Available Not Available No t Available acarbose 25 mg tablet TAKE 1 TABLET BY MOUTH THREE TIMES A DAY NEEDED FOR HIGH BLOOD SUGAR active Not Available Not Available No t Available enoxaparin 120 mg/0.8 mL subcutaneo us syringe INJECT 120MG (0.8ML) SUBCUTANE OUSLY ONCE active Not Available Not Available No t Available Lyrica 50 mg capsule Take 1 capsule 3 times a day by oral route for 30 days. 2024 active Not Available Not Available Not Avai lable acetaminop hen at bedtime active 0; Recorded 9 2:22PM by Keyla Junior RN, Office Visit; Not Available Not Available Not Available aspirin daily active 0; Recorded 9 2:22PM by Keyla Junior RN, Office Visit; Not Available Not Available Not Available venlafaxin e daily 2018 active VO CH/jl; 12904; Recorded 9 4:59PM by Alicia Blount LPN (Authoriz ed through Clement Chino DO), Annotatio n/Addendu m; Refill Quantity: 30; Tablet; Not Available Not Available Not Available fiber two times daily 2018 active VO CH/jl; 82399; Recorded 9 4:59PM by Alicia Blount LPN (Authoriz ed through Clement hCino DO), Annotatio n/Addendu m; Refill Quantity: 120; Tablet; Not Available Not Available Not Available Vitamin D3 every week active 0; Recorded 9 2:22PM by Keyla Junior RN, Office Visit; Not Available Not Available Not Available metformin twice daily 2018 active VO CH/jl; 92285; Recorded 9 9:39AM by Alicia Blount LPN (Authoriz ed through Clement Chino DO), Refill Request; Refill Quantity: 180; Tablet; Not Available Not Available Not Available esomeprazo le magnesium daily 2018 active Recorded 9 2:35PM by Dary Del Valle MD, Office Visit; Refill Quantity: 30; Capsule; Not Available Not Available Not Available Trazodone at bedtime 2018 active VO CH/jl; 24092; Recorded 9 4:59PM by Alicia Blount LPN (Authoriz ed through Clement Chino DO), Annotatio n/Addendu m; Refill Quantity: 30; Tablet; Not Available Not Available Not Available olmesartan daily 2018 active VO CH/cc; 26404; Recorded 9 10:03AM by Charla Dias LPN (Authoriz ed through Clement Chino DO), Refill Request; Refill Quantity: 0; Not Available Not Available Not Available escitalopr am oxalate daily 2018 active VO CH/jl; 47739; Recorded 9 9:31AM by Alicia Blount LPN (Authoriz ed through Clement Chino DO), Refill Request; Refill Quantity: 90; Tablet; Not Available Not Available Not Available Januvia 100 mg tablet daily 2018 active VO CH/jl; 22971; Recorded 9 1:49PM by Alicia Blount LPN (Authoriz ed through Clement Chino DO), Refill Request; Refill Quantity: 90; Tablet; Not Available Not Available Not Available hydrochlor othiazide 12.5 mg tablet daily 2018 active doc JR/tn; 173; Recorded 9 12:42PM by Antonio jenkins (Authoriz ed through Terrell López MD), Refill Request; Refill Quantity: 0; Not Available Not Available Not Available Lantus Solostar U-100 Insulin 100 unit/mL (3 mL) subcutaneo us pen TAKE 60 UNITS TWICE A DAY active Not Available Not Available No t Available Accu-Chek Active two times daily 2018 active DX: DM Type 2 E11.9 VO CH/jl; 77042; Recorded 9 4:59PM by Alicia Blount LPN (Authoriz ed through Clement Chino DO), Annotatio n/Addendu m; Refill Quantity: 60; Strip; Not Available Not Available Not Available Xarelto 20 mg tablet TAKE 1 TABLET BY MOUTH EVERY DAY active Not Available Not Available No t Available Bydureon weekly 2018 active VO CH/jl DX: DM: E11.9; 87135; Recorded 9 4:59PM by Alicia Blount LPN (Authoriz ed through Clement Chino DO), Annotatio n/Addendu m; Refill Quantity: 4; QS; Not Available Not Available Not Available insulin degludec (U-100) 100 unit/mL (3 mL) subcutaneo us pen INJECT 55 UNIT (0.55 ML) SUBCUTANE OUSLY TWICE A DAY FOR 30 DAYS active Not Available Not Available No t Available BD Rosalva 2nd Gen Pen Needle 32 gauge x USE WITH INSULIN DAILY active Not Available Not Available No t Available Vitals Date Recorded Body weight Heart rate Respiratory rate Body temperature Oxygen saturation Systolic And Diastolic Provider Name and Address Organization Details Last Updated DateTime 5 210126. 53 g 82 /min 20 /min 97.2 [degF] 93 % 136/78 mm[Hg] [facility] 5 12:09:27 Date Recorded Body weight Heart rate Respiratory rate Body temperature Oxygen saturation Systolic And Diastolic Provider Name and Address Organization Details Last Updated DateTime 5 102792. 08 g 79 /min 18 /min 97.8 [degF] 96 % 128/77 mm[Hg] [facility] 5 14:21:24 Date Recorded Body weight Heart rate Respiratory rate Body temperature Oxygen saturation Systolic And Diastolic Provider Name and Address Organization Details Last Updated DateTime 5 844436. 49 g 82 /min 16 /min 97.3 [degF] 95 % 123/79 mm[Hg] [facility] 5 14:12:36 Social History None recorded. Functional Status None recorded. Mental Status None recorded. Family History Nothing Reported. Medical History No medical history recorded. Gynecological HistoryNo gynecological history recorded. Obstetrics History GPAL:G 0 P 0 0 0 0 Immunizations Vaccine Type Date Status Note Provider Nam e and Address Organization Details Recorded Time Influenza, split virus, trivalent, preservative 6 completed Not Available [facility] 11/28/2022 02:52:00 pneumococcal polysaccharide PPV23 5 completed Not Available [facility] 11/28/2022 02:52:00 Influenza, split virus, trivalent, preservative 8 completed Not Available [facility] 11/28/2022 02:52:00 pneumococcal polysaccharide PPV23 4 completed Not Available [facility] 12/13/2024 11:13:45 Past Encounters Encounter ID Performer Location Encounter Start Date Encounter Closed Date Diagnosis/Indication Diagnosis SNOMED-CT Code Diagnosis ICD10 Code Diagnosis IMO Codes Diagnosis Note [id number] Tony DO Cam [facility] ([facility]) [address] [place] [address] 5 11/27/2024 14:43:06 12/06/2024 09:00:14 Post-discharge follow-up 375356729 Z09 631282 Persistent atrial fibrillation 168973237 I48.19 084806 Essential hypertension 33488678 I10 49826 History of pulmonary embolus 423297281 Z86.711 [id number] Tony DO Cam [facility] ([facility]) [address] [place], [place] [address] 12/06/2024 12:55:30 12/12/2024 12:05:34 Persistent atrial fibrillation 706867640 I48.19 677834 Essential hypertension 03332672 I10 48252 History of pulmonary embolus 579466157 Z86.711 [id number] Tony DO Cam [facility] ([facility]) [address] [place] [address] 5 12/13/2024 11:13:12 12/18/2024 15:30:35 Persistent atrial fibrillation 901104672 I48.19 127699 Essential hypertension 26758197 I10 02503 History of pulmonary embolus 220936203 Z86.711 462157 Health Concerns Section Related Observation LastModified by Organization Detai ls LastModified Time None Recorded Concern Status LastModified by Organization Details LastModified Time None Recorded Advance Directives Directive None Recorded Payers Insurance Date Sequence Insurance Name Policy Number Policy Nye Covered Member ID Nye Member ID Guarantor Name 12/06/2024 1 [place]: [place] Melissa De Jesus [id number] Melissa De Jesus 12/18/2024 2 [employer] (MEDICARE SUPPLEMENT) Melissa De Jesus [id number] Melissa De Jesus 12/06/2024 1 *SELF PAY* Patsy De Jesus 12/06/2024 [place]ABRIEL[place] - [place] - [facility] (MEDICARE) Melissa De Jesus [id number] Melissa De Jesus Notes Date Note Type Note Provider Name and Address Organization Details Recorded Time 11/27/2024 text/html Care Management - GeneralReported by PatientHPIFor prognosis, patient reportsexpected outcome: improveandprognosis: good. For context, patient reportsnot current smoker. For medication therapy, patient reportscompliant with follow-up visits.ROS as noted in the HPI New admit after hospital follow up. Admitted for A fib. Tony Levy DO [address] [place] [address], [phone], [facility] 12/05/2024 17:19:49 12/06/2024 text/html Care Management - GeneralReported by PatientHPIFor prognosis, patient reportsexpected outcome: improveandprognosis: good. For context, patient reportsnot current smoker. For medication therapy, patient reportscompliant with follow-up visits.ROS as noted in the HPI Visit for discharge orders. Feeling well, no issues per staff. Tony LevyDO [address] [place] [address], [phone], [facility] 12/08/2024 14:34:59 12/11/2024 text/html Care Management - GeneralReported by PatientHPIFor prognosis, patient reportsexpected outcome: improveandprognosis: good. For context, patient reportsnot current smoker. For medication therapy, patient reportscompliant with follow-up visits.ROS as noted in the HPI Visit for discharge orders. Feeling well, no issues per staff. Tony LevyDO [address] [place] [address], [phone], [facility] 12/17/2024 14:57:52 OBGyn Episode No OBEpisode recorded.
--- NOTE | 2025-04-23 15:58 | USR_ITS ---
PROCEDURE INFORMATION: Exam: US Duplex Left Lower Extremity Veins, Limited Exam date and time: 04/23/2025 4:16 PM Age: 75 years old Clinical indication: Left leg pain and swelling TECHNIQUE: Imaging protocol: Real-time duplex ultrasound of the left extremity with 2-D nguyễn scale, color Doppler flow and spectral waveform analysis including responses to compression and other maneuvers (when performed) with image documentation. Limited exam focused on the left lower extremity veins. COMPARISON: CT abdomen pelvis w con* [id number] 12/12/2022 2:32 PM FINDINGS: Left deep veins: Unremarkable. The common femoral, femoral, proximal profunda femoral and popliteal veins are patent without thrombus. Normal Doppler waveforms. Normal compressibility and/or augmentation response. Superficial veins: Greater saphenous vein at the saphenofemoral junction is patent without thrombus. Soft tissues: Unremarkable. US/CV venous duplex [facility] [id number] IMPRESSION: No evidence of deep vein thrombosis.
[2025-04-23 16:00] VITALS: BP 182/110; PULSE 99; RESP 18; TEMP 36.9; O2SAT 98
--- NOTE | 2025-04-23 16:49 | XRR_ITS ---
PROCEDURE INFORMATION: Exam: XR Left Knee Exam date and time: 04/23/2025 4:54 PM Age: 75 years old Clinical indication: Left knee trauma TECHNIQUE: Imaging protocol: Radiologic exam of the left knee. Views: 3 views. COMPARISON: [place] [id number] 04/23/2025 4:16 PM FINDINGS: Bones/joints: Left total knee arthroplasty. Hardware is intact without periprosthetic lucency. No periprosthetic fracture. Soft tissues: Normal. XR/XR knee LT 3V* [id number] IMPRESSION: No acute osseous abnormality.
--- NOTE | 2025-04-23 16:50 | W.ED.EXTPRO ---
HPI - Extremity Problem General: Chief complaint: Extremity Injury, Lower Stated complaint: L leg pain, warm to touch, swelling, discoloration Time Seen by Provider: 04/23/25 16:37 History of Present Illness: 75-year-old female presents emergency room she fell last week a day has some ecchymosis on her left knee where she landed. She has been partially weightbearing since she has a history of DVT and PE she was previously on Xarelto but lost her prescription and has not replaced it. She also has a history of atrial fibrillation. She has been taking aspirin. No chest pain no shortness of breath. No fever sweats or chills. Associated symptoms: Deny chest pain, fever(s) or rash Related Data Home Medications ?Medication ?Instructions ?Recorded ?Confirmed cholecalciferol (vitamin D3) 50 50 mcg PO DAILY 10/16/24 04/05/25 mcg (2,000 unit) capsule diphenhydramine HCl 25 mg tablet 25 mg PO DIRECTED PRN allergy 11/12/24 04/05/25 (Benadryl Allergy) symptoms losartan 50 mg tablet 25 mg PO DAILY 12/04/24 04/05/25 Previous Rx's ?Medication ?Instructions ?Recorded lift recliner #1 ea 05/12/22 blood sugar diagnostic (Accu-Chek #200 ea 10/01/22 Leeann Plus test strips) upright wheeled walker #1 ea 03/16/23 lancets (Accu-Chek Softclix #200 ea 04/23/23 Lancets) BIPAP with 17/04 with Oxygen with #1 ea 09/09/23 supplies atorvastatin 20 mg tablet 40 mg (2 x 20 mg) PO DAILY #360 05/18/24 tabs pregabalin 50 mg capsule 50 mg PO TID #270 caps 07/27/24 tizanidine 2 mg tablet See Rx Instructions .Route 07/27/24 .COMPLEX #270 tabs venlafaxine 75 mg capsule,extended See Rx Instructions .Route 07/27/24 release 24 hr .COMPLEX #90 caps albuterol sulfate 90 mcg/actuation 2 inh inhalation Q8H PRN shortness 08/24/24 aerosol inhaler (Ventolin HFA) of breath or wheezing #6.7 grams acarbose 25 mg tablet 25 mg PO TID PRN high bs #270 tabs 10/03/24 buspirone 5 mg tablet 5 mg PO BID PRN anxiety #90 tabs 10/26/24 wheel chair #1 ea 11/09/24 magnesium oxide 400 mg (241.3 mg 400 mg PO DAILY #30 tabs 11/16/24 magnesium) tablet nitroglycerin 0.4 mg sublingual 0.4 mg sublingual Q5M PRN Chest 11/16/24 tablet Pain #20 tabs albuterol sulfate 0.63 mg/3 mL 0.63 mg (3 mL) inhalation Q8H PRN 11/20/24 solution for nebulization bronchospasm #90 mL insulin lispro 100 unit/mL See Rx Instructions .Route 11/20/24 subcutaneous solution (Humalog .COMPLEX #10 mL U-100 Insulin) isosorbide mononitrate 30 mg 30 mg PO DAILY #180 tabs 11/21/24 tablet,extended release 24 hr fluoxetine 10 mg tablet 10 mg PO DAILY #90 tabs 11/27/24 amiodarone 200 mg tablet (Pacerone) 200 mg PO DAILY #90 tabs 01/23/25 potassium chloride 20 mEq 20 meq PO DAILY #90 tabs 01/23/25 tablet,extended release(part/cryst) (Klor-Con M) trazodone 100 mg tablet See Rx Instructions .Route 02/15/25 .COMPLEX #90 tabs Basaglar KwikPen U-100 Insulin 100 See Rx Instructions .Route 02/22/25 unit/mL (3 mL) subcutaneous .COMPLEX #15 mL (insulin glargine) pen needle, diabetic 32 gauge x #1,200 ea 03/12/25 (Rosalva 2nd Gen Pen Needle) rivaroxaban 20 mg tablet (Xarelto) See Rx Instructions .Route 03/19/25 .COMPLEX #90 tabs tirzepatide 2.5 mg/0.5 mL 2.5 mg (0.5 mL) SUBCUT Q7D #2 mL 03/22/25 subcutaneous pen injector (Nat) alprazolam 0.25 mg tablet (Xanax) 0.25 mg PO DAILY PRN anxiety #14 04/05/25 tabs pantoprazole 40 mg tablet,delayed 40 mg PO BID #180 tabs 04/05/25 release tramadol 50 mg tablet 50 mg PO Q6H PRN pain 30 days #30 04/05/25 tabs furosemide 40 mg tablet 40 mg PO DAILY@0800 #90 tabs 04/06/25 allopurinol 100 mg tablet See Rx Instructions .Route 04/19/25 .COMPLEX #90 tabs rivaroxaban 20 mg tablet (Xarelto) 20 mg PO DAILY #30 tabs 04/24/25 Allergies Allergy/AdvReac Type Severity Reaction Status Date / Time Iodinated Contrast Media Allergy Unknown Verified 04/05/25 13:51 meperidine (From Demerol) Allergy HIVES Verified 04/05/25 13:51 shellfish derived Allergy ANAPHYLAXIS Verified 04/05/25 13:51 cortisone AdvReac Mild high blood Verified 04/05/25 13:51 sugar Review of Systems Const: Denies: fever(s) or chills Card: Reports: swelling of feet/ankles (Left); Denies: chest pain Resp: Denies: dyspnea GI: Denies: abdominal pain : Denies: dysuria, urinary frequency or urinary urgency Musc: Denies: neck pain or back pain Skin/Breast: Denies: rash PFSH ED PFSH: Medical History Scratch of right lower leg Paroxysmal atrial fibrillation new onset Throat irritation Pulmonary embolism on left Pancreatic mass On CT imaging from 01/2023, stable cystic mass measuring 7 mm in the tail of the pancreas. No interval change since 2019. Lumbar stenosis with neurogenic claudication Spinal cord stimulator status Gout Urinary incontinence Obstructive sleep apnea On bipap, settings 16/12 with 2 lpm oxygen 3 para 3 Uncontrolled type 2 diabetes mellitus with hyperglycemia COVID-19 (~2021) Diverticulitis Essential (primary) hypertension Depression Gastroesophageal reflux disease without esophagitis Insomnia, controlled Hyperlipidemia Diabetic neuropathy Surgical History S/P total knee arthroplasty bilateral History of cardiac catheterization 08/2022 - 40% LAD, no other significant disease noted Status post total right knee replacement History of colonoscopy History of back surgery s/p fusion L3-L5 History of neck surgery H/O: hysterectomy S/P cholecystectomy S/p bilateral carpal tunnel release Status post total knee replacement, left Remote Family History Other CAD (coronary artery disease) Diabetes Social History Smoking and tobacco/nicotine status: never used tobacco/nicotine Second hand smoke exposure: Yes (as a child (father smoked)) Alcohol intake: current Alcohol intake frequency: holidays/special occasions only Substance/Drug Use: never Lives independently: Yes Household members: spouse Marital status: Do you think of yourself as: Straight/Heterosexual Current gender identity: Female Female Reproductive History: Para: 3 Spontaneous abortions: No Physical Exam Const: COMMON NORMALS: no acute distress GENERAL APPEARANCE: cooperative and comfortable ORIENTATION/CONSCIOUSNESS: Yes awake, Yes oriented to person, Yes oriented to place and Yes oriented to time HENMT: COMMON NORMALS: normocephalic, atraumatic and hearing grossly normal bilaterally HEAD & SCALP: normocephalic and atraumatic Resp: COMMON NORMALS: normal respiratory effort, No retractions, No use of accessory muscles and clear to auscultation bilaterally AUSCULTATION: clear to auscultation bilaterally Cardio: COMMON NORMALS: regular rate, regular rhythm and No murmurs present (Cardio) RATE: regular rate RHYTHM: regular rhythm GI: COMMON NORMALS: Soft to palpation and No hepatosplenomegaly present AUSCULTATION: Yes normoactive bowel sounds PALPATION: Yes Soft to palpation, No Tenderness to palpation present (GI), No Guarding due to palpation present (GI) and Yes No hepatosplenomegaly present Extremity: COMMON NORMALS: normal to inspection, capillary refill normal and no calf tenderness OTHER: Mild chronic appearing swelling of the left lower leg at the ankle and distal lower extremity. Neurovascularly intact negative Homans Neuro: SENSORIUM/ORIENTATION: Yes oriented to person, Yes oriented to place and Yes oriented to time Skin: COMMON NORMALS: no rashes or lesions noted GENERAL SKIN EXAM: no rashes or lesions noted Course Vital Signs: Vital signs: Vital Signs Temperature 98.5 F 04/23/25 16:00 Pulse Rate 99 04/23/25 16:00 Respiratory Rate 18 04/23/25 16:00 Blood Pressure 182/110 04/23/25 16:00 Pulse Oximetry 98 04/23/25 16:00 Oxygen Delivery Me thod Room Air 04/23/25 16:00 MDM - Extremity (Nontraumatic) Medical Decision Making Medical decision making Social determinants: Difficulty with medications recently lost her Xarelto prescription unable to refill due to cost. Insurance will not refill until she is due the first part of May I reviewed the patient's medical record. I reviewed the patient's current home meds. Alternate historians: None Differential diagnosis: Extension of DVT, lower leg swelling Lab Review: CBC negative Imaging: Venous duplex no acute findings, x-ray knee normal Assessment of risk Level of risk: High Hospitalization considerations: No indication for hospitalization at this time Reexamination: Unchanged Assessment and plan: Prescription sent in for Xarelto. Patient has been taking full dose aspirin at home and lieu of her Xarelto. Discussed that it is really important that she gets back on the Xarelto. With the 3 40B current program to the hospital it should be significantly cheaper than straight baptiste torrez we sent a prescription in for her and we will have her follow-up with her primary care doctor return if she has further problems. Ecchymosis on the knee should resolve spontaneously. Reviewed that the x-ray done today is negative for any fracture or abnormality around the arthroplasty. Lab Data 04/23/25 16:40 Radiology Impressions Venous Duplex 04/23/25 15:58 IMPRESSION: No evidence of deep vein thrombosis. Knee X-Ray 04/23/25 16:49 IMPRESSION: No acute osseous abnormality. Laboratory Results WBC 8.61 10^3/uL (3.29-11.43) 04/23/25 16:40 RBC 4.33 10^6/uL (3.85-5.65) 04/23/25 16:40 Hgb 12.50 g/dL (11.27-16.99) 04/23/25 16:40 Hct 39.7 % (36-47) 04/23/25 16:40 MCV 91.7 fl (85-98) 04/23/25 16:40 MCH 28.9 pg (27-33) 04/23/25 16:40 MCHC 31.5 g/dL (30-55) 04/23/25 16:40 RDW 15.4 % (12.1-15.1) H 04/23/25 16:40 Plt Count 191 10^3/cmm (157-399) 04/23/25 16:40 MPV 10.6 fL (7.4-10.4) H 04/23/25 16:40 Neut % (Auto) 61.9 % 04/23/25 16:40 Lymph % (Auto) 23.5 % 04/23/25 16:40 [place] % (Auto) 6.3 % 04/23/25 16:40 Eos % (Auto) 6.9 % 04/23/25 16:40 Baso % (Auto) 0.6 % 04/23/25 16:40 Neut # (Auto) 5.34 10^3/uL (1.8-7.7) 04/23/25 16:40 Lymph # (Auto) 2.0 10^3/uL (0.8-4.8) 04/23/25 16:40 [place] # (Auto) 0.5 10^3/uL (0.2-0.9) 04/23/25 16:40 Eos # (Auto) 0.6 10^3/uL (0.0-0.8) 04/23/25 16:40 Baso # (Auto) 0.1 10^3/uL (0.0-0.1) 04/23/25 16:40 Nucleated RBC % (auto) 0 % 04/23/25 16:40 Nucleated RBCs # 0.0 /100WBC 04/23/25 16:40 All radiology interpretation(s) finalized by discharge Discharge Plan Discharge Patient Disposition: Home Clinical Impression: Fall, Traumatic ecchymosis of left knee Condition: Stable Prescriptions: New Xarelto 20 mg tablet 20 mg PO DAILY Qty: 30 0RF Rx Instructions: must administer with evening meal No Action (DME) lift recliner See Rx Instructions .Route .MEDSUPPLY Qty: 1 0RF Rx Instructions: As directed albuterol sulfate [Ventolin HFA] 90 mcg/actuation HFA aerosol inhaler 2 inh inhalation Q8H PRN (Reason: shortness of breath or wheezing) Qty: 6.7 0RF acarbose 25 mg tablet 25 mg PO TID PRN (Reason: high bs) Qty: 270 1RF (DME) wheel chair See Rx Instructions .Route .MEDSUPPLY Qty: 1 0RF Rx Instructions: length of need 90 days (DME) Accu-Chek Leeann Plus test strp Strip See Rx Instructions .ROUTE .MEDSUPPLY Qty: 200 1RF Rx Instructions: ONE DAILY (DME) lancets [Accu-Chek Softclix Lancets] Misc See Rx Instructions .Route Qty: 200 0RF Rx Instructions: As directed (DME) upright wheeled walker See Rx Instructions .Route .MEDSUPPLY Qty: 1 0RF Rx Instructions: As directed cholecalciferol (vitamin D3) 50 mcg (2,000 unit) capsule 50 mcg PO DAILY losartan 50 mg tablet 25 mg PO DAILY pantoprazole 40 mg tablet,delayed release (DR/EC) 40 mg PO BID Qty: 180 0RF alprazolam [Xanax] 0.25 mg tablet 0.25 mg PO DAILY PRN (Reason: anxiety) Qty: 14 0RF tramadol 50 mg tablet 50 mg PO Q6H PRN (Reason: pain) 30 Days Qty: 30 0RF (DME) BIPAP with 16/12 with Oxygen with supplies See Rx Instructions .Route .MEDSUPPLY Qty: 1 0RF Rx Instructions: As directed atorvastatin 20 mg tablet 40 mg PO DAILY Qty: 360 3RF pregabalin 50 mg capsule 50 mg PO TID Qty: 270 1RF tizanidine 2 mg tablet See Rx Instructions .ROUTE .COMPLEX Qty: 270 0RF Dose Instruction: TAKE 1 TABLET BY MOUTH THREE TIMES DAILY NEEDED FOR MUSCLE SPASMS Rx Instructions: TAKE 1 TABLET BY MOUTH THREE TIMES DAILY NEEDED FOR MUSCLE SPASMS venlafaxine 75 mg capsule,extended release 24hr See Rx Instructions .ROUTE .COMPLEX Qty: 90 0RF Dose Instruction: TAKE 1 CAP BY MOUTH DAILY ALONG WITH THE 150 MG TO =225MG TOTAL Rx Instructions: TAKE 1 CAP BY MOUTH DAILY ALONG WITH THE 150 MG TO =225MG TOTAL buspirone 5 mg tablet 5 mg PO BID PRN (Reason: anxiety) Qty: 90 0RF fluoxetine 10 mg tablet 10 mg PO DAILY Qty: 90 0RF amiodarone [Pacerone] 200 mg tablet 200 mg PO DAILY Qty: 90 3RF potassium chloride [Klor-Con M20] 20 mEq tablet,ER particles/crystals 20 meq PO DAILY Qty: 90 3RF trazodone 100 mg tablet See Rx Instructions .ROUTE .COMPLEX Qty: 90 0RF Dose Instruction: TAKE 1 TABLET BY MOUTH EVERYDAY AT BEDTIME Rx Instructions: TAKE 1 TABLET BY MOUTH EVERYDAY AT BEDTIME insulin glargine [Basaglar KwikPen U-100 Insulin] 100 unit/mL (3 mL) insulin pen See Rx Instructions .ROUTE .COMPLEX Qty: 15 3RF Dose Instruction: INJECT 55 UNITS SUBCUTANEOUSLY TWICE A DAY FOR 30 DAYS Rx Instructions: INJECT 55 UNITS SUBCUTANEOUSLY TWICE A DAY FOR 30 DAYS (DME) pen needle, diabetic [Rosalva 2nd Gen Pen Needle] 32 gauge x 5/32 needle See Rx Instructions .ROUTE .COMPLEX Qty: 1200 1RF Dose Instruction: USE WITH INSULIN DAILY Rx Instructions: USE WITH INSULIN DAILY Xarelto 20 mg tablet See Rx Instructions .ROUTE .COMPLEX Qty: 90 3RF Dose Instruction: TAKE 1 TABLET BY MOUTH EVERY EVENING Rx Instructions: TAKE 1 TABLET BY MOUTH EVERY EVENING Mounjaro 2.5 mg/0.5 mL pen injector 2.5 mg SUBCUT Q7D Qty: 2 0RF furosemide 40 mg tablet 40 mg PO DAILY@0800 Qty: 90 3RF allopurinol 100 mg tablet See Rx Instructions .ROUTE .COMPLEX Qty: 90 0RF Dose Instruction: TAKE 1 TABLET BY MOUTH EVERY DAY Rx Instructions: TAKE 1 TABLET BY MOUTH EVERY DAY diphenhydramine HCl [Benadryl Allergy] 25 mg tablet 25 mg PO DIRECTED PRN (Reason: allergy symptoms) Rx Instructions: Take 50mg (2 tabs) 1 hour prior to procedure. magnesium oxide 400 mg (241.3 mg magnesium) Tablet 400 mg PO DAILY Qty: 30 0RF nitroglycerin 0.4 mg Tablet, Sublingual 0.4 mg sublingual Q5M PRN (Reason: Chest Pain) Qty: 20 0RF insulin lispro [Humalog U-100 Insulin] 100 unit/mL Solution See Rx Instructions .ROUTE .COMPLEX Qty: 10 0RF Rx Instructions: inject, subcut, three times daily after meals based on moderate dose insulin sliding scale albuterol sulfate 0.63 mg/3 mL solution for nebulization 0.63 mg inhalation Q8H PRN (Reason: bronchospasm) Qty: 90 0RF isosorbide mononitrate 30 mg tablet extended release 24 hr 30 mg PO DAILY Qty: 180 3RF Discharge Orders: Discharge ED (Routine); Ordered 04/23/25 Ordered By: Clement Chino Referrals: Devi Shaw DO [Primary Care Provider, Family Practice] Patient Instructions: Opioid Safety, Pain Management, Patient Portal & Emilie Instructions Activity Restrictions/Additional Instructions: Thank you for choosing [facility] for your healthcare needs today. It is very important that you follow up as instructed or that you return to the Emergency Department should you have concerns or if your condition changes or worsens in any way. Emergency department visits are focused on emergent conditions, in some cases you may require further evaluation on an outpatient basis. You were seen in the emergency room concerned about the swelling in your leg. There is evidence of ecchymosis in the leg from the fall x-ray of the knee does not show any acute fracture. Ultrasound does not show any DVT. We sent a prescription in for you to refill your Xarelto. You should continue to take this given your history of DVT and PE. Follow-up with your primary care doctor. (Please note that included in your discharge packet is information concerning opioid safety and pain management. This information is given to all patients were discharged from the ER regardless of their discharge diagnosis or the medicines they usually take or are prescribed.) Print Language: [place] Coding Level of Care Code ED [employer] for Ben Salomon
[2025-04-23 16:53] LABS: Hematocrit 39.7 % (36-47); Hemoglobin 12.50 g/dL (11.27-16.99); Mean Corpuscular HGB Conc 31.5 g/dL (30-55); Mean Corpuscular Hemoglobin 28.9 pg (27-33); Mean Corpuscular Volume 91.7 fl (85-98); Nucleated Red Blood Cells % 0 %; Platelet Count 191 10^3/cmm (157-399); Red Blood Count 4.33 10^6/uL (3.85-5.65); White Blood Count 8.61 10^3/uL (3.29-11.43)
== END 2025-04-23 17:44 | disposition home or self-care (01) ==
PROVIDERS: Emergency Provider Family Medicine; PCP Family Medicine
DX: S80.02XA Contusion of left knee, initial encounter (principal); Z79.4 Long term (current) use of insulin; E11.40 Type 2 diabetes mellitus with diabetic neuropathy, unspecified; E78.5 Hyperlipidemia, unspecified; I10 Essential (primary) hypertension; W19.XXXA Unspecified fall, initial encounter
CPT/HCPCS: 36415; 73562; 85025; 93971; 99284

== ENCOUNTER → 2025-04-30 08:05 | Outpatient (BNVA) | payer MEDICARE, OTHER, SELFPAY | PROVIDERS: PCP Family Medicine; Visit Provider Internal Medicine Endocrinology, Diabetes & Metabolism | DX: E11.65 Type 2 diabetes mellitus with hyperglycemia (principal); E78.2 Mixed hyperlipidemia; R00.1 Bradycardia, unspecified | CPT/HCPCS: 99214 ==